=== PATIENT | female | born 1970 | race Caucasian/White ===

== ENCOUNTER 2023-03-17 08:22 | Outpatient (OUT) | payer OTHER, SELFPAY ==
[2023-03-17 09:20] LABS: Basophils Absolute Auto 0.1 10^3/uL (0.0-0.1); Eosinophils Absolute Auto 0.1 10^3/uL (0.0-0.7); Eosinophils Percent Auto 1.5 % (0.9-7.0); Hematocrit 39.1 % (36.0-48.0); Hemoglobin 12.1 g/dL (12.0-16.0); Immature Granulocytes Abs Auto 0.02 10^3/uL (0.00-0.03); Immature Granulocytes Pct Auto 0.3 % (0.0-0.5); Lymphocytes Absolute Auto 1.9 10^3/uL (1.2-3.8); Lymphocytes Percent Auto 26.4 % (20.5-60.0); Mean Corpuscular HGB Conc 30.9 g/dL (29.9-35.2); Mean Corpuscular Hemoglobin 28.8 pg (26.7-34.0); Mean Corpuscular Volume 93.1 fL (81.0-99.0); Mean Platelet Volume 9.3 fL (9.5-13.5); Monocytes Absolute Auto 0.6 10^3/uL (0.3-0.8); Monocytes Percent Auto 8.6 % (1.7-12.0); Neutrophils Absolute Auto 4.5 10^3/uL (1.4-6.5); Neutrophils Percent Auto 62.2 % (43.0-75.0); Platelet Count 233 10^3/uL (150-450); Red Cell Distribution Width 13.2 % (11.0-15.0); White Blood Count 7.2 10^3/uL (4.0-11.0)
== END 2023-03-17 08:23 | disposition home or self-care (01) ==
LOC: LAB 08:27
PROVIDERS: Visit Provider Family Medicine
DX: H02.839 Dermatochalasis of unspecified eye, unspecified eyelid (principal); H57.813 Brow ptosis, bilateral
CPT/HCPCS: 36415; 85025

== ENCOUNTER 2023-05-19 10:38 | Outpatient (OUT) | payer OTHER, SELFPAY ==
--- NOTE | 2023-05-19 10:41 | MM_ITS ---
Patient Name: SHAHBAZ ASHLEY MR#: [id number] : 1970 Exam Date: 05/19/2023 Ordering Doctor: DR YUNIOR MASTERSON . RADIOLOGY REPORT PROCEDURE: MM TOMOSYNTHESIS SCREENING BI COMPARISON: MG MAMM SCREEN SANG W CAD, 02/08/2020. INDICATIONS: screening Calculator Name NCI Breast Cancer Risk Assessment Tool 5 Year Breast Cancer Risk 1.00% Lifetime Breast Cancer Risk 7.50% Personal Breast Cancer No Personal Ovarian Cancer No Treatments None Family Cancers Grandmother-maternal with ovarian cancer at age ~55; Mother with uterus cancer at age 22; Nephew with brain cancer at age 19. LOCATION: [facility] BREAST COMPOSITION: Scattered areas fibroglandular density. FINDINGS: DIAGNOSTIC CATEGORY 2--BENIGN FINDING. NO CHANGE FROM COMPARISON. Scattered benign-appearing nodules are present. Scattered benign-appearing calcifications are present. Scattered benign-appearing lymph nodes are present. RIGHT BREAST: No significant suspicious finding. LEFT BREAST: No significant suspicious finding. RECOMMENDATIONS: ROUTINE MAMMOGRAM AND CLINICAL EVALUATION IN 12 MONTHS. PLEASE NOTE: A NORMAL MAMMOGRAM DOES NOT EXCLUDE THE POSSIBILITY OF BREAST CANCER. A CLINICALLY SUSPICIOUS PALPABLE LUMP SHOULD BE BIOPSIED. Dictated by: Luis Hall MD on 05/19/2023 at 12:03 Approved by: Luis Hall MD on 05/19/2023 at 12:04
--- NOTE | 2023-05-19 10:42 | XR_ITS ---
[address] [address] Patient Name: SHAHBAZ ASHLEY MRN: [id number] date: 1970 Sex: F Assigned Patient Location: [facility] Current Patient Location: [facility] Accession/Order Number: [id number] Exam Date: 05/19/2023 11:07 Report Date: 05/19/2023 11:38 At the request of: YUNIOR MASTERSON Procedure: XR DEXA axial skeleton EXAMINATION: XR DEXA axial skeleton, 05/19/2023 11:07 AM EST HISTORY: age related osteoporosis M81.0 COMPARISON: 2019. TECHNIQUE: Dual-energy X-ray absorptiometry (DEXA) bone density study performed for the axial skeleton. HISTORY: age related osteoporosis M81.0 FINDINGS: Bone mineral density left femoral trochanter measures 0.643 g/sq cm. T score -1.8. WHO classification: Osteoporosis Bone mineral density total femurs measures 0.86 g/sq cm. T score -1.0. WHO classification: Normal XR/XR DEXA axial skeleton IMPRESSION: Osteoporosis. High fracture risk Electronically authenticated by: JOVANA RECINOS Date: 05/19/2023 11:38
== END 2023-05-19 10:39 | disposition home or self-care (01) ==
LOC: MAMMO 10:38
PROVIDERS: PCP Family Medicine; Visit Provider Family Medicine
DX: M81.0 Age-related osteoporosis without current pathological fracture (principal); Z12.31 Encounter for screening mammogram for malignant neoplasm of breast; E78.00 Pure hypercholesterolemia, unspecified; R53.83 Other fatigue; E16.1 Other hypoglycemia; Z02.89 Encounter for other administrative examinations; E03.9 Hypothyroidism, unspecified; E55.9 Vitamin D deficiency, unspecified; Z80.41 Family history of malignant neoplasm of ovary; Z80.8 Family history of malignant neoplasm of other organs or systems
CPT/HCPCS: 77063; 77067; 77080

== ENCOUNTER 2023-06-11 09:07 | Outpatient (OUT) | payer OTHER, SELFPAY ==
[2023-06-11 10:11] LABS: Basophils Percent Auto 0.7 % (0.2-2.0); Eosinophils Absolute Auto 0.1 10^3/uL (0.0-0.7); Eosinophils Percent Auto 1.1 % (0.9-7.0); Hematocrit 41.7 % (36.0-48.0); Hemoglobin 12.9 g/dL (12.0-16.0); Immature Granulocytes Abs Auto 0.01 10^3/uL (0.00-0.03); Immature Granulocytes Pct Auto 0.2 % (0.0-0.5); Lymphocytes Absolute Auto 1.4 10^3/uL (1.2-3.8); Lymphocytes Percent Auto 22.5 % (20.5-60.0); Mean Corpuscular HGB Conc 30.9 g/dL (29.9-35.2); Mean Corpuscular Hemoglobin 27.9 pg (26.7-34.0); Mean Corpuscular Volume 90.3 fL (81.0-99.0); Mean Platelet Volume 9.3 fL (9.5-13.5); Monocytes Absolute Auto 0.5 10^3/uL (0.3-0.8); Monocytes Percent Auto 8.8 % (1.7-12.0); Neutrophils Absolute Auto 4.1 10^3/uL (1.4-6.5); Neutrophils Percent Auto 66.7 % (43.0-75.0); Platelet Count 204 10^3/uL (150-450); Red Blood Count 4.62 10^6/uL (4.20-5.40); Red Cell Distribution Width 13.8 % (11.0-15.0); White Blood Count 6.1 10^3/uL (4.0-11.0)
[2023-06-11 10:46] LABS: Alanine Aminotransferase 70 U/L (14-59); Albumin Globulin Ratio 0.9; Albumin Level 3.6 g/dL (3.4-5.0); Alkaline Phosphatase 130 U/L (46-116); Anion Gap 13.1; Aspartate Amino Transferase 100 U/L (15-37); BUN Creatinine Ratio 17.2; Bilirubin Total 0.5 mg/dL (0.2-1.0); Chloride 101 mmol/L (98-107); Chol HDL Ratio 2.1; Cholesterol 159 mg/dL (<=200); Estimated GFR (African America >60 (>=60); Estimated GFR (Non-African Ame >60 (>=60); Free T3 1.82 pg/mL (2.18-3.98); Globulin 4.2 g/dL; Glucose 80 mg/dL (74-106); HDL Cholesterol 74 mg/dL (40-60); Potassium 4.1 mmol/L (3.5-5.1); Sodium 141 mmol/L (136-145); Total Protein 7.8 g/dL (6.4-8.2); Triglycerides 41 mg/dL (<=150); VLDL CHOLESTEROL 8.2 mg/dL
[2023-06-11 11:35] LABS: Estimated Average Glucose 88 mg/dL; Glycohemoglobin A1C 4.7 % (4.5-6.2)
== END 2023-06-11 09:08 | disposition home or self-care (01) ==
LOC: LAB 09:08
PROVIDERS: PCP Family Medicine; Visit Provider Family Medicine
DX: Z00.00 Encounter for general adult medical examination without abnormal findings (principal); E78.5 Hyperlipidemia, unspecified; R73.09 Other abnormal glucose; I10 Essential (primary) hypertension; R53.83 Other fatigue
CPT/HCPCS: 36415; 80053; 80061; 82306; 83036; 84436; 84443; 84481; 85025

== ENCOUNTER 2024-01-13 09:19 | Outpatient (OUT) | payer OTHER, SELFPAY ==
--- OUTSIDE RECORDS SUMMARY | 2024-01-13 09:35 | XMS_ITS | CCD ---
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 2 views CLINICAL HISTORY: Follow-up left the tibial IM nailing. COMPARISON: Left tib-fib series 05/14/2022 FINDINGS: No evidence of hardware complication. No significant change in fracture alignment since the prior study. Tibial fracture is less conspicuous with callus formation suggestive of healing. Minimal healing response is seen involving the mid fibular fracture. Soft tissue swelling is noted. Visualized knee joint demonstrates degenerative change. Ankle mortise appears intact. XR/XR tibia fibula LT 2V* IMPRESSION: HEALING MID TIBIAL FRACTURE WITHOUT EVIDENCE OF HARDWARE COMPLICATION. MINIMAL HEALING RESPONSE SEEN INVOLVING THE FIBULAR FRACTURE. Impression dictated by: Cale Logan Jr., D.OJah06/25/2022 12:02 PM Dictation Location: [place] [address] Transcribed By: [facility] 06/25/22 1202 Dictated By: Cale Logan Jr DO 06/25/22 1201 Signed By: 06/25/22 1202 [facility] XR tibia fibula LT 2V* [facility] [employer] Other XR tibia fibula LT 2V* [facility] [employer] Other XR tibia fibula LT 2V* [address] [place] [address] [employer] Other XR tibia fibula LT 2V* [place] [address] [employer] Other XR tibia fibula LT 2V* XRay Report N [facility] [employer] Other XR tibia fibula LT 2V* Signed No rt [employer] Other XR tibia fibula LT 2V* Patient: Christiane Ashley MR#: [id number] [employer] Other XR tibia fibula LT 2V* 01 No rt [employer] Other XR tibia fibula LT 2V* : 1970 Acct:[id number] [employer] Other XR tibia fibula LT 2V* Age/Sex: 51 / F A DM Date: 06/25/22 [employer] Other XR tibia fibula LT 2V* [place] [facility] [place]: Type: [facility] [employer] Other XR tibia fibula LT 2V* Attending Dr: Nahid Vasquez II, MD [employer] Other XR tibia fibula LT 2V* Copies to: Aquiles Vasquez MD [employer] Other XR tibia fibula LT 2V* Ordering Provider : Aquiles Vasquez MD [employer] Other XR tibia fibula LT 2V* Date of Service: 06/25/22 [employer] Other XR tibia fibula LT 2V* XR/XR tibia fibula LT 2V*: Closed displaced comminuted fracture of shaft [employer] Other XR tibia fibula LT 2V* of left tibia, [employer] Other XR tibia fibula LT 2V* LEFT TIBIA AND FIBULA - - 2 views [employer] Other XR tibia fibula LT 2V* CLINICAL HISTORY: Follow-up left the tibial IM nailing. [employer] Other XR tibia fibula LT 2V* COMPARISON: Left tib-fib series 05/14/2022 [employer] Other XR tibia fibula LT 2V* FINDINGS: No rt [employer] Other XR tibia fibula LT 2V* No evidence of hardware complication. No significant change in fracture alignment since the prior [employer] Other XR tibia fibula LT 2V* study. Tibial fracture is less conspicuous with callus formation suggestive of healing. Minimal [employer] Other XR tibia fibula LT 2V* healing response is seen involving the mid fibular fracture. Soft tissue swelling is noted. [employer] Other XR tibia fibula LT 2V* Visualized knee joint demonstrates degenerative change. Ankle mortise appears intact. [employer] Other XR tibia fibula LT 2V* 5 XR/XR tibia fibula LT 2V* [employer] Other XR tibia fibula LT 2V* IMPRESSION: N [employer] Other XR tibia fibula LT 2V* HEALING MID TIBIA L FRACTURE WITHOUT EVIDENCE OF HARDWARE COMPLICATION. [employer] Other XR tibia fibula LT 2V* MINIMAL HEALING RESPONSE SEEN INVOLVING THE FIBULAR FRACTURE. [employer] Other XR tibia fibula LT 2V* Impression dictat ed by: Cale Logan Jr., D.O.06/25/2022 12:02 PM [employer] Other XR tibia fibula LT 2V* Dictation Locatio n: RADIO-PC-08 [employer] Other XR tibia fibula LT 2V* Transcribed By: Catrachita RAMIREZ 06/25/22 1202 [employer] Other XR tibia fibula LT 2V* Dictated By: Yared Logan Jr, DO 06/25/22 1201 [employer] Other XR tibia fibula LT 2V* Signed By: No rt [employer] Other XR tibia fibula LT 2V* 06/25/22 1202 [employer] Other XR tibia fibula LT 2V*on XR tibia fibula LT 2V* [facility] [place] [address] [place] [address] XRay Report Signed Patient: Christiane Ashley MR#: [id number] 01 : 1970 Acct:[id number] Age/Sex: 51 / F ADM Date: 05/14/22 Loc: [facility] [place]: Type: [facility] Attending Dr: Aquiles Vasquez II, MD Copies to: Aquiles Vasquez MD Ordering Provider: Aquiles Vasquez MD Date of Service: 05/14/22 XR/XR tibia fibula LT 2V*: Closed displaced comminuted fracture of shaft of left tibia, XR tibia fibula LT 2V* 05/14/2022 9:06 AM SIGNS AND SYMPTOMS: Status post left tibial nailing, increasing left lower leg pain PROTOCOL: Frontal and lateral radiograph of the left tibia and fibula COMPARISON: 04/16/2022 FINDINGS: Transverse aortic fractures are noted in the shaft of the tibia and fibula status post intramedullary bettye fixation of the tibia. There is increasing periosteal new bone formation suggesting a healing response. Healing remains incomplete. No change in alignment. XR/XR tibia fibula LT 2V* IMPRESSION: Healing fractures of the mid shaft of the tibia and fibula are noted without change in alignment or hardware complication. Impression dictated by: Kamron Brooks M.D.05/14/2022 12:12 PM Dictation Location: [facility] Transcribed By: [facility] 05/14/22 1212 Dictated By: Kamron Brooks II, MD 05/14/22 1211 Signed By: 05/14/22 1212 [facility] XR tibia fibula LT 2V* [facility] [employer] Other XR tibia fibula LT 2V* [facility] Main [facility] [employer] Other XR tibia fibula LT 2V* [address] [place] [address] [employer] Other XR tibia fibula LT 2V* [place] [address] [employer] Other XR tibia fibula LT 2V* XRay Report N [facility] [employer] Other XR tibia fibula LT 2V* Signed No rt [employer] Other XR tibia fibula LT 2V* Patient: Christiane Ashley MR#: [id number] [employer] Other XR tibia fibula LT 2V* 01 No rt [employer] Other XR tibia fibula LT 2V* : 1970 Acct:[id number] [employer] Other XR tibia fibula LT 2V* Age/Sex: 51 / F A DM Date: 05/14/22 [employer] Other XR tibia fibula LT 2V* Loc: [facility] [place]: Type: [facility] [employer] Other XR tibia fibula LT 2V* Attending Dr: Nahid Vasquez II, MD [employer] Other XR tibia fibula LT 2V* Copies to: Aquiles Vasquez MD [employer] Other XR tibia fibula LT 2V* Ordering Provider : Aquiles Vasquez MD [employer] Other XR tibia fibula LT 2V* Date of Service: 05/14/22 [employer] Other XR tibia fibula LT 2V* XR/XR tibia fibula LT 2V*: Closed displaced comminuted fracture of shaft [employer] Other XR tibia fibula LT 2V* of left tibia, [employer] Other XR tibia fibula LT 2V* XR tibia fibula L T 2V* 05/14/2022 9:06 AM [employer] Other XR tibia fibula LT 2V* SIGNS AND SYMPTOM S: Status post left tibial nailing, increasing left lower leg pain [employer] Other XR tibia fibula LT 2V* PROTOCOL: Frontal and lateral radiograph of the left tibia and fibula [employer] Other XR tibia fibula LT 2V* COMPARISON: 04/16/2022 [employer] Other XR tibia fibula LT 2V* FINDINGS: No rt [employer] Other XR tibia fibula LT 2V* Transverse aortic fractures are noted in the shaft of the tibia and fibula status post [employer] Other XR tibia fibula LT 2V* intramedullary ro d fixation of the tibia. There is increasing periosteal new bone formation [employer] Other XR tibia fibula LT 2V* suggesting a heal ing response. Healing remains incomplete. No change in alignment. [employer] Other XR tibia fibula LT 2V* 8 XR/XR tibia fibula LT 2V* [employer] Other XR tibia fibula LT 2V* IMPRESSION: N [employer] Other XR tibia fibula LT 2V* Healing fractures of the mid shaft of the tibia and fibula are noted without change in alignment or [employer] Other XR tibia fibula LT 2V* hardware complication. [employer] Other XR tibia fibula LT 2V* Impression dictat ed by: Kamron Brooks M.D.05/14/2022 12:12 PM [employer] Other XR tibia fibula LT 2V* Dictation Locatio n: RADIO-PC-12 [employer] Other XR tibia fibula LT 2V* Transcribed By: Catrachita RAMIREZ 05/14/22 [facility] [employer] Other XR tibia fibula LT 2V* Dictated By: Kamron Brooks II, MD 05/14/22 [facility] [employer] Other XR tibia fibula LT 2V* Signed By: No rt [employer] Other XR tibia fibula LT 2V* 05/14/22 [facility] [employer] Other XR tibia fibula LT 2V*on XR tibia fibula LT 2V* [facility] [place] [address] [place] [address] XRay Report Signed Patient: Christiane Ashley MR#: [id number] 01 : 1970 Acct:[id number] Age/Sex: 51 / F ADM Date: 04/16/22 Loc: [facility] [place]: [facility] Attending Dr: Aquiles Vasquez II, MD Copies to: Aquiles Vasquez MD Ordering Provider: Aquiles Vasquez MD Date of Service: 04/16/22 XR/XR tibia fibula LT 2V*: Closed displaced comminuted fracture of shaft of left tibia, LEFT TIBIA AND FIBULA - - 2 views CLINICAL HISTORY: Closed displaced comminuted fracture of left tibia, follow-up. COMPARISON: Left tib-fib series 03/01/2022 FINDINGS: Hardware fixation of a mid tibial fracture grossly unchanged in alignment and healing compared to the prior study. Additional mid fibular fracture is also unchanged in alignment and healing. Diffuse soft tissue swelling is noted. Degenerative changes are noted involving the visualized knee joint. Ankle mortise appears intact. XR/XR tibia fibula LT 2V* IMPRESSION: NO SIGNIFICANT CHANGE IN FRACTURE FINDINGS. Impression dictated by: Cale Logan Jr., D.O.04/16/2022 2:43 PM Dictation Location: [place] [address] Transcribed By: [facility] 04/16/22 1443 Dictated By: Cale Logan Jr, 04/16/22 1441 Signed By: 04/16/22 1443 [facility] XR tibia fibula LT 2V* [facility] [employer] Other XR tibia fibula LT 2V* [facility] Main [facility] [employer] Other XR tibia fibula LT 2V* [address] [place] [address] [employer] Other XR tibia fibula LT 2V* [place] [address] [facility] [employer] Other XR tibia fibula LT 2V* XRay Report N [facility] [employer] Other XR tibia fibula LT 2V* Signed No rt [employer] Other XR tibia fibula LT 2V* Patient: Christiane Ashley MR#: [id number] [employer] Other XR tibia fibula LT 2V* 01 No rt [employer] Other XR tibia fibula LT 2V* : 1970 Acct:[id number] [employer] Other XR tibia fibula LT 2V* Age/Sex: 51 / F A DM Date: 04/16/22 [employer] Other XR tibia fibula LT 2V* Loc: [facility] Room: Type: [facility] [employer] Other XR tibia fibula LT 2V* Attending Dr: Nahid Vasquez II, MD [employer] Other XR tibia fibula LT 2V* Copies to: Aquiles Vasquez MD [employer] Other XR tibia fibula LT 2V* Ordering Provider : Aquiles Vasquez MD [employer] Other XR tibia fibula LT 2V* Date of Service: 04/16/22 [employer] Other XR tibia fibula LT 2V* XR/XR tibia fibula LT 2V*: Closed displaced comminuted fracture of shaft [employer] Other XR tibia fibula LT 2V* of left tibia, [employer] Other XR tibia fibula LT 2V* LEFT TIBIA AND FIBULA - - 2 views [employer] Other XR tibia fibula LT 2V* CLINICAL HISTORY: Closed displaced comminuted fracture of left tibia, follow-up. [employer] Other XR tibia fibula LT 2V* COMPARISON: Left tib-fib series 03/01/2022 [employer] Other XR tibia fibula LT 2V* FINDINGS: No rt [employer] Other XR tibia fibula LT 2V* Hardware fixation of a mid tibial fracture grossly unchanged in alignment and healing compared to [employer] Other XR tibia fibula LT 2V* the prior study. Additional mid fibular fracture is also unchanged in alignment and healing. [employer] Other XR tibia fibula LT 2V* Diffuse soft tiss ue swelling is noted. Degenerative changes are noted involving the visualized knee [employer] Other XR tibia fibula LT 2V* joint. Ankle mort ise appears intact. [employer] Other XR tibia fibula LT 2V* 1 XR/XR tibia fibula LT 2V* [employer] Other XR tibia fibula LT 2V* IMPRESSION: N [employer] Other XR tibia fibula LT 2V* NO SIGNIFICANT CHANGE IN FRACTURE FINDINGS. [employer] Other XR tibia fibula LT 2V* Impression dictat ed by: Cale Logan Jr., D.OJah04/16/2022 2:43 PM [employer] Other XR tibia fibula LT 2V* Dictation Locatio n: RADIO-PC-09 [employer] Other XR tibia fibula LT 2V* Transcribed By: Catrachita WS 04/16/22 [facility] [employer] Other XR tibia fibula LT 2V* Dictated By: Yared Logan Jr, DO 04/16/22 [facility] [employer] Other XR tibia fibula LT 2V* Signed By: No rt [employer] Other XR tibia fibula LT 2V* 04/16/22 [facility] [employer] Other INSULINon 04-05-2022 Insulin 2.3 uIU/mL Critically low 2.6-24.9 [facility] Comment on above: Performed By: #### C MP, LIPID, TSH, T7 #### [facility] [address] [place] [address] Dr. Mehnaz Dubon CBC AUTO DIFFon 04-04-2022 BASO # 0.1 103/ul Normal 0.0-0.1 [facility] Comment on above: Performed By: #### C MP, LIPID, TSH, T7 #### [facility] [address] [place] [address] Dr. Mehnaz Dubon Basophils/100 WBC (Bld) 1.0 % Normal 0.2-2.0 [facility] Comment on above: Performed By: #### C MP, LIPID, TSH, T7 #### [facility] [address] [place] [address] Dr. Mehnaz Dubon EO # 0.3 103/ul Normal 0.0-0.7 [facility] Comment on above: Performed By: #### C MP, LIPID, TSH, T7 #### [facility] [address] [place] [address] Dr. Mehnaz Dubon Eosinophils/100 WBC (Bld) 4.8 % Normal 0.9-7.0 [facility] Comment on above: Performed By: #### C MP, LIPID, TSH, T7 #### [facility] [address] [place] [address] Dr. Mehnaz Dubon Erythrocyte distribution width (RBC) [Ratio] 13.9 % Normal 11.0-15.0 [facility] Comment on above: Performed By: #### C MP, LIPID, TSH, T7 #### [facility] [address] [place] [address] Dr. Mehnaz Dubon Hematocrit (Bld) [Volume fraction] 37.1 % Normal 36.0-48.0 [facility] Comment on above: Performed By: #### C MP, LIPID, TSH, T7 #### [facility] [address] [place] [address] Dr. Mehnaz Dubon Hemoglobin (Bld) [Mass/Vol] 11.8 g/dL Critically low 12.0-16.0 [facility] Comment on above: Performed By: #### C MP, LIPID, TSH, T7 #### [facility] [address] [place] [address] Dr. Mehnaz Dubon IG # 0.01 10e3/ul Normal 0.00-0.03 [facility] Comment on above: Performed By: #### C MP, LIPID, TSH, T7 #### [facility] [address] [place] [address] Dr. Mehnaz Dubon IG % 0.2 % Normal 0.0-0.5 [facility] Comment on above: Performed By: #### C MP, LIPID, TSH, T7 #### [facility] [address] [place] [address] Dr. Mehnaz Dubon LYMPH # 1.1 103/ul Critically low 1.2-3.8 [facility] Comment on above: Performed By: #### C MP, LIPID, TSH, T7 #### [facility] [address] [place] [address] Dr. Mehnaz Dubon Lymphocytes/100 WBC (Bld) 18.2 % Critically low 20.5-60.0 [facility] Comment on above: Performed By: #### C MP, LIPID, TSH, T7 #### [facility] [address] [place] [address] Dr. Mehnaz Dubon MANUAL DIFF REQ NO Normal [facility] Comment on above: Performed By: #### C MP, LIPID, TSH, T7 #### [facility] [address] [place] [address] Dr. Mehnaz Dubon MCH (RBC) [Entitic mass] 29.6 pg Normal 26.7-34.0 [facility] Comment on above: Performed By: #### C MP, LIPID, TSH, T7 #### [facility] [address] [place] [address] Dr. Mehnaz Dubon MCHC (RBC) [Mass/Vol] 31.8 g/dL Normal 29.9-35.2 [facility] Comment on above: Performed By: #### C MP, LIPID, TSH, T7 #### [facility] [address] [place] [address] Dr. Mehnaz Dubon MCV (RBC) [Entitic vol] 93.2 fL Normal 81.0-99.0 [facility] Comment on above: Performed By: #### C MP, LIPID, TSH, T7 #### [facility] [address] [place] [address] Dr. Mehnaz Dubon MONO # 0.6 103/ul Normal 0.3-0.8 [facility] Comment on above: Performed By: #### C MP, LIPID, TSH, T7 #### [facility] [address] [place] [address] Dr. Mehnaz Dubon Monocytes/100 WBC (Bld) 9.7 % Normal 1.7-12.0 [facility] Comment on above: Performed By: #### C MP, LIPID, TSH, T7 #### [facility] [address] [place] [address] [address] Mehnaz Dubon NEUT # 4.0 103/ul Normal 1.4-6.5 [facility] Comment on above: Performed By: #### C MP, LIPID, TSH, T7 #### [facility] [address] [place] [address] [address] Mehnaz Dubon Neutrophils/100 WBC (Bld) 66.1 % Normal 43.0-75.0 [facility] Comment on above: Performed By: #### C MP, LIPID, TSH, T7 #### [facility] [address] [place] [address] Dr. Mehnaz Dubon Platelet mean volume (Bld) [Entitic vol] 9.5 fL Normal 9.5-13.5 [facility] Comment on above: Performed By: #### C MP, LIPID, TSH, T7 #### [facility] [address] [place] [address] Dr. Mehnaz Dubon PLT 216 103/ul Normal 150-450 [facility] Comment on above: Performed By: #### C MP, LIPID, TSH, T7 #### [facility] [address] [place] [address] Dr. Mehnaz Dubon RBC 3.98 106/ul Critically low 4.20-5.40 [facility] Comment on above: Performed By: #### C MP, LIPID, TSH, T7 #### [facility] [address] [place] [address] Dr. Mehnaz Dubon WBC 6.0 103/ul Normal 4.0-11.0 [facility] Comment on above: Performed By: #### C MP, LIPID, TSH, T7 #### [facility] [address] [place] [address] Dr. Mehnaz Dubon FREE THYROXINE INDEX T7on FTI 1.52 Normal 1.30-4.50 [facility] Comment on above: Performed By: #### C MP, LIPID, TSH, T7 #### [facility] [address] [place] [address] [address] Mehnaz Dubon T3U 37.0 % Normal 30.0-39.0 [facility] Comment on above: Performed By: #### C MP, LIPID, TSH, T7 #### [facility] [address] [place] [address] [address] Mehnaz Dubon T4 [Mass/Vol] 4.10 ug/dL Critically low 4.80-13.90 [facility] Comment on above: Performed By: #### C MP, LIPID, TSH, T7 #### [facility] [address] [place] [address] [address] Mehnaz Dubon GLYCOHEMOGLOBIN A1Con 2021 ADA RECOMMENDATION SEE BELOW Normal [facility] Comment on above: Result Comment: ADA RECOMMENDED LIMIT 4.0 - 6.0 ADA THERAPEUTIC TARGET < 7.0 ACTION SUGGESTED > 7.0 Performed By: #### C MP, LIPID, TSH, T7 #### [facility] [address] [place] [address] [address] Mehnaz Dubon Glucose [Mass/Vol] 62 mg/dL Normal [facility] Comment on above: Performed By: #### C MP, LIPID, TSH, T7 #### [facility] [address] [place] [address] [address] Mehnaz Dubon HbA1c (Bld) [Mass fraction] 3.8 % Critically low 4.5-6.2 [facility] Comment on above: Performed By: #### C MP, LIPID, TSH, T7 #### [facility] [address] [place] [address] [address] Mehnaz Dubon IRONon 04-04-2022 Iron [Mass/Vol] 56.0 ug/dL Normal 50.0-170.0 [facility] Comment on above: Performed By: #### C MP, LIPID, TSH, T7 #### [facility] [address] [place] [address] [address] Mehnaz Dubon LIPID PROFILEon 04-04-2022 CHOL-HDL RATIO NORM SEE BELOW Normal [facility] Comment on above: Result Comment: 3.3 - 4.4 LOW RISK 4.4 - 7.1 AVERAGE RISK 7.1 - 11.0 MODERATE RISK >11.0 HIGH RISK Performed By: #### C MP, LIPID, TSH, T7 #### [facility] [address] [place] [address] [address] Mehnaz Dubon Cholesterol [Mass/Vol] 131 mg/dL Normal <=[address] [facility] Comment on above: Performed By: #### C MP, LIPID, TSH, T7 #### [facility] [address] [place] [address] [address] Mehnaz Dubon Cholesterol in HDL [Mass/Vol] 86 mg/dL Critically high 40-60 [facility] Comment on above: Performed By: #### C MP, LIPID, TSH, T7 #### [facility] [address] [place] [address] Dr. Mehnaz Dubon Cholesterol in LDL [Mass/Vol] 39.4 mg/dL Normal [facility] Comment on above: Performed By: #### C MP, LIPID, TSH, T7 #### [facility] [address] [place] [address] Dr. Mehnaz Dubon Cholesterol.total/Arcelia sterol in HDL [Mass ratio] 1.5 {ratio} Normal [facility] Comment on above: Performed By: #### C MP, LIPID, TSH, T7 #### [facility] [address] [place] [address] Dr. Mehnaz Dubon HDL NORMAL > or = 60 mg/dl - LOW CARDIOVASCULAR RISK <40 mg/dl - HIGH CARDIOVASCULAR RISK Normal [facility] Comment on above: Performed By: #### C MP, LIPID, TSH, T7 #### [facility] [address] [place] [address] Dr. Mehnaz Dubon LDL CALC NORMAL SEE BELOW Normal [facility] Comment on above: Result Comment: <100 mg/dl OPTIMAL 100 - 129 mg/dl NEAR OR ABOVE OPTIMAL 130 - 159 mg/dl BORDERLINE HIGH 160 - 189 mg/dl HIGH >190 mg/dl VERY HIGH Performed By: #### C MP, LIPID, TSH, T7 #### [facility] [address] [address] [address] Mehnaz Dubon Triglyceride [Mass/Vol] 28 mg/dL Normal <=150 T [facility] Comment on above: Performed By: #### C MP, LIPID, TSH, T7 #### [facility] [address] [address] [address] Mehnaz Dubon VLDL CALC 5.6 mg/dL Normal [facility] Comment on above: Performed By: #### C MP, LIPID, TSH, T7 #### [facility] [address] [place] [address] Dr. Mehnaz Dubon PROF 14(COMP METB)on 022 Albumin [Mass/Vol] 3.1 g/dL Critically low 3.4-5.0 [facility] Comment on above: Performed By: #### C MP, LIPID, TSH, T7 #### [facility] [address] [place] [address] Dr. Mehnaz Dubon Albumin/Globulin [Mass ratio] 1.0 {ratio} Normal [facility] Comment on above: Performed By: #### C MP, LIPID, TSH, T7 #### [facility] [address] [place] [address] Dr. Mehnaz Dubon ALP [Catalytic activity/Vol] 131 U/L Critically high 46-116 [facility] Comment on above: Performed By: #### C MP, LIPID, TSH, T7 #### [facility] [address] [place] [address] Dr. Mehnaz Dubon ALT [Catalytic activity/Vol] 21 U/L Normal 14-59 [facility] Comment on above: Performed By: #### C MP, LIPID, TSH, T7 #### [facility] [address] [place] [address] Dr. Mehnaz Dubon Anion gap [Moles/Vol] 11.2 mmol/L Normal [facility] Comment on above: Performed By: #### C MP, LIPID, TSH, T7 #### [facility] [address] [place] [address] Dr. Mehnaz Dubon AST [Catalytic activity/Vol] 26 U/L Normal 15-37 [facility] Comment on above: Performed By: #### C MP, LIPID, TSH, T7 #### [facility] [address] [place] [address] Dr. Mehnaz Dubon Bilirubin [Mass/Vol] 0.6 mg/dL Normal 0.2-1.0 [facility] Comment on above: Performed By: #### C MP, LIPID, TSH, T7 #### [facility] [address] [place] [address] Dr. Mehnaz Dubon Calcium [Mass/Vol] 8.8 mg/dL Normal 8.5-10.1 [facility] Comment on above: Performed By: #### C MP, LIPID, TSH, T7 #### [facility] Laboratory [address] [place] [address] Dr. Mehnaz Dubon Chloride [Moles/Vol] 104 mmol/L Normal 98-107 [facility] Comment on above: Performed By: #### C MP, LIPID, TSH, T7 #### [facility] [address] [place] [address] Dr. Mehnaz Dubon CO2 [Moles/Vol] 28.3 mmol/L Normal 21.0-32.0 [facility] Comment on above: Performed By: #### C MP, LIPID, TSH, T7 #### [facility] [address] [place] [address] Dr. Mehnaz Dubon Creatinine [Mass/Vol] 0.37 mg/dL Critically low 0.55-1.02 [facility] Comment on above: Performed By: #### C MP, LIPID, TSH, T7 #### [facility] [address] [place] [address] Dr. Mehnaz Dubon EGFR-AF EQUATORIAL GUINEAN >60 Normal >=60 [facility] Comment on above: Performed By: #### C MP, LIPID, TSH, T7 #### [facility] [address] [place] [address] Dr. Mehnaz Dubon EGFR-NON AF EQUATORIAL GUINEAN >60 Normal >=60 [facility] Comment on above: Performed By: #### C MP, LIPID, TSH, T7 #### [facility] [address] [place] [address] Dr. Mehnaz Dubon Globulin (S) [Mass/Vol] 3.0 g/dL Normal T he [facility] Comment on above: Performed By: #### C MP, LIPID, TSH, T7 #### [facility] [address] [address] [address] Mehnaz Dubon Glucose [Mass/Vol] 76 mg/dL Normal 74-106 [facility] Comment on above: Performed By: #### C MP, LIPID, TSH, T7 #### [facility] [address] [place] [address] Dr. Mehnaz Dubon Potassium [Moles/Vol] 3.5 mmol/L Normal 3.5-5.1 [facility] Comment on above: Performed By: #### C MP, LIPID, TSH, T7 #### [facility] [address] [place] [address] Dr. Mehnaz Dubon Protein [Mass/Vol] 6.1 g/dL Critically low 6.4-8.2 [facility] Comment on above: Performed By: #### C MP, LIPID, TSH, T7 #### [facility] [address] [place] [address] Dr. Mehnaz Dubon Sodium [Moles/Vol] 140 mmol/L Normal 136-145 [facility] Comment on above: Performed By: #### C MP, LIPID, TSH, T7 #### [facility] [address] [place] [address] Dr. Mehnaz Dubon Urea nitrogen [Mass/Vol] 8.0 mg/dL Normal 7.0-18.0 [facility] Comment on above: Performed By: #### C MP, LIPID, TSH, T7 #### [facility] [address] [place] [address] Dr. Mehnaz Dubon Urea nitrogen/Creatinine [Mass ratio] 21.6 mg/mg Normal [facility] Comment on above: Performed By: #### C MP, LIPID, TSH, T7 #### [facility] [address] [place] [address] Dr. Mehnaz Dubon TSHon 04-04-2022 TSH 4.446 uIU/mL Critically high 0.358-3.740 [facility] Comment on above: Performed By: #### C MP, LIPID, TSH, T7 #### [facility] [address] [place] [address] Dr. Mehnaz Dubon VITAMIN B12on 04-04-2022 Cobalamin (Vitamin B12) [Mass/Vol] 872.0 pg/mL Normal 193.0-986.0 [facility] Comment on above: Performed By: #### C MP, LIPID, TSH, T7 #### [facility] [address] [place] [address] Dr. Mehnaz Dubon VITAMIN D 25 OHon 04-04-2022 VIT D 25-OH 41.4 ng/mL Normal [facility] Comment on above: Performed By: #### C MP, LIPID, TSH, T7 #### [facility] [address] [place] [address] Dr. Mehnaz Dubon VIT D RANGES SEE BELOW Normal [facility] Comment on above: Result Comment: <20 ng/mL Vit D deficient 20 - <30 ng/mL Vit D insufficient 30 - 100 ng/mL Vit D sufficient >100 ng/mL Potential Toxicity Performed By: #### C MP, LIPID, TSH, T7 #### [facility] [address] [place] [address] Dr. Mehnaz Dubon CBC AUTO DIFFon 03-09-2022 BASO # 0.1 103/ul Normal 0.0-0.1 [facility] Comment on above: Performed By: #### C MP, LIPID, TSH, T7 #### [facility] [address] [place] [address] Dr. Mehnaz Dubon Basophils/100 WBC (Bld) 1.3 % Normal 0.2-2.0 [facility] Comment on above: Performed By: #### C MP, LIPID, TSH, T7 #### [facility] [address] [place] [address] Dr. Mehnaz Dubon EO # 0.2 103/ul Normal 0.0-0.7 [facility] Comment on above: Performed By: #### C MP, LIPID, TSH, T7 #### [facility] [address] [place] [address] Dr. Mehnaz Dubon Eosinophils/100 WBC (Bld) 3.0 % Normal 0.9-7.0 [facility] Comment on above: Performed By: #### C MP, LIPID, TSH, T7 #### [facility] [address] [address] [address] Mehnaz Dubon Erythrocyte distribution width (RBC) [Ratio] 13.9 % Normal 11.0-15.0 [facility] Comment on above: Performed By: #### C MP, LIPID, TSH, T7 #### [facility] [address] [place] [address] Dr. Mehnaz Dubon Hematocrit (Bld) [Volume fraction] 29.7 % Critically low 36.0-48.0 [facility] Comment on above: Performed By: #### C MP, LIPID, TSH, T7 #### [facility] [address] [place] [address] Dr. Mehnaz Dubon Hemoglobin (Bld) [Mass/Vol] 9.5 g/dL Critically low 12.0-16.0 [facility] Comment on above: Performed By: #### C MP, LIPID, TSH, T7 #### [facility] [address] [place] [address] Dr. Mehnaz Dubon IG # 0.03 10e3/ul Normal 0.00-0.03 [facility] Comment on above: Performed By: #### C MP, LIPID, TSH, T7 #### [facility] [address] [place] [address] Dr. Mehnaz Dubon IG % 0.5 % Normal 0.0-0.5 [facility] Comment on above: Performed By: #### C MP, LIPID, TSH, T7 #### [facility] [address] [place] [address] Dr. Mehnaz Dubon LYMPH # 1.7 103/ul Normal 1.2-3.8 [facility] Comment on above: Performed By: #### C MP, LIPID, TSH, T7 #### [facility] [address] [place] [address] Dr. Mehnaz Dubon Lymphocytes/100 WBC (Bld) 27.0 % Normal 20.5-60.0 [facility] Comment on above: Performed By: #### C MP, LIPID, TSH, T7 #### [facility] [address] [address] [address] Mehnaz Dubon MANUAL DIFF REQ NO Normal [facility] Comment on above: Performed By: #### C MP, LIPID, TSH, T7 #### [facility] [address] [place] [address] Dr. Mehnaz Dubon MCH (RBC) [Entitic mass] 31.0 pg Normal 26.7-34.0 [facility] Comment on above: Performed By: #### C MP, LIPID, TSH, T7 #### [facility] [address] [place] [address] Dr. Mehnaz Dubon MCHC (RBC) [Mass/Vol] 32.0 g/dL Normal 29.9-35.2 [facility] Comment on above: Performed By: #### C MP, LIPID, TSH, T7 #### [facility] [address] [place] [address] Dr. Mehnaz Dubon MCV (RBC) [Entitic vol] 97.1 fL Normal 81.0-99.0 [facility] Comment on above: Performed By: #### C MP, LIPID, TSH, T7 #### [facility] [address] [place] [address] Dr. Mehnaz Dubon MONO # 0.6 103/ul Normal 0.3-0.8 [facility] Comment on above: Performed By: #### C MP, LIPID, TSH, T7 #### [facility] [address] [place] [address] Dr. Mehnaz Dubon Monocytes/100 WBC (Bld) 9.0 % Normal 1.7-12.0 [facility] Comment on above: Performed By: #### C MP, LIPID, TSH, T7 #### [facility] [address] [place] [address] Dr. Mehnaz Dubon NEUT # 3.6 103/ul Normal 1.4-6.5 [facility] Comment on above: Performed By: #### C MP, LIPID, TSH, T7 #### [facility] [address] [address] [address] Mehnaz Dubon Neutrophils/100 WBC (Bld) 59.2 % Normal 43.0-75.0 [facility] Comment on above: Performed By: #### C MP, LIPID, TSH, T7 #### [facility] [address] [address] [address] Mehnaz Dubon Platelet mean volume (Bld) [Entitic vol] 9.4 fL Critically low 9.5-13.5 [facility] Comment on above: Performed By: #### C MP, LIPID, TSH, T7 #### [facility] [address] [address] [address] Mehnaz Dubon PLT 263 103/ul Normal 150-450 [facility] Comment on above: Performed By: #### C MP, LIPID, TSH, T7 #### [facility] [address] [place] [address] Dr. Mehnaz Dubon RBC 3.06 106/ul Critically low 4.20-5.40 [facility] Comment on above: Performed By: #### C MP, LIPID, TSH, T7 #### [facility] [address] [address] [address] Mehnaz Dubon WBC 6.1 103/ul Normal 4.0-11.0 [facility] Comment on above: Performed By: #### C MP, LIPID, TSH, T7 #### [facility] [address] [place] [address] Dr. Mehnaz Dubon CTA CHEST WO W CONon -30-2 022 CTA CHEST WO W CON EXAMINATION: CTA CHEST WO W CON HISTORY: CHEST PAIN, UNSPECIFIED COMPARISON: None. TECHNIQUE: CT angiography of the pulmonary arteries following the administration of intravenous contrast. Coronal and sagittal MIP (maximum intensity projection) images were performed. 3-D image processing also performed. Dose reduction techniques were achieved by using automated exposure control and/or adjustment of mA and/or kV according to patient size and/or use of iterative reconstruction technique. FINDINGS: The study is technically adequate for the diagnosis of pulmonary embolism, with good contrast bolus to the pulmonary arteries. TUBES AND IMPLANTS: Cervical spinal hardware is partially visualized. CHEST WALL AND LOWER NECK: Unremarkable. BONES: No suspicious lesions. Dextroconvex scoliosis. UPPER ABDOMEN: Prior gastric bypass surgery. Splenule. MEDIASTINUM AND NICOLLE: Unremarkable. AORTA: No dissection or aneurysm PULMONARY ARTERIES: No embolism HEART: Not enlarged CORONARY ARTERIES: No coronary artery calcifications. LUNG AND AIRWAYS: Unremarkable. PLEURA: Unremarkable. IMPRESSION: 1. No evidence for pulmonary embolism. 2. No aortic dissection. Electronically authenticated by: ELE HEARD Date: 2022-03-09 21:52 Normal [facility] D-DIMERon 03-09-2022 D-DIMER 1.98 mg/L FEU Critically high <=0.59 [facility] Comment on above: Performed By: #### C MP, LIPID, TSH, T7 #### [facility] [address] [address] [address] Mehnaz Dubon D-DIMER COMMENTS SEE BELOW Normal [facility] Comment on above: Result Comment: Incr eases in D-Dimer concentration observed with thromboembolic events can be variable due to localization, size, and age of the thrombus. Therefore, a thromboembolic event cannot be diagnosed with certainty on the basis of the reference range. D-Dimers may also be elevated for a variety of disorders including: advanced age, , coronary disease, cancer, liver disease, infection, inflammation, hematoma, DIC, trauma, post-surgery, diabetes, thrombolytic or anticoagulant therapy, stress, and generalized hospitalization. Performed By: #### C MP, LIPID, TSH, T7 #### [facility] [address] [place] [address] Dr. Mehnaz Dubon PROF 14(COMP METB)on 022 Albumin [Mass/Vol] 2.9 g/dL Critically low 3.4-5.[address] [facility] Comment on above: Performed By: #### C MP, LIPID, TSH, T7 #### [facility] [address] [address] [address] Mehnaz Dubon Albumin/Globulin [Mass ratio] 0.8 {ratio} Normal [facility] Comment on above: Performed By: #### C MP, LIPID, TSH, T7 #### [facility] [address] [address] [address] Mehnaz Dubon ALP [Catalytic activity/Vol] 128 U/L Critically high 46-116 [facility] Comment on above: Performed By: #### C MP, LIPID, TSH, T7 #### [facility] [address] [place] [address] Dr. Mehnaz Dubon ALT [Catalytic activity/Vol] 31 U/L Normal 14-59 [facility] Comment on above: Performed By: #### C MP, LIPID, TSH, T7 #### [facility] [address] [place] [address] Dr. Mehnaz Dubon Anion gap [Moles/Vol] 11.1 mmol/L Normal Th e [facility] Comment on above: Performed By: #### C MP, LIPID, TSH, T7 #### [facility] [address] [place] [address] Dr. Mehnaz Dubon AST [Catalytic activity/Vol] 29 U/L Normal 15-37 [facility] Comment on above: Performed By: #### C MP, LIPID, TSH, T7 #### [facility] [address] [place] [address] Dr. Mehnaz Dubon Bilirubin [Mass/Vol] 0.4 mg/dL Normal 0.2-1.0 [facility] Comment on above: Performed By: #### C MP, LIPID, TSH, T7 #### [facility] [address] [place] [address] Dr. Mehnaz Dubon Calcium [Mass/Vol] 8.8 mg/dL Normal 8.5-10.1 [facility] Comment on above: Performed By: #### C MP, LIPID, TSH, T7 #### [facility] [address] [place] [address] Dr. Mehnaz Dubon Chloride [Moles/Vol] 107 mmol/L Normal 98-107 [facility] Comment on above: Performed By: #### C MP, LIPID, TSH, T7 #### [facility] [address] [place] [address] Dr. Mehnaz Dubon CO2 [Moles/Vol] 26.3 mmol/L Normal 21.0-32.0 [facility] Comment on above: Performed By: #### C MP, LIPID, TSH, T7 #### [facility] [address] [address] [address] Mehnaz Dubon Creatinine [Mass/Vol] 0.47 mg/dL Critically low 0.55-1.02 [facility] Comment on above: Performed By: #### C MP, LIPID, TSH, T7 #### [facility] [address] [address] [address] Mehnaz Dubon EGFR-AF EQUATORIAL GUINEAN >60 Normal >=60 [facility] Comment on above: Performed By: #### C MP, LIPID, TSH, T7 #### [facility] [address] [address] [address] Mehnaz Dubon EGFR-NON AF EQUATORIAL GUINEAN >60 Normal >=60 [facility] Comment on above: Performed By: #### C MP, LIPID, TSH, T7 #### [facility] [address] [address] [address] Mehnaz Dubon Globulin (S) [Mass/Vol] 3.6 g/dL Normal T [facility] Comment on above: Performed By: #### C MP, LIPID, TSH, T7 #### [facility] [address] [address] [address] Mehnaz Dubon Glucose [Mass/Vol] 77 mg/dL Normal 74-106 [facility] Comment on above: Performed By: #### C MP, LIPID, TSH, T7 #### [facility] [address] [address] [address] Mehnaz Dubon Potassium [Moles/Vol] 3.4 mmol/L Critically low 3.5-5.1 [facility] Comment on above: Performed By: #### C MP, LIPID, TSH, T7 #### [facility] [address] [address] [address] Mehnaz Dubon Protein [Mass/Vol] 6.5 g/dL Normal 6.4-8.2 [facility] Comment on above: Performed By: #### C MP, LIPID, TSH, T7 #### [facility] [address] [address] [address] Mehnaz Dubon Sodium [Moles/Vol] 141 mmol/L Normal 136-145 [facility] Comment on above: Performed By: #### C MP, LIPID, TSH, T7 #### [facility] [address] [address] [address] Mehnaz Dubon Urea nitrogen [Mass/Vol] 4.0 mg/dL Critically low 7.0-18.0 [facility] Comment on above: Performed By: #### C MP, LIPID, TSH, T7 #### [facility] [id number] Mehnaz Dubon Urea nitrogen/Creatinine [Mass ratio] 8.5 mg/mg Normal [facility] Comment on above: Performed By: #### C MP, LIPID, TSH, T7 #### [facility] [address] [address] [address] Mehnaz Dubon TROPONIN, HIGH SENSITIVITYon 03-09-2022 HSTROP 5.5 pg/mL Normal 4.0-51.3 [facility] Comment on above: Result Comment: CUT- OFF POINTS HAVE BEEN ESTABLISHED BASED ON THE FOURTH UNIVERSAL DEFINITIONS OF MYOCARDIAL INFARCTION. THE UPPER REFERENCE LIMIT (URL) OF TROPONIN, DEFINED THE 99TH PERCENTILE OF cTnI DISTRIBUTION IN A REFERENCE POPULATION, HAS BEEN CONFIRMED THE DECISION THRESHOLD FOR UT DIAGNOSIS. Performed By: #### C MP, LIPID, TSH, T7 #### [facility] [address] [address] [address] Mehnaz Dubon XR CHEST 1 Von 03-09-2022 XR CHEST 1 V EXAM: XR CHEST 1 V INDICATION: CHEST PAIN, UNSPECIFIED. COMPARISON: Chest radiograph 03/01/2022 TECHNIQUE: Single frontal view of the chest FINDINGS: Normal cardiomediastinal contours. Clear lungs. No pleural effusion or pneumothorax. No acute osseous abnormality. IMPRESSION: No acute cardiopulmonary process. Electronically authenticated by: SEJAL VILLARREAL Date: 2022-03-09 20:49 Normal [facility] XR tibia fibula LT 2V*on XR tibia fibula LT 2V* [facility] [address] [id number] XRay Report Signed Patient: Christiane Ashley MR#: [id number] [birth year] : 1970 Acct:[id number] Age/Sex: 51 / F ADM Date: 03/01/22 Loc: 4N Room: [address] [place] [address] Type: DIS IN Attending Dr: Aquiles Vasquez II, MD Copies to: Aquiles Vasquez MD Ordering Provider: Aquiles Vasquez MD Date of Service: 03/01/22 XR/XR tibia fibula LT 2V*: . Intraoperative study. Reason for exam: Left tibia IM bettye. FINDINGS: 8 images were obtained intraoperatively. 2 minutes and 10 seconds of fluoroscopic time utilized. XR/XR tibia fibula LT 2V* Impression: Intraoperative study. Impression dictated by: Cale Logan Jr., D.O.03/04/2022 11:27 AM Dictation Location: [place] [address] Transcribed By: [facility] 03/04/221126 Dictated By: Cale Logan Jr, DO 03/04/221125 Signed By: 03/04/22 112 Normal [facility] Basic Metabolic Panelon 02-09 Anion gap [Moles/Vol] 12.6 mmol/L Normal 6.0-15.0 [facility] Comment on above: Performed By: #### B MP, CBC #### [facility] [address] [id number] [place] Calcium [Mass/Vol] 8.3 mg/dL Normal 8.2-10.2 [facility] Comment on above: Performed By: #### B MP, CBC #### [facility] [address] [place] [address] [place] Chloride [Moles/Vol] 107 mmol/L Normal 95-114 [facility] Comment on above: Performed By: #### B MP, CBC #### [facility] [address] [place] [address] [place] CO2 [Moles/Vol] 23.9 mmol/L Normal 22.0-30.0 [facility] Comment on above: Performed By: #### B MP, CBC #### [facility] [address] [place] [address] [place] Creatinine [Mass/Vol] 0.48 mg/dL Normal 0.44-1.03 [facility] Comment on above: Performed By: #### B MP, CBC #### [place] [address] [place] Creatinine Clr Calc Pharmacy 128.34 [facility] Comment on above: Result Comment: PERF ORMED BY: [place] [address] PATHOLOGIST [employer] ATTENDANT MELISSA FRIAS M.D. Performed By: #### B MP, CBC #### [address] Estimated GFR ( Suzette > 60 [facility] Comment on above: Result Comment: GFR estimated reference range: According to KDOQI guidelines, <60 ml/min/1.73m2 is sufficient to diagnose a patient with chronic kidney disease. Performed By: #### B MP, CBC #### [address] Estimated GFR (Non- Am > 60 [facility] Comment on above: Performed By: #### B MP, CBC #### [address] Glucose [Mass/Vol] 83 mg/dL Normal 70-100 [facility] Comment on above: Result Comment: [place] om Glucose Reference Range is dependent on time and content of last meal. Glucose of more than 200 mg/dL in a nonstressed, ambulatory subject supports the diagnosis of Diabetes Mellitus. ADA recommended reference range Performed By: #### B MP, CBC #### [place] [address] [place] Potassium [Moles/Vol] 3.5 mmol/L Normal 3.5-5.1 [facility] Comment on above: Performed By: #### B MP, CBC #### [place] [address] [place] Sodium [Moles/Vol] 140 mmol/L Normal 136-146 [facility] Comment on above: Performed By: #### B MP, CBC #### [place] [address] [place] Urea nitrogen [Mass/Vol] 8 mg/dL Low 01-31 [facility] Comment on above: Performed By: #### B MP, CBC #### [facility] [address] [place] [address] [place] Basophils Auto (Bld) [#/Vol] Ordered By: Aquiles Vasquez on 03-03-2022 Basophils (Bld) [#/Vol] 0.0 10*3/uL 0.0-0.2 [facility] Basophils/100 WBC Auto (Bld) Ordered By: Aquiles Vasquez on 03-03-2022 Basophils/100 WBC (Bld) 0.4 % . F [facility] Complete Blood Count Auto Di ffon 03-03-2022 Basophils (Bld) [#/Vol] 0.0 10*3/uL Normal 0.0-0.2 [facility] Comment on above: Result Comment: PERF ORMED BY: [place] [address] PATHOLOGIST FRYLINE ATTENDANT MELISSA FRIAS M.D. Performed By: #### B MP, CBC #### [address] Basophils/100 WBC (Bld) 0.4 % Normal . [facility] Comment on above: Performed By: #### B MP, CBC #### [address] Eosinophils (Bld) [#/Vol] 0.0 10*3/uL Normal 0.0-0.45 [facility] Comment on above: Performed By: #### B MP, CBC #### [place] [address] [place] Eosinophils/100 WBC (Bld) 0.5 % Normal . [facility] Comment on above: Performed By: #### B MP, CBC #### [address] Erythrocyte distribution width (RBC) [Ratio] 13.8 % Normal 11.9-15.3 [facility] Comment on above: Performed By: #### B MP, CBC #### [address] Hematocrit (Bld) [Volume fraction] 25.2 % Low 34.0-46.4 [facility] Comment on above: Performed By: #### B MP, CBC #### [address] Hemoglobin (Bld) [Mass/Vol] 8.4 g/dL Low 11.8-15.4 [facility] Comment on above: Performed By: #### B MP, CBC #### [address] Lymphocytes (Bld) [#/Vol] 1.5 10*3/uL Normal 1.00-4.8 [facility] Comment on above: Performed By: #### B MP, CBC #### [address] Lymphocytes/100 WBC (Bld) 25.7 % Normal . [facility] Comment on above: Performed By: #### B MP, CBC #### [address] MCH (RBC) [Entitic mass] 31.4 pg Normal 24.7-34.3 [facility] Comment on above: Performed By: #### B MP, CBC #### [address] MCV (RBC) [Entitic vol] 94.0 fL Normal 80-100 [facility] Comment on above: Performed By: #### B MP, CBC #### [address] Mean Corpuscular HGB Conc 33.4 g/dL Normal 32.0-35.0 [facility] Comment on above: Performed By: #### B MP, CBC #### [address] Monocytes (Bld) [#/Vol] 0.5 10*3/uL Normal 0.0-0.8 [facility] Comment on above: Performed By: #### B MP, CBC #### [address] [place] [address] [place] Monocytes/100 WBC (Bld) 9.2 % Normal . [facility] Comment on above: Performed By: #### B MP, CBC #### [facility] [address] Neutrophils (Bld) [#/Vol] 3.8 10*3/uL Normal 1.8-7.7 [facility] Comment on above: Performed By: #### B MP, CBC #### [facility] [address] Neutrophils/100 WBC (Bld) 64.2 % Normal . [facility] Comment on above: Performed By: #### B MP, CBC #### [facility] [address] Nucleated RBC/100 WBC (Bld) [Ratio] 0.0 % Normal 0-0.5 [facility] Comment on above: Performed By: #### B MP, CBC #### [facility] [address] Platelet mean volume (Bld) [Entitic vol] 9.0 fL Normal 6.3-10.7 [facility] Comment on above: Performed By: #### B MP, CBC #### [facility] [address] [place] [address] [place] Platelets (Bld) [#/Vol] 126 10*3/uL Signific ant change down 150-450 [facility] Comment on above: Performed By: #### B MP, CBC #### [facility] [address] [place] [address] [place] RBC (Bld) [#/Vol] 2.68 10*6/uL Low 3.60-5.00 [facility] Comment on above: Performed By: #### B MP, CBC #### [facility] [address] WBC (Bld) [#/Vol] 6.0 10*3/uL Normal 4.5-11.0 [facility] Comment on above: Performed By: #### B MP, CBC #### [facility] [address] Creatinine and Glomerular fi ltration rate.predicted panel (S/P/Bld)Ordered By: Aquiles Vasquez on 03-03-2022 Creatinine [Mass/Vol] 0.48 mg/dL 0.44-1.03 [facility] Eosinophils Auto (Bld) [#/Vo l]Ordered By: Aquiles Vasquez on 03-03-2022 Eosinophils (Bld) [#/Vol] 0.0 10*3/uL 0.0-0.45 [facility] Eosinophils/100 WBC Auto (Bl d)Ordered By: Aquiles Vasquez on 03-03-2022 Eosinophils/100 WBC (Bld) 0.5 % . [facility] Erythrocyte distribution wid th Auto (RBC) [Ratio]Ordered By: Aquiles Vasquez on 03-03-2022 Erythrocyte distribution width (RBC) [Ratio] 13.8 % 11.9-15.3 [facility] Estimated glomerular filtrat ion rate (GFR) non- AmericanOrdered By: Aquiles Vasquez on 03-03-2022 GFR/1.73 sq M.predicted among non-blacks MDRD (S/P/Bld) [Vol rate/Area] > 60 mL/Min [facility] Hematocrit Auto (Bld) [Volum e fraction]Ordered By: Aquiles Vasquez on 03-03-2022 Hematocrit (Bld) [Volume fraction] 25.2 % 34.0-46.4 [facility] Hemoglobin [Mass/volume] in BloodOrdered By: Aquiles Vasquez on 03-03-2022 Hemoglobin (Bld) [Mass/Vol] 8.4 g/dL 11.8-15.4 [facility] Laboratory - Hematology and Cell countsOrdered By: Aquiles Vasquez on 03-03-2022 Nucleated RBC/100 WBC (Bld) [Ratio] 0.0 % 0-0.5 [facility] Leukocytes [#/volume] in Blo od by Automated countOrdered By: Aquiles Vasquez on 03-03-2022 WBC (Bld) [#/Vol] 6.0 10*3/uL 4.5-11.0 [facility] Lymphocytes Auto (Bld) [#/Vo l]Ordered By: Aquiles Vasquez on 03-03-2022 Lymphocytes (Bld) [#/Vol] 1.5 10*3/uL 1.00-4.8 [facility] Lymphocytes/100 WBC Auto (Bl d)Ordered By: Aquiles Vasquez on 03-03-2022 Lymphocytes/100 WBC (Bld) 25.7 % . [facility] MCH Auto (RBC) [Entitic mass ]Ordered By: Aquiles Vasquez on 03-03-2022 MCH (RBC) [Entitic mass] 31.4 pg 24.7-34.3 [facility] MCHC Auto (RBC) [Mass/Vol]Or dered By: Aquiles Vasquez on 03-03-2022 MCHC (RBC) [Mass/Vol] 33.4 g/dL 32.0-35.0 [facility] MCV Auto (RBC) [Entitic vol] Ordered By: Aquiles Vasquez on 03-03-2022 MCV (RBC) [Entitic vol] 94.0 fL 80-100 [facility] Monocytes Auto (Bld) [#/Vol] Ordered By: Aquiles Vasquez on 03-03-2022 Monocytes (Bld) [#/Vol] 0.5 10*3/uL 0.0-0.8 [facility] Monocytes/100 WBC Auto (Bld) Ordered By: Aquiles Vasquez on 03-03-2022 Monocytes/100 WBC (Bld) 9.2 % . [facility] Neutrophils Auto (Bld) [#/Vo l]Ordered By: Aquiles Vasquez on 03-03-2022 Neutrophils (Bld) [#/Vol] 3.8 10*3/uL 1.8-7.7 [facility] Neutrophils/100 WBC Auto (Bl d)Ordered By: Aquiles Vasquez on 03-03-2022 Neutrophils/100 WBC (Bld) 64.2 % . [facility] No Panel InformationOrdered By: Aquiles Vasquez on 03-03-2022 Estimated GFR () > 60 mL/Min [facility] Comment on above: GFR estimated refere nce range: According to KDOQI guidelines, <60 ml/min/1.73m2 is sufficient to diagnose a patient with chronic kidney disease. Pharmacy Creatinine Clearance (Chem 128.34 [facility] Platelet mean volume Auto (B ld) [Entitic vol]Ordered By: Aquiles Vasquez on 03-03-2022 Platelet mean volume (Bld) [Entitic vol] 9.0 fL 6.3-10.7 [facility] Platelets Auto (Bld) [#/Vol] Ordered By: Aquiles Vasquez on 03-03-2022 Platelets (Bld) [#/Vol] 126 10*3/uL 150-450 [facility] Comment on above: Delta: 183 on -0459 RBC Auto (Bld) [#/Vol]Ordere d By: Aquiles Vasquez on 03-03-2022 RBC (Bld) [#/Vol] 2.68 10*6/uL 3.60-5.00 [facility] Serum or plasma anion gap de terminationOrdered By: Aquiles Vasquez on 03-03-2022 Anion gap [Moles/Vol] 12.6 mmol/L 6.0-15.0 [facility] Serum or plasma calcium mohinder urement (mass/volume)Ordered By: Aquiles Vasquez on 03-03-2022 Calcium [Mass/Vol] 8.3 mg/dL 8.2-10.2 [facility] Serum or plasma chloride ewa surement (moles/volume)Ordered By: Aquiles Vasquez on 03-03-2022 Chloride [Moles/Vol] 107 mmol/L 95-114 [facility] Serum or plasma glucose mohinder urement (mass/volume)Ordered By: Aquiles Vasquez on 03-03-2022 Glucose [Mass/Vol] 83 mg/dL 70-100 [facility] Comment on above: ADA recommended refe rence rangeRandom Glucose Reference Range is dependent on time and content of last meal. Glucose of more than 200 mg/dL in a nonstressed, ambulatory subject supports the diagnosis of Diabetes Mellitus. Serum or plasma potassium me asurement (moles/volume)Ordered By: Aquiles Vasquez on 03-03-2022 Potassium [Moles/Vol] 3.5 mmol/L 3.5-5.1 [facility] Serum or plasma sodium measu rement (moles/volume)Ordered By: Aquiles Vasquez on 03-03-2022 Sodium [Moles/Vol] 140 mmol/L 136-146 [facility] Serum or plasma total carbon dioxide measurement (moles/volume)Ordered By: Aquiles Vasquez on 03-03-2022 CO2 [Moles/Vol] 23.9 mmol/L 22.0-30.0 [facility] Serum or plasma urea nitroge n measurement (mass/volume)Ordered By: Aquiles Vasquez on 03-03-2022 Urea nitrogen [Mass/Vol] 8 mg/dL 01-31 [facility] Basic Metabolic Panelon 02-09 Anion gap [Moles/Vol] 7.2 mmol/L Normal 6.0-15.0 [facility] Comment on above: Performed By: #### B MP, CBC #### [facility] [address] [place] [address] [place] Calcium [Mass/Vol] 8.5 mg/dL Normal 8.2-10.2 [facility] Comment on above: Performed By: #### B MP, CBC #### [facility] [address] [place] [address] [place] Chloride [Moles/Vol] 107 mmol/L Normal 95-114 [facility] Comment on above: Performed By: #### B MP, CBC #### [facility] [address] [place] [id number] [place] CO2 [Moles/Vol] 26.4 mmol/L Normal 22.0-30.0 [facility] Comment on above: Performed By: #### B MP, CBC #### [facility] [address] [place] [address] [place] Creatinine [Mass/Vol] 0.57 mg/dL Normal 0.44-1.03 [facility] Comment on above: Performed By: #### B MP, CBC #### [facility] [address] [place] [id number] [place] Creatinine Clr Calc Pharmacy 108.08 Normal [facility] Comment on above: Result Comment: PERF ORMED BY: [place] [address] PATHOLOGIST FRYLINE ATTENDANT MELISSA FRIAS M.D. Performed By: #### B MP, CBC #### [address] Estimated GFR ( Suzette > 60 [facility] Comment on above: Result Comment: GFR estimated reference range: According to KDOQI guidelines, <60 ml/min/1.73m2 is sufficient to diagnose a patient with chronic kidney disease. Performed By: #### B MP, CBC #### [address] Estimated GFR (Non- Am > 60 [facility] Comment on above: Performed By: #### B MP, CBC #### [address] Glucose [Mass/Vol] 131 mg/dL High 70-100 [facility] Comment on above: Result Comment: [place] Glucose Reference Range is dependent on time and content of last meal. Glucose of more than 200 mg/dL in a nonstressed, ambulatory subject supports the diagnosis of Diabetes Mellitus. ADA recommended reference range Performed By: #### B MP, CBC #### [address] Potassium [Moles/Vol] 3.6 mmol/L Normal 3.5-5.1 [facility] Comment on above: Performed By: #### B MP, CBC #### [place] [address] [place] Sodium [Moles/Vol] 137 mmol/L Normal 136-146 [facility] Comment on above: Performed By: #### B MP, CBC #### [place] [address] [place] Urea nitrogen [Mass/Vol] 10 mg/dL Normal - [facility] Comment on above: Performed By: #### B MP, CBC #### [address] Complete Blood Count Auto Di ffon 03-02-2022 Basophils (Bld) [#/Vol] 0.0 10*3/uL Normal 0.0-0.2 [facility] Comment on above: Result Comment: PERF ORMED BY: [place] [address] PATHOLOGIST FRYLINE ATTENDANT MELISSA FRIAS M.D. Performed By: #### B MP, CBC #### [facility] [address] [place] [address] [place] Basophils/100 WBC (Bld) 0.1 % Normal . [facility] Comment on above: Performed By: #### B MP, CBC #### [facility] [address] [place] [address] [place] Eosinophils (Bld) [#/Vol] 0.0 10*3/uL Normal 0.0-0.45 [facility] Comment on above: Performed By: #### B MP, CBC #### [address] Eosinophils/100 WBC (Bld) 0.0 % Normal . [facility] Comment on above: Performed By: #### B MP, CBC #### [address] Erythrocyte distribution width (RBC) [Ratio] 13.3 % Normal 11.9-15.3 [facility] Comment on above: Performed By: #### B MP, CBC #### [facility] [address] [place] [address] Hematocrit (Bld) [Volume fraction] 28.9 % Low 34.0-46.4 [facility] Comment on above: Performed By: #### B MP, CBC #### [facility] [address] [place] [address] [place] Hemoglobin (Bld) [Mass/Vol] 9.5 g/dL Low 11.8-15.4 [facility] Comment on above: Performed By: #### B MP, CBC #### [facility] [address] [place] [address] [place] Lymphocytes (Bld) [#/Vol] 0.6 10*3/uL Low 1.00-4.8 [facility] Comment on above: Performed By: #### B MP, CBC #### [facility] [address] [place] [address] [place] Lymphocytes/100 WBC (Bld) 5.6 % Normal . [facility] Comment on above: Performed By: #### B MP, CBC #### [facility] [address] MCH (RBC) [Entitic mass] 30.7 pg Normal 24.7-34.3 [facility] Comment on above: Performed By: #### B MP, CBC #### [facility] [address] MCV (RBC) [Entitic vol] 93.8 fL Normal 80-100 [facility] Comment on above: Performed By: #### B MP, CBC #### [address] Mean Corpuscular HGB Conc 32.8 g/dL Normal 32.0-35.0 [facility] Comment on above: Performed By: #### B MP, CBC #### [facility] [address] [place] [address] [place] Monocytes (Bld) [#/Vol] 0.8 10*3/uL Normal 0.0-0.8 [facility] Comment on above: Performed By: #### B MP, CBC #### [facility] [address] [place] [address] [place] Monocytes/100 WBC (Bld) 7.6 % Normal . [facility] Comment on above: Performed By: #### B MP, CBC #### [facility] [address] [place] [address] [place] Neutrophils (Bld) [#/Vol] 9.1 10*3/uL High 1.8-7.7 [facility] Comment on above: Performed By: #### B MP, CBC #### [facility] [address] Neutrophils/100 WBC (Bld) 86.7 % Normal . [facility] Comment on above: Performed By: #### B MP, CBC #### [facility] [address] Nucleated RBC/100 WBC (Bld) [Ratio] 0.0 % Normal 0-0.5 [facility] Comment on above: Performed By: #### B MP, CBC #### [facility] [address] Platelet mean volume (Bld) [Entitic vol] 8.8 fL Normal 6.3-10.7 [facility] Comment on above: Performed By: #### B MP, CBC #### [facility] [address] Platelets (Bld) [#/Vol] 183 10*3/uL Normal 150-450 [facility] Comment on above: Performed By: #### B MP, CBC #### [address] RBC (Bld) [#/Vol] 3.08 10*6/uL Low 3.60-5.00 [facility] Comment on above: Performed By: #### B MP, CBC #### [address] WBC (Bld) [#/Vol] 10.5 10*3/uL Normal 4.5-11.0 [facility] Comment on above: Performed By: #### B MP, CBC #### [address] ECG 12 lead ECGon 03-02-2022 ECG 12 lead ECG [facility] [place] [address] Electrocardiograph Report Signed Patient: Christiane Ashley MR#: [id number] [birth year] : 1970 Acct:[id number] Age/Sex: 51 / F ADM Date: 03/01/22 Loc: 4N Room: 3M3305-7 Type: DIS IN Attending Dr: Aquiles Vasquez II, MD Ordering Provider: Eb Gale DO Date of Service: 03/02/22 ECG/ECG 12 lead ECG: abn Copies to: Test Reason : Blood Pressure : / mmHG Vent. Rate : 085 BPM Atrial Rate : 085 BPM P-R Int : 124 ms QRS Dur : 082 ms QT Int : 418 ms P-R-T Axes : 048 041 041 degrees QTc Int : 497 ms Sinus rhythm with premature supraventricular complexes and with occasional premature ventricular complexes Prolonged QT Abnormal ECG When compared with ECG of 01-MAR-2022 10:46, premature ventricular complexes are now present Confirmed by TED DUARTE MD ([id number]) on 03/02/2022 11:42:42 AM Referred By: Electronically Signed By:TED DUARTE MD Transcribed By: MUS Signed By Ted Duarte MD 1 1142 [facility] ECG 12 lead ECGon 03-01-2022 ECG 12 lead ECG [facility] [place] [address] Electrocardiograph Report Signed Patient: Christiane Ashley MR#: [id number] 01 : 1970 Acct:[id number] Age/Sex: 51 / F ADM Date: 03/01/22 Loc: Room: [address] [place] [address] Type: DIS IN Attending Dr: Aquiles Vasquez II, MD Ordering Provider: Warren Lal MD Date of Service: 03/01/22 ECG/ECG 12 lead ECG: Plan for OR later today Copies to: Test Reason : Blood Pressure : / mmHG Vent. Rate : 097 BPM Atrial Rate : 097 BPM P-R Int : 106 ms QRS Dur : 084 ms QT Int : 408 ms P-R-T Axes : 067 067 040 degrees QTc Int : 518 ms Sinus rhythm with short HI Nonspecific ST and T wave abnormality Prolonged QT Abnormal ECG No previous ECGs available Confirmed by TED DUARTE MD ([id number]) on 03/01/2022 1:01:19 PM Referred By: Electronically Signed By:TED DUARTE MD Transcribed By: MUS Signed By Ted Duarte MD 1 [address] [facility] Glucose Glucometer (BldC) [M ass/Vol]Ordered By: Aquiles Vasquez on 03-01-2022 Glucose [Mass/Vol] 101 mg/dL [facility] Comment on above: Random Glucose Refer ence Range is dependent on time and content of last meal. Glucose of more than 200 mg/dL in a nonstressed, ambulatory subject supports the diagnosis of Diabetes Mellitus. Glucose Poct Glucometerson 1 Commemt1 Glu2: Cleaned Meter Normal [facility] Comment on above: Result Comment: PERF ORMED BY: [facility] [address] [place] [address] PATHOLOGIST FRYLINE ATTENDANT MELISSA FRIAS M.D. Performed By: #### G LULS #### Point of Care testing , Glucose [Mass/Vol] 101 mg/dL Normal [facility] Comment on above: Result Comment: [place] [facility] Glucose Reference Range is dependent on time and content of last meal. Glucose of more than 200 mg/dL in a nonstressed, ambulatory subject supports the diagnosis of Diabetes Mellitus. Performed By: #### G LULS #### Point of Care testing , No Panel InformationOrdered By: Aquiles Vasquez on 03-01-2022 Bedside Glucose Comment Glu2: cleaned meter [facility] XR CHEST 1 Von 03-01-2022 XR CHEST 1 V EXAM: XR CHEST 1 V HISTORY: Pain COMPARISON: 03/22/2020 TECHNIQUE: Chest single view. FINDINGS: Lines/tubes/devices: EKG leads overlie the chest. No indwelling lines are seen. Cardiomediastinum: Cardiac silhouette appears normal in size. Unremarkable mediastinal silhouette. Vasculature: No increased pulmonary vasculature. Lungs/pleura: No consolidation, sizeable effusion, or visible pneumothorax. Hazy opacity over the lung bases likely from overlying soft tissue attenuation. Bones/soft tissues: Bony thorax appears grossly intact as seen. Mild apex right curvature of the lower thoracic spine. Partially seen postoperative changes in the cervical spine. Surgical clips in the upper abdomen. IMPRESSION: No acute cardiopulmonary findings. Electronically authenticated by: NAMITA DELUCA Date: 2022-03-01 03:53 Normal [facility] XR PELVIS 1_2 VIEWSon 2021 XR PELVIS 1_2 VIEWS EXAM: XR PELVIS 1_2 VIEWS HISTORY: Pain COMPARISON: None. TECHNIQUE: Single frontal view pelvis x-ray FINDINGS: No acute fracture line, dislocation, or focal osseous erosion. Bilateral adnexal region clips. Vascular stent of the left iliac region. IMPRESSION: No radiographic evidence for acute pelvic osseous injury. Electronically authenticated by: AQUILES LACY Date: 2022-03-01 04:39 Normal [facility] XR tibia fibula LT 2V*on XR tibia fibula LT 2V* [facility] Main [place] [address] [place] [address] XRay Report Signed Patient: Christiane Ashley MR#: [id number] 01 : 1970 Acct:[id number] Age/Sex: 51 / F ADM Date: 03/01/22 Loc: 4N Room: [address] [place] [address] Type: ADM IN Attending Dr: Aquiles Vasquez II, MD Copies to: Aquiles Vasquez MD Ordering Provider: Aquiles Vasquez MD Date of Service: 03/01/22 XR/XR tibia fibula LT 2V*: postop LEFT TIBIA AND FIBULA - - 2 views CLINICAL HISTORY: Postop IM bettye. COMPARISON: Left tib-fib 02/28/2022 FINDINGS: Soft tissues demonstrate postoperative change. Bettye fixation is seen involving the patient's tibial fracture without radiographic complication. Fibular fracture appears in more anatomic alignment. XR/XR tibia fibula LT 2V* IMPRESSION: NO EVIDENCE OF HARDWARE COMPLICATION. Impression dictated by: Cale Logan Jr., D.OJah03/01/2022 3:10 PM Dictation Location: [place] [address] Transcribed By: [facility] 03/01/22 1510 Dictated By: Cale Logan Jr, DO 03/01/22 1509 Signed By: 03/01/22 1510 Normal [facility] CARDIAC KAMRON ADMITon 022 CK [Catalytic activity/Vol] 331 U/L Critically high 26-192 [facility] Comment on above: Performed By: #### C MP, LIPID, TSH, T7 #### [facility] [address] [place] [address] [address] Mehnaz Dubon CK.MB [Mass/Vol] 6.75 ng/mL Critically high <=3.60 [facility] Comment on above: Performed By: #### C MP, LIPID, TSH, T7 #### [facility] [address] [place] [address] Dr. Mehnaz Dubon HSTROP 9.1 pg/mL Normal 4.0-51.3 [facility] Comment on above: Result Comment: CUT- OFF POINTS HAVE BEEN ESTABLISHED BASED ON THE FOURTH UNIVERSAL DEFINITIONS OF MYOCARDIAL INFARCTION. THE UPPER REFERENCE LIMIT (URL) OF TROPONIN, DEFINED THE 99TH PERCENTILE OF cTnI DISTRIBUTION IN A REFERENCE POPULATION, HAS BEEN CONFIRMED THE DECISION THRESHOLD FOR UT DIAGNOSIS. Performed By: #### C MP, LIPID, TSH, T7 #### [facility] [address] [place] [address] Dr. Mehnaz Dubon ALISSA 919 ng/mL Critically high 9-82 [facility] Comment on above: Performed By: #### C MP, LIPID, TSH, T7 #### [facility] [address] [place] [address] Dr. Mehnaz Dubon CBC AUTO DIFFon 02-28-2022 BASO # 0.1 103/ul Normal 0.0-0.1 [facility] Comment on above: Performed By: #### C BC #### [facility] [address] [place] [address] Dr. Mehnaz Dubon Basophils/100 WBC (Bld) 1.2 % Normal 0.2-2.0 [facility] Comment on above: Performed By: #### C BC #### [facility] [address] [place] [address] Dr. Mehnaz Dubon EO # 0.1 103/ul Normal 0.0-0.7 [facility] Comment on above: Performed By: #### C BC #### [facility] [address] [place] [address] Dr. Mehnaz Dubon Eosinophils/100 WBC (Bld) 1.0 % Normal 0.9-7.0 [facility] Comment on above: Performed By: #### C BC #### [facility] [address] [place] [address] Dr. Mehnaz Dubon Erythrocyte distribution width (RBC) [Ratio] 13.0 % Normal 11.0-15.0 [facility] Comment on above: Performed By: #### C BC #### [facility] [address] [place] [address] Dr. Mehnaz Dubon Hematocrit (Bld) [Volume fraction] 39.0 % Normal 36.0-48.0 [facility] Comment on above: Performed By: #### C BC #### [facility] [address] [place] [address] Dr. Mehnaz Dubon Hemoglobin (Bld) [Mass/Vol] 12.8 g/dL Normal 12.0-16.0 [facility] Comment on above: Performed By: #### C BC #### [facility] [address] [place] [address] Dr. Mehnaz Dubon IG # 0.04 10e3/ul Critically high 0.00-0.03 [facility] Comment on above: Performed By: #### C BC #### [facility] [address] [place] [address] Dr. Mehnaz Dubon IG % 0.5 % Normal 0.0-0.5 [facility] Comment on above: Performed By: #### C BC #### [facility] [address] [place] [address] Dr. Mehnaz Dubon LYMPH # 1.2 103/ul Normal 1.2-3.8 [facility] Comment on above: Performed By: #### C BC #### [facility] [address] [place] [address] Dr. Mehnaz Dubon Lymphocytes/100 WBC (Bld) 15.7 % Critically low 20.5-60.0 [facility] Comment on above: Performed By: #### C BC #### [facility] [address] [place] [address] Dr. Mehnaz Dubon MANUAL DIFF REQ NO Normal [facility] Comment on above: Performed By: #### C BC #### [facility] [address] [place] [address] Dr. Mehnaz Dubon MCH (RBC) [Entitic mass] 30.8 pg Normal 26.7-34.0 [facility] Comment on above: Performed By: #### C BC #### [facility] [address] [place] [address] Dr. Mehnaz Dubon MCHC (RBC) [Mass/Vol] 32.8 g/dL Normal 29.9-35.2 [facility] Comment on above: Performed By: #### C BC #### [facility] [address] [place] [address] Dr. Mehnaz Dubon MCV (RBC) [Entitic vol] 94.0 fL Normal 81.0-99.0 [facility] Comment on above: Performed By: #### C BC #### [facility] [address] [place] [address] Dr. Mehnaz Dubon MONO # 0.6 103/ul Normal 0.3-0.8 [facility] Comment on above: Performed By: #### C BC #### [facility] [address] [place] [address] Dr. Mehnaz Dubon Monocytes/100 WBC (Bld) 7.8 % Normal 1.7-12.0 [facility] Comment on above: Performed By: #### C BC #### [facility] [address] [place] [address] Dr. Mehnaz Dubon NEUT # 5.7 103/ul Normal 1.4-6.5 [facility] Comment on above: Performed By: #### C BC #### [facility] [address] [place] [address] Dr. Mehnaz Dubon Neutrophils/100 WBC (Bld) 73.8 % Normal 43.0-75.0 [facility] Comment on above: Performed By: #### C BC #### [facility] [address] [place] [address] Dr. Mehnaz Dubon Platelet mean volume (Bld) [Entitic vol] 9.7 fL Normal 9.5-13.5 [facility] Comment on above: Performed By: #### C BC #### [facility] [address] [place] [address] Dr. Mehnaz Dubon PLT 159 103/ul Normal 150-450 [facility] Comment on above: Performed By: #### C BC #### [facility] [address] [place] [address] [address] Mehnaz Dubon RBC 4.15 106/ul Critically low 4.20-5.40 [facility] Comment on above: Performed By: #### C BC #### [facility] [id number] Mehnaz Dubon WBC 7.8 103/ul Normal 4.0-11.0 [facility] Comment on above: Performed By: #### C BC #### [facility] [address] [address] CSPINE WO CONon CT CSPINE WO CON EXAMINATION: CT CSPINE WO CON HISTORY: Pain ; golf cart rollover; right periorbital swelling COMPARISON: No relevant comparison available. TECHNIQUE: Axial, Coronal, and Sagittal images were created without IV contrast. Dose reduction techniques were achieved by using automated exposure control and/or adjustment of mA and/or kV according to patient size and/or use of iterative reconstruction technique. FINDINGS: VERTEBRAL BODIES: No fracture or spondylolisthesis. FACET JOINTS: Multilevel mild degenerative facet arthropathy. No facet joint disruption or fracture. CERVICAL DISCS: C5-C6 intervertebral disc spacer. C6-C7 moderate narrowing. CENTRAL CANAL: Mild narrowing C5-C6, C6-C7. Marked left foramen narrowing C5-C6, C6-C7. PARASPINAL AREA: No visible mass. IMPRESSION: 1. No appreciable acute abnormality. 2. Multilevel degenerative changes. Electronically authenticated by: MARU ANGEL Date: 2022-02-28 21:46 Normal [facility] CT FACIAL BONES WO CONon CT FACIAL BONES WO CON EXAMINATION: CT H EAD WO CON, CT FACIAL BONES WO CON HISTORY: Pain ; leg fracture, golf cart rollover, swelling above right eye COMPARISON: No relevant comparison available. TECHNIQUE: Axial CT images were obtained without IV contrast. Dose reduction techniques were achieved by using automated exposure control and/or adjustment of mA and/or kV according to patient size and/or use of iterative reconstruction technique. FINDINGS: BRAIN: No edema, hemorrhage, mass, acute infarction, or inappropriate atrophy. CSF SPACES: No hydrocephalus, subarachnoid hemorrhage, or mass. Appropriate for age. SKULL: No fracture, mass, or other significant visible lesion. FACIAL BONES: No bony lesion or fracture. SINUSES: Mucosal thickening greatest within the left maxillary sinus, but seen throughout all of the paranasal sinuses. Bilateral maxillary antrectomies. ORBITS: No visible mass, hematoma, edema or fracture. OTHER: Mild subcutaneous bruising/edema lateral to the right orbit. Mild subcutaneous bruising/edema overlying the right parietal bone near the vertex. IMPRESSION: 1. No intercranial hemorrhage or acute abnormality brain. 2. Mild subcutaneous bruising/edema lateral to right orbit and overlying right parietal bone. No radiopaque foreign body. 3. No fracture. 4. Chronic sinusitis. Electronically authenticated by: MARU ANGEL Date: 2022-02-28 21:39 Normal [facility] PROF CHEM 8 (BAS METB)on Anion gap [Moles/Vol] 13.2 mmol/L Normal [facility] Comment on above: Performed By: #### C MP, LIPID, TSH, T7 #### [facility] [address] [address] [address] Mehnaz Dubon Calcium [Mass/Vol] 8.6 mg/dL Normal 8.5-10.1 [facility] Comment on above: Performed By: #### C MP, LIPID, TSH, T7 #### [facility] [address] [address] [address] Mehnaz Dubon Chloride [Moles/Vol] 104 mmol/L Normal 98-107 [facility] Comment on above: Performed By: #### C MP, LIPID, TSH, T7 #### [facility] [address] [address] [address] eMhnaz Dubon CO2 [Moles/Vol] 24.3 mmol/L Normal 21.0-32.0 [facility] Comment on above: Performed By: #### C MP, LIPID, TSH, T7 #### [facility] [address] [address] [address] Mehnaz Dubon Creatinine [Mass/Vol] 0.45 mg/dL Critically low 0.55-1.02 [facility] Comment on above: Performed By: #### C MP, LIPID, TSH, T7 #### [facility] [address] [address] [address] Mehnaz Dubon EGFR-AF EQUATORIAL GUINEAN >60 Normal >=60 [facility] Comment on above: Performed By: #### C MP, LIPID, TSH, T7 #### [facility] [address] [address] [address] Mehnaz Dubon EGFR-NON AF EQUATORIAL GUINEAN >60 Normal >=60 [facility] Comment on above: Performed By: #### C MP, LIPID, TSH, T7 #### [facility] [address] [address] [address] Mehnaz Dubon Glucose [Mass/Vol] 76 mg/dL Normal 74-106 [facility] Comment on above: Performed By: #### C MP, LIPID, TSH, T7 #### [facility] [address] [place] [address] Dr. Mehnaz Dubon Potassium [Moles/Vol] 2.5 mmol/L Critically low 3.5-5.1 [facility] Comment on above: Performed By: #### C MP, LIPID, TSH, T7 #### [facility] [address] [address] [address] Mehnaz Dubon Sodium [Moles/Vol] 140 mmol/L Normal 136-145 [facility] Comment on above: Performed By: #### C MP, LIPID, TSH, T7 #### [facility] [address] [address] [address] Mehnaz Dubon Urea nitrogen [Mass/Vol] 10.0 mg/dL Normal 7.0-18.0 [facility] Comment on above: Performed By: #### C MP, LIPID, TSH, T7 #### [facility] [address] [place] [address] Dr. Mehnaz Dubon Urea nitrogen/Creatinine [Mass ratio] 22.2 mg/mg Normal [facility] Comment on above: Performed By: #### C MP, LIPID, TSH, T7 #### [facility] [address] [place] [address] Dr. Mehnaz Dubon VITAMIN B1 (THIAMINE)on Vit. B1, Whole Blood 223.5 nmol/L Critically high 66.5-200 .0 [facility] Comment on above: Performed By: #### C MP, LIPID, TSH, T7 #### [facility] [address] [place] [address] Dr. Mehnaz Dubon CBC AUTO DIFFon 02-03-2022 BASO # 0.1 103/ul Normal 0.0-0.1 [facility] Comment on above: Performed By: #### C BC #### [facility] [address] [place] [address] Dr. Mehnaz Dubon Basophils/100 WBC (Bld) 1.1 % Normal 0.2-2.0 [facility] Comment on above: Performed By: #### C BC #### [facility] [address] [place] [address] Dr. Mehnaz Dubon EO # 0.2 103/ul Normal 0.0-0.7 [facility] Comment on above: Performed By: #### C BC #### [facility] [address] [place] [address] Dr. Mehnaz Dubon Eosinophils/100 WBC (Bld) 2.5 % Normal 0.9-7.0 [facility] Comment on above: Performed By: #### C BC #### [facility] [address] [place] [address] Dr. Mehnaz Dubon Erythrocyte distribution width (RBC) [Ratio] 12.9 % Normal 11.0-15.0 [facility] Comment on above: Performed By: #### C BC #### [facility] [address] [place] [address] Dr. Mehnaz Dubon Hematocrit (Bld) [Volume fraction] 40.6 % Normal 36.0-48.0 [facility] Comment on above: Performed By: #### C BC #### [facility] [address] [place] [address] Dr. Mehnaz Dubon Hemoglobin (Bld) [Mass/Vol] 13.0 g/dL Normal 12.0-16.0 [facility] Comment on above: Performed By: #### C BC #### [facility] [address] [place] [address] Dr. Mehnaz Dubon IG # 0.01 10e3/ul Normal 0.00-0.03 [facility] Comment on above: Performed By: #### C BC #### [facility] [address] [place] [address] Dr. Mehnaz Dubon IG % 0.2 % Normal 0.0-0.5 [facility] Comment on above: Performed By: #### C BC #### [facility] [address] [place] [address] Dr. Mehnaz Dubon LYMPH # 1.1 103/ul Critically low 1.2-3.8 [facility] Comment on above: Performed By: #### C BC #### [facility] [address] [place] [address] Dr. Mehnaz Dubon Lymphocytes/100 WBC (Bld) 17.5 % Critically low 20.5-60.0 [facility] Comment on above: Performed By: #### C BC #### [facility] [address] [place] [address] Dr. Mehnaz Dubon MANUAL DIFF REQ NO Normal [facility] Comment on above: Performed By: #### C BC #### [facility] [address] [place] [address] Dr. Mehnaz Dubon MCH (RBC) [Entitic mass] 30.2 pg Normal 26.7-34.0 [facility] Comment on above: Performed By: #### C BC #### [facility] [address] [place] [address] Dr. Mehnaz Dubon MCHC (RBC) [Mass/Vol] 32.0 g/dL Normal 29.9-35.2 [facility] Comment on above: Performed By: #### C BC #### [facility] [address] [place] [address] Dr. Mehnaz Dubon MCV (RBC) [Entitic vol] 94.4 fL Normal 81.0-99.0 [facility] Comment on above: Performed By: #### C BC #### [facility] [address] [place] [address] Dr. Mehnaz Dubon MONO # 0.5 103/ul Normal 0.3-0.8 [facility] Comment on above: Performed By: #### C BC #### [facility] [address] [place] [address] Dr. Mehnaz Dubon Monocytes/100 WBC (Bld) 8.2 % Normal 1.7-12.0 [facility] Comment on above: Performed By: #### C BC #### [facility] [address] [place] [address] Dr. Mehnaz Dubon NEUT # 4.5 103/ul Normal 1.4-6.5 [facility] Comment on above: Performed By: #### C BC #### [facility] [address] [place] [address] Dr. Mehnaz Dubon Neutrophils/100 WBC (Bld) 70.5 % Normal 43.0-75.0 [facility] Comment on above: Performed By: #### C BC #### [facility] [address] [place] [address] Dr. Mehnaz Dubon Platelet mean volume (Bld) [Entitic vol] 10.4 fL Normal 9.5-13.5 [facility] Comment on above: Performed By: #### C BC #### [facility] [address] [place] [address] Dr. Mehnaz Dubon PLT 181 103/ul Normal 150-450 [facility] Comment on above: Performed By: #### C BC #### [facility] [address] [place] [address] Dr. Mehnaz Dubon RBC 4.30 106/ul Normal 4.20-5.40 [facility] Comment on above: Performed By: #### C BC #### [facility] [address] [place] [address] Dr. Mehnaz Dubon WBC 6.4 103/ul Normal 4.0-11.0 [facility] Comment on above: Performed By: #### C BC #### [facility] [address] [place] [address] Dr. Mehnaz Dubon FERRITINon 02-03-2022 Ferritin [Mass/Vol] 122.0 ng/mL Normal 8.0-252.0 [facility] Comment on above: Performed By: #### F ERR, VITAD, FETIBC, B12FOL #### [facility] [address] [place] [address] Dr. Mehnaz Dubon IRON AND TIBCon 02-03-2022 % SATURATION 43.6 % Normal [facility] Comment on above: Performed By: #### F ERR, VITAD, FETIBC, B12FOL #### [facility] [address] [place] [address] Dr. Mehnaz Dubon Iron [Mass/Vol] 95.0 ug/dL Normal 50.0-170.0 [facility] Comment on above: Performed By: #### F ERR, VITAD, FETIBC, B12FOL #### [facility] [address] [place] [address] Dr. Mehnaz Dubon TIBC DIRECT 218.0 ug/dL Critically low 250.0-450.0 [facility] Comment on above: Performed By: #### F ERR, VITAD, FETIBC, B12FOL #### [facility] [address] [place] [address] Dr. Mehnaz Dubon MAGNESIUMon 02-03-2022 Magnesium [Mass/Vol] 1.7 mg/dL Critically low 1.8-2.4 [facility] Comment on above: Performed By: #### C MP, LIPID, TSH, T7 #### [facility] [address] [place] [address] Dr. Mehnaz Dubon PHOSPHORUSon 02-03-2022 Phosphate [Mass/Vol] 3.6 mg/dL Normal 2.6-4.7 [facility] Comment on above: Performed By: #### C MP, LIPID, TSH, T7 #### [facility] [address] [place] [address] Dr. Mehnaz Dubon PROF 14(COMP METB)on 022 Albumin [Mass/Vol] 3.3 g/dL Critically low 3.4-5.0 [facility] Comment on above: Performed By: #### C MP, LIPID, TSH, T7 #### [facility] [address] [address] [address] Mehnaz Dubon Albumin/Globulin [Mass ratio] 1.1 {ratio} Normal [facility] Comment on above: Performed By: #### C MP, LIPID, TSH, T7 #### [facility] [address] [place] [address] Dr. Mehnaz Dubon ALP [Catalytic activity/Vol] 108 U/L Normal 46-116 [facility] Comment on above: Performed By: #### C MP, LIPID, TSH, T7 #### [facility] [address] [place] [address] Dr. Mehnaz Dubon ALT [Catalytic activity/Vol] 37 U/L Normal 14-59 [facility] Comment on above: Performed By: #### C MP, LIPID, TSH, T7 #### [facility] [address] [place] [address] Dr. Mehnaz Dubon Anion gap [Moles/Vol] 10.1 mmol/L Normal [facility] Comment on above: Performed By: #### C MP, LIPID, TSH, T7 #### [facility] [address] [place] [address] Dr. Mehnaz Dubon AST [Catalytic activity/Vol] 48 U/L Critically high 15-37 [facility] Comment on above: Performed By: #### C MP, LIPID, TSH, T7 #### [facility] [address] [place] [address] Dr. Mehnaz Dubon Bilirubin [Mass/Vol] 0.5 mg/dL Normal 0.2-1.0 [facility] Comment on above: Performed By: #### C MP, LIPID, TSH, T7 #### [facility] [address] [place] [address] Dr. Mehnaz Dubon Calcium [Mass/Vol] 8.7 mg/dL Normal 8.5-10.1 [facility] Comment on above: Performed By: #### C MP, LIPID, TSH, T7 #### [facility] [address] [place] [address] Dr. Mehnaz Dubon Chloride [Moles/Vol] 105 mmol/L Normal 98-107 [facility] Comment on above: Performed By: #### C MP, LIPID, TSH, T7 #### [facility] [address] [address] [address] Mehnaz Dubon CO2 [Moles/Vol] 29.0 mmol/L Normal 21.0-32.0 [facility] Comment on above: Performed By: #### C MP, LIPID, TSH, T7 #### [facility] [address] [place] [address] Dr. Mehnaz Dubon Creatinine [Mass/Vol] 0.60 mg/dL Normal 0.55-1.02 [facility] Comment on above: Performed By: #### C MP, LIPID, TSH, T7 #### [facility] [address] [place] [address] Dr. Mehnaz Dubon EGFR-AF EQUATORIAL GUINEAN >60 Normal >=60 [facility] Comment on above: Performed By: #### C MP, LIPID, TSH, T7 #### [facility] [address] [place] [address] Dr. Mehnaz Dubon EGFR-NON AF EQUATORIAL GUINEAN >60 Normal >=60 [facility] Comment on above: Performed By: #### C MP, LIPID, TSH, T7 #### [facility] [address] [place] [address] Dr. Mehnaz Dubon Globulin (S) [Mass/Vol] 2.9 g/dL Normal [facility] Comment on above: Performed By: #### C MP, LIPID, TSH, T7 #### [facility] [address] [place] [address] Dr. Mehnaz Dubon Glucose [Mass/Vol] 77 mg/dL Normal 74-106 [facility] Comment on above: Performed By: #### C MP, LIPID, TSH, T7 #### [facility] [address] [place] [address] Dr. Mehnaz Dubon Potassium [Moles/Vol] 4.1 mmol/L Normal 3.5-5.1 [facility] Comment on above: Performed By: #### C MP, LIPID, TSH, T7 #### [facility] [address] [place] [address] Dr. Mehnaz Dubon Protein [Mass/Vol] 6.2 g/dL Critically low 6.4-8.2 [facility] Comment on above: Performed By: #### C MP, LIPID, TSH, T7 #### [facility] [address] [place] [address] Dr. Mehnaz Dubon Sodium [Moles/Vol] 140 mmol/L Normal 136-145 [facility] Comment on above: Performed By: #### C MP, LIPID, TSH, T7 #### [facility] [address] [place] [address] Dr. Mehnaz Dubon Urea nitrogen [Mass/Vol] 9.0 mg/dL Normal 7.0-18.0 [facility] Comment on above: Performed By: #### C MP, LIPID, TSH, T7 #### [facility] [address] [place] [address] Dr. Mehnaz Dubon Urea nitrogen/Creatinine [Mass ratio] 15.0 mg/mg Normal [facility] Comment on above: Performed By: #### C MP, LIPID, TSH, T7 #### [facility] [address] [place] [address] Dr. Mehnaz Dubon VIT B12 AND FOLATEon 2021 Cobalamin (Vitamin B12) [Mass/Vol] 904.0 pg/mL Normal 193.0-986.0 [facility] Comment on above: Performed By: #### F ERR, VITAD, FETIBC, B12FOL #### [facility] [address] [place] [address] Dr. Mehnaz Dubon FOLATE 9.70 ng/mL Normal 8.60-58.90 [facility] Comment on above: Performed By: #### F ERR, VITAD, FETIBC, B12FOL #### [facility] [address] [place] [address] Dr. Mehnaz Dubon VITAMIN D 25 OHon 02-03-2022 VIT D 25-OH 44.8 ng/mL Normal [facility] Comment on above: Performed By: #### F ERR, VITAD, FETIBC, B12FOL #### [facility] [address] [address] [address] Mehnaz Dubon VIT D RANGES SEE BELOW Normal [facility] Comment on above: Result Comment: <20 ng/mL Vit D deficient 20 - <30 ng/mL Vit D insufficient 30 - 100 ng/mL Vit D sufficient >100 ng/mL Potential Toxicity Performed By: #### F ERR, VITAD, FETIBC, B12FOL #### [facility] [address] [address] [address] Mehnaz Dubon ALP ALT Norma 12-30-2021 ALP [Catalytic activity/Vol] 139 U/L High 32-126 [facility] Comment on above: Performed By: #### C OMP, ENZ3, CRP, BCR #### [facility] (DEFAULT) [address] [place] [address] [id number] ALT [Catalytic activity/Vol] 35 U/L Normal 9-48 [facility] Comment on above: Performed By: #### C OMP, ENZ3, CRP, BCR #### [facility] (DEFAULT) [address] [place] [address] 87382 AST [Catalytic activity/Vol] 51 U/L High 10-39 [facility] Comment on above: Performed By: #### C OMP, ENZ3, CRP, BCR #### [facility] (DEFAULT) [address] [place] [address] 64362 BUN CREAon 12-30-2021 Creatinine [Mass/Vol] 0.53 mg/dL Normal 0.50-1.20 [facility] Comment on above: Performed By: #### C OMP, ENZ3, CRP, BCR #### [facility] (DEFAULT) [address] [place] [address] 89031 eGFR, CKD-EPI, Female >90 Normal >=60 [facility] Comment on above: Result Comment: Repo rted eGFR is based on the CKD-EPI 2020 equation using creatinine, age, and sex. Performed By: #### C OMP, ENZ3, CRP, BCR #### [facility] [address] [place] [address] 97692 Urea nitrogen [Mass/Vol] 7 mg/dL Normal 7-25 [facility] Comment on above: Performed By: #### C OMP, ENZ3, CRP, BCR #### [facility] (DEFAULT) [address] [place] [address] 75520 Urea nitrogen/Creatinine [Mass ratio] 13 mg/mg Normal [facility] Comment on above: Performed By: #### C OMP, ENZ3, CRP, BCR #### [facility] (DEFAULT) [address] [place] [address] 26649 C REACTIVE PROTEINon 022 CRP [Mass/Vol] 4.61 mg/L Normal <10.00 [facility] Comment on above: Performed By: #### C OMP, ENZ3, CRP, BCR #### [facility] (DEFAULT) [address] [place] [address] 38687 C3,C4on 12-30-2021 C3 129 mg/dL Normal 87-200 [facility] Comment on above: Performed By: #### C OMP, ENZ3, CRP, BCR #### [facility] (DEFAULT) [address] [place] [address] 59146 C4 25 mg/dL Normal 18-52 [facility] Comment on above: Performed By: #### C OMP, ENZ3, CRP, BCR #### [facility] (DEFAULT) [address] [place] [address] 78565 CBC AND ELECTRONIC DIFFon Basophils (Bld) [#/Vol] 0.07 10*3/uL Normal 0.00-0.15 [facility] Comment on above: Performed By: #### L AB980 #### [facility] (DEFAULT) [address] [place] [address] 53918 Basophils/100 WBC (Bld) 1.2 % Normal [facility] Comment on above: Performed By: #### L AB980 #### [facility] (DEFAULT) [address] [place] [address] 86830 DIFF STATUS Electronic Differential Normal [facility] Comment on above: Performed By: #### L AB980 #### [facility] (DEFAULT) [address] [place] [address] 24501 Eosinophils (Bld) [#/Vol] 0.18 10*3/uL Normal 0.00-0.42 [facility] Comment on above: Performed By: #### L AB980 #### [facility] (DEFAULT) [address] [place] [address] 00885 Eosinophils/100 WBC (Bld) 3.1 % Normal [facility] Comment on above: Performed By: #### L AB980 #### [facility] (DEFAULT) [address] [place] [address] 82301 Hematocrit (Bld) [Volume fraction] 43.9 % Normal 34.9-44.3 [facility] Comment on above: Performed By: #### L AB980 #### [facility] (DEFAULT) [address] [place] [address] 58577 Hemoglobin (Bld) [Mass/Vol] 14.2 g/dL Normal 11.4-15.2 [facility] Comment on above: Performed By: #### L AB980 #### [facility] (DEFAULT) [address] [address] Immature Grans % 0.3 % Normal [facility] Comment on above: Performed By: #### L AB980 #### [facility] (DEFAULT) [address] [place] [address] 15790 Immature Grans Absolute <0.04 Normal <=0.08 [facility] Comment on above: Performed By: #### L AB980 #### [facility] (DEFAULT) [address] [place] [address] 11602 Lymphocytes (Bld) [#/Vol] 1.05 10*3/uL Low 1.16-3.51 [facility] Comment on above: Performed By: #### L AB980 #### [facility] (DEFAULT) [address] [place] [address] 03380 Lymphocytes/100 WBC (Bld) 17.9 % Normal [facility] Comment on above: Performed By: #### L AB980 #### [facility] (DEFAULT) [address] [place] [address] 59664 MCV (RBC) [Entitic vol] 93.6 fL Normal 79.6-97.7 [facility] Comment on above: Performed By: #### L AB980 #### [facility] (DEFAULT) [address] [place] [address] 28018 Mean Cell Hgb 30.3 pg Normal 25.9-33.9 [facility] Comment on above: Performed By: #### L AB980 #### [facility] (DEFAULT) [address] [place] [address] 04349 Mean Cell Hgb Conc 32.3 g/dL Normal 31.4-35.9 [facility] Comment on above: Performed By: #### L AB980 #### [facility] (DEFAULT) [address] [place] [address] 94405 Monocytes (Bld) [#/Vol] 0.50 10*3/uL Normal 0.22-0.87 [facility] Comment on above: Performed By: #### L AB980 #### [facility] (DEFAULT) [address] [place] [address] 51569 Monocytes/100 WBC (Bld) 8.5 % Normal O [facility] Comment on above: Performed By: #### L AB980 #### [facility] (DEFAULT) [address] [address] Nucleated RBC 0.0 /100 WBC Normal <=0.2 [facility] Comment on above: Performed By: #### L AB980 #### [facility] (DEFAULT) [address] [place] [address] 75148 Platelet mean volume (Bld) [Entitic vol] 11.4 fL Normal 8.5-12.2 [facility] Comment on above: Performed By: #### L AB980 #### [facility] (DEFAULT) [address] [place] [address] 31612 Platelets (Bld) [#/Vol] 167 10*3/uL Normal 150-393 [facility] Comment on above: Performed By: #### L AB980 #### [facility] (DEFAULT) [address] [place] [address] 50890 RBC (Bld) [#/Vol] 4.69 10*6/uL Normal 3.91-5.04 [facility] Comment on above: Performed By: #### L AB980 #### [facility] (DEFAULT) [address] [place] [address] 95580 RBC Distribution 13.0 % Normal 10.8-14.9 [facility] Comment on above: Performed By: #### L AB980 #### [facility] (DEFAULT) [address] [place] [address] 17762 Segs + Bands Auto 69.0 % Normal [facility] Comment on above: Performed By: #### L [id number] #### [facility] (DEFAULT) [address] [place] [address] 65648 Segs + Bands,Absolute Auto 4.05 K/uL Normal 1.64-7.28 [facility] Comment on above: Performed By: #### L [id number] #### [facility] (DEFAULT) [address] [place] [address] 91182 WBC (Bld) [#/Vol] 5.87 10*3/uL Normal 3.99-11.19 [facility] Comment on above: Performed By: #### L [id number] #### [facility] (DEFAULT) [address] [place] [address] 52729 DSDNA ANTIBODYon 12-30-2021 dsDNA Antibody Negative Normal Negative [facility] Comment on above: Performed By: #### D SDNAB #### [facility] (DEFAULT) [address] [place] [address] 63369 SEDIMENTATION RATE, AUTOMATE Don 12-30-2021 ESR Westergren 12 mm/hr Normal <30 [facility] Comment on above: Performed By: #### E SR #### [facility] (DEFAULT) [address] [place] [address] [id number] URINALYSISon 12-30-2021 Amorphous >51% = Heavy Abnormal (none) [facility] Comment on above: Performed By: #### U RIN #### [facility] (DEFAULT) [address] [place] [address] 27162 Appearance (U) Turbid Abnormal Clear [facility] Comment on above: Performed By: #### U RIN #### [facility] (DEFAULT) [address] [place] [address] 27609 Bacteria ABSENT Normal ABSENT [facility] Comment on above: Performed By: #### U RIN #### U [facility] (DEFAULT) [address] [place] [address] 70817 Blood Urine Negative Normal Negative [facility] Comment on above: Performed By: #### U RIN #### [facility] (DEFAULT) [address] [place] [address] 20227 Calcium Oxalate Crystals PRESENT Normal [facility] Comment on above: Performed By: #### U RIN #### U [facility] (DEFAULT) [address] [place] [address] 53827 Color (U) Yellow Normal Yellow [facility] Comment on above: Performed By: #### U RIN #### U [facility] (DEFAULT) [address] [place] [address] 47362 Glucose Ql (U) Negative Normal Negative [facility] Comment on above: Performed By: #### U RIN #### U [facility] (DEFAULT) [address] [place] [address] 07749 Ketones Ql (U) 15 mg/dL = Small Abnormal Negative [facility] Comment on above: Performed By: #### U RIN #### U [facility] (DEFAULT) [address] [place] [address] 50362 Leukocyte esterase Test strip Ql (U) Negative Normal Negative [facility] Comment on above: Performed By: #### U RIN #### U [facility] (DEFAULT) [address] [place] [address] 61119 Nitrites Urine Negative Normal Negative [facility] Comment on above: Performed By: #### U RIN #### U [facility] (DEFAULT) [address] [place] [address] 86647 pH (U) 6.0 [pH] Normal 5.0-7.0 [facility] Comment on above: Performed By: #### U RIN #### [facility] (DEFAULT) [address] [place] [address] 59427 Protein Urine 30 mg/dL Abnormal Negative [facility] Comment on above: Performed By: #### U RIN #### U [facility] (DEFAULT) [address] [place] [address] 74853 RBC Urine 0-2 Normal 0-2 [facility] Comment on above: Performed By: #### U RIN #### [facility] (DEFAULT) [address] [place] [address] 67018 Specific [place] Urine >=1.030 Normal 1.001-1.035 O [facility] Comment on above: Performed By: #### U RIN #### U [facility] (DEFAULT) [address] [place] [address] 42662 Squamous/Epithelial Cells 1/hpf = 1+ Normal 1/hpf = 1+, 2-5/hpf = 2+, 0/hpf = 0+, ABSENT [facility] Comment on above: Performed By: #### U RIN #### U [facility] (DEFAULT) [address] [place] [address] 65922 Urobilinogen Urine 0.2 E.U./dL Normal 0.2 E.U/d L, 1.0 E.U/dL [facility] Comment on above: Performed By: #### U RIN #### [facility] (DEFAULT) [address] [place] [address] 30614 WBC Urine 0-5 Normal 0-5 [facility] Comment on above: Performed By: #### U RIN #### [facility] (DEFAULT) [address] [place] [address] 00565 Vital Signs Date Time Vital Sign Value Performing Clinician Edvin landers 05-28-2022 09:01-0500 Body height 165.1 cm MD Yunior Masterson Work Phone: [facility] 05-28-2022 09:01-0500 Body mass index (BMI) [Ratio] 23.9 kg/m2 MD Yunior Masterson Work Phone: [facility] 05-28-2022 09:01-0500 Body weight 65.31 kg MD Yunior Masterson Work Phone: [facility] 05-28-2022 08:50-0500 Body temperature 97.5 [degF] MD Yunior Masterson Work Phone: [facility] 05-28-2022 08:50-0500 Diastolic blood pressure 87 mm[Hg] MD Yunior Masterson Work Phone: [facility] 05-28-2022 08:50-0500 Heart rate 85 /min MD Yunior Masterson Work Phone: [facility] 05-28-2022 08:50-0500 Respiratory rate 20 /min MD Yunior Masterson Work Phone: [facility] 05-28-2022 08:50-0500 Systolic blood pressure 133 mm[Hg] MD Yunior Masterson Work Phone: [facility] 05-14-2022 13:39-0500 Body height 165.1 cm MD Yunior Masterson Work Phone: [facility] 05-14-2022 13:39-0500 Body mass index (BMI) [Ratio] 23.9 kg/m2 MD Yunior Masterson Work Phone: [facility] 05-14-2022 13:39-0500 Body weight 65.31 kg MD Yunior Masterson Work Phone: [facility] 05-14-2022 13:31-0500 Body temperature 97.2 [degF] MD Yunior Masterson Work Phone: [facility] 05-14-2022 13:31-0500 Diastolic blood pressure 85 mm[Hg] MD Yunior Masterson Work Phone: [facility] 05-14-2022 13:31-0500 Heart rate 109 /min MD Yunior Masterson Work Phone: [facility] 05-14-2022 13:31-0500 Respiratory rate 18 /min MD Yunior Masterson Work Phone: [facility] 05-14-2022 13:31-0500 Systolic blood pressure 128 mm[Hg] MD Yunior Masterson Work Phone: [facility] 04-15-2022 11:26-0500 Body height 165.1 cm MD Yunior Masterson Work Phone: [facility] 04-15-2022 11:26-0500 Body mass index (BMI) [Ratio] 23.9 kg/m2 MD Yunior Masterson Work Phone: [facility] 04-15-2022 11:26-0500 Body weight 65.31 kg MD Yunior Masterson Work Phone: [facility] 04-15-2022 11:10-0500 Body temperature 97.2 [degF] MD Yunior Masterson Work Phone: [facility] 04-15-2022 11:10-0500 Diastolic blood pressure 70 mm[Hg] MD Yunior Masterson Work Phone: [facility] 04-15-2022 11:10-0500 Heart rate 76 /min MD Yunior Masterson Work Phone: [facility] 04-15-2022 11:10-0500 Respiratory rate 18 /min MD Yunior Masterson Work Phone: [facility] 04-15-2022 11:10-0500 Systolic blood pressure 138 mm[Hg] MD Yunior Masterson Work Phone: [facility] 03-03-2022 08:00-0400 Body temperature 98.3 [degF] MD Yunior Masterson Work Phone: [facility] 03-03-2022 08:00-0400 Diastolic blood pressure 56 mm[Hg] MD Yunoir Masterson Work Phone: [facility] 03-03-2022 08:00-0400 Heart rate 97 /min MD Yunior Masterson Work Phone: [facility] 03-03-2022 08:00-0400 Respiratory rate 16 /min MD Yunior Masterson Work Phone: [facility] 03-03-2022 08:00-0400 SaO2% (BldA) [Mass fraction] 98 % MD Yunior Masterson Work Phone: [facility] 03-03-2022 08:00-0400 Systolic blood pressure 99 mm[Hg] MD Yunior Masterson Work Phone: [facility] 03-01-2022 15:05-0400 Body height 162.56 cm MD Yunior Masterson Work Phone: [facility] 03-01-2022 15:05-0400 Body mass index (BMI) [Ratio] 25.7 kg/m2 MD Yunior Masterson Work Phone: [facility] 03-01-2022 15:05-0400 Body weight 67.9 kg MD Yunior Masterson Work Phone: [facility] 03-01-2022 14:50-0400 Inhaled oxygen flow rate 2 L/min MD Yunior Masterson Work Phone: [facility] 12-30-2021 10:17-0400 Body height 165.1 cm Cezar Valentin DO Work Phone: [facility] 12-30-2021 10:17-0400 Body mass index (BMI) [Ratio] 24.66 kg/m2 Cezar Reisner DO Work Phone: [facility] 12-30-2021 10:17-0400 Body weight 67.22 kg Cezar Reisner DO Work Phone: [facility] 12-30-2021 10:17-0400 Diastolic blood pressure 68 mm[Hg] Cezar Reisner DO Work Phone: [facility] 12-30-2021 10:17-0400 Heart rate 85 /min Cezar Reisner DO Work Phone: [facility] 12-30-2021 10:17-0400 Respiratory rate 16 /min Cezar Reisner DO Work Phone: [facility] 12-30-2021 10:17-0400 SaO2% (BldA) [Mass fraction] 94 % Cezar Reisner DO Work Phone: [facility] 12-30-2021 10:17-0400 Systolic blood pressure 116 mm[Hg] Cezar Reisner DO Work Phone: [facility] Encounters Encounter Date Encounter Type Care Provider Facility Start: 10-30-2022 End: 10-30-2022 ambulatory Roberth Kowalski Other [facility] Other Start: 10-30-2022 Telephone encounter Roberth Kowalski [facility] Start: 10-27-2022 End: 10-27-2022 ambulatory Roberth Kowalski Other [facility] Other Start: 10-27-2022 Office outpatient ne w 45 minutes Roberth Kowaslki [facility] Start: 10-23-2022 End: 10-23-2022 ambulatory Aquiles Pedro II Other [facility] [employer] Other Start: 10-23-2022 Office outpatient vi sit 25 minutes Aquiles [place] II [facility] Start: 09-24-2022 End: 09-24-2022 ambulatory Aquiles M Pedro II Facility:[facility] Start: 09-24-2022 End: 09-24-2022 ambulatory MD Yunior Masterson Work Phone: [facility] Work Phone: Start: 09-24-2022 End: 09-24-2022 Patient encounter procedure MD Yunior Masterson Work Phone: [facility] Start: 06-25-2022 Office outpatient vi sit 25 minutes Aquiles [place] II [facility] Start: 06-25-2022 End: 06-25-2022 ambulatory Aquiles Huang [place] II Facility:[facility] Start: 06-25-2022 End: 06-25-2022 ambulatory MD Yunior Masterson Work Phone: [facility] Work Phone: Start: 06-25-2022 End: 06-25-2022 Patient encounter procedure MD Yunior Masterson Work Phone: [facility] Start: 05-28-2022 End: 05-28-2022 ambulatory Beverly Torres Facility:[facility] Start: 05-28-2022 End: 05-28-2022 Discharged Recurring MD Yunior Masterson Work Phone: [facility] Work Phone: Start: 05-15-[address] YUNIOR MASTERSON . Facili ty:[facility] Start: 05-14-2022 Office outpatient vi sit 25 minutes Aquiles [place] II [facility] Start: 05-14-2022 Registered Recurring MD Lan Masterson Work Phone: [facility] Work Phone: Start: 05-14-2022 End: 05-14-2022 ambulatory Aquiles M Pedro II Facility:[facility] Start: 05-14-2022 End: 05-14-2022 ambulatory MD Yunior Masterson Work Phone: [facility] Work Phone: Start: 05-14-2022 End: 05-14-2022 Patient encounter procedure MD Yuniro Masterson Work Phone: [facility] Start: 05-11-2022 End: 05-30-2022 ambulatory AQUILES PEDRO Facility:[facility] Start: 04-16-2022 End: 05-10-2022 ambulatory AQUILES PEDRO Facility:[facility] Start: 04-16-2022 Office outpatient vi sit 25 minutes Aquiles Pedro II [facility] Start: 04-16-2022 End: 04-16-2022 ambulatory Aquiles M [place] II Facility:[facility] Start: 04-16-2022 End: 04-16-2022 ambulatory MD Yunior Masterson Work Phone: [facility] Work Phone: Start: 04-16-2022 End: 04-16-2022 Patient encounter procedure MD Yunior Masterson Work Phone: [facility] Start: 04-15-2022 Registered Recurring MD Lan Masterson Work Phone: [facility] [place] Start: 04-09-2022 Encounter for genera l adult medical examination without abnormal findings DR YUNIOR MASTERSON . [facility] Start: 04-04-2022 End: 04-05-[address] YUNIOR MASTERSON . Facility:[facility] Start: 04-04-2022 End: 04-05-2022 Encounter for general adult medical examination without abnormal findings DR YUNIOR MASTERSON . Facility:[facility] Start: 03-19-2022 End: 03-19-2022 ambulatory Aquiles [place] II Other [facility] Other Start: 03-19-2022 Office outpatient vi sit 15 minutes Aquiles Pedro TREVIZO [facility] Start: 03-13-2022 End: 03-13-2022 ambulatory Aquiles Vasquez II Other [facility] Other Start: 03-13-2022 Telephone encounter Aquiles Vasquez II [facility] Start: 03-09-2022 End: 03-10-[address] YUNIOR MASTERSON . Facility:[facility] Start: 03-03-2022 End: 03-03-2022 ambulatory Aquiles Vasquez II Other [facility] Other Start: 03-03-2022 Telephone encounter Aquiles Pedro TREVIZO [facility] Start: 03-01-2022 End: 03-03-2022 Evaluation and management of inpatient Louann Camara Facility:[facility] Start: 03-01-2022 End: 03-03-2022 Evaluation and management of inpatient MD Yunior Masterson Work Phone: [facility] Start: 02-28-2022 End: 03-01-[address] YUNIOR MASTERSON . Facility:[facility] Start: 02-03-2022 End: 02-04-[address] DOCTOR MOSS Facility:[facility] Start: 12-30-2021 ambulatory YUNIOR MASTERSON Facility: [facility] Start: 12-30-2021 ambulatory YUNIOR MASTERSON Facility: [facility] Start: 12-30-2021 End: 12-30-2021 Office outpatient visit 25 minutes Cezar Valentin DO Work Phone: [facility] [place] Comment on above: Rheumatoid arthritis involving both hands with positive rheumatoid factor (Primary Dx); Diarrhea, unspecified type Start: 11-04-2021 ambulatory YUNIOR MASTERSON Facility: [facility] Start: 06-24-2021 ambulatory YUNIOR MASTERSON Facility: [facility] Start: 03-11-2021 ambulatory YUNIOR MASTERSON Facility: [facility] Procedures Date Procedure Procedure Detail Performing Clinician Start: 09-24-2022 Plain X-ray of left tibia and left fibula MD Yunior Masterson Work Phone: Start: 06-25-2022 Plain X-ray of left tibia and left fibula MD Yunior Masterson Work Phone: Start: 05-14-2022 Plain X-ray of left tibia and left fibula MD Yunior Masterson Work Phone: Start: 04-16-2022 Plain X-ray of left tibia and left fibula MD Yunior Masterson Work Phone: Start: 03-01-2022 Plain X-ray of left tibia and left fibula MD Yunior Masterson Work Phone: Start: 03-01-2022 Open reduction of fracture of tibia with internal fixation MD Yunior Masterson Work Phone: Start: 03-01-2022 Plain X-ray of left tibia and left fibula MD Yunior Masterson Work Phone: Start: 06-12-2012 Lipid 1996 panel - S bill or Plasma Cezar Valentin DO Work Phone: Plan of Treatment Date Care Activity Detail Author Start: 04-14-2022 End: 04-14-2022 Patient encounter procedure 04/14/2022 Office Visit Rheumatology Cezar Valentin DO [address] [place] [address] [facility] Start: 03-02-2022 [facility] Start: 03-01-2022 Hospital admission [facility] Start: 03-01-2022 Insertion of Intramedullary Internal Fixation Device into Left Tibia, Percutaneous Approach Insertion of Intramedullary Internal Fixation Device into Left Tibia, Percutaneous Approach [facility] Start: 03-01-2022 Referral to clinical clinical trial assistant [facility] Start: 03-01-2022 Plain X-ray of left tibia and left fibula XR tibia fibula LT 2V* [facility] Start: 03-01-2022 XR Tibia and Fibula - left 2 Views [facility] Start: 01-09-2022 Influenza vaccination INFLUENZA VACC INE (#1) [facility] Start: 12-30-2021 End: 12-30-2022 Bone density scan BONE DENSITY AXIAL (HIP, PELVIS, SPINE) Imaging Routine Rheumatoid arthritis involving both hands with positive rheumatoid factor Expected: 12/30/2021, Expires: 12/30/2022 [facility] Comment on above: Expected: 12/30/2021 , Expires: 12/30/2022 Start: 12-30-2021 End: 12-30-2022 Urinalysis URINALYSIS Fluids Routine Rheumatoid arthritis involving both hands with positive rheumatoid factor Expected: 12/30/2021, Expires: 12/30/2022 [facility] Comment on above: Expected: 12/30/2021 , Expires: 12/30/2022 Start: 07-11-2021 COVID-19 VACCINE (4 - Booster for Pfizer series) COVID-19 VACCINE (4 - Booster for Pfizer series) [facility] Start: 07-05-2020 Thyroid stimulating hormone measurement TSH [facility] Start: 2018 Zoster vaccine hzv l anny for subcutaneous use ZOSTER (SHINGLES) VACCINE (1 of 2) [facility] Start: 06-12-2017 Fasting lipid profile LIPID SCREENIN G [facility] Start: 2013 Colonoscopy COLORECTAL CAN CER SCREENING DISCUSSION [facility] Start: 2008 Screening mammography MAMMOGRA M SCREENING DISCUSSION [facility] Start: 1989 Screening for malign ant neoplasm of cervix CERVICAL CANCER SCREENING DISCUSSION [facility] Start: 09-12-1987 Third diphtheria, tetanus and acellular pertussis (DTaP) vaccination TDAP (ADULT) [facility] Start: 1986 Tetanus vaccination TETANUS [facility] Start: 09-12-1983 HIV screening HIV SCREENING DISCUSSION [facility] End: 12-30-2022 BUN CREA BUN CREA Lab Routine Rheumatoid arthritis involving both hands with positive rheumatoid factor every 90 days for 8 Occurrences starting 12/30/2021 until 12/30/2022 [facility] Work Phone: Comment on above: every 90 days for 8 Occurrences starting 12/30/2021 until 12/30/2022 End: 12-30-2022 Complete blood count with white cell differential, automated CBC, EDIF, PLATELET Lab Routine Rheumatoid arthritis involving both hands with positive rheumatoid factor 90 days for 8 Occurrences starting 12/30/2021 until 12/30/2022 [facility] Comment on above: 90 days for 8 Occurr ences starting 12/30/2021 until 12/30/2022 Patient referral [facility] Work Phone: Immunizations Immunization Date Immunization Notes Care Provider Fa [facility] 03-07-2020 influenza virus vaccine, unspecified formulation Cezar Valentin DO Work Phone: [facility] 12-28-2015 hepatitis B vaccine, adult dosage Cezar Valentin DO Work Phone: [facility] Payers Date Payer Category Payer Medicare 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 Chief Complaint Patient presents with Rheumatoid Arthritis Lot of back pain, left knee pain and right hip pain History of Present Illness: Ms. Ashley returns for an office visit regarding her inflammatory arthritis (RA / SLE). Overall, she appears to be doing well. She reports 1 hour of morning stiffness in her hands. She has chronic low back pain, history of degenerative disc disease, follows with spine clinic. She is having diarrhea about 6 bowel movements per day. She has a history of gastric bypass and has lost about 100 pounds. She denies chest pain, shortness of breath, rash, mouth ulcers. She does have hair loss. DISEASE ACTIVITY SUMMARY Rheumatology 12/30/2021 11/04/2021 06/24/2021 03/11/2021 12/03/2020 08/28/2020 06/05/2020 Morning Stiffness (Minutes) 1hr-2hr 30min-1hr 30min-1hr - 30min-1hr - - Patient Function Score 2.0 2.0 1.7 - 2.3 - - Patient Pain Score 7.0 6.0 8.0 - 7.0 - - Patient Disease Activity 7.0 4.0 5.5 - 7.0 - - Physician Global Score - 0 0 0 0 0 2 Tender Joint Count - - - - - - - Swollen Joint Count - - - - - - - Rapid Three Autocalculation: 16 12 15.2 - 16.3 - - History of Rheumatoid Nodules: No History of Erosions of X-ray or MRI: No Medications: She has a current medication list which includes the following prescription(s): ARMOURTHYROID PO, baclofen 10 MG tablet, biotin 1000 MCG tablet, Calcium Citrate 333 MG tablet, Cholecalciferol (VITAMIN D) 1000 UNITS PO TABS, duloxetine [address] Particles, hydroCODone-acetaminophen 5-325 MG tablet, hydroxychloroquine 200 MG tablet, leflunomide 20 MG tablet, metoprolol 25 MG tab regular release, pantoprazole [address] tablet DR, and simvastatin 10 MG Tab tablet. Past Medical History: She has a past medical history of Arthritis, Asthma, and Hypothyroidism. She has no past medical history of Anemia, Arrhythmia, Bleeding disorder, CAD (coronary artery disease), Cardiac angina, Congestive heart failure, COPD (chronic obstructive pulmonary disease), Depression, Diabetes mellitus, Difficult intubation, Essential hypertension, benign, GERD (gastroesophageal reflux disease), Glaucoma, Hepatitis, HIV (human immunodeficiency virus infection), Hyperlipidemia, Hyperthyroidism, Liver disease, UT (myocardial infarction), Migraine, IFRAH (obstructive sleep apnea), Pacemaker, Renal disease, Seizure, Sickle cell anemia, Stroke, TIA (transient ischemic attack), or Vascular disease. Review of Systems: As stated in HPI other gaona negative Social History: No Change except as noted Physical Examination: Blood pressure 116/68, pulse 85, resp. rate 16, height 1.651 m (5' 5 ), weight 67.2 kg (148 lb 3.2 oz), SpO2 94 %. GENERAL: She is in no apparent distress. obese. Skin (Limited): No evidence of any rashes on her exam today. HEENT: no eye redness Lungs: unlabored breathing Musculoskeletal: There is no evidence of synovitis based on video evaluation. Diagnostic Data: Results for CHRISTIANE ASHLEY ( ) as of 11/15/2012 14:36 Ref. Range 06/13/2012 08:25 RHEUMATOID FACTOR, MANUAL ENTER Latest Range: 0-20 IU/mL 105 (H) CHAGO, QUANTITATIVE No range found 1:640 CHAGO PATTERN No range found SPECKLED MAHARAJ ANTIBODY Latest Range: NEGATIVE NEGATIVE WORKSITE WELLNESS PRACTITIONER ANTIBODY Latest Range: NEGATIVE NEGATIVE SS-A ANTIBODY Latest Range: NEGATIVE POSITIVE (A) SS-B ANTIBODY Latest Range: NEGATIVE NEGATIVE CYCLIC CITRULLINATE PEPTIDE AB Latest Range: <5.0 U/mL 1.7 DS DNA Antibody No range found NEGATIVE DS DNA Ab, Quant No range found Not applicable CHAGO, IFA Latest Range: NEGATIVE POSITIVE (A) HEPATITIS A IGM AB Latest Range: NEGATIVE NEGATIVE HEPATITIS B SURFACE ANTIBODY Latest Range: NEGATIVE NEGATIVE HEPATITIS B SURFACE AG, MANUAL ENTER Latest Range: NEGATIVE NEGATIVE HEPATITIS C ANTIBODY Latest Range: NEGATIVE NEGATIVE No visits with results within 1 Day(s) from this visit. Latest known visit with results is: Infusion Visit on 06/06/2020 Component Date Value Ref Range Status M. Tuberculosis by Quantiferon in * 06/06/2020 Negative Negative Final M. TB TB1-Nil 06/06/2020 0.01 IU/mL Final M. TB TB2-Nil 06/06/2020 0.01 IU/mL Final M. TB Mitogen-Nil 06/06/2020 9.96 IU/mL Final M. TB Nil 06/06/2020 0.04 IU/mL Final Hepatitis B Surface Ag 06/06/2020 Negative Negative Final Hep B Core Ab,Total (IgG+IgM) 06/06/2020 Negative Negative Final Hep B Core IgM Ab 06/06/2020 Negative Negative Final Hepatitis A IgM Ab 06/06/2020 Negative Negative Final Hepatitis C Antibody 06/06/2020 Negative Negative Final ESR Westergren 06/06/2020 22 <30 mm/hr Final dsDNA Antibody 06/06/2020 Negative Negative Final C3 06/06/2020 159 87 - 200 mg/dL Final C4 06/06/2020 26 18 - 52 mg/dL Final C Reactive Protein 06/06/2020 4.76 <10.00 mg/L Final BUN 06/06/2020 11 7 - 22 mg/dL Final Creatinine 06/06/2020 0.54 0.50 - 1.20 mg/dL Final Bun/Crea Ratio 06/06/2020 20 Final EST GFR,Non 06/06/2020 >=60 >=60 mL/min/1.73sqM Final EST GFR, 06/06/2020 >=60 >=60 mL/min/1.73sqM Final ALP 06/06/2020 88 32 - 126 U/L Final ALT 06/06/2020 43 9 - 48 U/L Final AST 06/06/2020 34 14 - 40 U/L Final WBC Count 06/06/2020 5.85 3.99 - 11.19 K/uL Final RBC Count 06/06/2020 4.59 3.91 - 5.04 M/uL Final Hemoglobin 06/06/2020 12.9 11.4 - 15.2 g/dL Final Hematocrit 06/06/2020 40.2 34.9 - 44.3 % Final Mean Cell Volume 06/06/2020 87.6 79.6 - 97.7 fL Final Mean Cell Hgb 06/06/2020 28.1 25.9 - 33.9 pg Final Mean Cell Hgb Conc 06/06/2020 32.1 31.4 - 35.9 g/dL Final RBC Distribution 06/06/2020 13.8 10.8 - 14.9 % Final Platelet Count 06/06/2020 221 150 - 393 K/uL Final Mean Platelet Volume 06/06/2020 11.6 8.5 - 12.2 fL Final DIFF STATUS 06/06/2020 Electronic Differential Final Segs + Bands Auto 06/06/2020 63.6 % Final Immature Grans % 06/06/2020 0.2 % Final Lymphocyte % Auto 06/06/2020 20.9 % Final Monocyte % Auto 06/06/2020 10.9 % Final Eosinophil % Auto 06/06/2020 2.9 % Final Basophil % Auto 06/06/2020 1.5 % Final Nucleated RBC 06/06/2020 0.0 <=0.2 /100 WBC Final Segs + Bands,Absolute Auto 06/06/2020 3.72 1.64 - 7.28 K/uL Final Immature Grans Absolute 06/06/2020 <0.04 <=0.09 K/uL Final Abs Lymph Auto 06/06/2020 1.22 1.16 - 3.51 K/uL Final Abs [place] Auto 06/06/2020 0.64 0.22 - 0.87 K/uL Final Abs Eos Auto 06/06/2020 0.17 0.00 - 0.42 K/uL Final Abs Baso Auto 06/06/2020 0.09 0.00 - 0.15 K/uL Final Outside blood work from 11/14/2014: Normal LFT's and CBC. sed rate and CRP normal. Urinalysis normal.ASO titer normal. T4 and T3 of normal. TSH normal. Echocardiogram 11/14/2014: Conclusion: 1. Normal LV size and function, estimated EF 60% 2. Normal RV size and function 3. No pericardial effusion Mild MR No change in heart function from prior echo 05/2012 Bilateral hip x-ray 08/21/2014: IMPRESSION: Mild arthritic changes of the hips bilaterally with pincer morphology which may predispose to femoral acetabular impingement symptoms. No radiographic evidence of avascular necrosis of the femoral heads. Assessment and Plan: History of seropositive RA (positive RF and negative CCP). In the past she has been treated with methotrexate, TNF inhibitors, and even rituximab. She has been in remission for many years now, but inlate 2011 she developed worsening joint pain and swelling and developed a pericardial effusion. At this time, I think it difficult to classify her underlying connective tissue disease. She does have a history of rheumatoid arthritis in the past and her RF is positive (negative CCP) but she does have a positive high titer CHAGO, arthritis (that appears to be non-erosive), pericarditis, and lymphopenia - which does satisfy the diagnosis of SLE. Her inflammatory arthritis flared up in December 2017 and leflunomide dose was increased to 20 mg daily which provided her with relief but recently her joint pain has recurred especially when dropping down her prednisone dose. she had not had her rituximab infusion since October 2014 but restarted it again in May 2018. 1. Inflammatory arthritis (rheumatoid vs lupus vs undifferentiated connective tissue disease vs overlap syndrome) Today, she says that she's doing well. No flare ups or any active disease. Last rituximab dose was Jun 2020 and since doing well, we agreed to hold off redosing for now. For now, I recommend the following: - decrease leflunomide from 20mg to 10mg daily in the setting of diarrhea - continue plaquenil 400 mg daily. Along with eye doctor follow up - no longer on mobic/nsaids due to gastric bypass surgery but without any issues - rituximab infusions on hold given her RA has been stable since her last dose (last infusion Jun 2020) - labs to be done at her convenience - quantiferon 05/2020 negative 2. Pericardial effusion - resolved. Secondary to SLE. No longer on colchicine and seems to be doing well. -last echo in 2012 with normal EF, no mention of pericarditis or pericardial effusion - will hold off on repeat echo for now 3. Proteinuria Will continue to monitor. Nothing in previous set of labs. 4. Bilateral hip pain / paulino trochanteric bursitis Her R trochanter was injected in the past without much improvement in her pain unfortunately. Recommend continuing stretching exercises. 5. Bone health/ chronic use of steroids Daily calcium and vit D. Bone density in May 2019 was normal. 6. Left knee pain (s/p injury)/knee OA meniscal damage/tear. Continue follow up with orthopedics no plan for surgery. Injected in Jun 2020 with benefit. 7. Neck and lumbar DJD S/p ACDF but recently complaining of worsening tingling. Continue follow up with spine surgery. Recent MRI found ruptured discs. Her lumbar and SIJ pain are very limiting - cauterization was denied by insurance. She follows withspine/pain specialist and doing epidural injections. 8. S/p bariatric surgery Doing well and loosing weight. GENERAL LUPUS RECOMMENDATIONS TO PRIMARY CARE PROVIDER: 1. Sunlight exposure increases risk of lupus flare. Recommend use of SPF 45 or greater sunscreen every day throughout the year. 2 Lupus increases the risk of atherosclerosis which can occur in young adults with lupus. For prevention recommend focus on heart healthy diet, attention to blood pressure and age appropriate cholesterol screening. We encourage regular physical activity. 3. People with lupus are at risk for bone loss. Recommend assuring adequate calcium and vitamin D intake, regular weight bearing exercise. 4. Recommend annual inactivated influenza vaccine. 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 Patient was seen and discussed with attending vending mechanic, Dr. Null. Cezar Valentin DO Rheumatology fellow [facility] Inst[facility]* Patient Instructions* Cezar Valentin DO - 12/30/2021 10:40 AM EDT We will decrease the leflunomide to 10mg daily. Get labs today. Please follow up in 3 months. I will order a DEXA scan to check for osteoporosis which should be done every 2 years. [facility] Diagnosis Rheumatoid arthritis involving both hands with positive rheumatoid factor- Primary Diarrhea, unspecified type [facility] Diagnosis Onset Date Resolution Status Acute blood loss anemia acut e Closed fracture of left tibia and fibula acute Hypothyroid acute Long QT interval acute Lupus acute Rheumatoid arthritis acute Tibia/fibula fracture, shaft acute [facility] Work Phone: Evaluation noteNo [employer] Other Evaluation note* Diagnosis Onset Date Resolution Status Acute blood loss anemia acut e Closed fracture of left tibia and fibula acute Long QT interval acute Hypothyroid chronic Lupus chronic Rheumatoid arthritis chronic Tibia/fibula fracture, shaft chronic 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 leg 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 blister 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 Hypothyroid chronic Lupus chronic Rheumatoid arthritis chronic Tibia/fibula fracture, shaft chronic Wound pain chronic [facility] Work Phone: Evaluation note* Diagnosis Onset Date Resolution Status Acute blood loss anemia acut e Closed fracture of left tibia and fibula acute Long QT interval acute Hypothyroid chronic Lupus chronic Rheumatoid arthritis chronic Tibia/fibula fracture, shaft chronic 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 leg 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 blister chronic Hypothyroid chronic Lupus chronic Rheumatoid arthritis chronic Tibia/fibula fracture, shaft chronic Wound pain resolved [facility] Work Phone: Evaluation note* Diagnosis Onset Date Resolution Status 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 leg 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 Hypothyroid chronic Lupus chronic Rheumatoid arthritis chronic Tibia/fibula fracture, shaft chronic Fracture blister resolved Wound pain resolved [facility] Work Phone: Evaluation noteNo assessment information available [facility] Work Phone: Hospital Discharge instructions Additional Instructions Keep dressing dry and intact till see in office Non-weight bearing for 2 weeks till seen in office September shower, no tub bathsSum[facility] Work Phone: Reason for Referral Specialty Diagnoses / Procedures Referred By Lovely lewis Referred To Contact Diagnoses Rheumatoid arthritis involving both hands with positive rheumatoid factor Procedures BONE DENSITY AXIAL (HIP, PELVIS, SPINE) Annabel Null, DO [address] [place] [address] Referral ID Status Reason Start Date Expiration Date V isits Requested Visits Authorized [id number] New Request 12/30/2021 01/24/2023 1 1 Reason Please refer to woun d care for left calf fracture blister Diagnosis 1 Closed displaced com minuted fracture of shaft of left tibia, initial encounter (S82.252A) Referral Organization [facility] Referring Provider First Name Aquiles Referring Provider Last Name Pedro TREVIZO Referring Provider Specialty Orthopedic Surgery Referred Organization [facility] Referred Provider Beverly Torres Referred Address [address] [place], [place],[address] Referred Provider Specialty Nurse Rick fontanez Referral Priority Routine Referral Appointment Date 2022-03-20 General Notes Teresa Donnelly 02:13:28 PM >patient appointment was already set up with wound care by the office. Patient scheduled tomorrow 03/20/22 at 3:30pm. Referral faxed Advance Directives Latest Code Status on File Code Status Date Activated Date Inactivated Comments Full Code-Unverified 06/11/2012 6:00 PM 06/15/2012 7:53 PM Advance Directive Response Recorded Date/ Time Advance Directives No March 01, 2022 6:17am Advance Directive Response Recorded Date/ Time Advance Directives No March 01, 2022 5:17am Summary Purpose Family History Relationship Condition Age at Onset Recorded Date/T amy Not Specified Diabetes mellitus Unknown Heart disease Unknown Malignant neoplasm Unknown Cerebrovascular accident (CVA) Unknown Chief Complaint and Reason for Visit Chief Complaint Left Tibia Fracture. Reason for Visit Acute blood loss ane fransisco Closed fracture of left tibia and fibula Hypothyroid Long QT interval Lupus Rheumatoid arthritis Tibia/fibula fracture, shaft Chief Complaint Left Tibia Fracture. Open Wound Reason for Visit Acute blood loss ane fransisco Closed fracture of left tibia and fibula Long QT interval Hypothyroid Lupus Rheumatoid arthritis Tibia/fibula fracture, shaft 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 leg Fracture blister Hypothyroid Lupus Rheumatoid arthritis Tibia/fibula fracture, shaft Wound pain Chief Complaint Left Tibia Fracture. S82.252A S82.252A Open Wound Reason for Visit Acute blood loss ane fransisco Closed fracture of left tibia and fibula Long QT interval Hypothyroid Lupus Rheumatoid arthritis Tibia/fibula fracture, shaft 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 leg Fracture blister Hypothyroid Lupus Rheumatoid arthritis Tibia/fibula fracture, shaft Wound pain Chief Complaint S82.252A S82.252A Open Wound Reason for Visit 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 leg Hypothyroid Lupus Rheumatoid arthritis Tibia/fibula fracture, shaft Fracture blister Wound pain Additional Source Comments Reason for Visit (unrecogniz ed section and content) 4 week recheck Reason Comments Rheumatoid Arthritis Lot of back pain, l eft knee pain and right hip pain Care Teams (unrecognized sec tion and content) Tool Die Maker Relationship Specialty Start Date End Date Yunior Masterson MD [address] [id number] PCP - General Family Medicine 06/11/12 Team Status: Inactive Member Role Status Dates Yunior Masterson MD Primary Care Provider Active Aquiles Vasquez II, MD Admit Provider, Attending Pro vider Active Louann Camara RN Other Provider Active Rosanna Church RN Other Provider Active Anjana Soares RN Other Provider Active Smitha Reyonso RN Other Provider Active Rylie Patel RN Other Provider Active Dahiana Britton RN Other Provider Active Mitzi Goodwin MD Other Provider Active Toby Montero MD Other Provider Active Haley Kemp , BUSINESS PLANNING ANALYST Other Provider Active Lenora Hill , DO Other Provider Active Sony Boone MD Other Provider Active Anand Black , DO Other Provider Active Bang Cervantes MD Other Provider Active Vesta Glass MD Other Provider Active Shasta Fritz , ANP-BC Other Provider Active Paige Mendenhall MD Other Provider Active Gary Cruz MD Other Provider Active Lisa Vasquez MD Other Provider Active Mikayla Schwartz MD Other Provider Active Namita Christianson , DO Other Provider Active Roberth Mckeon MD Other Provider Active Skinny Vidales MD Other Provider Active Barry Cho MD Other Provider Active Cherelle Goyal , PHLEBOTOMIST-C Other Provider Active Otoniel Rhodes MD Other Provider Active Justin Francisco MD Other Provider Active Alana Amos MD Other Provider Active Galen Jerez MD Other Provider Active Ksenia Ray , DO Other Provider Active Natalya Chilel MD Other Provider Active Shant Sinha , DO Other Provider Active Rd Lowe , DO Other Provider Active Dayanna Bobo BUSINESS PLANNING ANALYST Other Provider Active Eb Gale , DO Other Provider Active Celina Mueller MD Other Provider Active Britt Clark RN Other Provider Active Team Status: Active Member Role Status Donato Masterson MD Primary Care Provider Active Team Status: Inactive Member Role Status Donato Masterson MD Primary Care Provider Active Aquiles Vasquez II, MD Attending Provider Active Team Status: Active Member Role Status Donato Masterson MD Primary Care Provider Active Beverly Torres APRN Attending Provider Active Team Status: Inactive Member Role Status Donato Masterson MD Primary Care Provider Active Beverly Torres APRN Attending Provider Active INFORMATION SOURCE (unrecogn ized section and content) DATE CREATED AUTHOR 01/03/2022 [facility] DATE CREATED AUTHOR AUTHOR'S ORGANIZ ATION 09/13/2022 [facility] DATE CREATED AUTHOR AUTHOR'S ORGANIZ ATION 10/17/2022 [facility] Goals (unrecognized section and content) Goals may be documented in a n alternate section FOR RECORDS PERTAINING TO PATIENTS WHO ARE OR HAVE BEEN ENROLLED IN A CHEMICAL DEPENDENCY/SUBSTANCEABUSE PROGRAM, SOME INFORMATION MAY BE OMITTED. This clinical summary was aggregated from multiple sources. Caution should be exercised in using it in the provision of clinical care. This summary normalizes information from multiple sources, and as a consequence, information in this document may materially change the coding, format and clinical context of patient data. In addition, data may be omitted in some cases. CLINICAL DECISIONS SHOULD BE BASED ON THE PRIMARY CLINICAL RECORDS. [facility] [employer] [facility]. provides no warranty or guarantee of the accuracy or completeness of information in this document.
--- NOTE | 2024-01-13 09:42 | MR_ITS ---
[address] [address] Patient Name: SHAHBAZ ASHLEY MRN: [facility]:[id number] date: 1970 Sex: F Assigned Patient Location: MRI Current Patient Location: MRI Accession/Order Number: [id number] Exam Date: 01/13/2024 09:55 Report Date: 01/13/2024 15:29 At the request of: YUNIOR MASTERSON Procedure: MR lumbar spine wo con EXAM: MR lumbar spine wo con HISTORY: other osteoarthritis of lumbar spine M47.896 COMPARISON: None. TECHNIQUE: MRI images obtained with multiple sequences. MRI of the lumbar spine without contrast. Sequences obtained by standard department protocol. FINDINGS: The conus ends at L1. No abnormal signal of the terminal spinal cord. Mild levoscoliotic curvature of the lumbar spine centered at L3. T11-T12 and T12-L1: No spinal canal stenosis or neural foraminal stenosis. L1-L2: Mild disc degeneration. Mild broad-based posterior disc bulge. No spinal canal stenosis. No neural foraminal stenosis. Facet joints are normal. L2-L3: Mild disc degeneration. Broad-based posterior disc bulge. Right lateral recess narrowing in position to irritate the traversing right L3 nerve root. Facet joints are normal. Mild degenerative endplate edema. Moderate right neural foraminal narrowing. Left neural foramen is open. L3-L4: Mild disc degeneration. Broad-based posterior disc bulge. Lateral recess narrowing may irritate the traversing bilateral L4 nerve roots. Mild facet joint arthropathy. Mild spinal canal narrowing. Moderate right neural foraminal narrowing. Left neural foramen is open. L4-L5: Moderate disc degeneration. Anterolisthesis of L4 on L5 measuring 0.5 cm. Severe spinal canal stenosis. Moderate facet joint arthropathy. Moderate to severe left neural foraminal narrowing. Right neural foramen is open. Mild degenerative endplate edema. L5-S1: Mild disc degeneration. Broad-based posterior disc bulge. No spinal canal stenosis. Moderate to severe left neural foraminal narrowing. Mild facet joint arthropathy. MR/MR lumbar spine wo con IMPRESSION: 1. Severe spinal canal stenosis at L4-L5. 2. Moderate to severe neural foraminal narrowing at left L4-L5 and left L5-S1. 3. Moderate neural foraminal narrowing at right L2-L3 and right L3-L4 4. Other findings as described. Electronically authenticated by: TOREY TRIPLETT Date: 01/13/2024 15:29
[2024-01-13 11:15] LABS: Free T4 0.72 ng/dL (0.76-1.46)
[2024-01-13 11:20] LABS: Thyroid Stimulating Hormone 10.443 uIU/mL (0.358-3.740)
== END 2024-01-13 09:20 | disposition home or self-care (01) ==
LOC: MRI 09:21
PROVIDERS: PCP Family Medicine; Visit Provider Family Medicine
DX: M47.896 Other spondylosis, lumbar region (principal); K11.5 Sialolithiasis; E03.9 Hypothyroidism, unspecified; M48.062 Spinal stenosis, lumbar region with neurogenic claudication
CPT/HCPCS: 36415; 72148; 84439; 84443

== ENCOUNTER 2024-01-25 11:13 | Outpatient (OUT) | payer OTHER, SELFPAY ==
--- OUTSIDE RECORDS SUMMARY | 2024-01-25 11:32 | XMS_ITS | CCD ---
Author Organization [facility] Care Team Providers Care Tallier Name Role Phone Yunior Masterson MD Primary Care Provider [phone] YUNIOR MASTERSON Primary Care Unavailable CEZAR VALENTIN [...] Unavailable MD Yunior Masterson Primary Care Provider [phone] MD Aquiles Vasquez II Admit Provider MD Aquiles Vasquez II Attending Provider MARTHA Camara Other Provider Unavailable MARTHA Church Other Provider Unavailable MARTHA Soares Other Provider Unavailable MARTHA Reynoso Other Provider Unavailable MARTHA Patel Other Provider Unavailable MARTHA Britton Other Provider Unavailable MD Mitzi Goodwin Other Provider MD Toby Montero Other Provider CRISTY Kemp Other Provider [phone] DO Lenora Hill Other Provider MD Sony Boone Other Provider [phone] DO Anand Black Other Provider MD Bang Cervantes Other Provider [phone] MD Vesta Glass Other Provider Lam, ANP-BC Shasta Other Provider MD Paige Mendenhall Other Provider MD Gary Cruz Other Provider MD Lisa Vasquez Other Provider MD Mikayla Schwartz Other Provider DO Namita Christianson Other Provider MD Roberth Mckeon Other Provider MD Skinny Vidales Other Provider MD Barry Cho Other Provider Jay Jay, MOLDER HELPER-C Cherelle Bloom Other Provider MD Otoniel Rhodes Other Provider MD Justin Francisco Other Provider MD Alana Amos Other Provider MD Galen Jerez Other Provider DO Ksenia Ray Other Provider Al MD Natalya Osman Other Provider DO Shant Sinha Other Provider DO Rd Lowe Other Provider [phone] CRISTY Bobo Other Provider DO Eb Gale [...] Provider MD Toby Montero Other Provider Viridiana, BENCH ASSEMBLER OPERATOR Haley Huang Other Provider DO Lenora Hill [...] Other Provider DO Ksenia Ray Other Provider MD Natalya Altamirano Other Provider DO Shant Sinha R Other Provider DO Rd Lowe Other Provider CRISTY Bobo Other Provider DO Eb Gale Other Provider MD Celina Mueller Other Provider MARTHA Clark Other Provider Unavailable CRISTY Torres Attending Provider CRISTY Torres Attending Provider MD Yunior Masterson Primary Care Provider [phone] MD Aquiles Vasquez II Attending Provider [phone] CRISTY Torres Attending Provider AQUILES VASQUEZ Admitting [...] Unavailable MD Yunior Masterson Primary Care Provider MD Aquiles Vasquez II Attending Provider [phone] Moultrie II, Aquiles M Attending Unavailabl e Yunior Masterson Primary Care Unavailable Moultrie II, Aquiles M Admitting Unavailabl e Moultrie II, Aquiles M Attending Unavailabl e Zelalem, Yunior M Primary Care Unavailable Moultrie II, Aquiles M Admitting Unavailabl e Moultrie II, Aquiles M Attending Unavailabl e Zelalem, Yunior M Primary Care Unavailable Pedro II, Aquiles M Admitting Unavailabl e Moultrie II, Aquiles M Attending Unavailabl e Zelalem, Yunior M Primary Care Unavailable Moultrie II, Aquiles M Admitting Unavailabl e Louann Camara Consulting Unavailable BrienYunior pastrana Primary Care Unavailable Pedro II, Aquiles M Attending Unavailabl e Pedro II, Aquiles M Admitting Unavailabl e Rosanna [...] Unavailable Yunior Masterson Primary Care Unavailable Roberth Kowalski Unavailable Allergies Allergy Classification Reported Allergen(s) Allergy Type Date of Onset Reaction(s) Facility (1 source) guaiFENesin / Theophylline Drug Allergy 3 [facility] Work Phone: (16 sources) riTUXimab; Translations: [rituximab] Drug Allergy 3 [facility] Work Phone: (6 sources) guaiFENesin; Translations: [guaifenesin] Drug Allergy 2 [facility] (6 sources) Theophylline; Translations: [theophylline] Drug Allergy 2 [facility] (9 sources) Quibron-300 Drug allergy [facility] [employer] Other (2 sources) guaiFENesin / Theophylline Drug Allergy 4 [facility] (2 sources) riTUXimab Drug Allergy 4 [facility] Medications Current Medications Medication Drug Class(es) [...] Active docusate sodium 50 mg / sennosides, penitentiary 8.6 mg oral tablet (5 sources) Start: [...] 12:00am Start: 11-04-2021 take 2 tablets by [facility] once daily hydroxychloroquine 200 MG tablet Indications: [...] 12:00am Start: 10-19-2018 take 1 tablet by [facility] twice daily metoprolol 25 MG tab regular [...] hours March 02, 2022 polyethylene glycol 3350 26052 mg powder for oral solution (5 sources) [...] evening at 6 PM. 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] Onset: 3 01-26-2018 Episodic Other aftercare (1 source) Patient encounter status; Translations: [Other nursing home (current) drug therapy] Onset: 3 09-22-2012 Episodic Other aftercare (1 source) Other terminal worker (current) drug therapy; Translations: [OTH JAIL CURRENT DRUG THERAPY] Onset: 2 Episodic Other [...] LT 2V*on XR tibia fibula LT 2V* [facility] [place] [address] XRay Report Signed Patient: Christiane Ashley MR#: [id number] 01 : 1970 Acct:[id number] Age/Sex: 52 / F ADM Date: 09/24/22 Loc: [facility] Room: Type: [facility] Attending Dr: Aquiles Vasquez II, MD Copies [...] Evangelist Ochoa M.D.09/24/2022 1:14 PM Dictation Location: [place] [address] Transcribed By: [facility] 09/24/22 1314 Dictated By: Evangelist Ochoa DO 09/24/22 1311 Signed By: 09/24/22 1314 [facility] XR tibia fibula LT 2V*on XR tibia fibula LT 2V* [facility] [place] [address] [place] [address] XRay Report Signed Patient: Christiane Ashley MR#: [id number] 01 : 1970 Acct:[id number] Age/Sex: 51 / F ADM Date: 06/25/22 Loc: [facility] Room: Type: [facility] Attending Dr: Aquiles Vasquez II, MD Copies [...] Logan Jr., D.OJah06/25/2022 12:02 PM Dictation Location: [place] [address] Transcribed By: [facility] 06/25/22 1202 Dictated By: Cale Logan Jr DO 06/25/22 1201 Signed By: 06/25/22 1202 [facility] XR tibia fibula LT 2V* [facility] [employer] Other XR tibia fibula LT 2V* [facility] [employer] Other XR tibia fibula LT 2V* [address] [place] [address] [employer] Other XR tibia fibula LT 2V* [place] [address] [employer] Other XR tibia fibula LT 2V* XRay Report N [facility] [employer] Other XR tibia fibula LT 2V* Signed No rt [employer] Other XR tibia fibula LT 2V* Patient: Christiane Ashley MR#: [id number] [place] [employer] Other XR tibia fibula LT 2V* 01 No rt [employer] Other XR tibia fibula LT 2V* : 1970 Acct:[id number] [employer] Other XR tibia fibula LT 2V* Age/Sex: 51 / F A DM Date: 06/25/22 [employer] Other XR tibia fibula LT 2V* Loc: [facility] Room: Type: [facility] [employer] Other XR tibia fibula LT 2V* Attending Dr: Nahid Vasquez II, MD [employer] Other XR tibia fibula LT 2V* Copies to: Aquiles Vasquez MD [employer] Other XR tibia fibula LT 2V* Ordering Provider : Aquiles Vasquez MD [employer] Other XR tibia fibula LT 2V* Date of Service: 06/25/22 [employer] Other XR tibia fibula LT 2V* XR/XR tibia fibula LT 2V*: Closed displaced comminuted fracture of shaft [employer] Other XR tibia fibula LT 2V* of left tibia, [employer] Other XR tibia fibula LT 2V* LEFT TIBIA AND FIBULA - - 2 views [employer] Other XR tibia fibula LT 2V* CLINICAL HISTORY: Follow-up left the tibial IM nailing. [employer] Other XR tibia fibula LT 2V* COMPARISON: Left tib-fib series 05/14/2022 [employer] Other XR tibia fibula LT 2V* FINDINGS: No rt [employer] Other XR tibia fibula LT 2V* No evidence of hardware complication. No significant change in fracture alignment since the prior [employer] Other XR tibia fibula LT 2V* study. Tibial fracture is less conspicuous with callus formation suggestive of healing. Minimal [employer] Other XR tibia fibula LT 2V* healing response is seen involving the mid fibular fracture. Soft tissue swelling is noted. [employer] Other XR tibia fibula LT 2V* Visualized knee joint demonstrates degenerative change. Ankle mortise appears intact. [employer] Other XR tibia fibula LT 2V* 5 XR/XR tibia fibula LT 2V* [employer] Other XR tibia fibula LT 2V* IMPRESSION: N [employer] Other XR tibia fibula LT 2V* HEALING MID TIBIA L FRACTURE WITHOUT EVIDENCE OF HARDWARE COMPLICATION. [employer] Other XR tibia fibula LT 2V* MINIMAL HEALING RESPONSE SEEN INVOLVING THE FIBULAR FRACTURE. [employer] Other XR tibia fibula LT 2V* Impression dictat ed by: Cale Logan Jr., D.O.06/25/2022 12:02 PM [employer] Other XR tibia fibula LT 2V* Dictation Locatio n: [facility]-08 [employer] Other XR tibia fibula LT 2V* Transcribed By: Catrachita RAMIREZ 06/25/22 1202 [employer] Other XR tibia fibula LT 2V* Dictated By: Yared Logan Jr, DO 06/25/22 1201 [employer] Other XR tibia fibula LT 2V* Signed By: No rt [employer] Other XR tibia fibula LT 2V* 06/25/22 1202 [employer] Other XR tibia fibula LT 2V*on XR tibia fibula LT 2V* [facility] [place] [address] [place] [address] XRay Report Signed Patient: Christiane Ashley MR#: [id number] 01 : 1970 Acct:[id number] Age/Sex: 51 / F ADM Date: 05/14/22 Loc: [facility] Room: Type: [facility] Attending Dr: Aquiles Vasquez II, MD Copies [...] Kamron Brooks M.D.05/14/2022 12:12 PM Dictation Location: [facility] Transcribed By: [facility] 05/14/22 1212 Dictated By: Kamron Brooks II, MD 05/14/22 1211 Signed By: 05/14/22 1212 [facility] XR tibia fibula LT 2V* [facility] [employer] Other XR tibia fibula LT 2V* [facility] [employer] Other XR tibia fibula LT 2V* [address] [place] [address] [employer] Other XR tibia fibula LT 2V* [place] [address] [employer] Other XR tibia fibula LT 2V* XRay Report N [facility] [employer] Other XR tibia fibula LT 2V* Signed No rt [employer] Other XR tibia fibula LT 2V* Patient: Christiane Ashley MR#: [id number] [place] [employer] Other XR tibia fibula LT 2V* 01 No rt [employer] Other XR tibia fibula LT 2V* : 1970 Acct:[id number] [employer] Other XR tibia fibula LT 2V* Age/Sex: 51 / F A DM Date: 05/14/22 [employer] Other XR tibia fibula LT 2V* Loc: [facility] Room: Type: [facility] [employer] Other XR tibia fibula LT 2V* Attending Dr: Nahid Vasquez II, MD [employer] Other XR tibia fibula LT 2V* Copies to: Aquiles Vasquez MD [employer] Other XR tibia fibula LT 2V* Ordering Provider : Aquiles Vasquez MD [employer] Other XR tibia fibula LT 2V* Date of Service: 05/14/22 [employer] Other XR tibia fibula LT 2V* XR/XR tibia fibula LT 2V*: Closed displaced comminuted fracture of shaft [employer] Other XR tibia fibula LT 2V* of left tibia, [employer] Other XR tibia fibula LT 2V* XR tibia fibula L T 2V* 05/14/2022 9:06 AM [employer] Other XR tibia fibula LT 2V* SIGNS AND SYMPTOM S: Status post left tibial nailing, increasing left lower leg pain [employer] Other XR tibia fibula LT 2V* PROTOCOL: Frontal and lateral radiograph of the left tibia and fibula [employer] Other XR tibia fibula LT 2V* COMPARISON: 04/16/2022 [employer] Other XR tibia fibula LT 2V* FINDINGS: No rt [employer] Other XR tibia fibula LT 2V* Transverse aortic fractures are noted in the shaft of the tibia and fibula status post [employer] Other XR tibia fibula LT 2V* intramedullary ro d fixation of the tibia. There is increasing periosteal new bone formation [employer] Other XR tibia fibula LT 2V* suggesting a heal ing response. Healing remains incomplete. No change in alignment. [employer] Other XR tibia fibula LT 2V* 8 XR/XR tibia fibula LT 2V* [employer] Other XR tibia fibula LT 2V* IMPRESSION: N [employer] Other XR tibia fibula LT 2V* Healing fractures of the mid shaft of the tibia and fibula are noted without change in alignment or [employer] Other XR tibia fibula LT 2V* hardware complication. [employer] Other XR tibia fibula LT 2V* Impression dictat ed by: Kamron Brooks M.D.05/14/2022 12:12 PM [employer] Other XR tibia fibula LT 2V* Dictation Locatio n: [facility]-PC-12 [employer] Other XR tibia fibula LT 2V* Transcribed By: Catrachita RAMIREZ 05/14/22 [facility] [employer] Other XR tibia fibula LT 2V* Dictated By: Kamron Brooks II, MD 05/14/22 [facility] [employer] Other XR tibia fibula LT 2V* Signed By: No rt [employer] Other XR tibia fibula LT 2V* 05/14/22 [facility] [employer] Other XR tibia fibula LT 2V*on XR tibia fibula LT 2V* [facility] [place] [address] [place] [address] XRay Report Signed Patient: Christiane Ashley MR#: [id number] 01 : 1970 Acct:[id number] Age/Sex: 51 / F ADM Date: 04/16/22 Loc: [facility] Attending Dr: Aquiles Vasquez II, MD Copies [...] Logan Jr., D.O.04/16/2022 2:43 PM Dictation Location: [place] [address] Transcribed By: [facility] 04/16/22 1443 Dictated By: Cale Logan Jr, 04/16/22 1441 Signed By: 04/16/22 1443 [facility] XR tibia fibula LT 2V* [facility] [employer] Other XR tibia fibula LT 2V* [facility] Main [facility] [employer] Other XR tibia fibula LT 2V* [address] [place] [address] [employer] Other XR tibia fibula LT 2V* [place] [address] [employer] [facility] [employer] Other XR tibia fibula LT 2V* XRay Report N [facility] [employer] Other XR tibia fibula LT 2V* Signed No rt [employer] Other XR tibia fibula LT 2V* Patient: Christiane Ashley MR#: [id number] [place] [employer] Other XR tibia fibula LT 2V* 01 No rt [employer] Other XR tibia fibula LT 2V* : 1970 Acct:[id number] [employer] Other XR tibia fibula LT 2V* Age/Sex: 51 / F A DM Date: 04/16/22 [employer] Other XR tibia fibula LT 2V* Loc: [facility] Room: Type: [facility] [employer] Other XR tibia fibula LT 2V* Attending Dr: Nahid Vasquez II, MD [employer] Other XR tibia fibula LT 2V* Copies to: Aquiles Vasquez MD [employer] Other XR tibia fibula LT 2V* Ordering Provider : Aquiles Vasquez MD [employer] Other XR tibia fibula LT 2V* Date of Service: 04/16/22 [employer] Other XR tibia fibula LT 2V* XR/XR tibia fibula LT 2V*: Closed displaced comminuted fracture of shaft [employer] Other XR tibia fibula LT 2V* of left tibia, [employer] Other XR tibia fibula LT 2V* LEFT TIBIA AND FIBULA - - 2 views [employer] Other XR tibia fibula LT 2V* CLINICAL HISTORY: Closed displaced comminuted fracture of left tibia, follow-up. [employer] Other XR tibia fibula LT 2V* COMPARISON: Left tib-fib series 03/01/2022 [employer] Other XR tibia fibula LT 2V* FINDINGS: No rt [employer] Other XR tibia fibula LT 2V* Hardware fixation of a mid tibial fracture grossly unchanged in alignment and healing compared to [employer] Other XR tibia fibula LT 2V* the prior study. Additional mid fibular fracture is also unchanged in alignment and healing. [employer] Other XR tibia fibula LT 2V* Diffuse soft tiss ue swelling is noted. Degenerative changes are noted involving the visualized knee [employer] Other XR tibia fibula LT 2V* joint. Ankle mort ise appears intact. [employer] Other XR tibia fibula LT 2V* 1 XR/XR tibia fibula LT 2V* [employer] Other XR tibia fibula LT 2V* IMPRESSION: N [employer] Other XR tibia fibula LT 2V* NO SIGNIFICANT CHANGE IN FRACTURE FINDINGS. [employer] Other XR tibia fibula LT 2V* Impression dictat ed by: Cale Logan Jr., D.OJah04/16/2022 2:43 PM [employer] Other XR tibia fibula LT 2V* Dictation Locatio n: [facility]-PC-09 [employer] Other XR tibia fibula LT 2V* Transcribed By: Catrachita WS 04/16/22 [facility] [employer] Other XR tibia fibula LT 2V* Dictated By: Yared Logan Jr, DO 04/16/22 [facility] [employer] Other XR tibia fibula LT 2V* Signed By: No rt [employer] Other XR tibia fibula LT 2V* 04/16/22 [facility] [employer] Other INSULINon 04-05-2022 Insulin 2.3 uIU/mL Critically low 2.6-24.9 [facility] Comment on above: Performed By: #### C MP, LIPID, TSH, T7 #### [facility] [address] [place] [address] Dr. Mehnaz Dubon CBC AUTO DIFFon 04-04-2022 BASO # 0.1 103/ul Normal 0.0-0.1 [facility] Comment on above: Performed By: #### C MP, LIPID, TSH, T7 #### [facility] [address] [place] [address] Dr. Mehnaz Dubon Basophils/100 WBC (Bld) 1.0 % Normal 0.2-2.0 [facility] Comment on above: Performed By: #### C MP, LIPID, TSH, T7 #### [facility] [address] [place] [address] Dr. Mehnaz Dubon EO # 0.3 103/ul Normal 0.0-0.7 [facility] Comment on above: Performed By: #### C MP, LIPID, TSH, T7 #### [facility] [address] [place] [address] Dr. Mehnaz Dubon Eosinophils/100 WBC (Bld) 4.8 % Normal 0.9-7.0 [facility] Comment on above: Performed By: #### C MP, LIPID, TSH, T7 #### [facility] [address] [place] [address] Dr. Mehnaz Dubon Erythrocyte distribution width (RBC) [Ratio] 13.9 % Normal 11.0-15.0 [facility] Comment on above: Performed By: #### C MP, LIPID, TSH, T7 #### [facility] [address] [place] [address] Dr. Mehnaz Dubon Hematocrit (Bld) [Volume fraction] 37.1 % Normal 36.0-48.0 [facility] Comment on above: Performed By: #### C MP, LIPID, TSH, T7 #### [facility] [address] [place] [address] Dr. Mehnaz Dubon Hemoglobin (Bld) [Mass/Vol] 11.8 g/dL Critically low 12.0-16.0 [facility] Comment on above: Performed By: #### C MP, LIPID, TSH, T7 #### [facility] [address] [place] [address] Dr. Mehnaz Dubon IG # 0.01 10e3/ul Normal 0.00-0.03 [facility] Comment on above: Performed By: #### C MP, LIPID, TSH, T7 #### [facility] [address] [place] [address] Dr. Mehnaz Dubon IG % 0.2 % Normal 0.0-0.5 [facility] Comment on above: Performed By: #### C MP, LIPID, TSH, T7 #### [facility] [address] [place] [address] Dr. Mehnaz Dubon LYMPH # 1.1 103/ul Critically low 1.2-3.8 [facility] Comment on above: Performed By: #### C MP, LIPID, TSH, T7 #### [facility] [address] [place] [address] Dr. Mehnaz Dubon Lymphocytes/100 WBC (Bld) 18.2 % Critically low 20.5-60.0 [facility] Comment on above: Performed By: #### C MP, LIPID, TSH, T7 #### [facility] [address] [place] [address] Dr. Mehnaz Dubon MANUAL DIFF REQ NO Normal [facility] Comment on above: Performed By: #### C MP, LIPID, TSH, T7 #### [facility] [address] [place] [address] Dr. Mehnaz Dubon MCH (RBC) [Entitic mass] 29.6 pg Normal 26.7-34.0 [facility] Comment on above: Performed By: #### C MP, LIPID, TSH, T7 #### [facility] [address] [place] [address] Dr. Mehnaz Dubon MCHC (RBC) [Mass/Vol] 31.8 g/dL Normal 29.9-35.2 [facility] Comment on above: Performed By: #### C MP, LIPID, TSH, T7 #### [facility] [address] [place] [address] Dr. Mehnaz Dubon MCV (RBC) [Entitic vol] 93.2 fL Normal 81.0-99.0 [facility] Comment on above: Performed By: #### C MP, LIPID, TSH, T7 #### [facility] [address] [place] [address] Dr. Mehnaz Dubon MONO # 0.6 103/ul Normal 0.3-0.8 [facility] Comment on above: Performed By: #### C MP, LIPID, TSH, T7 #### [facility] [address] [place] [address] Dr. Mehnaz Dubon Monocytes/100 WBC (Bld) 9.7 % Normal 1.7-12.0 [facility] Comment on above: Performed By: #### C MP, LIPID, TSH, T7 #### [facility] [address] [place] [address] [address] Mehnaz Dubon NEUT # 4.0 103/ul Normal 1.4-6.5 [facility] Comment on above: Performed By: #### C MP, LIPID, TSH, T7 #### [facility] [address] [place] [address] [address] Mehnaz Dubon Neutrophils/100 WBC (Bld) 66.1 % Normal 43.0-75.0 [facility] Comment on above: Performed By: #### C MP, LIPID, TSH, T7 #### [facility] [address] [place] [address] Dr. Mehnaz Dubon Platelet mean volume (Bld) [Entitic vol] 9.5 fL Normal 9.5-13.5 [facility] Comment on above: Performed By: #### C MP, LIPID, TSH, T7 #### [facility] [address] [place] [address] Dr. Mehnaz Dubon PLT 216 103/ul Normal 150-450 [facility] Comment on above: Performed By: #### C MP, LIPID, TSH, T7 #### [facility] [address] [place] [address] Dr. Mehnaz Dubon RBC 3.98 106/ul Critically low 4.20-5.40 [facility] Comment on above: Performed By: #### C MP, LIPID, TSH, T7 #### [facility] [address] [place] [address] Dr. Mehnaz Dubon WBC 6.0 103/ul Normal 4.0-11.0 [facility] Comment on above: Performed By: #### C MP, LIPID, TSH, T7 #### [facility] [address] [place] [address] Dr. Mehnaz Dubon FREE THYROXINE INDEX T7on FTI 1.52 Normal 1.30-4.50 [facility] Comment on above: Performed By: #### C MP, LIPID, TSH, T7 #### [facility] [address] [place] [address] [address] Mehnaz Dubon T3U 37.0 % Normal 30.0-39.0 [facility] Comment on above: Performed By: #### C MP, LIPID, TSH, T7 #### [facility] [address] [place] [address] [address] Mehnaz Dubon T4 [Mass/Vol] 4.10 ug/dL Critically low 4.80-13.90 [facility] Comment on above: Performed By: #### C MP, LIPID, TSH, T7 #### [facility] [address] [place] [address] [address] Mehnaz Dubon GLYCOHEMOGLOBIN A1Con 2021 ADA RECOMMENDATION SEE BELOW Normal [facility] Comment on above: Result Comment: ADA RECOMMENDED LIMIT 4.0 - 6.0 ADA THERAPEUTIC TARGET < 7.0 ACTION SUGGESTED > 7.0 Performed By: #### C MP, LIPID, TSH, T7 #### [facility] [address] [place] [address] [address] Mehnaz Dubon Glucose [Mass/Vol] 62 mg/dL Normal [facility] Comment on above: Performed By: #### C MP, LIPID, TSH, T7 #### [facility] [address] [place] [address] [address] Mehnaz Dubon HbA1c (Bld) [Mass fraction] 3.8 % Critically low 4.5-6.2 [facility] Comment on above: Performed By: #### C MP, LIPID, TSH, T7 #### [facility] [address] [address] [address] Mehnaz Dubon IRONon 04-04-2022 Iron [Mass/Vol] 56.0 ug/dL Normal 50.0-170.0 [facility] Comment on above: Performed By: #### C MP, LIPID, TSH, T7 #### [facility] [address] [address] [address] Mehnaz Dbuon LIPID PROFILEon 04-04-2022 CHOL-HDL RATIO NORM SEE BELOW Normal [facility] Comment on above: Result Comment: 3.3 - 4.4 LOW RISK 4.4 - 7.1 AVERAGE RISK 7.1 - 11.0 MODERATE RISK >11.0 HIGH RISK Performed By: #### C MP, LIPID, TSH, T7 #### [facility] [address] [address] [address] Mehnaz Dubon Cholesterol [Mass/Vol] 131 mg/dL Normal <=200 [facility] Comment on above: Performed By: #### C MP, LIPID, TSH, T7 #### [facility] [address] [address] [address] Mehnaz Dubon Cholesterol in HDL [Mass/Vol] 86 mg/dL Critically high 40-60 [facility] Comment on above: Performed By: #### C MP, LIPID, TSH, T7 #### [facility] [address] [place] [address] Dr. Mehnaz Dubon Cholesterol in LDL [Mass/Vol] 39.4 mg/dL Normal [facility] Comment on above: Performed By: #### C MP, LIPID, TSH, T7 #### [facility] [address] [place] [address] Dr. Mehnaz Dubon Cholesterol.total/Arcelia sterol in HDL [Mass ratio] 1.5 {ratio} Normal [facility] Comment on above: Performed By: #### C MP, LIPID, TSH, T7 #### [facility] [address] [place] [address] Dr. Mehnaz Dubon HDL NORMAL > or = 60 mg/dl - LOW CARDIOVASCULAR RISK <40 mg/dl - HIGH CARDIOVASCULAR RISK Normal [facility] Comment on above: Performed By: #### C MP, LIPID, TSH, T7 #### [facility] [address] [place] [address] Dr. Mehnaz Dubon LDL CALC NORMAL SEE BELOW Normal [facility] Comment on above: Result Comment: <100 mg/dl OPTIMAL 100 - 129 mg/dl NEAR OR ABOVE OPTIMAL 130 - 159 mg/dl BORDERLINE HIGH 160 - 189 mg/dl HIGH >190 mg/dl VERY HIGH Performed By: #### C MP, LIPID, TSH, T7 #### [facility] [address] [address] [address] Mehnaz Dubon Triglyceride [Mass/Vol] 28 mg/dL Normal <=150 T [facility] Comment on above: Performed By: #### C MP, LIPID, TSH, T7 #### [facility] [address] [address] [address] Mehnaz Dubon VLDL CALC 5.6 mg/dL Normal [facility] Comment on above: Performed By: #### C MP, LIPID, TSH, T7 #### [facility] [address] [place] [address] Dr. Mehnaz Dubon PROF 14(COMP METB)on 022 Albumin [Mass/Vol] 3.1 g/dL Critically low 3.4-5.[address] [facility] Comment on above: Performed By: #### C MP, LIPID, TSH, T7 #### [facility] [address] [place] [address] Dr. Mehnaz Dubon Albumin/Globulin [Mass ratio] 1.0 {ratio} Normal [facility] Comment on above: Performed By: #### C MP, LIPID, TSH, T7 #### [facility] [address] [place] [address] Dr. Mehnaz Dubon ALP [Catalytic activity/Vol] 131 U/L Critically high 46-116 [facility] Comment on above: Performed By: #### C MP, LIPID, TSH, T7 #### [facility] [address] [place] [address] Dr. Mehnaz Dubon ALT [Catalytic activity/Vol] 21 U/L Normal 14-59 [facility] Comment on above: Performed By: #### C MP, LIPID, TSH, T7 #### [facility] [address] [place] [address] Dr. Mehnaz Dubon Anion gap [Moles/Vol] 11.2 mmol/L Normal [facility] Comment on above: Performed By: #### C MP, LIPID, TSH, T7 #### [facility] [address] [place] [address] Dr. Mehnaz Dubon AST [Catalytic activity/Vol] 26 U/L Normal 15-37 [facility] Comment on above: Performed By: #### C MP, LIPID, TSH, T7 #### [facility] [address] [place] [address] Dr. Mehnaz Dubon Bilirubin [Mass/Vol] 0.6 mg/dL Normal 0.2-1.0 [facility] Comment on above: Performed By: #### C MP, LIPID, TSH, T7 #### [facility] [address] [place] [address] Dr. Mehnaz Dubon Calcium [Mass/Vol] 8.8 mg/dL Normal 8.5-10.1 [facility] Comment on above: Performed By: #### C MP, LIPID, TSH, T7 #### [facility] [address] [place] [address] Dr. Mehnaz Dubon Chloride [Moles/Vol] 104 mmol/L Normal 98-107 [facility] Comment on above: Performed By: #### C MP, LIPID, TSH, T7 #### [facility] [address] [place] [address] Dr. Mehnaz Dubon CO2 [Moles/Vol] 28.3 mmol/L Normal 21.0-32.0 [facility] Comment on above: Performed By: #### C MP, LIPID, TSH, T7 #### [facility] [address] [place] [address] Dr. Mehnaz Dubon Creatinine [Mass/Vol] 0.37 mg/dL Critically low 0.55-1.02 [facility] Comment on above: Performed By: #### C MP, LIPID, TSH, T7 #### [facility] [address] [place] [address] Dr. Mehnaz Dubon EGFR-AF [place] ISLANDER >60 Normal >=60 [facility] Comment on above: Performed By: #### C MP, LIPID, TSH, T7 #### [facility] [address] [place] [address] Dr. Mehnaz Dubon EGFR-NON AF [place] ISLANDER >60 Normal >=60 [facility] Comment on above: Performed By: #### C MP, LIPID, TSH, T7 #### [facility] [address] [place] [address] Dr. Mehnaz Dubon Globulin (S) [Mass/Vol] 3.0 g/dL Normal T he [facility] Comment on above: Performed By: #### C MP, LIPID, TSH, T7 #### [facility] [address] [address] [address] Mehnaz Dubon Glucose [Mass/Vol] 76 mg/dL Normal 74-106 [facility] Comment on above: Performed By: #### C MP, LIPID, TSH, T7 #### [facility] [address] [place] [address] Dr. Mehnaz Dubon Potassium [Moles/Vol] 3.5 mmol/L Normal 3.5-5.1 [facility] Comment on above: Performed By: #### C MP, LIPID, TSH, T7 #### [facility] [address] [place] [address] Dr. Mehnaz Dubon Protein [Mass/Vol] 6.1 g/dL Critically low 6.4-8.[address] [facility] Comment on above: Performed By: #### C MP, LIPID, TSH, T7 #### [facility] [address] [place] [address] Dr. Mehnaz Dubon Sodium [Moles/Vol] 140 mmol/L Normal 136-145 [facility] Comment on above: Performed By: #### C MP, LIPID, TSH, T7 #### [facility] [address] [place] [address] Dr. Mehnaz Dubon Urea nitrogen [Mass/Vol] 8.0 mg/dL Normal 7.0-18.0 [facility] Comment on above: Performed By: #### C MP, LIPID, TSH, T7 #### [facility] [address] [place] [address] Dr. Mehnaz Dubon Urea nitrogen/Creatinine [Mass ratio] 21.6 mg/mg Normal [facility] Comment on above: Performed By: #### C MP, LIPID, TSH, T7 #### [facility] [address] [place] [address] Dr. Mehnaz Dubon TSHon 04-04-2022 TSH 4.446 uIU/mL Critically high 0.358-3.740 [facility] Comment on above: Performed By: #### C MP, LIPID, TSH, T7 #### [facility] [address] [place] [address] Dr. Mehnaz Dubon VITAMIN B12on 04-04-2022 Cobalamin (Vitamin B12) [Mass/Vol] 872.0 pg/mL Normal 193.0-986.0 [facility] Comment on above: Performed By: #### C MP, LIPID, TSH, T7 #### [facility] [address] [place] [address] Dr. Mehnaz Dubon VITAMIN D 25 OHon 04-04-2022 VIT D 25-OH 41.4 ng/mL Normal [facility] Comment on above: Performed By: #### C MP, LIPID, TSH, T7 #### [facility] [address] [place] [address] Dr. Mehnaz Dubon VIT D RANGES SEE BELOW Normal [facility] Comment on above: Result Comment: <20 ng/mL Vit D deficient 20 - <30 ng/mL Vit D insufficient 30 - 100 ng/mL Vit D sufficient >100 ng/mL Potential Toxicity Performed By: #### C MP, LIPID, TSH, T7 #### [facility] [address] [place] [address] Dr. Mehnza Dubon CBC AUTO DIFFon 03-09-2022 BASO # 0.1 103/ul Normal 0.0-0.1 [facility] Comment on above: Performed By: #### C MP, LIPID, TSH, T7 #### [facility] [address] [place] [address] Dr. Mehnaz Dubon Basophils/100 WBC (Bld) 1.3 % Normal 0.2-2.0 [facility] Comment on above: Performed By: #### C MP, LIPID, TSH, T7 #### [facility] [address] [place] [address] Dr. Mehnaz Dubon EO # 0.2 103/ul Normal 0.0-0.7 [facility] Comment on above: Performed By: #### C MP, LIPID, TSH, T7 #### [facility] [address] [place] [address] Dr. Mehnaz Dubon Eosinophils/100 WBC (Bld) 3.0 % Normal 0.9-7.0 [facility] Comment on above: Performed By: #### C MP, LIPID, TSH, T7 #### [facility] [address] [address] [address] Mehnaz Dubon Erythrocyte distribution width (RBC) [Ratio] 13.9 % Normal 11.0-15.0 [facility] Comment on above: Performed By: #### C MP, LIPID, TSH, T7 #### [facility] [address] [place] [address] Dr. Mehnaz Dubon Hematocrit (Bld) [Volume fraction] 29.7 % Critically low 36.0-48.0 [facility] Comment on above: Performed By: #### C MP, LIPID, TSH, T7 #### [facility] [address] [place] [address] Dr. Mehnaz Dubon Hemoglobin (Bld) [Mass/Vol] 9.5 g/dL Critically low 12.0-16.0 [facility] Comment on above: Performed By: #### C MP, LIPID, TSH, T7 #### [facility] [address] [place] [address] Dr. Mehnaz Dubon IG # 0.03 10e3/ul Normal 0.00-0.03 [facility] Comment on above: Performed By: #### C MP, LIPID, TSH, T7 #### [facility] [address] [place] [address] Dr. Mehnaz Dubon IG % 0.5 % Normal 0.0-0.5 [facility] Comment on above: Performed By: #### C MP, LIPID, TSH, T7 #### [facility] [address] [place] [address] Dr. Mehnaz Dubon LYMPH # 1.7 103/ul Normal 1.2-3.8 [facility] Comment on above: Performed By: #### C MP, LIPID, TSH, T7 #### [facility] [address] [place] [address] Dr. Mehnaz Dubon Lymphocytes/100 WBC (Bld) 27.0 % Normal 20.5-60.0 [facility] Comment on above: Performed By: #### C MP, LIPID, TSH, T7 #### [facility] [address] [address] [address] Mehnaz Dubon MANUAL DIFF REQ NO Normal [facility] Comment on above: Performed By: #### C MP, LIPID, TSH, T7 #### [facility] [address] [place] [address] Dr. Mehnaz Dubon MCH (RBC) [Entitic mass] 31.0 pg Normal 26.7-34.0 [facility] Comment on above: Performed By: #### C MP, LIPID, TSH, T7 #### [facility] [address] [place] [address] Dr. Mehnaz Dubon MCHC (RBC) [Mass/Vol] 32.0 g/dL Normal 29.9-35.2 [facility] Comment on above: Performed By: #### C MP, LIPID, TSH, T7 #### [facility] [address] [place] [address] Dr. Mehnaz Dubon MCV (RBC) [Entitic vol] 97.1 fL Normal 81.0-99.0 [facility] Comment on above: Performed By: #### C MP, LIPID, TSH, T7 #### [facility] [address] [place] [address] Dr. Mehnaz Dubon MONO # 0.6 103/ul Normal 0.3-0.8 [facility] Comment on above: Performed By: #### C MP, LIPID, TSH, T7 #### [facility] [address] [place] [address] Dr. Mehnaz Dubon Monocytes/100 WBC (Bld) 9.0 % Normal 1.7-12.0 [facility] Comment on above: Performed By: #### C MP, LIPID, TSH, T7 #### [facility] [address] [place] [address] Dr. Mehnaz Dubon NEUT # 3.6 103/ul Normal 1.4-6.5 [facility] Comment on above: Performed By: #### C MP, LIPID, TSH, T7 #### [facility] [address] [address] [address] Mehnaz Dubon Neutrophils/100 WBC (Bld) 59.2 % Normal 43.0-75.0 [facility] Comment on above: Performed By: #### C MP, LIPID, TSH, T7 #### [facility] [address] [address] [address] Mehnaz Dubon Platelet mean volume (Bld) [Entitic vol] 9.4 fL Critically low 9.5-13.5 [facility] Comment on above: Performed By: #### C MP, LIPID, TSH, T7 #### [facility] [address] [address] [address] Mehnaz Dubon PLT 263 103/ul Normal 150-450 [facility] Comment on above: Performed By: #### C MP, LIPID, TSH, T7 #### [facility] [address] [place] [address] Dr. Mehnaz Dubon RBC 3.06 106/ul Critically low 4.20-5.40 [facility] Comment on above: Performed By: #### C MP, LIPID, TSH, T7 #### [facility] [address] [address] [address] Mehnaz Dubon WBC 6.1 103/ul Normal 4.0-11.0 [facility] Comment on above: Performed By: #### C MP, LIPID, TSH, T7 #### [facility] [address] [place] [address] Dr. Mehnaz Dubon CTA CHEST WO W [...] by: ELE HEARD Date: 2022-03-09 21:[address] [facility] D-DIMERon 03-09-2022 D-DIMER 1.98 mg/L FEU Critically high <=0.59 [facility] Comment on above: Performed By: #### C MP, LIPID, TSH, T7 #### [facility] [address] [address] [address] Mehnaz Dubon D-DIMER COMMENTS SEE BELOW Normal [facility] Comment on above: Result Comment: Incr [...] #### C MP, LIPID, TSH, T7 #### [facility] [address] [place] [address] Dr. Mehnaz Dubon PROF 14(COMP METB)on 022 Albumin [Mass/Vol] 2.9 g/dL Critically low 3.4-5.0 [facility] Comment on above: Performed By: #### C MP, LIPID, TSH, T7 #### [facility] [address] [address] [address] Mehnaz Dubon Albumin/Globulin [Mass ratio] 0.8 {ratio} Normal [facility] Comment on above: Performed By: #### C MP, LIPID, TSH, T7 #### [facility] [address] [address] [address] Mehnaz Dubon ALP [Catalytic activity/Vol] 128 U/L Critically high 46-116 [facility] Comment on above: Performed By: #### C MP, LIPID, TSH, T7 #### [facility] [address] [place] [address] Dr. Mehnaz Dubon ALT [Catalytic activity/Vol] 31 U/L Normal 14-59 [facility] Comment on above: Performed By: #### C MP, LIPID, TSH, T7 #### [facility] [address] [place] [address] Dr. Mehnaz Dubon Anion gap [Moles/Vol] 11.1 mmol/L Normal Th e [facility] Comment on above: Performed By: #### C MP, LIPID, TSH, T7 #### [facility] [address] [place] [address] Dr. Mehnaz Dubon AST [Catalytic activity/Vol] 29 U/L Normal 15-37 [facility] Comment on above: Performed By: #### C MP, LIPID, TSH, T7 #### [facility] [address] [place] [address] Dr. Mehnaz Dubon Bilirubin [Mass/Vol] 0.4 mg/dL Normal 0.2-1.0 [facility] Comment on above: Performed By: #### C MP, LIPID, TSH, T7 #### [facility] [address] [place] [address] Dr. Mehnaz Dubon Calcium [Mass/Vol] 8.8 mg/dL Normal 8.5-10.1 [facility] Comment on above: Performed By: #### C MP, LIPID, TSH, T7 #### [facility] [address] [place] [address] Dr. Mehnaz Dubon Chloride [Moles/Vol] 107 mmol/L Normal 98-107 [facility] Comment on above: Performed By: #### C MP, LIPID, TSH, T7 #### [facility] [address] [place] [address] Dr. Mehnaz Dubon CO2 [Moles/Vol] 26.3 mmol/L Normal 21.0-32.0 [facility] Comment on above: Performed By: #### C MP, LIPID, TSH, T7 #### [facility] [address] [address] [address] Mehnaz Dubon Creatinine [Mass/Vol] 0.47 mg/dL Critically low 0.55-1.02 [facility] Comment on above: Performed By: #### C MP, LIPID, TSH, T7 #### [facility] [address] [address] [address] Mehnaz Dubon EGFR-AF [place]LANDER >60 Normal >=60 [facility] Comment on above: Performed By: #### C MP, LIPID, TSH, T7 #### [facility] [address] [address] [address] Mehnaz Dubon EGFR-NON AF [place]ER >60 Normal >=60 [facility] Comment on above: Performed By: #### C MP, LIPID, TSH, T7 #### [facility] [address] [address] [address] Mehnaz Dubon Globulin (S) [Mass/Vol] 3.6 g/dL Normal T [facility] Comment on above: Performed By: #### C MP, LIPID, TSH, T7 #### [facility] [address] [address] [address] Mehnaz Dubon Glucose [Mass/Vol] 77 mg/dL Normal 74-106 [facility] Comment on above: Performed By: #### C MP, LIPID, TSH, T7 #### [facility] [address] [address] [address] Mehnaz Dubon Potassium [Moles/Vol] 3.4 mmol/L Critically low 3.5-5.1 [facility] Comment on above: Performed By: #### C MP, LIPID, TSH, T7 #### [facility] [address] [address] [address] Mehnaz Dubon Protein [Mass/Vol] 6.5 g/dL Normal 6.4-8.2 [facility] Comment on above: Performed By: #### C MP, LIPID, TSH, T7 #### [facility] [address] [address] [address] Mehnaz Dubon Sodium [Moles/Vol] 141 mmol/L Normal 136-145 [facility] Comment on above: Performed By: #### C MP, LIPID, TSH, T7 #### [facility] [address] [address] [address] Mehnaz Dubon Urea nitrogen [Mass/Vol] 4.0 mg/dL Critically low 7.0-18.0 [facility] Comment on above: Performed By: #### C MP, LIPID, TSH, T7 #### [facility] [id number] Mehnaz Dubon Urea nitrogen/Creatinine [Mass ratio] 8.5 mg/mg Normal [facility] Comment on above: Performed By: #### C MP, LIPID, TSH, T7 #### [facility] [address] [address] [address] Mehnaz Dubon TROPONIN, HIGH SENSITIVITYon 03-09-2022 HSTROP 5.5 pg/mL Normal 4.0-51.3 [facility] Comment on above: Result Comment: CUT- OFF POINTS HAVE BEEN ESTABLISHED BASED ON THE FOURTH UNIVERSAL DEFINITIONS OF MYOCARDIAL INFARCTION. THE UPPER REFERENCE LIMIT (URL) OF TROPONIN, DEFINED THE 99TH PERCENTILE OF cTnI DISTRIBUTION IN A REFERENCE POPULATION, HAS BEEN CONFIRMED THE DECISION THRESHOLD FOR IA DIAGNOSIS. Performed By: #### C MP, LIPID, TSH, T7 #### [facility] [address] [address] [address] Mehnaz Dubon XR CHEST 1 Von 03-09-2022 XR CHEST 1 V EXAM: XR CHEST 1 V INDICATION: CHEST PAIN, UNSPECIFIED. COMPARISON: Chest radiograph 03/01/2022 TECHNIQUE: Single frontal view of the chest FINDINGS: Normal cardiomediastinal contours. Clear lungs. No pleural effusion or pneumothorax. No acute osseous abnormality. IMPRESSION: No acute cardiopulmonary process. Electronically authenticated by: SEJAL VILLARREAL Date: 2022-03-09 20:49 Normal [facility] XR tibia fibula LT 2V*on XR tibia fibula LT 2V* [facility] [address] [place] [id number] XRay Report Signed Patient: Christiane Ashley MR#: [id number] [birth year] : 1970 Acct:[id number] Age/Sex: 51 / F ADM Date: 03/01/22 Loc: 4N Room: [address] [place] [address] Type: DIS IN Attending Dr: Aquiles Vasquez [...] Logan Jr., D.O.03/04/2022 11:27 AM Dictation Location: [place] [address] Transcribed By: [facility] 03/04/221126 Dictated By: Cale Logan Jr, DO 03/04/221125 Signed By: 03/04/22 112 Normal [facility] Metabolic Panelon 02-09 Anion gap [Moles/Vol] 12.6 mmol/L Normal 6.0-15.0 [facility] Comment on above: Performed By: #### B MP, CBC #### [facility] [address] [id number] [place] Calcium [Mass/Vol] 8.3 mg/dL Normal 8.2-10.2 [facility] Comment on above: Performed By: #### B MP, CBC #### [facility] [address] [place] [address] [place] Chloride [Moles/Vol] 107 mmol/L Normal 95-114 [facility] Comment on above: Performed By: #### B MP, CBC #### [facility] [address] [place] [address] [place] CO2 [Moles/Vol] 23.9 mmol/L Normal 22.0-30.0 [facility] Comment on above: Performed By: #### B MP, CBC #### [facility] [address] [place] [address] [place] Creatinine [Mass/Vol] 0.48 mg/dL Normal 0.44-1.03 [facility] Comment on above: Performed By: #### B MP, CBC #### [place] [address] [place] Creatinine Clr Calc Pharmacy 128.34 [facility] Comment on above: Result Comment: PERF ORMED BY: [place] [address] PATHOLOGIST HEAVY FORGING MACHINE OPERATOR MELISSA FRIAS M.D. Performed By: #### B MP, CBC #### [address] Estimated GFR ( Suzette > 60 [facility] Comment on above: Result Comment: GFR estimated reference range: According to KDOQI guidelines, <60 ml/min/1.73m2 is sufficient to diagnose a patient with chronic kidney disease. Performed By: #### B MP, CBC #### [address] Estimated GFR (Non- Am > 60 [facility] Comment on above: Performed By: #### B MP, CBC #### [address] Glucose [Mass/Vol] 83 mg/dL Normal 70-100 [facility] Comment on above: Result Comment: [place] om Glucose Reference Range is dependent on time and content of last meal. Glucose of more than 200 mg/dL in a nonstressed, ambulatory subject supports the diagnosis of Diabetes Mellitus. ADA recommended reference range Performed By: #### B MP, CBC #### [place] [address] [place] Potassium [Moles/Vol] 3.5 mmol/L Normal 3.5-5.1 [facility] Comment on above: Performed By: #### B MP, CBC #### [place] [address] [place] Sodium [Moles/Vol] 140 mmol/L Normal 136-146 [facility] Comment on above: Performed By: #### B MP, CBC #### [place] [address] [place] Urea nitrogen [Mass/Vol] 8 mg/dL Low 01-31 [facility] Comment on above: Performed By: #### B MP, CBC #### [facility] [address] [place] [address] [place] Basophils Auto (Bld) [#/Vol] Ordered By: Aquiles Vasquez on 03-03-2022 Basophils (Bld) [#/Vol] 0.0 10*3/uL 0.0-0.2 [facility] Basophils/100 WBC Auto (Bld) Ordered By: Aquiles Vasquez on 03-03-2022 Basophils/100 WBC (Bld) 0.4 % . [facility] Complete Blood Count Auto Di ffon 03-03-2022 Basophils (Bld) [#/Vol] 0.0 10*3/uL Normal 0.0-0.2 [facility] Comment on above: Result Comment: PERF ORMED BY: [place] [address] PATHOLOGIST HEAVY FORGING MACHINE OPERATOR MELISSA FRIAS M.D. Performed By: #### B MP, CBC #### [address] Basophils/100 WBC (Bld) 0.4 % Normal . [facility] Comment on above: Performed By: #### B MP, CBC #### [address] Eosinophils (Bld) [#/Vol] 0.0 10*3/uL Normal 0.0-0.45 [facility] Comment on above: Performed By: #### B MP, CBC #### [place] [address] [place] Eosinophils/100 WBC (Bld) 0.5 % Normal . [facility] Comment on above: Performed By: #### B MP, CBC #### [address] Erythrocyte distribution width (RBC) [Ratio] 13.8 % Normal 11.9-15.3 [facility] Comment on above: Performed By: #### B MP, CBC #### [address] Hematocrit (Bld) [Volume fraction] 25.2 % Low 34.0-46.4 [facility] Comment on above: Performed By: #### B MP, CBC #### [address] Hemoglobin (Bld) [Mass/Vol] 8.4 g/dL Low 11.8-15.4 [facility] Comment on above: Performed By: #### B MP, CBC #### [address] Lymphocytes (Bld) [#/Vol] 1.5 10*3/uL Normal 1.00-4.8 [facility] Comment on above: Performed By: #### B MP, CBC #### [address] Lymphocytes/100 WBC (Bld) 25.7 % Normal . [facility] Comment on above: Performed By: #### B MP, CBC #### [address] MCH (RBC) [Entitic mass] 31.4 pg Normal 24.7-34.3 [facility] Comment on above: Performed By: #### B MP, CBC #### [address] MCV (RBC) [Entitic vol] 94.0 fL Normal 80-100 [facility] Comment on above: Performed By: #### B MP, CBC #### [address] Mean Corpuscular HGB Conc 33.4 g/dL Normal 32.0-35.0 [facility] Comment on above: Performed By: #### B MP, CBC #### [address] Monocytes (Bld) [#/Vol] 0.5 10*3/uL Normal 0.0-0.8 [facility] Comment on above: Performed By: #### B MP, CBC #### [address] [place] [address] [place] Monocytes/100 WBC (Bld) 9.2 % Normal . [facility] Comment on above: Performed By: #### B MP, CBC #### [facility] [address] Neutrophils (Bld) [#/Vol] 3.8 10*3/uL Normal 1.8-7.7 [facility] Comment on above: Performed By: #### B MP, CBC #### [facility] [address] Neutrophils/100 WBC (Bld) 64.2 % Normal . [facility] Comment on above: Performed By: #### B MP, CBC #### [facility] [address] Nucleated RBC/100 WBC (Bld) [Ratio] 0.0 % Normal 0-0.5 [facility] Comment on above: Performed By: #### B MP, CBC #### [facility] [address] Platelet mean volume (Bld) [Entitic vol] 9.0 fL Normal 6.3-10.7 [facility] Comment on above: Performed By: #### B MP, CBC #### [facility] [address] [place] [address] [place] Platelets (Bld) [#/Vol] 126 10*3/uL Signific ant change down 150-450 [facility] Comment on above: Performed By: #### B MP, CBC #### [facility] [address] [place] [address] [place] RBC (Bld) [#/Vol] 2.68 10*6/uL Low 3.60-5.00 [facility] Comment on above: Performed By: #### B MP, CBC #### [facility] [address] WBC (Bld) [#/Vol] 6.0 10*3/uL Normal 4.5-11.0 [facility] Comment on above: Performed By: #### B MP, CBC #### [facility] [address] Creatinine and Glomerular fi ltration rate.predicted panel (S/P/Bld)Ordered By: Aquiles Vasquez on 03-03-2022 Creatinine [Mass/Vol] 0.48 mg/dL 0.44-1.03 [facility] Eosinophils Auto (Bld) [#/Vo l]Ordered By: Aquiles Vasquez on 03-03-2022 Eosinophils (Bld) [#/Vol] 0.0 10*3/uL 0.0-0.45 [facility] Eosinophils/100 WBC Auto (Bl d)Ordered By: Aquiles Vasquez on 03-03-2022 Eosinophils/100 WBC (Bld) 0.5 % . [facility] Erythrocyte distribution wid th Auto (RBC) [Ratio]Ordered By: Aquiles Vasquez on 03-03-2022 Erythrocyte distribution width (RBC) [Ratio] 13.8 % 11.9-15.3 [facility] Estimated glomerular filtrat ion rate (GFR) non- AmericanOrdered By: Aquiles Vasquez on 03-03-2022 GFR/1.73 sq M.predicted among non-blacks MDRD (S/P/Bld) [Vol rate/Area] > 60 mL/Min [facility] Hematocrit Auto (Bld) [Volum e fraction]Ordered By: Aquiles Vasquez on 03-03-2022 Hematocrit (Bld) [Volume fraction] 25.2 % 34.0-46.4 [facility] Hemoglobin [Mass/volume] in BloodOrdered By: Aquiles Vasquez on 03-03-2022 Hemoglobin (Bld) [Mass/Vol] 8.4 g/dL 11.8-15.4 [facility] Laboratory - Hematology and Cell countsOrdered By: Aquiles Vasquez on 03-03-2022 Nucleated RBC/100 WBC (Bld) [Ratio] 0.0 % 0-0.5 [facility] Leukocytes [#/volume] in Blo od by Automated countOrdered By: Aquiles Vasquez on 03-03-2022 WBC (Bld) [#/Vol] 6.0 10*3/uL 4.5-11.0 [facility] Lymphocytes Auto (Bld) [#/Vo l]Ordered By: Aquiles Vasquez on 03-03-2022 Lymphocytes (Bld) [#/Vol] 1.5 10*3/uL 1.00-4.8 [facility] Lymphocytes/100 WBC Auto (Bl d)Ordered By: Aquiles Vasquez on 03-03-2022 Lymphocytes/100 WBC (Bld) 25.7 % . [facility] MCH Auto (RBC) [Entitic mass ]Ordered By: Aquiles Vasquez on 03-03-2022 MCH (RBC) [Entitic mass] 31.4 pg 24.7-34.3 [facility] MCHC Auto (RBC) [Mass/Vol]Or dered By: Aquiles Vasquez on 03-03-2022 MCHC (RBC) [Mass/Vol] 33.4 g/dL 32.0-35.0 [facility] MCV Auto (RBC) [Entitic vol] Ordered By: Aquiles Vasquez on 03-03-2022 MCV (RBC) [Entitic vol] 94.0 fL 80-100 [facility] Monocytes Auto (Bld) [#/Vol] Ordered By: Aquiles Vasquez on 03-03-2022 Monocytes (Bld) [#/Vol] 0.5 10*3/uL 0.0-0.8 [facility] Monocytes/100 WBC Auto (Bld) Ordered By: Aquiles Vasquez on 03-03-2022 Monocytes/100 WBC (Bld) 9.2 % . [facility] Neutrophils Auto (Bld) [#/Vo l]Ordered By: Aquiles Vasquez on 03-03-2022 Neutrophils (Bld) [#/Vol] 3.8 10*3/uL 1.8-7.7 [facility] Neutrophils/100 WBC Auto (Bl d)Ordered By: Aquiles Vasquez on 03-03-2022 Neutrophils/100 WBC (Bld) 64.2 % . [facility] No Panel InformationOrdered By: Aquiles Vasquez on 03-03-2022 Estimated GFR () > 60 mL/Min [facility] Comment on above: GFR estimated refere nce range: According to KDOQI guidelines, <60 ml/min/1.73m2 is sufficient to diagnose a patient with chronic kidney disease. Pharmacy Creatinine Clearance (Chem 128.34 [facility] Platelet mean volume Auto (B ld) [Entitic vol]Ordered By: Aquiles Vasquez on 03-03-2022 Platelet mean volume (Bld) [Entitic vol] 9.0 fL 6.3-10.7 [facility] Platelets Auto (Bld) [#/Vol] Ordered By: Aquiles Vasquez on 03-03-2022 Platelets (Bld) [#/Vol] 126 10*3/uL 150-450 [facility] Comment on above: Delta: 183 on -0459 RBC Auto (Bld) [#/Vol]Ordere d By: Aquiles Vasquez on 03-03-2022 RBC (Bld) [#/Vol] 2.68 10*6/uL 3.60-5.00 [facility] Serum or plasma anion gap de terminationOrdered By: Aquiles Vasquez on 03-03-2022 Anion gap [Moles/Vol] 12.6 mmol/L 6.0-15.0 [facility] Serum or plasma calcium mohinder urement (mass/volume)Ordered By: Aquiles Vasquez on 03-03-2022 Calcium [Mass/Vol] 8.3 mg/dL 8.2-10.2 [facility] Serum or plasma chloride ewa surement (moles/volume)Ordered By: Aquiles Vasquez on 03-03-2022 Chloride [Moles/Vol] 107 mmol/L 95-114 [facility] Serum or plasma glucose mohinder urement (mass/volume)Ordered By: Aquiles Vasquez on 03-03-2022 Glucose [Mass/Vol] 83 mg/dL 70-100 [facility] Comment on above: ADA recommended refe rence rangeRandom Glucose Reference Range is dependent on time and content of last meal. Glucose of more than 200 mg/dL in a nonstressed, ambulatory subject supports the diagnosis of Diabetes Mellitus. Serum or plasma potassium me asurement (moles/volume)Ordered By: Aquiles Vasquez on 03-03-2022 Potassium [Moles/Vol] 3.5 mmol/L 3.5-5.1 [facility] Serum or plasma sodium measu rement (moles/volume)Ordered By: Aquiles Vasquez on 03-03-2022 Sodium [Moles/Vol] 140 mmol/L 136-146 [facility] Serum or plasma total carbon dioxide measurement (moles/volume)Ordered By: Aquiles Vasquez on 03-03-2022 CO2 [Moles/Vol] 23.9 mmol/L 22.0-30.0 [facility] Serum or plasma urea nitroge n measurement (mass/volume)Ordered By: Aquiles Vasquez on 03-03-2022 Urea nitrogen [Mass/Vol] 8 mg/dL 01-31 [facility] Basic Metabolic Panelon 02-09 Anion gap [Moles/Vol] 7.2 mmol/L Normal 6.0-15.0 [facility] Comment on above: Performed By: #### B MP, CBC #### [facility] [address] [place] [address] [place] Calcium [Mass/Vol] 8.5 mg/dL Normal 8.2-10.2 [facility] Comment on above: Performed By: #### B MP, CBC #### [facility] [address] [place] [address] [place] Chloride [Moles/Vol] 107 mmol/L Normal 95-114 [facility] Comment on above: Performed By: #### B MP, CBC #### [facility] [address] [place] [id number] [place] CO2 [Moles/Vol] 26.4 mmol/L Normal 22.0-30.0 [facility] Comment on above: Performed By: #### B MP, CBC #### [facility] [address] [place] [address] [place] Creatinine [Mass/Vol] 0.57 mg/dL Normal 0.44-1.03 [facility] Comment on above: Performed By: #### B MP, CBC #### [facility] [address] [place] [id number] [place] Creatinine Clr Calc Pharmacy 108.08 Normal [facility] Comment on above: Result Comment: PERF ORMED BY: [place] [address] PATHOLOGIST HEAVY FORGING MACHINE OPERATOR MELISSA FRIAS M.D. Performed By: #### B MP, CBC #### [address] Estimated GFR ( Suzette > 60 [facility] Comment on above: Result Comment: GFR estimated reference range: According to KDOQI guidelines, <60 ml/min/1.73m2 is sufficient to diagnose a patient with chronic kidney disease. Performed By: #### B MP, CBC #### [address] Estimated GFR (Non- Am > 60 [facility] Comment on above: Performed By: #### B MP, CBC #### [address] Glucose [Mass/Vol] 131 mg/dL High 70-100 [facility] Comment on above: Result Comment: [place] om Glucose Reference Range is dependent on time and content of last meal. Glucose of more than 200 mg/dL in a nonstressed, ambulatory subject supports the diagnosis of Diabetes Mellitus. ADA recommended reference range Performed By: #### B MP, CBC #### [address] Potassium [Moles/Vol] 3.6 mmol/L Normal 3.5-5.1 [facility] Comment on above: Performed By: #### B MP, CBC #### [place] [address] [place] Sodium [Moles/Vol] 137 mmol/L Normal 136-146 [facility] Comment on above: Performed By: #### B MP, CBC #### [place] [address] [place] Urea nitrogen [Mass/Vol] 10 mg/dL Normal - [facility] Comment on above: Performed By: #### B MP, CBC #### [address] Complete Blood Count Auto Di ffon 03-02-2022 Basophils (Bld) [#/Vol] 0.0 10*3/uL Normal 0.0-0.2 [facility] Comment on above: Result Comment: PERF ORMED BY: [place] [address] PATHOLOGIST HEAVY FORGING MACHINE OPERATOR MELISSA FRAIS M.D. Performed By: #### B MP, CBC #### [facility] [address] [place] [address] [place] Basophils/100 WBC (Bld) 0.1 % Normal . [facility] Comment on above: Performed By: #### B MP, CBC #### [facility] [address] [place] [address] [place] Eosinophils (Bld) [#/Vol] 0.0 10*3/uL Normal 0.0-0.45 [facility] Comment on above: Performed By: #### B MP, CBC #### [address] Eosinophils/100 WBC (Bld) 0.0 % Normal . [facility] Comment on above: Performed By: #### B MP, CBC #### [address] Erythrocyte distribution width (RBC) [Ratio] 13.3 % Normal 11.9-15.3 [facility] Comment on above: Performed By: #### B MP, CBC #### [facility] [address] [place] [address] Hematocrit (Bld) [Volume fraction] 28.9 % Low 34.0-46.4 [facility] Comment on above: Performed By: #### B MP, CBC #### [facility] [address] [place] [address] [place] Hemoglobin (Bld) [Mass/Vol] 9.5 g/dL Low 11.8-15.4 [facility] Comment on above: Performed By: #### B MP, CBC #### [facility] [address] [place] [address] [place] Lymphocytes (Bld) [#/Vol] 0.6 10*3/uL Low 1.00-4.8 [facility] Comment on above: Performed By: #### B MP, CBC #### [facility] [address] [place] [address] [place] Lymphocytes/100 WBC (Bld) 5.6 % Normal . [facility] Comment on above: Performed By: #### B MP, CBC #### [facility] [address] MCH (RBC) [Entitic mass] 30.7 pg Normal 24.7-34.3 [facility] Comment on above: Performed By: #### B MP, CBC #### [facility] [address] MCV (RBC) [Entitic vol] 93.8 fL Normal 80-100 [facility] Comment on above: Performed By: #### B MP, CBC #### [address] Mean Corpuscular HGB Conc 32.8 g/dL Normal 32.0-35.0 [facility] Comment on above: Performed By: #### B MP, CBC #### [facility] [address] [place] [address] [place] Monocytes (Bld) [#/Vol] 0.8 10*3/uL Normal 0.0-0.8 [facility] Comment on above: Performed By: #### B MP, CBC #### [facility] [address] [place] [address] [place] Monocytes/100 WBC (Bld) 7.6 % Normal . [facility] Comment on above: Performed By: #### B MP, CBC #### [facility] [address] [place] [address] [place] Neutrophils (Bld) [#/Vol] 9.1 10*3/uL High 1.8-7.7 [facility] Comment on above: Performed By: #### B MP, CBC #### [facility] [address] Neutrophils/100 WBC (Bld) 86.7 % Normal . [facility] Comment on above: Performed By: #### B MP, CBC #### [facility] [address] Nucleated RBC/100 WBC (Bld) [Ratio] 0.0 % Normal 0-0.5 [facility] Comment on above: Performed By: #### B MP, CBC #### [facility] [address] Platelet mean volume (Bld) [Entitic vol] 8.8 fL Normal 6.3-10.7 [facility] Comment on above: Performed By: #### B MP, CBC #### [facility] [address] Platelets (Bld) [#/Vol] 183 10*3/uL Normal 150-450 [facility] Comment on above: Performed By: #### B MP, CBC #### [address] RBC (Bld) [#/Vol] 3.08 10*6/uL Low 3.60-5.00 [facility] Comment on above: Performed By: #### B MP, CBC #### [address] WBC (Bld) [#/Vol] 10.5 10*3/uL Normal 4.5-11.0 [facility] Comment on above: Performed By: #### B MP, CBC #### [address] ECG 12 lead ECGon 03-02-2022 ECG 12 lead ECG [facility] [place] [address] Electrocardiograph Report Signed Patient: Christiane Ashley MR#: [id number] [birth year] : 1970 Acct:[id number] Age/Sex: 51 / F ADM Date: 03/01/22 Loc: 4N Room: 6O7309-3 Type: DIS IN Attending Dr: Aquiles Vasquez [...] Signed By Ted Duarte MD 1 1142 [facility] ECG 12 lead ECGon 03-01-2022 ECG 12 lead ECG [facility] [place] [address] Electrocardiograph Report Signed Patient: Christiane Ashley MR#: [id number] [birth year] : 1970 Acct:[id number] Age/Sex: 51 / F ADM Date: 03/01/22 Loc: Room: [address] [place] [address] Type: DIS IN Attending Dr: Aquiles Vasquez [...] : 518 ms Sinus rhythm with short OR Nonspecific ST and T wave abnormality Prolonged QT Abnormal ECG No previous ECGs available Confirmed by TED DUARTE MD ([id number]) on 03/01/2022 1:01:19 PM Referred By: Electronically Signed By:TED DUARTE MD Transcribed By: MUS Signed By Ted Duarte MD 1 1301 [facility] Glucose Glucometer (BldC) [M ass/Vol]Ordered By: Aquiles Vasquez on 03-01-2022 Glucose [Mass/Vol] 101 mg/dL [facility] Comment on above: Random Glucose Refer ence Range is dependent on time and content of last meal. Glucose of more than 200 mg/dL in a nonstressed, ambulatory subject supports the diagnosis of Diabetes Mellitus. Glucose Poct Glucometerson 1 Commemt1 Glu2: Cleaned Meter Normal [facility] Comment on above: Result Comment: PERF ORMED BY: [facility] [address] [place] [address] PATHOLOGIST HEAVY FORGING MACHINE OPERATOR MELISSA FRIAS M.D. Performed By: #### G LULS #### Point of Care testing , Glucose [Mass/Vol] 101 mg/dL Normal [facility] Comment on above: Result Comment: [place] om Glucose Reference Range is dependent on time and content of last meal. Glucose of more than 200 mg/dL in a nonstressed, ambulatory subject supports the diagnosis of Diabetes Mellitus. Performed By: #### G LULS #### Point of Care testing , No Panel InformationOrdered By: Aquiles Vasquez on 03-01-2022 Bedside Glucose Comment Glu2: cleaned meter [facility] XR CHEST 1 Von 03-01-2022 XR CHEST [...] by: NAMITA DELUCA Date: 2022-03-01 03:[address] [facility] XR PELVIS 1_2 VIEWSon 2021 XR [...] AQUILES LACY Date: 2022-03-01 04:39 Normal [facility] XR tibia fibula LT 2V*on XR tibia fibula LT 2V* [facility] [place] [address] [place] [address] XRay Report Signed Patient: Christiane Ashley MR#: [id number] 01 : 1970 Acct:[id number] Age/Sex: 51 / F ADM Date: 03/01/22 Loc: 4N Room: [address] [place] [address] Type: ADM IN Attending Dr: Aquiles Vasquez [...] Logan Jr., D.OJah03/01/2022 3:10 PM Dictation Location: [place] [address] Transcribed By: [facility] 03/01/22 1510 Dictated By: Cale Logan Jr, DO 03/01/22 1509 Signed By: 03/01/22 1510 Normal [facility] CARDIAC KAMRON ADMITon 022 CK [Catalytic activity/Vol] 331 U/L Critically high 26-192 [facility] Comment on above: Performed By: #### C MP, LIPID, TSH, T7 #### [facility] [address] [place] [address] [address] Mehnaz Dubon CK.MB [Mass/Vol] 6.75 ng/mL Critically high <=3.60 [facility] Comment on above: Performed By: #### C MP, LIPID, TSH, T7 #### [facility] [address] [place] [address] Dr. Mehnaz Dubon HSTROP 9.1 pg/mL Normal 4.0-51.3 [facility] Comment on above: Result Comment: CUT- OFF POINTS HAVE BEEN ESTABLISHED BASED ON THE FOURTH UNIVERSAL DEFINITIONS OF MYOCARDIAL INFARCTION. THE UPPER REFERENCE LIMIT (URL) OF TROPONIN, DEFINED THE 99TH PERCENTILE OF cTnI DISTRIBUTION IN A REFERENCE POPULATION, HAS BEEN CONFIRMED THE DECISION THRESHOLD FOR IA DIAGNOSIS. Performed By: #### C MP, LIPID, TSH, T7 #### [facility] [address] [place] [address] Dr. Mehnaz Dubon ALISSA 919 ng/mL Critically high 9-82 [facility] Comment on above: Performed By: #### C MP, LIPID, TSH, T7 #### [facility] [address] [place] [address] Dr. Mehnaz Dubon CBC AUTO DIFFon 02-28-2022 BASO # 0.1 103/ul Normal 0.0-0.1 [facility] Comment on above: Performed By: #### C BC #### [facility] [address] [place] [address] Dr. Mehnaz Dubon Basophils/100 WBC (Bld) 1.2 % Normal 0.2-2.0 [facility] Comment on above: Performed By: #### C BC #### [facility] [address] [place] [address] Dr. Mehnaz Dubon EO # 0.1 103/ul Normal 0.0-0.7 [facility] Comment on above: Performed By: #### C BC #### [facility] [address] [place] [address] Dr. Mehnaz Dubon Eosinophils/100 WBC (Bld) 1.0 % Normal 0.9-7.0 [facility] Comment on above: Performed By: #### C BC #### [facility] [address] [place] [address] Dr. Mehnaz Dubon Erythrocyte distribution width (RBC) [Ratio] 13.0 % Normal 11.0-15.0 [facility] Comment on above: Performed By: #### C BC #### [facility] [address] [place] [address] Dr. Mehnaz Dubon Hematocrit (Bld) [Volume fraction] 39.0 % Normal 36.0-48.0 [facility] Comment on above: Performed By: #### C BC #### [facility] [address] [place] [address] Dr. Mehnaz Dubon Hemoglobin (Bld) [Mass/Vol] 12.8 g/dL Normal 12.0-16.0 [facility] Comment on above: Performed By: #### C BC #### [facility] [address] [place] [address] Dr. Mehnaz Dubon IG # 0.04 10e3/ul Critically high 0.00-0.03 [facility] Comment on above: Performed By: #### C BC #### [facility] [address] [place] [address] Dr. Mehnaz Dubon IG % 0.5 % Normal 0.0-0.5 [facility] Comment on above: Performed By: #### C BC #### [facility] [address] [place] [address] Dr. Mehnaz Dubon LYMPH # 1.2 103/ul Normal 1.2-3.8 [facility] Comment on above: Performed By: #### C BC #### [facility] [address] [place] [address] Dr. Mehnaz Dubon Lymphocytes/100 WBC (Bld) 15.7 % Critically low 20.5-60.0 [facility] Comment on above: Performed By: #### C BC #### [facility] [address] [place] [address] Dr. Mehnaz Dubon MANUAL DIFF REQ NO Normal [facility] Comment on above: Performed By: #### C BC #### [facility] [address] [place] [address] Dr. Mehnaz Dubon MCH (RBC) [Entitic mass] 30.8 pg Normal 26.7-34.0 [facility] Comment on above: Performed By: #### C BC #### [facility] [address] [place] [address] Dr. Mehnaz Dubon MCHC (RBC) [Mass/Vol] 32.8 g/dL Normal 29.9-35.2 [facility] Comment on above: Performed By: #### C BC #### [facility] [address] [place] [address] Dr. Mehnaz Dubon MCV (RBC) [Entitic vol] 94.0 fL Normal 81.0-99.0 [facility] Comment on above: Performed By: #### C BC #### [facility] [address] [place] [address] Dr. Mehnaz Dubon MONO # 0.6 103/ul Normal 0.3-0.8 [facility] Comment on above: Performed By: #### C BC #### [facility] [address] [place] [address] Dr. Mehnaz Dubon Monocytes/100 WBC (Bld) 7.8 % Normal 1.7-12.0 [facility] Comment on above: Performed By: #### C BC #### [facility] [address] [place] [address] Dr. Mehnaz Dubon NEUT # 5.7 103/ul Normal 1.4-6.5 [facility] Comment on above: Performed By: #### C BC #### [facility] [address] [place] [address] Dr. Mehnaz Dubon Neutrophils/100 WBC (Bld) 73.8 % Normal 43.0-75.0 [facility] Comment on above: Performed By: #### C BC #### [facility] [address] [place] [address] Dr. Mehnaz Dubon Platelet mean volume (Bld) [Entitic vol] 9.7 fL Normal 9.5-13.5 [facility] Comment on above: Performed By: #### C BC #### [facility] [address] [place] [address] Dr. Mehnaz Dubon PLT 159 103/ul Normal 150-450 [facility] Comment on above: Performed By: #### C BC #### [facility] [address] [address] [address] Mehnaz Dubon RBC 4.15 106/ul Critically low 4.20-5.40 [facility] Comment on above: Performed By: #### C BC #### [facility] [id number] Mehnaz Dubon WBC 7.8 103/ul Normal 4.0-11.0 [facility] Comment on above: Performed By: #### C BC #### [facility] [address] [address] CSPINE WO CONon [...] MARU ANGEL Date: 2022-02-28 21:46 Normal [facility] CT FACIAL BONES WO CONon CT FACIAL [...] by: MARU ANGEL Date: 2022-02-28 21:[address] [facility] PROF CHEM 8 (BAS METB)on Anion gap [Moles/Vol] 13.2 mmol/L Normal [facility] Comment on above: Performed By: #### C MP, LIPID, TSH, T7 #### [facility] [address] [address] [address] Mehnaz Dubon Calcium [Mass/Vol] 8.6 mg/dL Normal 8.5-10.1 [facility] Comment on above: Performed By: #### C MP, LIPID, TSH, T7 #### [facility] [address] [address] [address] Mehnaz Dubon Chloride [Moles/Vol] 104 mmol/L Normal 98-107 [facility] Comment on above: Performed By: #### C MP, LIPID, TSH, T7 #### [facility] [address] [address] [address] Mehnaz Dubon CO2 [Moles/Vol] 24.3 mmol/L Normal 21.0-32.0 [facility] Comment on above: Performed By: #### C MP, LIPID, TSH, T7 #### [facility] [address] [address] [address] Mehnaz Dubon Creatinine [Mass/Vol] 0.45 mg/dL Critically low 0.55-1.02 [facility] Comment on above: Performed By: #### C MP, LIPID, TSH, T7 #### [facility] [address] [address] [address] Mehnaz Dubon EGFR-AF [place] >60 Normal >=60 [facility] Comment on above: Performed By: #### C MP, LIPID, TSH, T7 #### [facility] [address] [address] [address] Mehnaz Dubon EGFR-NON AF [place] >60 Normal >=60 [facility] Comment on above: Performed By: #### C MP, LIPID, TSH, T7 #### [facility] [address] [address] [address] Mehnaz Dubon Glucose [Mass/Vol] 76 mg/dL Normal 74-106 [facility] Comment on above: Performed By: #### C MP, LIPID, TSH, T7 #### [facility] [address] [place] [address] Dr. Mehnaz Dubon Potassium [Moles/Vol] 2.5 mmol/L Critically low 3.5-5.1 [facility] Comment on above: Performed By: #### C MP, LIPID, TSH, T7 #### [facility] [address] [address] [address] Mehnaz Dubon Sodium [Moles/Vol] 140 mmol/L Normal 136-145 [facility] Comment on above: Performed By: #### C MP, LIPID, TSH, T7 #### [facility] [address] [address] [address] Mehnaz Dubon Urea nitrogen [Mass/Vol] 10.0 mg/dL Normal 7.0-18.0 [facility] Comment on above: Performed By: #### C MP, LIPID, TSH, T7 #### [facility] [address] [place] [address] Dr. Mehnaz Dubon Urea nitrogen/Creatinine [Mass ratio] 22.2 mg/mg Normal [facility] Comment on above: Performed By: #### C MP, LIPID, TSH, T7 #### [facility] [address] [place] [address] Dr. Mehnaz Dubon VITAMIN B1 (THIAMINE)on Vit. B1, Whole Blood 223.5 nmol/L Critically high 66.5-[address] [facility] Comment on above: Performed By: #### C MP, LIPID, TSH, T7 #### [facility] [address] [place] [address] Dr. Mehnaz Dubon CBC AUTO DIFFon 02-03-2022 BASO # 0.1 103/ul Normal 0.0-0.1 [facility] Comment on above: Performed By: #### C BC #### [facility] [address] [place] [address] Dr. Mehnaz Dubon Basophils/100 WBC (Bld) 1.1 % Normal 0.2-2.0 [facility] Comment on above: Performed By: #### C BC #### [facility] [address] [place] [address] Dr. Mehnaz Dubon EO # 0.2 103/ul Normal 0.0-0.7 [facility] Comment on above: Performed By: #### C BC #### [facility] [address] [place] [address] Dr. Mehnaz Dubon Eosinophils/100 WBC (Bld) 2.5 % Normal 0.9-7.0 [facility] Comment on above: Performed By: #### C BC #### [facility] [address] [place] [address] Dr. Mehnaz Dubon Erythrocyte distribution width (RBC) [Ratio] 12.9 % Normal 11.0-15.0 [facility] Comment on above: Performed By: #### C BC #### [facility] [address] [place] [address] Dr. Mehnaz Dubon Hematocrit (Bld) [Volume fraction] 40.6 % Normal 36.0-48.0 [facility] Comment on above: Performed By: #### C BC #### [facility] [address] [place] [address] Dr. Mehnaz Dubon Hemoglobin (Bld) [Mass/Vol] 13.0 g/dL Normal 12.0-16.0 [facility] Comment on above: Performed By: #### C BC #### [facility] [address] [place] [address] Dr. Mehnaz Dubon IG # 0.01 10e3/ul Normal 0.00-0.03 [facility] Comment on above: Performed By: #### C BC #### [facility] [address] [place] [address] Dr. Mehnaz Dubon IG % 0.2 % Normal 0.0-0.5 [facility] Comment on above: Performed By: #### C BC #### [facility] [address] [place] [address] Dr. Mehnaz Dubon LYMPH # 1.1 103/ul Critically low 1.2-3.8 [facility] Comment on above: Performed By: #### C BC #### [facility] [address] [place] [address] Dr. Mehnaz Dubon Lymphocytes/100 WBC (Bld) 17.5 % Critically low 20.5-60.0 [facility] Comment on above: Performed By: #### C BC #### [facility] [address] [place] [address] Dr. Mehnaz Dubon MANUAL DIFF REQ NO Normal [facility] Comment on above: Performed By: #### C BC #### [facility] [address] [place] [address] Dr. Mehnaz Dubon MCH (RBC) [Entitic mass] 30.2 pg Normal 26.7-34.0 [facility] Comment on above: Performed By: #### C BC #### [facility] [address] [place] [address] Dr. Mehnaz Dubon MCHC (RBC) [Mass/Vol] 32.0 g/dL Normal 29.9-35.2 [facility] Comment on above: Performed By: #### C BC #### [facility] [address] [place] [address] Dr. Mehnaz Dubon MCV (RBC) [Entitic vol] 94.4 fL Normal 81.0-99.0 [facility] Comment on above: Performed By: #### C BC #### [facility] [address] [place] [address] Dr. Mehnaz Dubon MONO # 0.5 103/ul Normal 0.3-0.8 [facility] Comment on above: Performed By: #### C BC #### [facility] [address] [place] [address] Dr. Mehnaz Dubon Monocytes/100 WBC (Bld) 8.2 % Normal 1.7-12.0 [facility] Comment on above: Performed By: #### C BC #### [facility] [address] [place] [address] Dr. Mehnaz Dubon NEUT # 4.5 103/ul Normal 1.4-6.5 [facility] Comment on above: Performed By: #### C BC #### [facility] [address] [place] [address] Dr. Mehnaz Dubon Neutrophils/100 WBC (Bld) 70.5 % Normal 43.0-75.0 [facility] Comment on above: Performed By: #### C BC #### [facility] [address] [place] [address] Dr. Mehnaz Dubon Platelet mean volume (Bld) [Entitic vol] 10.4 fL Normal 9.5-13.5 [facility] Comment on above: Performed By: #### C BC #### [facility] [address] [place] [address] Dr. Mehnaz Dubon PLT 181 103/ul Normal 150-450 [facility] Comment on above: Performed By: #### C BC #### [facility] [address] [place] [address] Dr. Mehnaz Dubon RBC 4.30 106/ul Normal 4.20-5.40 [facility] Comment on above: Performed By: #### C BC #### [facility] [address] [place] [address] Dr. Mehnaz Dubon WBC 6.4 103/ul Normal 4.0-11.0 [facility] Comment on above: Performed By: #### C BC #### [facility] [address] [place] [address] Dr. Mehnaz Dubon FERRITINon 02-03-2022 Ferritin [Mass/Vol] 122.0 ng/mL Normal 8.0-252.0 [facility] Comment on above: Performed By: #### F ERR, VITAD, FETIBC, B12FOL #### [facility] [address] [place] [address] Dr. Mehnaz Dubon IRON AND TIBCon 02-03-2022 % SATURATION 43.6 % Normal [facility] Comment on above: Performed By: #### F ERR, VITAD, FETIBC, B12FOL #### [facility] [address] [place] [address] Dr. Mehnaz Dubon Iron [Mass/Vol] 95.0 ug/dL Normal 50.0-170.0 [facility] Comment on above: Performed By: #### F ERR, VITAD, FETIBC, B12FOL #### [facility] [address] [place] [address] Dr. Mehnaz Dubon TIBC DIRECT 218.0 ug/dL Critically low 250.0-450.0 [facility] Comment on above: Performed By: #### F ERR, VITAD, FETIBC, B12FOL #### [facility] [address] [place] [address] Dr. Mehnaz Dubon MAGNESIUMon 02-03-2022 Magnesium [Mass/Vol] 1.7 mg/dL Critically low 1.8-2.4 [facility] Comment on above: Performed By: #### C MP, LIPID, TSH, T7 #### [facility] [address] [place] [address] Dr. Mehnaz Dubon PHOSPHORUSon 02-03-2022 Phosphate [Mass/Vol] 3.6 mg/dL Normal 2.6-4.7 [facility] Comment on above: Performed By: #### C MP, LIPID, TSH, T7 #### [facility] [address] [place] [address] Dr. Mehnaz Dubon PROF 14(COMP METB)on 022 Albumin [Mass/Vol] 3.3 g/dL Critically low 3.4-5.[address] [facility] Comment on above: Performed By: #### C MP, LIPID, TSH, T7 #### [facility] [address] [address] [address] Mehnaz Dubon Albumin/Globulin [Mass ratio] 1.1 {ratio} Normal [facility] Comment on above: Performed By: #### C MP, LIPID, TSH, T7 #### [facility] [address] [place] [address] Dr. Mehnaz Dubon ALP [Catalytic activity/Vol] 108 U/L Normal 46-116 [facility] Comment on above: Performed By: #### C MP, LIPID, TSH, T7 #### [facility] [address] [place] [address] Dr. Mehnaz Dubon ALT [Catalytic activity/Vol] 37 U/L Normal 14-59 [facility] Comment on above: Performed By: #### C MP, LIPID, TSH, T7 #### [facility] [address] [place] [address] Dr. Mehnaz Dubon Anion gap [Moles/Vol] 10.1 mmol/L Normal [facility] Comment on above: Performed By: #### C MP, LIPID, TSH, T7 #### [facility] [address] [place] [address] Dr. Mehnaz Dubon AST [Catalytic activity/Vol] 48 U/L Critically high 15-37 [facility] Comment on above: Performed By: #### C MP, LIPID, TSH, T7 #### [facility] [address] [place] [address] Dr. Mehnaz Dubon Bilirubin [Mass/Vol] 0.5 mg/dL Normal 0.2-1.0 [facility] Comment on above: Performed By: #### C MP, LIPID, TSH, T7 #### [facility] [address] [place] [address] Dr. Mehnaz Dubon Calcium [Mass/Vol] 8.7 mg/dL Normal 8.5-10.1 [facility] Comment on above: Performed By: #### C MP, LIPID, TSH, T7 #### [facility] [address] [place] [address] Dr. Mehnaz Dubon Chloride [Moles/Vol] 105 mmol/L Normal 98-107 [facility] Comment on above: Performed By: #### C MP, LIPID, TSH, T7 #### [facility] [address] [address] [address] Mehnaz Dubon CO2 [Moles/Vol] 29.0 mmol/L Normal 21.0-32.0 [facility] Comment on above: Performed By: #### C MP, LIPID, TSH, T7 #### [facility] [address] [place] [address] Dr. Mehnaz Dubon Creatinine [Mass/Vol] 0.60 mg/dL Normal 0.55-1.02 [facility] Comment on above: Performed By: #### C MP, LIPID, TSH, T7 #### [facility] [address] [place] [address] Dr. Mehnaz Dubon EGFR-AF [place] >60 Normal >=60 [facility] Comment on above: Performed By: #### C MP, LIPID, TSH, T7 #### [facility] [address] [place] [address] Dr. Mehnaz Dubon EGFR-NON AF [place] >60 Normal >=60 [facility] Comment on above: Performed By: #### C MP, LIPID, TSH, T7 #### [facility] [address] [place] [address] Dr. Mehnaz Dubon Globulin (S) [Mass/Vol] 2.9 g/dL Normal [facility] Comment on above: Performed By: #### C MP, LIPID, TSH, T7 #### [facility] [address] [place] [address] Dr. Mehnaz Dubon Glucose [Mass/Vol] 77 mg/dL Normal 74-106 [facility] Comment on above: Performed By: #### C MP, LIPID, TSH, T7 #### [facility] [address] [place] [address] Dr. Mehnaz Dubon Potassium [Moles/Vol] 4.1 mmol/L Normal 3.5-5.1 [facility] Comment on above: Performed By: #### C MP, LIPID, TSH, T7 #### [facility] [address] [place] [address] Dr. Mehnaz Dubon Protein [Mass/Vol] 6.2 g/dL Critically low 6.4-8.2 [facility] e [facility] Comment on above: Performed By: #### C MP, LIPID, TSH, T7 #### [facility] [address] [place] [address] Dr. Mehnaz Dubon Sodium [Moles/Vol] 140 mmol/L Normal 136-145 [facility] Comment on above: Performed By: #### C MP, LIPID, TSH, T7 #### [facility] [address] [place] [address] Dr. Mehnaz Dubon Urea nitrogen [Mass/Vol] 9.0 mg/dL Normal 7.0-18.0 [facility] Comment on above: Performed By: #### C MP, LIPID, TSH, T7 #### [facility] [address] [place] [address] Dr. Mehnaz Dubon Urea nitrogen/Creatinine [Mass ratio] 15.0 mg/mg Normal [facility] Comment on above: Performed By: #### C MP, LIPID, TSH, T7 #### [facility] [address] [place] [address] Dr. Mehnaz Dubon VIT B12 AND FOLATEon 2021 Cobalamin (Vitamin B12) [Mass/Vol] 904.0 pg/mL Normal 193.0-986.0 [facility] Comment on above: Performed By: #### F ERR, VITAD, FETIBC, B12FOL #### [facility] [address] [place] [address] Dr. Mehnaz Dubon FOLATE 9.70 ng/mL Normal 8.60-58.90 [facility] Comment on above: Performed By: #### F ERR, VITAD, FETIBC, B12FOL #### [facility] [address] [place] [address] Dr. Mehnaz Dubon VITAMIN D 25 OHon 02-03-2022 VIT D 25-OH 44.8 ng/mL Normal [facility] Comment on above: Performed By: #### F ERR, VITAD, FETIBC, B12FOL #### [facility] [address] [address] [address] Mehnaz Dubon VIT D RANGES SEE BELOW Normal [facility] Comment on above: Result Comment: <20 ng/mL Vit D deficient 20 - <30 ng/mL Vit D insufficient 30 - 100 ng/mL Vit D sufficient >100 ng/mL Potential Toxicity Performed By: #### F ERR, VITAD, FETIBC, B12FOL #### [facility] [address] [address] [address] Mehnaz Dubon ALP ALT Norma 12-30-2021 ALP [Catalytic activity/Vol] 139 U/L High 32-126 [facility] Comment on above: Performed By: #### C OMP, ENZ3, CRP, BCR #### [facility] (DEFAULT) [address] [place] [address] ALT [Catalytic activity/Vol] 35 U/L Normal 9-48 [facility] Comment on above: Performed By: #### C OMP, ENZ3, CRP, BCR #### [facility] (DEFAULT) [address] [place] [address]37 AST [Catalytic activity/Vol] 51 U/L High 10-39 [facility] Comment on above: Performed By: #### C OMP, ENZ3, CRP, BCR #### [facility] (DEFAULT) [address] [place] [address] 81099 BUN CREAon 12-30-2021 Creatinine [Mass/Vol] 0.53 mg/dL Normal 0.50-1.20 [facility] Comment on above: Performed By: #### C OMP, ENZ3, CRP, BCR #### [facility] (DEFAULT) [address] [place] [address] 22343 eGFR, CKD-EPI, Female >90 Normal >=60 [facility] Comment on above: Result Comment: Repo rted eGFR is based on the CKD-EPI 2020 equation using creatinine, age, and sex. Performed By: #### C OMP, ENZ3, CRP, BCR #### [facility] [address] [place] [address]08 Urea nitrogen [Mass/Vol] 7 mg/dL Normal 7-25 [facility] Comment on above: Performed By: #### C OMP, ENZ3, CRP, BCR #### [facility] (DEFAULT) [address] [place] [address] 43538 Urea nitrogen/Creatinine [Mass ratio] 13 mg/mg Normal [facility] Comment on above: Performed By: #### C OMP, ENZ3, CRP, BCR #### [facility] (DEFAULT) [address] [place] [address]453 C REACTIVE PROTEINon 022 CRP [Mass/Vol] 4.61 mg/L Normal <10.00 [facility] Comment on above: Performed By: #### C OMP, ENZ3, CRP, BCR #### [facility] (DEFAULT) [address] [place] [address] 28664 C3,C4on 12-30-2021 C3 129 mg/dL Normal 87-200 [facility] Comment on above: Performed By: #### C OMP, ENZ3, CRP, BCR #### [facility] (DEFAULT) [address] [place] [address] 89253 C4 25 mg/dL Normal 18-52 [facility] Comment on above: Performed By: #### C OMP, ENZ3, CRP, BCR #### [facility] (DEFAULT) [address] [place] [address]803 CBC AND ELECTRONIC DIFFon Basophils (Bld) [#/Vol] 0.07 10*3/uL Normal 0.00-0.15 [facility] Comment on above: Performed By: #### L AB980 #### [facility] (DEFAULT) [address] [place] [address] 97745 Basophils/100 WBC (Bld) 1.2 % Normal [facility] Comment on above: Performed By: #### L AB980 #### [facility] (DEFAULT) [address] [place] [address] 89153 DIFF STATUS Electronic Differential Normal [facility] Comment on above: Performed By: #### L AB980 #### [facility] (DEFAULT) [address] [place] [address] 50944 Eosinophils (Bld) [#/Vol] 0.18 10*3/uL Normal 0.00-0.42 [facility] Comment on above: Performed By: #### L AB980 #### [facility] (DEFAULT) [address] [place] [address] 50086 Eosinophils/100 WBC (Bld) 3.1 % Normal [facility] Comment on above: Performed By: #### L AB980 #### [facility] (DEFAULT) [address] [place] [address] 73780 Hematocrit (Bld) [Volume fraction] 43.9 % Normal 34.9-44.3 [facility] Comment on above: Performed By: #### L AB980 #### [facility] (DEFAULT) [address] [place] [address] 85331 Hemoglobin (Bld) [Mass/Vol] 14.2 g/dL Normal 11.4-15.2 [facility] Comment on above: Performed By: #### L AB980 #### [facility] (DEFAULT) [address] [address] Immature Grans % 0.3 % Normal [facility] Comment on above: Performed By: #### L AB980 #### [facility] (DEFAULT) [address] [place] [address] 72455 Immature Grans Absolute <0.04 Normal <=0.08 [facility] Comment on above: Performed By: #### L AB980 #### [facility] (DEFAULT) [address] [place] [address] 83929 Lymphocytes (Bld) [#/Vol] 1.05 10*3/uL Low 1.16-3.51 [facility] Comment on above: Performed By: #### L AB980 #### [facility] (DEFAULT) [address] [place] [address] 27999 Lymphocytes/100 WBC (Bld) 17.9 % Normal [facility] Comment on above: Performed By: #### L AB980 #### [facility] (DEFAULT) [address] [place] [address] 14794 MCV (RBC) [Entitic vol] 93.6 fL Normal 79.6-97.7 [facility] Comment on above: Performed By: #### L AB980 #### [facility] (DEFAULT) [address] [place] [address] 55198 Mean Cell Hgb 30.3 pg Normal 25.9-33.9 [facility] Comment on above: Performed By: #### L AB980 #### [facility] (DEFAULT) [address] [place] [address] 23909 Mean Cell Hgb Conc 32.3 g/dL Normal 31.4-35.9 [place] Comment on above: Performed By: #### L AB980 #### [facility] (DEFAULT) [address] [place] [address] 64821 Monocytes (Bld) [#/Vol] 0.50 10*3/uL Normal 0.22-0.87 [facility] Comment on above: Performed By: #### L AB980 #### [facility] (DEFAULT) [address] [place] [address] 03305 Monocytes/100 WBC (Bld) 8.5 % Normal [facility] Comment on above: Performed By: #### L AB980 #### [facility] (DEFAULT) [address] [address] Nucleated RBC 0.0 /100 WBC Normal <=0.2 [facility] Comment on above: Performed By: #### L AB980 #### [facility] (DEFAULT) [address] [place] [address] 66024 Platelet mean volume (Bld) [Entitic vol] 11.4 fL Normal 8.5-12.2 [facility] Comment on above: Performed By: #### L AB980 #### [facility] (DEFAULT) [address] [place] [address] 91713 Platelets (Bld) [#/Vol] 167 10*3/uL Normal 150-393 [facility] Comment on above: Performed By: #### L AB980 #### [facility] (DEFAULT) [address] [place] [address] 48232 RBC (Bld) [#/Vol] 4.69 10*6/uL Normal 3.91-5.04 [facility] Comment on above: Performed By: #### L AB980 #### [facility] (DEFAULT) [address] [place] [address] 25600 RBC Distribution 13.0 % Normal 10.8-14.9 [facility] Comment on above: Performed By: #### L AB980 #### [facility] (DEFAULT) [address] [place] [address] 04857 Segs + Bands Auto 69.0 % Normal [facility] Comment on above: Performed By: #### L AB980 #### [facility] (DEFAULT) [address] [place] [address] 78697 Segs + Bands,Absolute Auto 4.05 K/uL Normal 1.64-7.28 [facility] Comment on above: Performed By: #### L AB980 #### [facility] (DEFAULT) [address] [place] [address] 15310 WBC (Bld) [#/Vol] 5.87 10*3/uL Normal 3.99-11.19 [facility] Comment on above: Performed By: #### L [id number] #### [facility] (DEFAULT) [address] [place] [address] 92982 DSDNA ANTIBODYon 12-30-2021 dsDNA Antibody Negative Normal Negative [facility] Comment on above: Performed By: #### D SDNAB #### [facility] (DEFAULT) [address] [place] [address] 73908 SEDIMENTATION RATE, AUTOMATE Don 12-30-2021 ESR Westergren 12 mm/hr Normal <30 [facility] Comment on above: Performed By: #### E SR #### [facility] (DEFAULT) [address] [place] [address] 79050 URINALYSISon 12-30-2021 Amorphous >51% = Heavy Abnormal (none) [facility] Comment on above: Performed By: #### U RIN #### [facility] (DEFAULT) [address] [place] [address] 13617 Appearance (U) Turbid Abnormal Clear [facility] Comment on above: Performed By: #### U RIN #### [facility] (DEFAULT) [address] [place] [address] 56450 Bacteria ABSENT Normal ABSENT [facility] Comment on above: Performed By: #### U RIN #### [facility] (DEFAULT) [address] [place] [address] 52198 Blood Urine Negative Normal Negative [facility] Comment on above: Performed By: #### U RIN #### [facility] (DEFAULT) [address] [place] [address] 14305 Calcium Oxalate Crystals PRESENT Normal [facility] Comment on above: Performed By: #### U RIN #### [facility] (DEFAULT) [address] [place] [address] 62675 Color (U) Yellow Normal Yellow [facility] Comment on above: Performed By: #### U RIN #### [facility] (DEFAULT) [address] [place] [address] 89352 Glucose Ql (U) Negative Normal Negative [facility] Comment on above: Performed By: #### U RIN #### [facility] (DEFAULT) [address] [place] [address] 21359 Ketones Ql (U) 15 mg/dL = Small Abnormal Negative [facility] Comment on above: Performed By: #### U RIN #### [facility] (DEFAULT) [address] [place] [address] 75496 Leukocyte esterase Test strip Ql (U) Negative Normal Negative [facility] Comment on above: Performed By: #### U RIN #### [facility] (DEFAULT) [address] [place] [address] 84262 Nitrites Urine Negative Normal Negative [facility] Comment on above: Performed By: #### U RIN #### [facility] (DEFAULT) [address] [place] [address] 66292 pH (U) 6.0 [pH] Normal 5.0-7.0 [facility] Comment on above: Performed By: #### U RIN #### [facility] (DEFAULT) [address] [place] [address] 05364 Protein Urine 30 mg/dL Abnormal Negative [facility] Comment on above: Performed By: #### U RIN #### [facility] (DEFAULT) [address] [place] [address] 06257 RBC Urine 0-2 Normal 0-2 [facility] Comment on above: Performed By: #### U RIN #### [facility] (DEFAULT) [address] [place] [address] 30976 Specific [place] Urine >=1.030 Normal 1.001-1.035 [facility] Comment on above: Performed By: #### U RIN #### [facility] (DEFAULT) [address] [place] [address] 51893 Squamous/Epithelial Cells 1/hpf = 1+ Normal 1/hpf = 1+, 2-5/hpf = 2+, 0/hpf = 0+, ABSENT [facility] Comment on above: Performed By: #### U RIN #### [facility] (DEFAULT) [address] [place] [address] 66771 Urobilinogen Urine 0.2 E.U./dL Normal 0.2 E.U/d L, 1.0 E.U/dL [facility] Comment on above: Performed By: #### U RIN #### [facility] (DEFAULT) [address] [place] [address] 02558 WBC Urine 0-5 Normal 0-5 [facility] Comment on above: Performed By: #### U RIN #### [facility] (DEFAULT) [address] [place] [address] 33651 Vital Signs Date Time Vital Sign Value Performing Clinician Edvin landers 05-28-2022 09:01-0500 Body height 165.1 cm MD Yunior Masterson Work Phone: [facility] 05-28-2022 09:01-0500 Body mass index (BMI) [Ratio] 23.9 kg/m2 MD Yunior Masterson Work Phone: [facility] 05-28-2022 09:01-0500 Body weight 65.31 kg MD Yunior Masterson Work Phone: [facility] 05-28-2022 08:50-0500 Body temperature 97.5 [degF] MD Yunior Masterson Work Phone: [facility] 05-28-2022 08:50-0500 Diastolic blood pressure 87 mm[Hg] MD Yunior Masterson Work Phone: [facility] 05-28-2022 08:50-0500 Heart rate 85 /min MD Yunior Masterson Work Phone: [facility] 05-28-2022 08:50-0500 Respiratory rate 20 /min MD Yunior Masterson Work Phone: [facility] 05-28-2022 08:50-0500 Systolic blood pressure 133 mm[Hg] MD Yunior Masterson Work Phone: [facility] 05-14-2022 13:39-0500 Body height 165.1 cm MD Yunior Masterson Work Phone: [facility] 05-14-2022 13:39-0500 Body mass index (BMI) [Ratio] 23.9 kg/m2 MD Yunior Masterson Work Phone: [facility] 05-14-2022 13:39-0500 Body weight 65.31 kg MD Yunior Masterson Work Phone: [facility] 05-14-2022 13:31-0500 Body temperature 97.2 [degF] MD Yunior Masterson Work Phone: [facility] 05-14-2022 13:31-0500 Diastolic blood pressure 85 mm[Hg] MD Yunior Masterson Work Phone: [facility] 05-14-2022 13:31-0500 Heart rate 109 /min MD Yunior Masterson Work Phone: [facility] 05-14-2022 13:31-0500 Respiratory rate 18 /min MD Yunior Masterson Work Phone: [facility] 05-14-2022 13:31-0500 Systolic blood pressure 128 mm[Hg] MD Yunior Masterson Work Phone: [facility] 04-15-2022 11:26-0500 Body height 165.1 cm MD Yunior Masterson Work Phone: [facility] 04-15-2022 11:26-0500 Body mass index (BMI) [Ratio] 23.9 kg/m2 MD Yunior Masterson Work Phone: [facility] 04-15-2022 11:26-0500 Body weight 65.31 kg MD Yunior Masterson Work Phone: [facility] 04-15-2022 11:10-0500 Body temperature 97.2 [degF] MD Yunior Masterson Work Phone: [facility] 04-15-2022 11:10-0500 Diastolic blood pressure 70 mm[Hg] MD Yunior Masterson Work Phone: [facility] 04-15-2022 11:10-0500 Heart rate 76 /min MD Yunior Masterson Work Phone: [facility] 04-15-2022 11:10-0500 Respiratory rate 18 /min MD Yunior Masterson Work Phone: [facility] 04-15-2022 11:10-0500 Systolic blood pressure 138 mm[Hg] MD Yunior Masterson Work Phone: [facility] 03-03-2022 08:00-0400 Body temperature 98.3 [degF] MD Yunior Masterson Work Phone: [facility] 03-03-2022 08:00-0400 Diastolic blood pressure 56 mm[Hg] MD Yunior Masterson Work Phone: [facility] 03-03-2022 08:00-0400 Heart rate 97 /min MD Yunior Masterson Work Phone: [facility] 03-03-2022 08:00-0400 Respiratory rate 16 /min MD Yunior Masterson Work Phone: [facility] 03-03-2022 08:00-0400 SaO2% (BldA) [Mass fraction] 98 % MD Yunior Masterson Work Phone: [facility] 03-03-2022 08:00-0400 Systolic blood pressure 99 mm[Hg] MD Yunior Masterson Work Phone: [facility] 03-01-2022 15:05-0400 Body height 162.56 cm MD Yunior Masterson Work Phone: [facility] 03-01-2022 15:05-0400 Body mass index (BMI) [Ratio] 25.7 kg/m2 MD Yunior Masterson Work Phone: [facility] 03-01-2022 15:05-0400 Body weight 67.9 kg MD Yunior Masterson Work Phone: [facility] 03-01-2022 14:50-0400 Inhaled oxygen flow rate 2 L/min MD Yunior Masterson Work Phone: [facility] 12-30-2021 10:17-0400 Body height 165.1 cm Ceazr Valentin DO Work Phone: [facility] 12-30-2021 10:17-0400 Body mass index (BMI) [Ratio] 24.66 kg/m2 Cezar Reisner DO Work Phone: [facility] 12-30-2021 10:17-0400 Body weight 67.22 kg Cezar Reisner DO Work Phone: [facility] 12-30-2021 10:17-0400 Diastolic blood pressure 68 mm[Hg] Cezar Reisner DO Work Phone: [facility] 12-30-2021 10:17-0400 Heart rate 85 /min Cezar Reisner DO Work Phone: [facility] 12-30-2021 10:17-0400 Respiratory rate 16 /min Cezar Reisner DO Work Phone: [facility] 12-30-2021 10:17-0400 SaO2% (BldA) [Mass fraction] 94 % Cezar Reisner DO Work Phone: [facility] 12-30-2021 10:17-0400 Systolic blood pressure 116 mm[Hg] Cezar Reisner DO Work Phone: [facility] Encounters Encounter Date Encounter Type Care Provider Facility Start: 10-30-2022 End: 10-30-2022 ambulatory Robetrh Kowalski Other [facility] Other Start: 10-30-2022 Telephone encounter Roberth Kowalski [facility] [place] Start: 10-27-2022 End: 10-27-2022 ambulatory Roberth Kowalski Other [facility] Other Start: 10-27-2022 Office outpatient ne w 45 minutes Roberth Kowalski [facility] [place] Start: 10-23-2022 End: 10-23-2022 ambulatory Aquiles Moultrie II Other [facility] [employer] Other Start: 10-23-2022 Office outpatient vi sit 25 minutes Aquiles Moultrie II [facility] Start: 09-24-2022 End: 09-24-2022 ambulatory Aquiles M Pedro II Facility:[facility] Start: 09-24-2022 End: 09-24-2022 ambulatory MD Yunior Masterson Work Phone: [facility] Work Phone: Start: 09-24-2022 End: 09-24-2022 Patient encounter procedure MD Yunior Masterson Work Phone: [facility] Start: 06-25-2022 Office outpatient vi sit 25 minutes Aquiles Pedro II [facility] Start: 06-25-2022 End: 06-25-2022 ambulatory Aquiles Huang Pedro II Facility:[facility] Start: 06-25-2022 End: 06-25-2022 ambulatory MD Yunior Masterson Work Phone: [facility] Work Phone: Start: 06-25-2022 End: 06-25-2022 Patient encounter procedure MD Yunior Masterson Work Phone: [facility] Start: 05-28-2022 End: 05-28-2022 ambulatory Beverly Torres Facility:[facility] Start: 05-28-2022 End: 05-28-2022 Discharged Recurring MD Yunior Masterson Work Phone: [facility] [place] Work Phone: Start: 05-15-[address] YUNIOR MASTERSON . Facili ty:[facility] Start: 05-14-2022 Office outpatient vi sit 25 minutes Aquiles Pedro II [facility] Start: 05-14-2022 Registered Recurring MD Lan Masterson Work Phone: [facility] Work Phone: Start: 05-14-2022 End: 05-14-2022 ambulatory Aquiles M Moultrie II Facility:[facility] Start: 05-14-2022 End: 05-14-2022 ambulatory MD Yunior Masterson Work Phone: [facility] Work Phone: Start: 05-14-2022 End: 05-14-2022 Patient encounter procedure MD Yunior Masterson Work Phone: [facility] Start: 05-11-2022 End: 05-30-2022 ambulatory AQUILES PEDRO Facility:[facility] Start: 04-16-2022 End: 05-10-2022 ambulatory AQUILES PEDRO Facility:[facility] Start: 04-16-2022 Office outpatient vi sit 25 minutes Aquiles Pedro II [facility] Start: 04-16-2022 End: 04-16-2022 ambulatory Aquiles M Moultrie II Facility:[facility] Start: 04-16-2022 End: 04-16-2022 ambulatory MD Yunior Masterson Work Phone: [facility] Work Phone: Start: 04-16-2022 End: 04-16-2022 Patient encounter procedure MD Yunior Masterson Work Phone: [facility] Start: 04-15-2022 Registered Recurring MD Lan Masterson Work Phone: [facility] [place] Start: 04-09-2022 Encounter for genera l adult medical examination without abnormal findings DR YUNIOR MASTERSON . [facility] Start: 04-04-2022 End: 04-05-[address] YUNIOR MASTERSON . Facility:[facility] Start: 04-04-2022 End: 04-05-2022 Encounter for general adult medical examination without abnormal findings DR YUNIOR MASTERSON . Facility:[facility] Start: 03-19-2022 End: 03-19-2022 ambulatory Aquiles Moultrie II Other [facility] Other Start: 03-19-2022 Office outpatient vi sit 15 minutes Aquiles Pedro TREVIZO [facility] Start: 03-13-2022 End: 03-13-2022 ambulatory Aquiles Vasquez II Other [facility] Other Start: 03-13-2022 Telephone encounter Aquiles Vasquez II [facility] Start: 03-09-2022 End: 03-10-[address] YUNIOR MASTERSON . Facility:[facility] Start: 03-03-2022 End: 03-03-2022 ambulatory Aquiles Vasquez II Other [facility] Other Start: 03-03-2022 Telephone encounter Aquiles Pedro TREVIZO [facility] Start: 03-01-2022 End: 03-03-2022 Evaluation and management of inpatient Louann Camara Facility:[facility] Start: 03-01-2022 End: 03-03-2022 Evaluation and management of inpatient MD Yunior Masterson Work Phone: [facility] Start: 02-28-2022 End: 03-01-[address] YUNIOR MASTERSON . Facility:[facility] Start: 02-03-2022 End: 02-04-[address] DOCTOR MOSS Facility:[facility] Start: 12-30-2021 ambulatory YUNIOR MASTERSON Facility: [facility] Start: 12-30-2021 ambulatory YUNIOR MASTERSON Facility: [facility] Start: 12-30-2021 End: 12-30-2021 Office outpatient visit 25 minutes Cezar Valentin DO Work Phone: [facility] [place] Comment on above: Rheumatoid arthritis involving both hands with positive rheumatoid factor (Primary Dx); Diarrhea, unspecified type Start: 11-04-2021 ambulatory YUNIOR MASTERSON Facility: [facility] Start: 06-24-2021 ambulatory YUNIOR MASTERSON Facility: [facility] Start: 03-11-2021 ambulatory YUNIOR MASTERSON Facility: [facility] Procedures Date Procedure Procedure Detail Performing Clinician [...] 04/14/2022 Office Visit Rheumatology Cezar Valentin DO [address] [place] [address] [facility] Start: 03-02-2022 [facility] Start: 03-01-2022 Hospital admission [facility] Start: 03-01-2022 Insertion of Intramedullary Internal Fixation Device into Left Tibia, Percutaneous Approach Insertion of Intramedullary Internal Fixation Device into Left Tibia, Percutaneous Approach [facility] Start: 03-01-2022 Referral to clinical livestock brands inspector [facility] Start: 03-01-2022 Plain X-ray of left tibia and left fibula XR tibia fibula LT 2V* [facility] Start: 03-01-2022 XR Tibia and Fibula - left 2 Views [facility] Start: 01-09-2022 Influenza vaccination INFLUENZA VACC INE (#1) [facility] Start: 12-30-2021 End: 12-30-2022 Bone density scan BONE DENSITY AXIAL (HIP, PELVIS, SPINE) Imaging Routine Rheumatoid arthritis involving both hands with positive rheumatoid factor Expected: 12/30/2021, Expires: 12/30/2022 [facility] Comment on above: Expected: 12/30/2021 , Expires: 12/30/2022 Start: 12-30-2021 End: 12-30-2022 Urinalysis URINALYSIS Fluids Routine Rheumatoid arthritis involving both hands with positive rheumatoid factor Expected: 12/30/2021, Expires: 12/30/2022 [facility] Comment on above: Expected: 12/30/2021 , Expires: 12/30/2022 Start: 07-11-2021 COVID-19 VACCINE (4 - Booster for Pfizer series) COVID-19 VACCINE (4 - Booster for Pfizer series) [facility] Start: 07-05-2020 Thyroid stimulating hormone measurement TSH [facility] Start: 2018 Zoster vaccine hzv l anny for subcutaneous use ZOSTER (SHINGLES) VACCINE (1 of 2) [facility] Start: 06-12-2017 Fasting lipid profile LIPID SCREENIN G [facility] Start: 2013 Colonoscopy COLORECTAL CAN CER SCREENING DISCUSSION [facility] Start: 2008 Screening mammography MAMMOGRA M SCREENING DISCUSSION [facility] Start: 1989 Screening for malign ant neoplasm of cervix CERVICAL CANCER SCREENING DISCUSSION [facility] Start: 09-12-1987 Third diphtheria, tetanus and acellular pertussis (DTaP) vaccination TDAP (ADULT) [facility] Start: 1986 Tetanus vaccination TETANUS [facility] Start: 09-12-1983 HIV screening HIV SCREENING DISCUSSION [facility] End: 12-30-2022 BUN CREA BUN CREA Lab Routine Rheumatoid arthritis involving both hands with positive rheumatoid factor every 90 days for 8 Occurrences starting 12/30/2021 until 12/30/2022 [facility] Work Phone: Comment on above: every 90 days for 8 Occurrences starting 12/30/2021 until 12/30/2022 End: 12-30-2022 Complete blood count with white cell differential, automated CBC, EDIF, PLATELET Lab Routine Rheumatoid arthritis involving both hands with positive rheumatoid factor 90 days for 8 Occurrences starting 12/30/2021 until 12/30/2022 [facility] Comment on above: 90 days for 8 Occurr ences starting 12/30/2021 until 12/30/2022 Patient referral [facility] Work Phone: Immunizations Immunization Date Immunization Notes Care Provider Fa [facility] 03-07-2020 influenza virus vaccine, unspecified formulation Cezar Valentin DO Work Phone: [facility] 12-28-2015 hepatitis B vaccine, adult dosage Cezar Valentin DO Work Phone: [facility] Payers Date Payer Category Payer Medicare [id number] 2022 Self-pay 2022 Unknown [id number] [address] [facility] [id number] 2019-Present [phone] [address] [address] [place] [address] [id number] 1968 Unknown [id number] 2.840.1.718524.3.579.2.5 94 1968 Unknown [id number] 2.0.1.370169.3.579.2.5 94 1968 Unknown [id number] 2.840.1.563840.3.579.2.5 94 1968 Unknown [id number] 2.16840.1.633036.3.579.2.5 94 1968 Unknown [id number] 2.840.1.942201.3.579.2.5 94 1968 Unknown [id number] 2.16.840.1.419032.3.579.2.5 93 1968 Unknown [id number] 2.16.840.1.927107.3.579.2.5 93 1968 Unknown [id number] 2.16.840.1.323605.3.579.2.5 93 1968 Unknown [id number] 2.16.840.1.815195.3.579.2.5 93 1968 Unknown [id number] 2.16.840.1.862342.3.579.2.5 1968 Unknown [id number] 2.16.840.1.880869.3.579.2.5 1968 Unknown [id number] 2.16.840.1.185301.3.579.2.5 1959 Self-pay [id number] 1959 Unknown [id number] Unknown [facility] [id number] Unknown [id number] Unknown [id number] 2.16.840.1.828128.19 Unknown [id number] 2.16.840.1.358356.3.579.2.5 31 Unknown [id number] 2.16.840.1.377386.3.579.2.5 31 Unknown [id number] 2.16.840.1.265840.3.579.2.5 31 Unknown [id number] 2.16.840.1.874158.3.579.2.5 31 Unknown [id number] 2.16.840.1.031494.3.579.2.5 31 Unknown [id number] 2.16.840.1.956110.3.579.2.5 31 Social History Date Type Detail Facility Start: 07-05-2019 End: 05-28-2022 Tobacco smoking status SCIS Never smoked tobacco [facility] Start: 07-05-2019 Tobacco use and exposure Smokeless tobacco non-user [facility] Start: 12-30-2021 Alcohol intake Current drinke r of alcohol (finding) [facility] Start: 12-30-2021 Alcohol intake [facility] Start: 12-15-2017 History SDOH Alcohol Comment weekly [facility] Start: 1970 Sex Assigned At Not on file O [facility] Start: 03-01-2022 Tobacco smoking status SCIS Ex-smoker (finding) [facility] Start: 1970 Sex Assigned At Female F [facility] Sex Assigned At Sex Assigned At Bir [facility] [employer] Other Medical Equipment Procedure Code Equipment Code Equipment Origin al Text Equipment Identifier Dates Open reduction and internal fixation (ORIF) of fracture of tibia and fibula using int Orthopaedic bone screw, non-bioabsorbable, non-sterile ()[id number] FDA Start: 03-01-2022 Open reduction and internal fixation (ORIF) of fracture of tibia and fibula using int Orthopaedic bone screw, non-bioabsorbable, non-sterile ()[id number] FDA Start: 03-01-2022 Open reduction and internal fixation (ORIF) of fracture of tibia and fibula using int Orthopaedic bone screw, non-bioabsorbable, non-sterile ()[id number] FDA Start: 03-01-2022 Open reduction and internal fixation (ORIF) of fracture of tibia and fibula using int Tibia nail, sterile ()[id number] FDA Start: 03-01-2022 Goals Date Patient Goal Desired Activity /State Functional Status Date Assessment Result Facility 03-03-2022 Functional status 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 Edited and approved by Dr. Roberth Kowalski MD. [employer] Other 06-19-2023 Evaluation note* Encounter Date Diagnosis [...] Above note written by Gerard Rodriguez LPN, Tomato Pulper Operator. Edited and approved by Dr. Roberth Kowalski [...] negative findings were considered in medical decision-making. [facility] Other 06-15-2023 Evaluation note* Encounter Date Diagnosis Assessment Notes Treatment Notes Treatment Clinical Notes Oct, Closed displaced comminuted fracture of shaft of left tibia, initial encounter (ICD-10 - S82.252A) Oct, Strain of left calf muscle (ICD-10 - S86.812A) Oct, Closed fracture of shaft of left fibula, unspecified fracture morphology, initial encounter (ICD-10 - S82.402A) Oct, Other [facility] L suprapate llar [...] after that block to discuss its results. [facility] Other 02-15-2023 Evaluation note* Encounter Date Diagnosis Assessment Notes Treatment Notes Treatment Clinical Notes Jun, Closed displaced comminuted fracture of shaft of left tibia, initial encounter (ICD-10 - S82.252A) Jun, Strain of left calf muscle (ICD-10 - S86.812A) Jun, Closed fracture of shaft of left fibula, unspecified fracture morphology, initial encounter (ICD-10 - S82.402A) Jun, Other [facility] L suprapate llar [...] set of x-rays to assess for healing. [facility] Other 01-04-2023 Evaluation note* Encounter Date Diagnosis [...] 4 to 6 weeks with repeat x-rays. [facility] Other 12-07-2022 Evaluation note* Encounter Date Diagnosis Assessment Notes Treatment Notes Treatment Clinical Notes Apr, Closed displaced comminuted fracture of shaft of left tibia, initial encounter (ICD-10 - S82.252A) Apr, Closed fracture of shaft of left fibula, unspecified fracture morphology, initial encounter (ICD-10 - S82.402A) Apr, Other [facility] R tibial intramedullary [...] off longer. She is working with her [facility] digital computer systems analyst on when she can start those medications again. I will plan to see her back in 6 weeks with repeat tibial x-rays. [facility] Other 11-09-2022 Evaluation note* Encounter Date Diagnosis Assessment Notes Treatment Notes Treatment Clinical Notes Mar, Closed displaced comminuted fracture of shaft of left tibia, initial encounter (ICD-10 - S82.252A) Mar, Closed fracture of shaft of left fibula, unspecified fracture morphology, initial encounter (ICD-10 - S82.402A) Mar, Other [facility] R tibial IM [...] she will give us a call sooner. [facility] Other 10-24-2022 Evaluation note* Encounter Date Diagnosis Assessment Notes Treatment Notes Treatment Clinical Notes Feb, Other specified postprocedural states (ICD-10 - Z98.890) [facility] Other 10-24-2022 Discharge summary Author Aquiles Vasquez [facility] March 03, 2022 7:18am Note Date/Time March 03, 2022 7 :18am [facility] [address] [place] [address] Discharge Summary Signed Patient: Christiane Ashley MR#: [id number] : 1970 Acct:[id number] Age/Sex: 51 / F Adm Date: 2 Loc: Room: [address] [place] [address]: Aquiles Vasquez II, MD Copies [...] above injury. She was initially evaluated at [place] emergency department. After complete trauma work-up and found to be an isolated injury to her left lower extremity, she was transferred to [facility] and accepted under orthopedic surgery. That same [...] Creatinine Clear 128.34, Sodium 140, Potassium 3.5, [id number], Carbon Dioxide 23.9, Anion Gap 12.6, BUN [...] % (Auto) 64.2, Lymph % (Auto) 25.7, [place] % (Auto) 9.2, Eos % (Auto) 0.5, Baso % (Auto) 0.4, Neut # (Auto) 3.8, Lymph # (Auto) 1.5, [place] # (Auto) 0.5, Eos # (Auto) 0.0, [...] release(DR/EC) 30 mg PO DAILY thyroid (pork) [[place] Thyroid] 90 mg tablet 90 mg PO DAILY.629 Label Comments: TAKE 1 TABLET BY MOUTH EVERY DAY WITH 120MG TABLET thyroid (pork) [[place] Thyroid] 120 mg tablet 120 mg PO [...] <Electronically signed by Aquiles Vasquez MD> 03/03/22717 [facility] Work Phone: 1(205) 225-916210-23-2022 Progress note Author Eb Gale [facility] March 02, 2022 9:23am Note Date/Time March 02, 2022 9 :23am [facility] [address] [place] [address] Hospitalist Progress Note Signed Patient: Christiane Ashley MR#: [id number] : 1970 Acct:[id number] Age/Sex: 51 / F Adm Date: 2 Loc: 4N Room: [address] [place] [address] Type: ADM IN Attending Dr: Aquiles Vasquez [...] 30 Mg Capsule. PO 03/02/23 08:59 DAILY [facility] Enoxaparin Sodium 40 mg 03/02/22 10:00 Enoxaparin 40 Mg/0.4 Ml Syringe SUBCUT 03/02/23 09:59 DAILY@1000 [facility] Ferrous Sulfate 324 mg 03/01/22 17:00 03/01/22 [...] Lactated Ringers IV 03/01/23 14:59 Not Given .[id number] [facility] Leflunomide 20 mg 03/02/22 09:00 Leflunomide 20 Mg Tablet PO 03/02/23 08:59 DAILY [facility] Metoprolol Tartrate 25 mg 03/01/22 21:00 03/01/22 21:35 Metoprolol Tartrate 25 Mg Tablet PO 03/01/23 20:59 25 mg BID [facility] Administration Mineral Oil 1 each 03/04/22 14:50 Mineral Oil ([place]) 1 Each Enema OR ONCE PRN Constipation Multivitamins 1 tab 03/02/22 [...] (5) Hypothyroid: Plan: ? Continue home medications [place] Thyroid (6) Acute blood loss anemia: Plan: ? Her hemoglobin today was 9.5, on reports from [facility] where she was transferred that it was [...] <Electronically signed by Eb Gale DO> 03/02/22922 [facility] Work Phone: 1(805) 191-197610-23-2022 Progress note Author Aquiles Vasquez [facility] March 02, 2022 6:34am Note Date/Time March 02, 2022 6 :34am [facility] [address] [place] [address] Orthopedic Progress Note Signed Patient: Christiane Ashley MR#: [id number] : 1970 Acct:[id number] Age/Sex: 51 / F Adm Date: 2 Loc: 4N Room: [address] [place] [address] Type: ADM IN Attending Dr: Aquiles Vasquez [...] % (Auto) 86.7 Lymph % (Auto) 5.6 [place] % (Auto) 7.6 Eos % (Auto) 0.0 Baso % (Auto) 0.1 Neut # (Auto) 9.1 H Lymph # (Auto) 0.6 L [place] # (Auto) 0.8 Eos # (Auto) 0.0 [...] signed by Aquiles Vasquez MD> 03/02/22 0634 [facility] Work Phone: 1(413) 152-369110-22-2022 History and physical note Author Aquiles Vasuqez [facility] March 01, 2022 12:26pm Note Date/Time March 01, 2022 1 1:48am [facility] [address] [place] [address] Orthopedic Surgery H&P Signed Patient: Christiane Ashley MR#: [id number] : 1970 Acct:[id number] Age/Sex: 51 / F Adm Date: 2 Loc: Room: [address] [place] [address] Type: ADM IN Attending Dr: Aquiles Vasquez [...] in the deformity. She was seen at [place] emergency department and found to have a closed left tibia/fibula fracture. Per the emergency room physician and my conversation, her CT head, face, C-spine were all negative and this was an isolated injury. I was told that she had hypertension, rheumatoid arthritis, and lupus that were all well controlled. As a result, I recommended admit to [facility] hospitalist service and we would consult for [...] last time was about a year ago. [facility] Social History Smoking Status: Former smoker Substance [...] Confirmed 03/01/22] thyroid (pork) 120 mg tablet ([place] Thyroid) 120 mg PO DAILY.62903/01/22 [History Confirmed 03/01/22] thyroid (pork) 90 mg tablet ([place] Thyroid) 90 mg PO DAILY.62903/01/22 [History Confirmed [...] head, face, and C-spine were obtained at [place]. I have not seen the physical reports. [...] signed by Aquiles Vasquez MD> 03/01/22 1226 [facility] Work Phone: 1(818) 273-619710-22-2022 Consult note Author Eb Gale [facility] March 01, 2022 11:50am Note Date/Time March 01, 2022 1 1:38am [facility] [address] [place] [address] Hospitalist Consult Note Signed Patient: Christiane Ashley MR#: [id number] : 1970 Acct:[id number] Age/Sex: 51 / F Adm Date: 2 Loc: Room: [address] [place] [address] Type: ADM IN Attending Dr: Aquiles Vasquez [...] tibia fracture from it. She went to [facility] and was subsequently transferred here accepted by orthopedic surgery for planned surgical intervention today. She does have history notable for rheumatoid arthritis and lupus, she has been on hydroxychloroquine, leflunomide, and duloxetine for years , on routine EKG her QT was noted to be 517, she recently saw her doctors in [place] roughly 2 months ago and had an [...] Confirmed 03/01/22] thyroid (pork) 120 mg tablet ([place] Thyroid) 120 mg PO DAILY.62903/01/22 [History Confirmed 03/01/22] thyroid (pork) 90 mg tablet ([place] Thyroid) 90 mg PO DAILY.62903/01/22 [History Confirmed [...] 25 Mg Tablet PO 03/01/23 20:59 BID [facility] Non-Formulary Medication 90 mg 03/02/22 06:30 Thyroid (Pork) [[place] Thyroid] PO 03/02/23 06:29 DAILY.0630 [facility] Non-Formulary Medication 120 mg 03/02/22 06:30 Thyroid (Pork) [[place] Thyroid] PO 03/02/23 06:29 DAILY.0630 [facility] Non-Formulary [...] (5) Hypothyroid: Plan: ? Continue home medications [place] Thy[facility] Documented By: Eb Gale DO 03/01/22 1136 Signed By: <Electronically signed by Eb Gale DO> 03/01/22 1152 [facility] Work Phone: 1(335) 330-894610-21-2022 NotePROCEDURE: XR TIB_FIB LT 2V HISTORY: Pain [...] Electronically authenticated by: MARU ANGEL Date: 2022-02-28 21:26[facility]08-22-2022 History of Present illness Narrative* Cezar Valentin DO - 12/30/2021 10:40 AM EDT I saw with Christiane Ashley Dr. Valentin. I performed my own history and exam. We developed the plan together. I agree with the note documented by Dr. Valentin. She complained of chronic lower back pain and symptoms did not improve with weight loss surgery. She was following up with digital campaign specialist. Reported symptoms of chronic diarrhea up [...] were ordered on 12/30/2021 Annabel Null DO Internet Marketing Specialistaccredited legal secretary Division of Immunology/Rheumatology Department of Internal Medicine [address] [address] I have had the pleasure of seeing . 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 Patient was seen and discussed with attending digital computer systems analyst, Dr. Null. Cezar Valentin DO Rheumatology fellow [facility] Inst[facility]* Patient Instructions* Cezar Valentin DO - 12/30/2021 10:40 AM EDT We will decrease the leflunomide to 10mg daily. Get labs today. Please follow up in 3 months. I will order a DEXA scan to check for osteoporosis which should be done every 2 years. [facility] Diagnosis Rheumatoid arthritis involving both hands with positive rheumatoid factor- Primary Diarrhea, unspecified type [facility] Diagnosis Onset Date Resolution Status Acute blood loss anemia acut e Closed fracture of left tibia and fibula acute Hypothyroid acute Long QT interval acute Lupus acute Rheumatoid arthritis acute Tibia/fibula fracture, shaft acute [facility] Work Phone: Evaluation noteNo [employer] Other Evaluation note* Diagnosis Onset Date Resolution Status Acute blood loss anemia acut e Closed fracture of left tibia and fibula acute Long QT interval acute Hypothyroid chronic Lupus chronic Rheumatoid arthritis chronic Tibia/fibula fracture, shaft chronic 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 leg editor sound vale Fracture blister chronic Hypothyroid chronic Lupus chronic Rheumatoid arthritis chronic Tibia/fibula fracture, shaft chronic Wound pain chronic [facility] Work Phone: Evaluation note* Diagnosis Onset Date Resolution Status Acute blood loss anemia acut e Closed fracture of left tibia and fibula acute Long QT interval acute Hypothyroid chronic Lupus chronic Rheumatoid arthritis chronic Tibia/fibula fracture, shaft chronic 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 leg editor sound vale Fracture blister chronic Hypothyroid chronic Lupus chronic Rheumatoid arthritis chronic Tibia/fibula fracture, shaft chronic Wound pain resolved [facility] Work Phone: Evaluation note* Diagnosis Onset Date Resolution Status 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 leg editor sound vale Hypothyroid chronic Lupus chronic Rheumatoid arthritis chronic Tibia/fibula fracture, shaft chronic Fracture blister resolved Wound pain resolved [facility] Work Phone: Evaluation noteNo assessment information available [facility] Work Phone: Hospital Discharge instructions Additional Instructions Keep dressing dry and intact till see in office Non-weight bearing for 2 weeks till seen in office September shower, no tub bathsL[facility] Work Phone: Reason for Referral Specialty Diagnoses / Procedures Referred By Lovely lewis Referred To Contact Diagnoses Rheumatoid arthritis involving both hands with positive rheumatoid factor Procedures BONE DENSITY AXIAL (HIP, PELVIS, SPINE) Annabel Null, DO [address] [place] [address] Referral ID Status Reason Start Date Expiration Date V isits Requested Visits Authorized [id number] New Request 12/30/2021 01/24/2023 1 1 Reason Please refer to woun d care for left calf fracture blister Diagnosis 1 Closed displaced com minuted fracture of shaft of left tibia, initial encounter (S82.252A) Referral Organization [facility] Referring Provider First Name Aquiles Referring Provider Last Name Pedro TREVIZO Referring Provider Specialty Orthopedic Surgery Referred Organization [facility] Wound Ca re Hyperbaric Referred Provider Beverly Torres Referred Address [address] [place], [place],[address] Referred Provider Specialty Nurse Rick fontanez Referral [...] Care Teams (unrecognized sec tion and content) Tallier Relationship Specialty Start Date End Date Yunior Masterson MD [address] [id number] PCP - General Family Medicine 06/11/12 Team Status: Inactive Member Role Status Dates Yunior Masterson MD Primary Care Provider Active Aquiles Vasquez II, MD Admit Provider, Attending Pro vider Active Louann Camara RN Other Provider Active Rosanna Church RN Other Provider Active Anjana Soares RN Other Provider Active Smitha Reynoso RN Other Provider Active Rylie Patel RN Other Provider Active Dahiana Britton RN Other Provider Active Mitzi Goodwin MD Other Provider Active Toby Montero MD Other Provider Active Haley Kemp , BENCH ASSEMBLER OPERATOR Other Provider Active Lenora Hill , DO [...] MD Other Provider Active Cherelle Goyal , MOLDER HELPER-C Other Provider Active Otoniel Rhodes MD Other Provider Active Justin Francisco MD Other Provider Active Alana Amos MD Other Provider Active Galen Jerez MD Other Provider Active Ksenia Ray , DO Other Provider Active Natalya Chilel MD Other Provider Active Shant Sinha , DO Other Provider Active Rd Lowe , DO Other Provider Active Dayanna Bobo BENCH ASSEMBLER OPERATOR Other Provider Active Eb Gale , DO [...] section and content) DATE CREATED AUTHOR 01/03/2022 [facility] DATE CREATED AUTHOR AUTHOR'S ORGANIZ ATION 09/13/2022 [facility] DATE CREATED AUTHOR AUTHOR'S ORGANIZ ATION 10/17/2022 [facility] Goals (unrecognized section and content) Goals [...] BE BASED ON THE PRIMARY CLINICAL RECORDS. [facility] [employer] [facility]. provides no warranty or guarantee of the accuracy or completeness of information in this document.
[2024-01-25 11:48] LABS: Basophils Absolute Auto 0.1 10^3/uL (0.0-0.1); Basophils Percent Auto 0.9 % (0.2-2.0); Eosinophils Absolute Auto 0.1 10^3/uL (0.0-0.7); Eosinophils Percent Auto 1.5 % (0.9-7.0); Hematocrit 37.7 % (36.0-48.0); Hemoglobin 11.7 g/dL (12.0-16.0); Immature Granulocytes Abs Auto 0.02 10^3/uL (0.00-0.03); Immature Granulocytes Pct Auto 0.3 % (0.0-0.5); Lymphocytes Absolute Auto 1.7 10^3/uL (1.2-3.8); Lymphocytes Percent Auto 25.6 % (20.5-60.0); Mean Corpuscular Hemoglobin 27.5 pg (26.7-34.0); Mean Corpuscular Volume 88.5 fL (81.0-99.0); Monocytes Absolute Auto 0.5 10^3/uL (0.3-0.8); Monocytes Percent Auto 7.7 % (1.7-12.0); Neutrophils Absolute Auto 4.3 10^3/uL (1.4-6.5); Platelet Count 237 10^3/uL (150-450); Red Blood Count 4.26 10^6/uL (4.20-5.40); Red Cell Distribution Width 15.4 % (11.0-15.0); White Blood Count 6.8 10^3/uL (4.0-11.0)
[2024-01-25 12:37] LABS: Alanine Aminotransferase 36 U/L (14-59); Albumin Globulin Ratio 0.9; Albumin Level 3.4 g/dL (3.4-5.0); Alkaline Phosphatase 119 U/L (46-116); Anion Gap 8.6; Aspartate Amino Transferase 37 U/L (15-37); BUN Creatinine Ratio 16.7; Bilirubin Total 0.4 mg/dL (0.2-1.0); Calcium 8.8 mg/dL (8.5-10.1); Carbon Dioxide 29.8 mmol/L (21.0-32.0); Chloride 102 mmol/L (98-107); Estimated GFR (African America >60 (>=60); Estimated GFR (Non-African Ame >60 (>=60); Free T3 2.22 pg/mL (2.18-3.98); Globulin 3.8 g/dL; Glucose 96 mg/dL (74-106); Potassium 4.4 mmol/L (3.5-5.1); Sodium 136 mmol/L (136-145); Thyroid Stimulating Hormone 13.155 uIU/mL (0.358-3.740); Total Protein 7.2 g/dL (6.4-8.2)
== END 2024-01-25 11:14 | disposition home or self-care (01) ==
LOC: LAB 11:15
PROVIDERS: PCP Family Medicine; Visit Provider Family Medicine
DX: E03.9 Hypothyroidism, unspecified (principal); I10 Essential (primary) hypertension; I50.30 Unspecified diastolic (congestive) heart failure; R53.83 Other fatigue
CPT/HCPCS: 36415; 80053; 83880; 84436; 84443; 84481; 85025

== ENCOUNTER 2024-02-01 08:12 | Outpatient (OUT) | payer OTHER, SELFPAY ==
--- NOTE | 2024-02-01 | XR_ITS ---
The [address] [address] Patient Name: SHAHBAZ ASHLYE MRN: [id number] date: 1970 Sex: F Assigned Patient Location: Current Patient Location: Accession/Order Number: [id number] Exam Date: 02/01/2024 08:12 Report Date: 02/03/2024 06:32 At the request of: MARU BRINK Procedure: XR hand RT min 3V PROCEDURE: XR hand RT min 3V HISTORY: RIGHT HAND PAIN ; tender lump on palm of hand for 6 months COMPARISON: None. FINDINGS: BONES:No fracture, acute abnormality, or significant arthropathy. SOFT TISSUES:Skin surface defect along dorsal medial margin of the distal fourth digit. No radiopaque foreign body. EFFUSION:None visible. OTHER: Negative. XR/XR hand RT min 3V IMPRESSION: 1. Soft tissue injury/laceration involving distal fourth digit. No underlying bone involvement. 2. No bone abnormality or appreciable soft tissue abnormality to account for described lump on palm of hand. Electronically authenticated by: MARU ANGEL Date: 02/03/2024 06:32
== END 2024-02-01 08:13 | disposition home or self-care (01) ==
LOC: EC 08:12
PROVIDERS: PCP Family Medicine; Visit Provider Orthopaedic Surgery
DX: M79.641 Pain in right hand (principal)
CPT/HCPCS: 73130

== ENCOUNTER 2024-04-09 21:38 | Emergency (ER) | payer OTHER, SELFPAY ==
[2024-04-09] VITALS (12 sets, daily range): BP systolic 134–157; BP diastolic 81–100; PULSE 78–90; O2SAT 95–99; BMI 30.2
--- OUTSIDE RECORDS SUMMARY | 2024-04-09 21:43 | XMS_ITS | CCD ---
Author Organization [facility] Care Team Providers Care Television Service Engineer Name Role Phone Yunior Masterson MD Primary Care Provider [phone] YUNIOR MASTERSON Primary Care Unavailable CEZAR VALNETIN Attending Unavailable YUNIOR MASTERSON Referring Unavailable ZELALEM, YUNIOR M Primary Care Unavailable CEZAR VALENTIN Attending Unavailable YUNIOR MASTERSON Referring Unavailable YUNIOR MASTERSON M Primary Care Unavailable GUALBERTON, ROSANNAETH M Attending Unavailable YUNIOR MASTERSON M Referring Unavailable YUNIOR MASTERSON M Referring Unavailable GUALBERTON, DARREN M Attending Unavailable BRIENY, YUNIOR M Primary Care Unavailable HOY, YUNIOR M Referring Unavailable MADALCONN, HARETH M Attending Unavailable ZELALEM, YUNIOR M Primary Care Unavailable MD Yunior Masterson Primary Care Provider [phone] MD Aquiles Vasquez II Admit Provider [phone] MD Aquiles Vasquez II Attending Provider MARTHA Camara Other Provider Unavailable MARTHA Church Other Provider Unavailable MARTHA Soares Other Provider Unavailable MARTHA Reynoso Other Provider Unavailable MARTHA Patel Other Provider Unavailable MARTHA Britton Other Provider Unavailable MD Mitzi Goodwin Other Provider MD Toby Montero Other Provider CRISTY Kemp Other Provider [phone] DO Lenora Hill Other Provider [phone] MD Sony Boone Other Provider DO Anand Black Other Provider [phone] MD Bang Cervantes Other Provider MD Vesta Glass Other Provider Lam, ANP-BC Shasta Other Provider MD Paige Mendenhall Other Provider MD Gary Cruz Other Provider MD Lisa Vasquez Other Provider MD Mikayla Scwhartz Other Provider DO Namita Christianson Other Provider MD Roberth Mckeon Other Provider MD Skinny Vidales Other Provider MD Barry Cho Other Provider Jay Jay, TRANSITION RN-C Cherelel Bloom Other Provider MD Otoniel Rhodes Other Provider MD Justin Francisco Other Provider MD Alana Amos Other Provider MD Galen Jerez Other Provider DO Ksenia Ray Other Provider Al MD Natalya Osman Other Provider DO Shant Sinha Other Provider DO Rd Lowe Other Provider [phone] CRISTY Bobo Other Provider DO Eb Gale Other Provider MD Celina Mueller Other Provider Amber, MARTHA De La Torre Other Provider Unavailable Aquiles Vasquez II MD Yunior Masterson Primary Care Provider MD Aquiles Vasquez II Admit Provider MD Aquiles Vasquez II Attending Provider [phone] MARTHA Camara Other Provider Unavailable MARTHA Church Other Provider Unavailable Rodger RN Anjana Other Provider Unavailable Angeles RN Smitha Other Provider Unavailable MARTHA Patel Other Provider Unavailable MARTHA Britton Other Provider Unavailable MD Mitzi Goodwin Other Provider MD Toby Montero Other Provider Viridiana, TECHNOLOGY OFFICER Haley Huang Other Provider DO Lenora Hill [...] Provider DO Shant Sinha R Other Provider [phone] Other Provider CRISTY Bobo Other Provider DO Eb Gale Other Provider MD Celina Mueller Other Provider MARTHA Clark Other Provider Unavailable CRISTY Torres Attending Provider CRISTY Torres Attending Provider MD Yunior Masterson Primary Care Provider [phone] MD Aquiles Vasquez II Attending Provider [...] Provider MD Aquiles Vasquez II Attending Provider [phone] [place] II, Aquiles M Attending Unavailabl e Yunior Masterson Primary Care Unavailable [place] II, Aquiles M Admitting Unavailabl e [place] II, Aquiles M Attending Unavailabl e Zelalem, Yunior M Primary Care Unavailable [place] II, Aquiles M Admitting Unavailabl e [place] II, Aquiles M Attending Unavailabl e Zelalem, Yunior M Primary Care Unavailable Pedro II, Aquiles M Admitting Unavailabl e [place] II, Aquiles M Attending Unavailabl e Zelalem, Yunior M Primary Care Unavailable Pedro II, Aquiles M Admitting Unavailabl e Louann Camara Consulting Unavailable BrienYunior pastrana Primary Care Unavailable [place] II, Aquiles M Attending Unavailabl e [place] II, Aquiles M Admitting Unavailabl e Rosanna [...] source) guaiFENesin / Theophylline Drug Allergy 3 [facility] Work Phone: (16 sources) riTUXimab; Translations: [rituximab] Drug Allergy 3 [facility] Work Phone: (6 sources) guaiFENesin; Translations: [guaifenesin] Drug Allergy 2 [facility] (6 sources) Theophylline; Translations: [theophylline] Drug Allergy 2 [facility] (9 sources) Quibron-[address] [facility] [employer] Other (2 sources) guaiFENesin / Theophylline Drug Allergy 4 [facility] (2 sources) riTUXimab Drug Allergy 4 [facility] Medications Current Medications Medication Drug [...] Active docusate sodium 50 mg / sennosides, care home 8.6 mg oral tablet (5 sources) Start: [...] 12:00am Start: 11-04-2021 take 2 tablets by [facility] once daily hydroxychloroquine 200 MG tablet [...] 12:00am Start: 10-19-2018 take 1 tablet by [facility] twice daily metoprolol 25 MG tab [...] hours March 02, 2022 polyethylene glycol 3350 93753 mg powder for oral solution (5 sources) [...] evening at 6 PM. 0 Active thyroid (care home) 90 mg oral tablet (20 sources) Start: 03-01-2022 take 1 tablet by mouth once daily Thyroid (Pork) (Mckenna Thyroid) 120 mg tablet Active 120 MG PO Daily at 629March 01, 2022 12:00am Start: 03-01-2022 take 1 tablet by mouth once da mj Thyroid (Pork) (Mckenna Thyroid) 90 mg tablet Active 90 MG [...] Long-term current use of systemic steroid; Translations: [jail (current) use of systemic steroids] Onset: 3 01-26-2018 Episodic Other aftercare (1 source) Patient encounter status; Translations: [Other senior living (current) drug therapy] Onset: 3 09-22-2012 Episodic Other aftercare (1 source) 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; 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] Onset: 2 Episodic Other [...] LT 2V*on XR tibia fibula LT 2V* [facility] [place] [address] XRay Report Signed Patient: Christiane Ashley MR#: [id number] 01 : 1970 Acct:[id number] Age/Sex: 52 / F ADM Date: 09/24/22 Loc: [facility] Room: [facility] Attending Dr: Aquiles Vasquez II, MD Copies [...] Evangelist Ochoa M.D.09/24/2022 1:14 PM Dictation Location: [place] [address] Transcribed By: [facility] 09/24/22 1314 Dictated By: Evangelist Ochoa DO 09/24/22 1311 Signed By: 09/24/22 1314 [facility] XR tibia fibula LT 2V*on XR tibia fibula LT 2V* [facility] Main [place] [address] [place] [address] XRay Report Signed Patient: Christiane Ashley MR#: [id number] 01 : 1970 Acct:[id number] Age/Sex: 51 / F ADM Date: 06/25/22 Loc: [facility] Room: Type: [facility] Attending Dr: Aquiles Vasquez II, MD Copies [...] Logan Jr., D.OJah06/25/2022 12:02 PM Dictation Location: [place] [address] Transcribed By: [facility] 06/25/22 1202 Dictated By: Cale Logan Jr DO 06/25/22 1201 Signed By: 06/25/22 1202 [facility] XR tibia fibula LT 2V* [facility] urturn Other XR tibia fibula LT 2V* [facility] urturn Other XR tibia fibula LT 2V* [address] [place] [address] urturn Other XR tibia fibula LT 2V* [place] [address] [employer] Other XR tibia fibula LT 2V* XRay Report N [facility] urturn Other XR tibia fibula LT 2V* Signed No rt [employer] Other XR tibia fibula LT 2V* Patient: Christiane Ashley MR#: [id number] [place] [employer] Other XR tibia fibula LT 2V* 01 No rt [employer] Other XR tibia fibula LT 2V* : 1970 Acct:[id number] [employer] Other XR tibia fibula LT 2V* Age/Sex: 51 / F A DM Date: 06/25/22 [employer] Other XR tibia fibula LT 2V* Loc: [facility] Room: [facility] [employer] Other XR tibia fibula LT 2V* Attending Dr: Nahid Vasquez II, MD [employer] Other XR tibia fibula LT 2V* Copies to: Aquiles Vasquez MD [employer] Other XR tibia fibula LT 2V* Ordering Provider : Aquiles Vasquez MD [employer] Other XR tibia fibula LT 2V* Date of Service: 06/25/22 [employer] Other XR tibia fibula LT 2V* XR/XR tibia fibula LT 2V*: Closed displaced comminuted fracture of shaft [employer] Other XR tibia fibula LT 2V* of left tibia, [employer] Other XR tibia fibula LT 2V* LEFT TIBIA AND FIBULA - - 2 views [employer] Other XR tibia fibula LT 2V* CLINICAL HISTORY: Follow-up left the tibial IM nailing. [employer] Other XR tibia fibula LT 2V* COMPARISON: Left tib-fib series 05/14/2022 [employer] Other XR tibia fibula LT 2V* FINDINGS: No rt [employer] Other XR tibia fibula LT 2V* No evidence of hardware complication. No significant change in fracture alignment since the prior [employer] Other XR tibia fibula LT 2V* study. Tibial fracture is less conspicuous with callus formation suggestive of healing. Minimal [employer] Other XR tibia fibula LT 2V* healing response is seen involving the mid fibular fracture. Soft tissue swelling is noted. [employer] Other XR tibia fibula LT 2V* Visualized knee joint demonstrates degenerative change. Ankle mortise appears intact. [employer] Other XR tibia fibula LT 2V* 5 XR/XR tibia fibula LT 2V* [employer] Other XR tibia fibula LT 2V* IMPRESSION: N [employer] Other XR tibia fibula LT 2V* HEALING MID TIBIA L FRACTURE WITHOUT EVIDENCE OF HARDWARE COMPLICATION. [employer] Other XR tibia fibula LT 2V* MINIMAL HEALING RESPONSE SEEN INVOLVING THE FIBULAR FRACTURE. [employer] Other XR tibia fibula LT 2V* Impression dictat ed by: Cale Logan Jr., D.O.06/25/2022 12:02 PM [employer] Other XR tibia fibula LT 2V* Dictation Locatio n: [facility]IO-PC-08 [employer] Other XR tibia fibula LT 2V* Transcribed By: Catrachita RAMIREZ 06/25/22 1202 [employer] Other XR tibia fibula LT 2V* Dictated By: Yared Logan Jr, DO 06/25/22 1201 [employer] Other XR tibia fibula LT 2V* Signed By: No rt [employer] Other XR tibia fibula LT 2V* 06/25/22 1202 [employer] Other XR tibia fibula LT 2V*on XR tibia fibula LT 2V* [facility] Main [place] [address] [place] [address] XRay Report Signed Patient: Christiane Ashley MR#: [id number] 01 : 1970 Acct:[id number] Age/Sex: 51 / F ADM Date: 05/14/22 Loc: [facility] Room: Type: [facility] Attending Dr: Aquiles Vasquez II, MD Copies [...] Kamron Brooks M.D.05/14/2022 12:12 PM Dictation Location: [facility] Transcribed By: [facility] 05/14/22 1212 Dictated By: Kamron Brooks II, MD 05/14/22 1211 Signed By: 05/14/22 1212 [facility] XR tibia fibula LT 2V* [facility] urturn Other XR tibia fibula LT 2V* [facility] Main [facility] urturn Other XR tibia fibula LT 2V* [address] [place] [address] urturn Other XR tibia fibula LT 2V* [place] [address] [employer] Other XR tibia fibula LT 2V* XRay Report N [facility] [employer] Other XR tibia fibula LT 2V* Signed No rt [employer] Other XR tibia fibula LT 2V* Patient: Christiane Ashley MR#: [id number] [place] [employer] Other XR tibia fibula LT 2V* 01 No rt [employer] Other XR tibia fibula LT 2V* : 1970 Acct:[id number] [employer] Other XR tibia fibula LT 2V* Age/Sex: 51 / F A DM Date: 05/14/22 [employer] Other XR tibia fibula LT 2V* Loc: [facility] Room: [facility] [employer] Other XR tibia fibula LT 2V* Attending Dr: Nhaid Vasquez II, MD [employer] Other XR tibia fibula LT 2V* Copies to: Aquiles Vasquez MD [employer] Other XR tibia fibula LT 2V* Ordering Provider : Aquiles Vasquez MD [employer] Other XR tibia fibula LT 2V* Date of Service: 05/14/22 [employer] Other XR tibia fibula LT 2V* XR/XR tibia fibula LT 2V*: Closed displaced comminuted fracture of shaft [employer] Other XR tibia fibula LT 2V* of left tibia, [employer] Other XR tibia fibula LT 2V* XR tibia fibula L T 2V* 05/14/2022 9:06 AM [employer] Other XR tibia fibula LT 2V* SIGNS AND SYMPTOM S: Status post left tibial nailing, increasing left lower leg pain [employer] Other XR tibia fibula LT 2V* PROTOCOL: Frontal and lateral radiograph of the left tibia and fibula [employer] Other XR tibia fibula LT 2V* COMPARISON: 04/16/2022 [employer] Other XR tibia fibula LT 2V* FINDINGS: No rt [employer] Other XR tibia fibula LT 2V* Transverse aortic fractures are noted in the shaft of the tibia and fibula status post [employer] Other XR tibia fibula LT 2V* intramedullary ro d fixation of the tibia. There is increasing periosteal new bone formation [employer] Other XR tibia fibula LT 2V* suggesting a heal ing response. Healing remains incomplete. No change in alignment. [employer] Other XR tibia fibula LT 2V* 8 XR/XR tibia fibula LT 2V* [employer] Other XR tibia fibula LT 2V* IMPRESSION: N [employer] Other XR tibia fibula LT 2V* Healing fractures of the mid shaft of the tibia and fibula are noted without change in alignment or [employer] Other XR tibia fibula LT 2V* hardware complication. [employer] Other XR tibia fibula LT 2V* Impression dictat ed by: Kamron Brooks M.D.05/14/2022 12:12 PM [employer] Other XR tibia fibula LT 2V* Dictation Locatio n: RADIO-PC-12 [employer] Other XR tibia fibula LT 2V* Transcribed By: Catrachita RAMIREZ 05/14/22 [facility] [employer] Other XR tibia fibula LT 2V* Dictated By: Kamron Brooks II, MD 05/14/22 [facility] [employer] Other XR tibia fibula LT 2V* Signed By: No rt [employer] Other XR tibia fibula LT 2V* 05/14/22 [facility] [employer] Other XR tibia fibula LT 2V*on XR tibia fibula LT 2V* [facility] [place] [address] [place] [address] XRay Report Signed Patient: Christiane Ashley MR#: [id number] 01 : 1970 Acct:[id number] Age/Sex: 51 / F ADM Date: 04/16/22 Loc: [facility] Attending Dr: Aquiles Vasquez II, MD Copies [...] Logan Jr., D.O.04/16/2022 2:43 PM Dictation Location: [place] [address] Transcribed By: [facility] 04/16/22 1443 Dictated By: Cale Logan Jr, 04/16/22 1441 Signed By: 04/16/22 1443 [facility] XR tibia fibula LT 2V* [facility] urturn Other XR tibia fibula LT 2V* [facility] Main [facility] urturn Other XR tibia fibula LT 2V* [address] [place] [address] urturn Other XR tibia fibula LT 2V* [place] [address] [employer] [facility] urturn Other XR tibia fibula LT 2V* XRay Report N [facility] [employer] Other XR tibia fibula LT 2V* Signed No rt [employer] Other XR tibia fibula LT 2V* Patient: Christiane Ashley MR#: [id number] [place] [employer] Other XR tibia fibula LT 2V* 01 No rt [employer] Other XR tibia fibula LT 2V* : 1970 Acct:[id number] [employer] Other XR tibia fibula LT 2V* Age/Sex: 51 / F A DM Date: 04/16/22 [employer] Other XR tibia fibula LT 2V* Loc: [facility] Room: [facility] [employer] Other XR tibia fibula LT 2V* Attending Dr: Nahid Vasquez II, MD [employer] Other XR tibia fibula LT 2V* Copies to: Aquiles Vasquez MD [employer] Other XR tibia fibula LT 2V* Ordering Provider : Aquiles Vasquez MD [employer] Other XR tibia fibula LT 2V* Date of Service: 04/16/22 [employer] Other XR tibia fibula LT 2V* XR/XR tibia fibula LT 2V*: Closed displaced comminuted fracture of shaft [employer] Other XR tibia fibula LT 2V* of left tibia, [employer] Other XR tibia fibula LT 2V* LEFT TIBIA AND FIBULA - - 2 views [employer] Other XR tibia fibula LT 2V* CLINICAL HISTORY: Closed displaced comminuted fracture of left tibia, follow-up. [employer] Other XR tibia fibula LT 2V* COMPARISON: Left tib-fib series 03/01/2022 [employer] Other XR tibia fibula LT 2V* FINDINGS: No rt [employer] Other XR tibia fibula LT 2V* Hardware fixation of a mid tibial fracture grossly unchanged in alignment and healing compared to [employer] Other XR tibia fibula LT 2V* the prior study. Additional mid fibular fracture is also unchanged in alignment and healing. [employer] Other XR tibia fibula LT 2V* Diffuse soft tiss ue swelling is noted. Degenerative changes are noted involving the visualized knee [employer] Other XR tibia fibula LT 2V* joint. Ankle mort ise appears intact. [employer] Other XR tibia fibula LT 2V* 1 XR/XR tibia fibula LT 2V* [employer] Other XR tibia fibula LT 2V* IMPRESSION: N [employer] Other XR tibia fibula LT 2V* NO SIGNIFICANT CHANGE IN FRACTURE FINDINGS. [employer] Other XR tibia fibula LT 2V* Impression dictat ed by: Cale Logan Jr., D.OJah04/16/2022 2:43 PM [employer] Other XR tibia fibula LT 2V* Dictation Locatio n: RADIO-PC-09 [employer] Other XR tibia fibula LT 2V* Transcribed By: Catrachita WS 04/16/22 [facility] [employer] Other XR tibia fibula LT 2V* Dictated By: Yared Logan Jr, DO 04/16/22 [facility] [employer] Other XR tibia fibula LT 2V* Signed By: No rt [employer] Other XR tibia fibula LT 2V* 04/16/22 [facility] [employer] Other INSULINon 04-05-2022 Insulin 2.3 uIU/mL Critically low 2.6-24.9 [facility] Comment on above: Performed By: #### C MP, LIPID, TSH, T7 #### [facility] [address] [place] [address] Dr. Mehnaz Dubon CBC AUTO DIFFon 04-04-2022 BASO # 0.1 103/ul Normal 0.0-0.1 [facility] Comment on above: Performed By: #### C MP, LIPID, TSH, T7 #### [facility] [address] [place] [address] Dr. Mehnaz Dubon Basophils/100 WBC (Bld) 1.0 % Normal 0.2-2.0 [facility] Comment on above: Performed By: #### C MP, LIPID, TSH, T7 #### [facility] [address] [place] [address] Dr. Mehnaz Dubon EO # 0.3 103/ul Normal 0.0-0.7 [facility] Comment on above: Performed By: #### C MP, LIPID, TSH, T7 #### [facility] [address] [place] [address] Dr. Mehnaz Dubon Eosinophils/100 WBC (Bld) 4.8 % Normal 0.9-7.0 [facility] Comment on above: Performed By: #### C MP, LIPID, TSH, T7 #### [facility] [address] [place] [address] Dr. Mehnaz Dubon Erythrocyte distribution width (RBC) [Ratio] 13.9 % Normal 11.0-15.0 [facility] Comment on above: Performed By: #### C MP, LIPID, TSH, T7 #### [facility] [address] [place] [address] Dr. Mehnaz Dubon Hematocrit (Bld) [Volume fraction] 37.1 % Normal 36.0-48.0 [facility] Comment on above: Performed By: #### C MP, LIPID, TSH, T7 #### [facility] [address] [place] [address] Dr. Mehnaz Dubon Hemoglobin (Bld) [Mass/Vol] 11.8 g/dL Critically low 12.0-16.0 [facility] Comment on above: Performed By: #### C MP, LIPID, TSH, T7 #### [facility] [address] [place] [address] Dr. Mehnaz Dubon IG # 0.01 10e3/ul Normal 0.00-0.03 [facility] Comment on above: Performed By: #### C MP, LIPID, TSH, T7 #### [facility] [address] [place] [address] Dr. Mehnaz Dubon IG % 0.2 % Normal 0.0-0.5 [facility] Comment on above: Performed By: #### C MP, LIPID, TSH, T7 #### [facility] [address] [place] [address] Dr. Mehnaz Dubon LYMPH # 1.1 103/ul Critically low 1.2-3.8 [facility] Comment on above: Performed By: #### C MP, LIPID, TSH, T7 #### [facility] [address] [place] [address] Dr. Mehnaz Dubon Lymphocytes/100 WBC (Bld) 18.2 % Critically low 20.5-60.0 [facility] Comment on above: Performed By: #### C MP, LIPID, TSH, T7 #### [facility] [address] [place] [address] Dr. Mehnaz Dubon MANUAL DIFF REQ NO Normal [facility] Comment on above: Performed By: #### C MP, LIPID, TSH, T7 #### [facility] [address] [place] [address] Dr. Mehnaz Dubon MCH (RBC) [Entitic mass] 29.6 pg Normal 26.7-34.0 [facility] Comment on above: Performed By: #### C MP, LIPID, TSH, T7 #### [facility] [address] [place] [address] Dr. Mehnaz Dubon MCHC (RBC) [Mass/Vol] 31.8 g/dL Normal 29.9-35.2 [facility] Comment on above: Performed By: #### C MP, LIPID, TSH, T7 #### [facility] [address] [place] [address] Dr. Mehnaz Dubon MCV (RBC) [Entitic vol] 93.2 fL Normal 81.0-99.0 [facility] Comment on above: Performed By: #### C MP, LIPID, TSH, T7 #### [facility] [address] [place] [address] Dr. Mehnaz Dubon MONO # 0.6 103/ul Normal 0.3-0.8 [facility] Comment on above: Performed By: #### C MP, LIPID, TSH, T7 #### [facility] [address] [place] [address] Dr. Mehnaz Dubon Monocytes/100 WBC (Bld) 9.7 % Normal 1.7-12.0 [facility] Comment on above: Performed By: #### C MP, LIPID, TSH, T7 #### [facility] [address] [place] [address] [address] Mehnaz Dubon NEUT # 4.0 103/ul Normal 1.4-6.5 [facility] Comment on above: Performed By: #### C MP, LIPID, TSH, T7 #### [facility] [address] [place] [address] [address] Mehnaz Dubon Neutrophils/100 WBC (Bld) 66.1 % Normal 43.0-75.0 [facility] Comment on above: Performed By: #### C MP, LIPID, TSH, T7 #### [facility] [address] [place] [address] Dr. Mehnaz Dubon Platelet mean volume (Bld) [Entitic vol] 9.5 fL Normal 9.5-13.5 [facility] Comment on above: Performed By: #### C MP, LIPID, TSH, T7 #### [facility] [address] [place] [address] Dr. Mehnaz Dubon PLT 216 103/ul Normal 150-450 [facility] Comment on above: Performed By: #### C MP, LIPID, TSH, T7 #### [facility] [address] [place] [address] Dr. Mehnaz Dubon RBC 3.98 106/ul Critically low 4.20-5.40 [facility] Comment on above: Performed By: #### C MP, LIPID, TSH, T7 #### [facility] [address] [place] [address] Dr. Mehnaz Dubon WBC 6.0 103/ul Normal 4.0-11.0 [facility] Comment on above: Performed By: #### C MP, LIPID, TSH, T7 #### [facility] [address] [place] [address] Dr. Mehnaz Dubon FREE THYROXINE INDEX T7on FTI 1.52 Normal 1.30-4.50 [facility] Comment on above: Performed By: #### C MP, LIPID, TSH, T7 #### [facility] [address] [place] [address] [address] Mehnaz Dubon T3U 37.0 % Normal 30.0-39.0 [facility] Comment on above: Performed By: #### C MP, LIPID, TSH, T7 #### [facility] [address] [place] [address] [address] Mehnaz Dubon T4 [Mass/Vol] 4.10 ug/dL Critically low 4.80-13.90 [facility] Comment on above: Performed By: #### C MP, LIPID, TSH, T7 #### [facility] [address] [place] [address] [address] Mehnaz Dubon GLYCOHEMOGLOBIN A1Con 2021 ADA RECOMMENDATION SEE BELOW Normal [facility] Comment on above: Result Comment: ADA RECOMMENDED LIMIT 4.0 - 6.0 ADA THERAPEUTIC TARGET < 7.0 ACTION SUGGESTED > 7.0 Performed By: #### C MP, LIPID, TSH, T7 #### [facility] [address] [place] [address] [address] Mhenaz Dubon Glucose [Mass/Vol] 62 mg/dL Normal [facility] Comment on above: Performed By: #### C MP, LIPID, TSH, T7 #### [facility] [address] [place] [address] [address] Mehnaz Dubon HbA1c (Bld) [Mass fraction] 3.8 % Critically low 4.5-6.2 [facility] Comment on above: Performed By: #### C MP, LIPID, TSH, T7 #### [facility] [address] [place] [address] [address] Mehnaz Dubon IRONon 04-04-2022 Iron [Mass/Vol] 56.0 ug/dL Normal 50.0-170.0 [facility] Comment on above: Performed By: #### C MP, LIPID, TSH, T7 #### [facility] [address] [place] [address] [address] Mehnaz Dubon LIPID PROFILEon 04-04-2022 CHOL-HDL RATIO NORM SEE BELOW Normal [facility] Comment on above: Result Comment: 3.3 - 4.4 LOW RISK 4.4 - 7.1 AVERAGE RISK 7.1 - 11.0 MODERATE RISK >11.0 HIGH RISK Performed By: #### C MP, LIPID, TSH, T7 #### [facility] [address] [address] [address] Mehnaz Dubon Cholesterol [Mass/Vol] 131 mg/dL Normal <=200 [facility] Comment on above: Performed By: #### C MP, LIPID, TSH, T7 #### [facility] [address] [address] [address] Mehnaz Dubon Cholesterol in HDL [Mass/Vol] 86 mg/dL Critically high 40-60 [facility] Comment on above: Performed By: #### C MP, LIPID, TSH, T7 #### [facility] [address] [place] [address] Dr. Mehnaz Dubon Cholesterol in LDL [Mass/Vol] 39.4 mg/dL Normal [facility] Comment on above: Performed By: #### C MP, LIPID, TSH, T7 #### [facility] [address] [place] [address] Dr. Mehnaz Dubon Cholesterol.total/Arcelia sterol in HDL [Mass ratio] 1.5 {ratio} Normal [facility] Comment on above: Performed By: #### C MP, LIPID, TSH, T7 #### [facility] [address] [place] [address] Dr. Mehnaz Dubon HDL NORMAL > or = 60 mg/dl - LOW CARDIOVASCULAR RISK <40 mg/dl - HIGH CARDIOVASCULAR RISK Normal [facility] Comment on above: Performed By: #### C MP, LIPID, TSH, T7 #### [facility] [address] [place] [address] Dr. Mehnaz Dubon LDL CALC NORMAL SEE BELOW Normal [facility] Comment on above: Result Comment: <100 mg/dl OPTIMAL 100 - 129 mg/dl NEAR OR ABOVE OPTIMAL 130 - 159 mg/dl BORDERLINE HIGH 160 - 189 mg/dl HIGH >190 mg/dl VERY HIGH Performed By: #### C MP, LIPID, TSH, T7 #### [facility] [address] [address] [address] Mehnaz Dubon Triglyceride [Mass/Vol] 28 mg/dL Normal <=150 [facility] Comment on above: Performed By: #### C MP, LIPID, TSH, T7 #### [facility] [address] [address] [address] Mehnaz Dubon VLDL CALC 5.6 mg/dL Normal [facility] Comment on above: Performed By: #### C MP, LIPID, TSH, T7 #### [facility] [address] [place] [address] Dr. Mehnaz Dubon PROF 14(COMP METB)on 022 Albumin [Mass/Vol] 3.1 g/dL Critically low 3.4-5.0 [facility] Comment on above: Performed By: #### C MP, LIPID, TSH, T7 #### [facility] [address] [place] [address] Dr. Mehnaz Dubon Albumin/Globulin [Mass ratio] 1.0 {ratio} Normal [facility] Comment on above: Performed By: #### C MP, LIPID, TSH, T7 #### [facility] [address] [place] [address] Dr. Mehnaz Dubon ALP [Catalytic activity/Vol] 131 U/L Critically high 46-116 [facility] Comment on above: Performed By: #### C MP, LIPID, TSH, T7 #### [facility] [address] [place] [address] Dr. Mehnaz Dubon ALT [Catalytic activity/Vol] 21 U/L Normal 14-59 [facility] Comment on above: Performed By: #### C MP, LIPID, TSH, T7 #### [facility] [address] [place] [address] Dr. Mehnaz Dubon Anion gap [Moles/Vol] 11.2 mmol/L Normal [facility] Comment on above: Performed By: #### C MP, LIPID, TSH, T7 #### [facility] [address] [place] [address] Dr. Mehnaz Dubon AST [Catalytic activity/Vol] 26 U/L Normal 15-37 [facility] Comment on above: Performed By: #### C MP, LIPID, TSH, T7 #### [facility] [address] [place] [address] Dr. Mehnaz Dubon Bilirubin [Mass/Vol] 0.6 mg/dL Normal 0.2-1.0 [facility] Comment on above: Performed By: #### C MP, LIPID, TSH, T7 #### [facility] [address] [place] [address] Dr. Mehnaz Dubon Calcium [Mass/Vol] 8.8 mg/dL Normal 8.5-10.1 [facility] Comment on above: Performed By: #### C MP, LIPID, TSH, T7 #### [facility] [address] [place] [address] Dr. Mehnaz Dubon Chloride [Moles/Vol] 104 mmol/L Normal 98-107 [facility] Comment on above: Performed By: #### C MP, LIPID, TSH, T7 #### [facility] [address] [place] [address] Dr. Mehnaz Dubon CO2 [Moles/Vol] 28.3 mmol/L Normal 21.0-32.0 [facility] Comment on above: Performed By: #### C MP, LIPID, TSH, T7 #### [facility] [address] [place] [address] Dr. Mehnaz Dubon Creatinine [Mass/Vol] 0.37 mg/dL Critically low 0.55-1.02 [facility] Comment on above: Performed By: #### C MP, LIPID, TSH, T7 #### [facility] [address] [place] [address] Dr. Mehnaz Dubon EGFR-AF NIGERIEN >60 Normal >=60 [facility] Comment on above: Performed By: #### C MP, LIPID, TSH, T7 #### [facility] [address] [place] [address] Dr. Mehnaz Dubon EGFR-NON AF NIGERIEN >60 Normal >=60 [facility] Comment on above: Performed By: #### C MP, LIPID, TSH, T7 #### [facility] [address] [place] [address] Dr. Mehnaz Dubon Globulin (S) [Mass/Vol] 3.0 g/dL Normal [facility] Comment on above: Performed By: #### C MP, LIPID, TSH, T7 #### [facility] [address] [address] [address] Mehnaz Dubon Glucose [Mass/Vol] 76 mg/dL Normal 74-106 [facility] Comment on above: Performed By: #### C MP, LIPID, TSH, T7 #### [facility] [address] [place] [address] Dr. Mehnaz Dubon Potassium [Moles/Vol] 3.5 mmol/L Normal 3.5-5.1 [facility] Comment on above: Performed By: #### C MP, LIPID, TSH, T7 #### [facility] [address] [place] [address] Dr. Mehnaz Dubon Protein [Mass/Vol] 6.1 g/dL Critically low 6.4-8.2 [facility] Comment on above: Performed By: #### C MP, LIPID, TSH, T7 #### [facility] [address] [place] [address] Dr. Mehnaz Dubon Sodium [Moles/Vol] 140 mmol/L Normal 136-145 [facility] Comment on above: Performed By: #### C MP, LIPID, TSH, T7 #### [facility] [address] [place] [address] Dr. Mehnaz Dubon Urea nitrogen [Mass/Vol] 8.0 mg/dL Normal 7.0-18.0 [facility] Comment on above: Performed By: #### C MP, LIPID, TSH, T7 #### [facility] [address] [place] [address] Dr. Mehnaz Dubon Urea nitrogen/Creatinine [Mass ratio] 21.6 mg/mg Normal [facility] Comment on above: Performed By: #### C MP, LIPID, TSH, T7 #### [facility] [address] [place] [address] Dr. Mehnaz Dubon TSHon 04-04-2022 TSH 4.446 uIU/mL Critically high 0.358-3.740 [facility] Comment on above: Performed By: #### C MP, LIPID, TSH, T7 #### [facility] [address] [place] [address] Dr. Mehnaz Dubon VITAMIN B12on 04-04-2022 Cobalamin (Vitamin B12) [Mass/Vol] 872.0 pg/mL Normal 193.0-986.0 [facility] Comment on above: Performed By: #### C MP, LIPID, TSH, T7 #### [facility] [address] [place] [address] Dr. Mehnaz Dubon VITAMIN D 25 OHon 04-04-2022 VIT D 25-OH 41.4 ng/mL Normal [facility] Comment on above: Performed By: #### C MP, LIPID, TSH, T7 #### [facility] [address] [place] [address] Dr. Mehnaz Dubon VIT D RANGES SEE BELOW Normal [facility] Comment on above: Result Comment: <20 ng/mL Vit D deficient 20 - <30 ng/mL Vit D insufficient 30 - 100 ng/mL Vit D sufficient >100 ng/mL Potential Toxicity Performed By: #### C MP, LIPID, TSH, T7 #### [facility] [address] [place] [address] Dr. Mehnaz Dubon CBC AUTO DIFFon 03-09-2022 BASO # 0.1 103/ul Normal 0.0-0.1 [facility] Comment on above: Performed By: #### C MP, LIPID, TSH, T7 #### [facility] [address] [place] [address] Dr. Mehnaz Dubon Basophils/100 WBC (Bld) 1.3 % Normal 0.2-2.0 [facility] Comment on above: Performed By: #### C MP, LIPID, TSH, T7 #### [facility] [address] [place] [address] Dr. Mehnaz Dubon EO # 0.2 103/ul Normal 0.0-0.7 [facility] Comment on above: Performed By: #### C MP, LIPID, TSH, T7 #### [facility] [address] [place] [address] Dr. Mehnaz Dubon Eosinophils/100 WBC (Bld) 3.0 % Normal 0.9-7.0 [facility] Comment on above: Performed By: #### C MP, LIPID, TSH, T7 #### [facility] [address] [address] [address] Mehnaz Dubon Erythrocyte distribution width (RBC) [Ratio] 13.9 % Normal 11.0-15.0 [facility] Comment on above: Performed By: #### C MP, LIPID, TSH, T7 #### [facility] [address] [place] [address] Dr. Mehnaz Dubon Hematocrit (Bld) [Volume fraction] 29.7 % Critically low 36.0-48.0 [facility] Comment on above: Performed By: #### C MP, LIPID, TSH, T7 #### [facility] [address] [place] [address] Dr. Mehnaz Dubon Hemoglobin (Bld) [Mass/Vol] 9.5 g/dL Critically low 12.0-16.0 [facility] Comment on above: Performed By: #### C MP, LIPID, TSH, T7 #### [facility] [address] [place] [address] Dr. Mehnaz Dubon IG # 0.03 10e3/ul Normal 0.00-0.03 [facility] Comment on above: Performed By: #### C MP, LIPID, TSH, T7 #### [facility] [address] [place] [address] Dr. Mehnaz Dubon IG % 0.5 % Normal 0.0-0.5 [facility] Comment on above: Performed By: #### C MP, LIPID, TSH, T7 #### [facility] [address] [place] [address] Dr. Mehnaz Dubon LYMPH # 1.7 103/ul Normal 1.2-3.8 [facility] Comment on above: Performed By: #### C MP, LIPID, TSH, T7 #### [facility] [address] [place] [address] Dr. Mehnaz Dubon Lymphocytes/100 WBC (Bld) 27.0 % Normal 20.5-60.0 [facility] Comment on above: Performed By: #### C MP, LIPID, TSH, T7 #### [facility] [address] [address] [address] Mehnaz Dubon MANUAL DIFF REQ NO Normal [facility] Comment on above: Performed By: #### C MP, LIPID, TSH, T7 #### [facility] [address] [place] [address] Dr. Mehnaz Dubon MCH (RBC) [Entitic mass] 31.0 pg Normal 26.7-34.0 [facility] Comment on above: Performed By: #### C MP, LIPID, TSH, T7 #### [facility] [address] [place] [address] Dr. Mehnaz Dubon MCHC (RBC) [Mass/Vol] 32.0 g/dL Normal 29.9-35.2 [facility] Comment on above: Performed By: #### C MP, LIPID, TSH, T7 #### [facility] [address] [place] [address] Dr. Mehnaz Dubon MCV (RBC) [Entitic vol] 97.1 fL Normal 81.0-99.0 [facility] Comment on above: Performed By: #### C MP, LIPID, TSH, T7 #### [facility] [address] [place] [address] Dr. Mehnaz Dubon MONO # 0.6 103/ul Normal 0.3-0.8 [facility] Comment on above: Performed By: #### C MP, LIPID, TSH, T7 #### [facility] [address] [place] [address] Dr. Mehnaz Dubon Monocytes/100 WBC (Bld) 9.0 % Normal 1.7-12.0 [facility] Comment on above: Performed By: #### C MP, LIPID, TSH, T7 #### [facility] [address] [place] [address] Dr. Mehnaz Dubon NEUT # 3.6 103/ul Normal 1.4-6.5 [facility] Comment on above: Performed By: #### C MP, LIPID, TSH, T7 #### [facility] [address] [address] [address] Mehnaz Dubon Neutrophils/100 WBC (Bld) 59.2 % Normal 43.0-75.0 [facility] Comment on above: Performed By: #### C MP, LIPID, TSH, T7 #### [facility] [address] [address] [address] Mehnaz Dubon Platelet mean volume (Bld) [Entitic vol] 9.4 fL Critically low 9.5-13.5 [facility] Comment on above: Performed By: #### C MP, LIPID, TSH, T7 #### [facility] [address] [address] [address] Mehnaz Dubon PLT 263 103/ul Normal 150-450 [facility] Comment on above: Performed By: #### C MP, LIPID, TSH, T7 #### [facility] [address] [place] [address] Dr. Mehnaz Dubon RBC 3.06 106/ul Critically low 4.20-5.40 [facility] Comment on above: Performed By: #### C MP, LIPID, TSH, T7 #### [facility] [address] [address] [address] Mehnaz Dubon WBC 6.1 103/ul Normal 4.0-11.0 [facility] Comment on above: Performed By: #### C MP, LIPID, TSH, T7 #### [facility] [address] [place] [address] Dr. Mehnaz Dubon CTA CHEST WO W [...] by: ELE HEARD Date: 2022-03-09 21:52 Normal [facility] D-DIMERon 03-09-2022 D-DIMER 1.98 mg/L FEU Critically high <=0.59 [facility] Comment on above: Performed By: #### C MP, LIPID, TSH, T7 #### [facility] [address] [address] [address] Mehnaz Dubon D-DIMER COMMENTS SEE BELOW Normal [facility] Comment on above: Result Comment: Incr eases [...] #### C MP, LIPID, TSH, T7 #### [facility] [address] [place] [address] Dr. Mehnaz Dubon PROF 14(COMP METB)on 022 Albumin [Mass/Vol] 2.9 g/dL Critically low 3.4-5.0 [facility] Comment on above: Performed By: #### C MP, LIPID, TSH, T7 #### [facility] [address] [address] [address] Mehnaz Dubon Albumin/Globulin [Mass ratio] 0.8 {ratio} Normal [facility] Comment on above: Performed By: #### C MP, LIPID, TSH, T7 #### [facility] [address] [address] [address] Mehnaz Dubon ALP [Catalytic activity/Vol] 128 U/L Critically high 46-116 [facility] Comment on above: Performed By: #### C MP, LIPID, TSH, T7 #### [facility] [address] [place] [address] Dr. Mehnaz Dubon ALT [Catalytic activity/Vol] 31 U/L Normal 14-59 [facility] Comment on above: Performed By: #### C MP, LIPID, TSH, T7 #### [facility] [address] [place] [address] Dr. Mehnaz Dubon Anion gap [Moles/Vol] 11.1 mmol/L Normal [facility] Comment on above: Performed By: #### C MP, LIPID, TSH, T7 #### [facility] [address] [place] [address] Dr. Mehnaz Dubon AST [Catalytic activity/Vol] 29 U/L Normal 15-37 [facility] Comment on above: Performed By: #### C MP, LIPID, TSH, T7 #### [facility] [address] [place] [address] Dr. Mehnaz Dubon Bilirubin [Mass/Vol] 0.4 mg/dL Normal 0.2-1.0 [facility] Comment on above: Performed By: #### C MP, LIPID, TSH, T7 #### [facility] [address] [place] [address] Dr. Mehnaz Dubon Calcium [Mass/Vol] 8.8 mg/dL Normal 8.5-10.1 [facility] Comment on above: Performed By: #### C MP, LIPID, TSH, T7 #### [facility] [address] [place] [address] Dr. Mehnaz Dubon Chloride [Moles/Vol] 107 mmol/L Normal 98-107 [facility] Comment on above: Performed By: #### C MP, LIPID, TSH, T7 #### [facility] [address] [place] [address] Dr. Mehnaz Dubon CO2 [Moles/Vol] 26.3 mmol/L Normal 21.0-32.0 [facility] Comment on above: Performed By: #### C MP, LIPID, TSH, T7 #### [facility] [address] [address] [address] Mehnaz Dubon Creatinine [Mass/Vol] 0.47 mg/dL Critically low 0.55-1.02 [facility] Comment on above: Performed By: #### C MP, LIPID, TSH, T7 #### [facility] [address] [address] [address] Mehnaz Dubon EGFR-AF NIGERIEN >60 Normal >=60 [facility] Comment on above: Performed By: #### C MP, LIPID, TSH, T7 #### [facility] [address] [address] [address] Mehnaz Dubon EGFR-NON AF NIGERIEN >60 Normal >=60 [facility] Comment on above: Performed By: #### C MP, LIPID, TSH, T7 #### [facility] [address] [address] [address] Mehnaz Dubon Globulin (S) [Mass/Vol] 3.6 g/dL Normal [facility] Comment on above: Performed By: #### C MP, LIPID, TSH, T7 #### [facility] [address] [address] [address] Mehnaz Dubon Glucose [Mass/Vol] 77 mg/dL Normal 74-106 [facility] Comment on above: Performed By: #### C MP, LIPID, TSH, T7 #### [facility] [address] [address] [address] Mehnaz Dubon Potassium [Moles/Vol] 3.4 mmol/L Critically low 3.5-5.1 [facility] Comment on above: Performed By: #### C MP, LIPID, TSH, T7 #### [facility] [address] [address] [address] Mehnaz Dubon Protein [Mass/Vol] 6.5 g/dL Normal 6.4-8.2 [facility] Comment on above: Performed By: #### C MP, LIPID, TSH, T7 #### [facility] [address] [address] [address] Mehnaz Dubon Sodium [Moles/Vol] 141 mmol/L Normal 136-145 [facility] Comment on above: Performed By: #### C MP, LIPID, TSH, T7 #### [facility] [address] [address] [address] Mehnaz Dubon Urea nitrogen [Mass/Vol] 4.0 mg/dL Critically low 7.0-18.0 [facility] Comment on above: Performed By: #### C MP, LIPID, TSH, T7 #### [facility] [id number] Mehnaz Dubon Urea nitrogen/Creatinine [Mass ratio] 8.5 mg/mg Normal [facility] Comment on above: Performed By: #### C MP, LIPID, TSH, T7 #### [facility] [address] [address] [address] Mehnaz Dubon TROPONIN, HIGH SENSITIVITYon 03-09-2022 HSTROP 5.5 pg/mL Normal 4.0-51.3 [facility] Comment on above: Result Comment: CUT- OFF POINTS HAVE BEEN ESTABLISHED BASED ON THE FOURTH UNIVERSAL DEFINITIONS OF MYOCARDIAL INFARCTION. THE UPPER REFERENCE LIMIT (URL) OF TROPONIN, DEFINED THE 99TH PERCENTILE OF cTnI DISTRIBUTION IN A REFERENCE POPULATION, HAS BEEN CONFIRMED THE DECISION THRESHOLD FOR IN DIAGNOSIS. Performed By: #### C MP, LIPID, TSH, T7 #### [facility] [address] [address] [address] Mehnaz Dubon XR CHEST 1 Von 03-09-2022 XR CHEST 1 V EXAM: XR CHEST 1 V INDICATION: CHEST PAIN, UNSPECIFIED. COMPARISON: Chest radiograph 03/01/2022 TECHNIQUE: Single frontal view of the chest FINDINGS: Normal cardiomediastinal contours. Clear lungs. No pleural effusion or pneumothorax. No acute osseous abnormality. IMPRESSION: No acute cardiopulmonary process. Electronically authenticated by: SEJAL VILLARREAL Date: 2022-03-09 20:49 Normal [facility] XR tibia fibula LT 2V*on XR tibia fibula LT 2V* [facility] [address] [id number] XRay Report Signed Patient: Christiane Ashley MR#: [id number] [birth year] : 1970 Acct:[id number] Age/Sex: 51 / F ADM Date: 03/01/22 Loc: 4N Room: [address] [place] [address] Type: DIS IN Attending Dr: Aquiles Vasquez [...] Logan Jr., D.O.03/04/2022 11:27 AM Dictation Location: [place] [address] Transcribed By: [facility] 03/04/221126 Dictated By: Cale Logan Jr, DO 03/04/221125 Signed By: 03/04/22 112 Normal [facility] Basic Metabolic Panelon 02-09 Anion gap [Moles/Vol] 12.6 mmol/L Normal 6.0-15.0 [facility] Comment on above: Performed By: #### B MP, CBC #### [facility] [address] [id number] [place] Calcium [Mass/Vol] 8.3 mg/dL Normal 8.2-10.2 [facility] Comment on above: Performed By: #### B MP, CBC #### [facility] [address] [place] [address] [place] Chloride [Moles/Vol] 107 mmol/L Normal 95-114 [facility] Comment on above: Performed By: #### B MP, CBC #### [facility] [address] [place] [address] [place] CO2 [Moles/Vol] 23.9 mmol/L Normal 22.0-30.0 [facility] Comment on above: Performed By: #### B MP, CBC #### [facility] [address] [place] [address] [place] Creatinine [Mass/Vol] 0.48 mg/dL Normal 0.44-1.03 [facility] Comment on above: Performed By: #### B MP, CBC #### [place] [address] [place] Creatinine Clr Calc Pharmacy 128.34 [facility] Comment on above: Result Comment: PERF ORMED BY: [place] [address] PATHOLOGIST [employer] MELISSA FRIAS M.D. Performed By: #### B MP, CBC #### [address] Estimated GFR ( Suzette > 60 [facility] Comment on above: Result Comment: GFR estimated reference range: According to KDOQI guidelines, <60 ml/min/1.73m2 is sufficient to diagnose a patient with chronic kidney disease. Performed By: #### B MP, CBC #### [address] Estimated GFR (Non- Am > 60 [facility] Comment on above: Performed By: #### B MP, CBC #### [address] Glucose [Mass/Vol] 83 mg/dL Normal 70-100 [facility] Comment on above: Result Comment: [place] om Glucose Reference Range is dependent on time and content of last meal. Glucose of more than 200 mg/dL in a nonstressed, ambulatory subject supports the diagnosis of Diabetes Mellitus. ADA recommended reference range Performed By: #### B MP, CBC #### [place] [address] [place] Potassium [Moles/Vol] 3.5 mmol/L Normal 3.5-5.1 [facility] Comment on above: Performed By: #### B MP, CBC #### [place] [address] [place] Sodium [Moles/Vol] 140 mmol/L Normal 136-146 [facility] Comment on above: Performed By: #### B MP, CBC #### [place] [address] [place] Urea nitrogen [Mass/Vol] 8 mg/dL Low 01-31 [facility] Comment on above: Performed By: #### B MP, CBC #### [facility] [address] [place] [address] [place] Basophils Auto (Bld) [#/Vol] Ordered By: Aquiles Vasquez on 03-03-2022 Basophils (Bld) [#/Vol] 0.0 10*3/uL 0.0-0.2 [facility] Basophils/100 WBC Auto (Bld) Ordered By: Aquiles Vasquez on 03-03-2022 Basophils/100 WBC (Bld) 0.4 % . F [facility] Complete Blood Count Auto Di ffon 03-03-2022 Basophils (Bld) [#/Vol] 0.0 10*3/uL Normal 0.0-0.2 [facility] Comment on above: Result Comment: PERF ORMED BY: [place] [address] PATHOLOGIST [employer] MELISSA FRIAS M.D. Performed By: #### B MP, CBC #### [address] Basophils/100 WBC (Bld) 0.4 % Normal . [facility] Comment on above: Performed By: #### B MP, CBC #### [address] Eosinophils (Bld) [#/Vol] 0.0 10*3/uL Normal 0.0-0.45 [facility] Comment on above: Performed By: #### B MP, CBC #### [place] [address] [place] Eosinophils/100 WBC (Bld) 0.5 % Normal . [facility] Comment on above: Performed By: #### B MP, CBC #### [address] Erythrocyte distribution width (RBC) [Ratio] 13.8 % Normal 11.9-15.3 [facility] Comment on above: Performed By: #### B MP, CBC #### [address] Hematocrit (Bld) [Volume fraction] 25.2 % Low 34.0-46.4 [facility] Comment on above: Performed By: #### B MP, CBC #### [address] Hemoglobin (Bld) [Mass/Vol] 8.4 g/dL Low 11.8-15.4 [facility] Comment on above: Performed By: #### B MP, CBC #### [address] Lymphocytes (Bld) [#/Vol] 1.5 10*3/uL Normal 1.00-4.8 [facility] Comment on above: Performed By: #### B MP, CBC #### [address] Lymphocytes/100 WBC (Bld) 25.7 % Normal . [facility] Comment on above: Performed By: #### B MP, CBC #### [address] MCH (RBC) [Entitic mass] 31.4 pg Normal 24.7-34.3 [facility] Comment on above: Performed By: #### B MP, CBC #### [address] MCV (RBC) [Entitic vol] 94.0 fL Normal 80-100 [facility] Comment on above: Performed By: #### B MP, CBC #### [address] Mean Corpuscular HGB Conc 33.4 g/dL Normal 32.0-35.0 [facility] Comment on above: Performed By: #### B MP, CBC #### [address] Monocytes (Bld) [#/Vol] 0.5 10*3/uL Normal 0.0-0.8 [facility] Comment on above: Performed By: #### B MP, CBC #### [address] [place] [address] [place] Monocytes/100 WBC (Bld) 9.2 % Normal . [facility] Comment on above: Performed By: #### B MP, CBC #### [facility] [address] Neutrophils (Bld) [#/Vol] 3.8 10*3/uL Normal 1.8-7.7 [facility] Comment on above: Performed By: #### B MP, CBC #### [facility] [address] Neutrophils/100 WBC (Bld) 64.2 % Normal . [facility] Comment on above: Performed By: #### B MP, CBC #### [facility] [address] Nucleated RBC/100 WBC (Bld) [Ratio] 0.0 % Normal 0-0.5 [facility] Comment on above: Performed By: #### B MP, CBC #### [facility] [address] Platelet mean volume (Bld) [Entitic vol] 9.0 fL Normal 6.3-10.7 [facility] Comment on above: Performed By: #### B MP, CBC #### [facility] [address] [place] [address] [place] Platelets (Bld) [#/Vol] 126 10*3/uL Signific ant change down 150-450 [facility] Comment on above: Performed By: #### B MP, CBC #### [facility] [address] [place] [address] [place] RBC (Bld) [#/Vol] 2.68 10*6/uL Low 3.60-5.00 [facility] Comment on above: Performed By: #### B MP, CBC #### [facility] [address] WBC (Bld) [#/Vol] 6.0 10*3/uL Normal 4.5-11.0 [facility] Comment on above: Performed By: #### B MP, CBC #### [facility] [address] Creatinine and Glomerular fi ltration rate.predicted panel (S/P/Bld)Ordered By: Aquiles Vasquez on 03-03-2022 Creatinine [Mass/Vol] 0.48 mg/dL 0.44-1.03 [facility] Eosinophils Auto (Bld) [#/Vo l]Ordered By: Aquiles Vasquez on 03-03-2022 Eosinophils (Bld) [#/Vol] 0.0 10*3/uL 0.0-0.45 [facility] Eosinophils/100 WBC Auto (Bl d)Ordered By: Aquiles Vasquez on 03-03-2022 Eosinophils/100 WBC (Bld) 0.5 % . [facility] Erythrocyte distribution wid th Auto (RBC) [Ratio]Ordered By: Aquiles Vasquez on 03-03-2022 Erythrocyte distribution width (RBC) [Ratio] 13.8 % 11.9-15.3 [facility] Estimated glomerular filtrat ion rate (GFR) non- AmericanOrdered By: Aquiles Vasquez on 03-03-2022 GFR/1.73 sq M.predicted among non-blacks MDRD (S/P/Bld) [Vol rate/Area] > 60 mL/Min [facility] Hematocrit Auto (Bld) [Volum e fraction]Ordered By: Aquiles Vasquez on 03-03-2022 Hematocrit (Bld) [Volume fraction] 25.2 % 34.0-46.4 [facility] Hemoglobin [Mass/volume] in BloodOrdered By: Aquiles Vasquez on 03-03-2022 Hemoglobin (Bld) [Mass/Vol] 8.4 g/dL 11.8-15.4 [facility] Laboratory - Hematology and Cell countsOrdered By: Aquiles Vasquez on 03-03-2022 Nucleated RBC/100 WBC (Bld) [Ratio] 0.0 % 0-0.5 [facility] Leukocytes [#/volume] in Blo od by Automated countOrdered By: Aquiles Vasquez on 03-03-2022 WBC (Bld) [#/Vol] 6.0 10*3/uL 4.5-11.0 [facility] Lymphocytes Auto (Bld) [#/Vo l]Ordered By: Aquiles Vasquez on 03-03-2022 Lymphocytes (Bld) [#/Vol] 1.5 10*3/uL 1.00-4.8 [facility] Lymphocytes/100 WBC Auto (Bl d)Ordered By: Aquiles Vasquez on 03-03-2022 Lymphocytes/100 WBC (Bld) 25.7 % . [facility] MCH Auto (RBC) [Entitic mass ]Ordered By: Aquiles Vasquez on 03-03-2022 MCH (RBC) [Entitic mass] 31.4 pg 24.7-34.3 [facility] MCHC Auto (RBC) [Mass/Vol]Or dered By: Aquiles Vasquez on 03-03-2022 MCHC (RBC) [Mass/Vol] 33.4 g/dL 32.0-35.0 [facility] MCV Auto (RBC) [Entitic vol] Ordered By: Aquiles Vasquez on 03-03-2022 MCV (RBC) [Entitic vol] 94.0 fL 80-100 [facility] Monocytes Auto (Bld) [#/Vol] Ordered By: Aquiles Vasquez on 03-03-2022 Monocytes (Bld) [#/Vol] 0.5 10*3/uL 0.0-0.8 [facility] Monocytes/100 WBC Auto (Bld) Ordered By: Aquiles Vasquez on 03-03-2022 Monocytes/100 WBC (Bld) 9.2 % . [facility] Neutrophils Auto (Bld) [#/Vo l]Ordered By: Aquiles Vasquez on 03-03-2022 Neutrophils (Bld) [#/Vol] 3.8 10*3/uL 1.8-7.7 [facility] Neutrophils/100 WBC Auto (Bl d)Ordered By: Aquiles Vasquez on 03-03-2022 Neutrophils/100 WBC (Bld) 64.2 % . [facility] No Panel InformationOrdered By: Aquiles Vasquez on 03-03-2022 Estimated GFR () > 60 mL/Min [facility] Comment on above: GFR estimated refere nce range: According to KDOQI guidelines, <60 ml/min/1.73m2 is sufficient to diagnose a patient with chronic kidney disease. Pharmacy Creatinine Clearance (Chem 128.34 [facility] Platelet mean volume Auto (B ld) [Entitic vol]Ordered By: Aquiles Vasquez on 03-03-2022 Platelet mean volume (Bld) [Entitic vol] 9.0 fL 6.3-10.7 [facility] Platelets Auto (Bld) [#/Vol] Ordered By: Aquiles Vasquez on 03-03-2022 Platelets (Bld) [#/Vol] 126 10*3/uL 150-450 [facility] Comment on above: Delta: 183 on -0459 RBC Auto (Bld) [#/Vol]Ordere d By: Aquiles Vasquez on 03-03-2022 RBC (Bld) [#/Vol] 2.68 10*6/uL 3.60-5.00 [facility] Serum or plasma anion gap de terminationOrdered By: Aquiles Vasquez on 03-03-2022 Anion gap [Moles/Vol] 12.6 mmol/L 6.0-15.0 [facility] Serum or plasma calcium mohinder urement (mass/volume)Ordered By: Aquiles Vasquez on 03-03-2022 Calcium [Mass/Vol] 8.3 mg/dL 8.2-10.2 [facility] Serum or plasma chloride ewa surement (moles/volume)Ordered By: Aquiles Vasquez on 03-03-2022 Chloride [Moles/Vol] 107 mmol/L 95-114 [facility] Serum or plasma glucose mohinder urement (mass/volume)Ordered By: Aquiles Vasquez on 03-03-2022 Glucose [Mass/Vol] 83 mg/dL 70-100 [facility] Comment on above: ADA recommended refe rence rangeRandom Glucose Reference Range is dependent on time and content of last meal. Glucose of more than 200 mg/dL in a nonstressed, ambulatory subject supports the diagnosis of Diabetes Mellitus. Serum or plasma potassium me asurement (moles/volume)Ordered By: Aquiles Vasquez on 03-03-2022 Potassium [Moles/Vol] 3.5 mmol/L 3.5-5.1 [facility] Serum or plasma sodium measu rement (moles/volume)Ordered By: Aquiles Vasquez on 03-03-2022 Sodium [Moles/Vol] 140 mmol/L 136-146 [facility] Serum or plasma total carbon dioxide measurement (moles/volume)Ordered By: Aquiles Vasquez on 03-03-2022 CO2 [Moles/Vol] 23.9 mmol/L 22.0-30.0 [facility] Serum or plasma urea nitroge n measurement (mass/volume)Ordered By: Aquiles Vasquez on 03-03-2022 Urea nitrogen [Mass/Vol] 8 mg/dL 01-31 [facility] Basic Metabolic Panelon 02-09 Anion gap [Moles/Vol] 7.2 mmol/L Normal 6.0-15.0 [facility] Comment on above: Performed By: #### B MP, CBC #### [facility] [address] [place] [address] [place] Calcium [Mass/Vol] 8.5 mg/dL Normal 8.2-10.2 [facility] Comment on above: Performed By: #### B MP, CBC #### [facility] [address] [place] [address] [place] Chloride [Moles/Vol] 107 mmol/L Normal 95-114 [facility] Comment on above: Performed By: #### B MP, CBC #### [facility] [address] [place] [id number] [place] CO2 [Moles/Vol] 26.4 mmol/L Normal 22.0-30.0 [facility] Comment on above: Performed By: #### B MP, CBC #### [facility] [address] [place] [address] [place] Creatinine [Mass/Vol] 0.57 mg/dL Normal 0.44-1.03 [facility] Comment on above: Performed By: #### B MP, CBC #### [facility] [address] [place] [id number] [place] Creatinine Clr Calc Pharmacy 108.08 Normal [facility] Comment on above: Result Comment: PERF ORMED BY: [place] [address] PATHOLOGIST [employer] MELISSA FRIAS M.D. Performed By: #### B MP, CBC #### [address] Estimated GFR ( Suzette > 60 [facility] Comment on above: Result Comment: GFR estimated reference range: According to KDOQI guidelines, <60 ml/min/1.73m2 is sufficient to diagnose a patient with chronic kidney disease. Performed By: #### B MP, CBC #### [address] Estimated GFR (Non- Am > 60 [facility] Comment on above: Performed By: #### B MP, CBC #### [address] Glucose [Mass/Vol] 131 mg/dL High 70-100 [facility] Comment on above: Result Comment: [place] om Glucose Reference Range is dependent on time and content of last meal. Glucose of more than 200 mg/dL in a nonstressed, ambulatory subject supports the diagnosis of Diabetes Mellitus. ADA recommended reference range Performed By: #### B MP, CBC #### [address] Potassium [Moles/Vol] 3.6 mmol/L Normal 3.5-5.1 [facility] Comment on above: Performed By: #### B MP, CBC #### [place] [address] [place] Sodium [Moles/Vol] 137 mmol/L Normal 136-146 [facility] Comment on above: Performed By: #### B MP, CBC #### [place] [address] [place] Urea nitrogen [Mass/Vol] 10 mg/dL Normal - [facility] Comment on above: Performed By: #### B MP, CBC #### [address] Complete Blood Count Auto Di ffon 03-02-2022 Basophils (Bld) [#/Vol] 0.0 10*3/uL Normal 0.0-0.2 [facility] Comment on above: Result Comment: PERF ORMED BY: [place] [address] PATHOLOGIST [employer] MELISSA FRIAS M.D. Performed By: #### B MP, CBC #### [facility] [address] [place] [address] [place] Basophils/100 WBC (Bld) 0.1 % Normal . [facility] Comment on above: Performed By: #### B MP, CBC #### [facility] [address] [place] [address] [place] Eosinophils (Bld) [#/Vol] 0.0 10*3/uL Normal 0.0-0.45 [facility] Comment on above: Performed By: #### B MP, CBC #### [address] Eosinophils/100 WBC (Bld) 0.0 % Normal . [facility] Comment on above: Performed By: #### B MP, CBC #### [address] Erythrocyte distribution width (RBC) [Ratio] 13.3 % Normal 11.9-15.3 [facility] Comment on above: Performed By: #### B MP, CBC #### [facility] [address] [place] [address] Hematocrit (Bld) [Volume fraction] 28.9 % Low 34.0-46.4 [facility] Comment on above: Performed By: #### B MP, CBC #### [facility] [address] [place] [address] [place] Hemoglobin (Bld) [Mass/Vol] 9.5 g/dL Low 11.8-15.4 [facility] Comment on above: Performed By: #### B MP, CBC #### [facility] [address] [place] [address] [place] Lymphocytes (Bld) [#/Vol] 0.6 10*3/uL Low 1.00-4.8 [facility] Comment on above: Performed By: #### B MP, CBC #### [facility] [address] [place] [address] [place] Lymphocytes/100 WBC (Bld) 5.6 % Normal . [facility] Comment on above: Performed By: #### B MP, CBC #### [facility] [address] MCH (RBC) [Entitic mass] 30.7 pg Normal 24.7-34.3 [facility] Comment on above: Performed By: #### B MP, CBC #### [facility] [address] MCV (RBC) [Entitic vol] 93.8 fL Normal 80-100 [facility] Comment on above: Performed By: #### B MP, CBC #### [address] Mean Corpuscular HGB Conc 32.8 g/dL Normal 32.0-35.0 [facility] Comment on above: Performed By: #### B MP, CBC #### [facility] [address] [place] [address] [place] Monocytes (Bld) [#/Vol] 0.8 10*3/uL Normal 0.0-0.8 [facility] Comment on above: Performed By: #### B MP, CBC #### [facility] [address] [place] [address] [place] Monocytes/100 WBC (Bld) 7.6 % Normal . [facility] Comment on above: Performed By: #### B MP, CBC #### [facility] [address] [place] [address] [place] Neutrophils (Bld) [#/Vol] 9.1 10*3/uL High 1.8-7.7 [facility] Comment on above: Performed By: #### B MP, CBC #### [facility] [address] Neutrophils/100 WBC (Bld) 86.7 % Normal . [facility] Comment on above: Performed By: #### B MP, CBC #### [facility] [address] Nucleated RBC/100 WBC (Bld) [Ratio] 0.0 % Normal 0-0.5 [facility] Comment on above: Performed By: #### B MP, CBC #### [facility] [address] Platelet mean volume (Bld) [Entitic vol] 8.8 fL Normal 6.3-10.7 [facility] Comment on above: Performed By: #### B MP, CBC #### [facility] [address] Platelets (Bld) [#/Vol] 183 10*3/uL Normal 150-450 [facility] Comment on above: Performed By: #### B MP, CBC #### [address] RBC (Bld) [#/Vol] 3.08 10*6/uL Low 3.60-5.00 [facility] Comment on above: Performed By: #### B MP, CBC #### [address] WBC (Bld) [#/Vol] 10.5 10*3/uL Normal 4.5-11.0 [facility] Comment on above: Performed By: #### B MP, CBC #### [address] ECG 12 lead ECGon 03-02-2022 ECG 12 lead ECG [facility] [place] [address] Electrocardiograph Report Signed Patient: Christiane Ashley MR#: [id number] [birth year] : 1970 Acct:[id number] Age/Sex: 51 / F ADM Date: 03/01/22 Loc: 4N Room: [id number] Type: DIS IN Attending Dr: Aquiles Vasquez [...] Signed By Ted Duarte MD 1 114[address] [facility] ECG 12 lead ECGon 03-01-2022 ECG 12 lead ECG [facility] [place] [address] Electrocardiograph Report Signed Patient: Christiane Ashley MR#: [id number] [birth year] : 1970 Acct:[id number] Age/Sex: 51 / F ADM Date: 03/01/22 Loc: Room: [address] [place] [address] Type: DIS IN Attending Dr: Aquiles Vasquez [...] : 518 ms Sinus rhythm with short TX Nonspecific ST and T wave abnormality Prolonged QT Abnormal ECG No previous ECGs available Confirmed by TED DUARTE MD ([id number]) on 03/01/2022 1:01:19 PM Referred By: Electronically Signed By:TED DUARTE MD Transcribed By: MUS Signed By Ted Duarte MD 1 [address] [facility] Glucose Glucometer (BldC) [M ass/Vol]Ordered By: Aquiles Vasquez on 03-01-2022 Glucose [Mass/Vol] 101 mg/dL [facility] Comment on above: Random Glucose Refer ence Range is dependent on time and content of last meal. Glucose of more than 200 mg/dL in a nonstressed, ambulatory subject supports the diagnosis of Diabetes Mellitus. Glucose Poct Glucometerson 1 Commemt1 Glu2: Cleaned Meter Normal [facility] Comment on above: Result Comment: PERF ORMED BY: [facility] [address] [place] [address] PATHOLOGIST [employer] MELISSA FRIAS M.D. Performed By: #### G LULS #### Point of Care testing , Glucose [Mass/Vol] 101 mg/dL Normal [facility] Comment on above: Result Comment: [place] om Glucose Reference Range is dependent on time and content of last meal. Glucose of more than 200 mg/dL in a nonstressed, ambulatory subject supports the diagnosis of Diabetes Mellitus. Performed By: #### G LULS #### Point of Care testing , No Panel InformationOrdered By: Aquiles Vasquez on 03-01-2022 Bedside Glucose Comment Glu2: cleaned meter [facility] XR CHEST 1 Von 03-01-2022 XR CHEST [...] by: NAMITA DELUCA Date: 2022-03-01 03:53 Normal [facility] XR PELVIS 1_2 VIEWSon 2021 XR [...] AQUILES LACY Date: 2022-03-01 04:39 Normal [facility] XR tibia fibula LT 2V*on XR tibia fibula LT 2V* [facility] [place] [address] [place] [address] XRay Report Signed Patient: Christiane Ashley MR#: [id number] 01 : 1970 Acct:[id number] Age/Sex: 51 / F ADM Date: 03/01/22 Loc: 4N Room: [address] [place] [address] Type: ADM IN Attending Dr: Aquiles Vasquez [...] Logan Jr., D.OJah03/01/2022 3:10 PM Dictation Location: [place] [address] Transcribed By: [facility] 03/01/22 1510 Dictated By: Cale Logan Jr, DO 03/01/22 1509 Signed By: 03/01/22 1510 Normal [facility] CARDIAC KAMRON ADMITon 022 CK [Catalytic activity/Vol] 331 U/L Critically high 26-192 [facility] Comment on above: Performed By: #### C MP, LIPID, TSH, T7 #### [facility] [address] [place] [address] [address] Mehnaz Dubon CK.MB [Mass/Vol] 6.75 ng/mL Critically high <=3.60 [facility] Comment on above: Performed By: #### C MP, LIPID, TSH, T7 #### [facility] [address] [place] [address] Dr. Mehnaz Dubon HSTROP 9.1 pg/mL Normal 4.0-51.3 [facility] Comment on above: Result Comment: CUT- OFF POINTS HAVE BEEN ESTABLISHED BASED ON THE FOURTH UNIVERSAL DEFINITIONS OF MYOCARDIAL INFARCTION. THE UPPER REFERENCE LIMIT (URL) OF TROPONIN, DEFINED THE 99TH PERCENTILE OF cTnI DISTRIBUTION IN A REFERENCE POPULATION, HAS BEEN CONFIRMED THE DECISION THRESHOLD FOR IN DIAGNOSIS. Performed By: #### C MP, LIPID, TSH, T7 #### [facility] [address] [place] [address] Dr. Mehnaz Dubon ALISSA 919 ng/mL Critically high 9-82 [facility] Comment on above: Performed By: #### C MP, LIPID, TSH, T7 #### [facility] [address] [place] [address] Dr. Mehnaz Dubon CBC AUTO DIFFon 02-28-2022 BASO # 0.1 103/ul Normal 0.0-0.1 [facility] Comment on above: Performed By: #### C BC #### [facility] [address] [place] [address] Dr. Mehnaz Dubon Basophils/100 WBC (Bld) 1.2 % Normal 0.2-2.0 [facility] Comment on above: Performed By: #### C BC #### [facility] [address] [place] [address] Dr. Mehnaz Dubon EO # 0.1 103/ul Normal 0.0-0.7 [facility] Comment on above: Performed By: #### C BC #### [facility] [address] [place] [address] Dr. Mehnaz Dubon Eosinophils/100 WBC (Bld) 1.0 % Normal 0.9-7.0 [facility] Comment on above: Performed By: #### C BC #### [facility] [address] [place] [address] Dr. Mehnaz Dubon Erythrocyte distribution width (RBC) [Ratio] 13.0 % Normal 11.0-15.0 [facility] Comment on above: Performed By: #### C BC #### [facility] [address] [place] [address] Dr. Mehnaz Dubon Hematocrit (Bld) [Volume fraction] 39.0 % Normal 36.0-48.0 [facility] Comment on above: Performed By: #### C BC #### [facility] [address] [place] [address] Dr. Mehnaz Dubon Hemoglobin (Bld) [Mass/Vol] 12.8 g/dL Normal 12.0-16.0 [facility] Comment on above: Performed By: #### C BC #### [facility] [address] [place] [address] Dr. Mehnaz Dubon IG # 0.04 10e3/ul Critically high 0.00-0.03 [facility] Comment on above: Performed By: #### C BC #### [facility] [address] [place] [address] Dr. Mehnaz Dubon IG % 0.5 % Normal 0.0-0.5 [facility] Comment on above: Performed By: #### C BC #### [facility] [address] [place] [address] Dr. Mehnaz Dubon LYMPH # 1.2 103/ul Normal 1.2-3.8 [facility] Comment on above: Performed By: #### C BC #### [facility] [address] [place] [address] Dr. Mehnaz Dubon Lymphocytes/100 WBC (Bld) 15.7 % Critically low 20.5-60.0 [facility] Comment on above: Performed By: #### C BC #### [facility] [address] [place] [address] Dr. Mehnaz Dubon MANUAL DIFF REQ NO Normal [facility] Comment on above: Performed By: #### C BC #### [facility] [address] [place] [address] Dr. Mehnaz Dubon MCH (RBC) [Entitic mass] 30.8 pg Normal 26.7-34.0 [facility] Comment on above: Performed By: #### C BC #### [facility] [address] [place] [address] Dr. Mehnaz Dubon MCHC (RBC) [Mass/Vol] 32.8 g/dL Normal 29.9-35.2 [facility] Comment on above: Performed By: #### C BC #### [facility] [address] [place] [address] Dr. Mehnaz Dubon MCV (RBC) [Entitic vol] 94.0 fL Normal 81.0-99.0 [facility] Comment on above: Performed By: #### C BC #### [facility] [address] [place] [address] Dr. Mehnaz Dubon MONO # 0.6 103/ul Normal 0.3-0.8 [facility] Comment on above: Performed By: #### C BC #### [facility] [address] [place] [address] Dr. Mehnaz Dubon Monocytes/100 WBC (Bld) 7.8 % Normal 1.7-12.0 [facility] Comment on above: Performed By: #### C BC #### [facility] [address] [place] [address] Dr. Mehnaz Dubon NEUT # 5.7 103/ul Normal 1.4-6.5 [facility] Comment on above: Performed By: #### C BC #### [facility] [address] [place] [address] Dr. Mehnaz Dubon Neutrophils/100 WBC (Bld) 73.8 % Normal 43.0-75.0 [facility] Comment on above: Performed By: #### C BC #### [facility] [address] [place] [address] Dr. Mehnaz Dubon Platelet mean volume (Bld) [Entitic vol] 9.7 fL Normal 9.5-13.5 [facility] Comment on above: Performed By: #### C BC #### [facility] [address] [place] [address] Dr. Mehnaz Dubon PLT 159 103/ul Normal 150-450 [facility] Comment on above: Performed By: #### C BC #### [facility] [address] [address] [address] Mehnaz Dubon RBC 4.15 106/ul Critically low 4.20-5.40 [facility] Comment on above: Performed By: #### C BC #### [facility] [id number] Mehnaz Dubon WBC 7.8 103/ul Normal 4.0-11.0 [facility] Comment on above: Performed By: #### C BC #### [facility] [address] CSPINE WO CONon [...] MARU ANGEL Date: 2022-02-28 21:46 Normal [facility] CT FACIAL BONES WO CONon CT [...] by: MARU ANGEL Date: 2022-02-28 21:39 Normal [facility] PROF CHEM 8 (BAS METB)on Anion gap [Moles/Vol] 13.2 mmol/L Normal [facility] Comment on above: Performed By: #### C MP, LIPID, TSH, T7 #### [facility] [address] [address] [address] Mehnaz Dubon Calcium [Mass/Vol] 8.6 mg/dL Normal 8.5-10.1 [facility] Comment on above: Performed By: #### C MP, LIPID, TSH, T7 #### [facility] [address] [address] [address] Mehnaz Dubon Chloride [Moles/Vol] 104 mmol/L Normal 98-107 [facility] Comment on above: Performed By: #### C MP, LIPID, TSH, T7 #### [facility] [address] [address] [address] Mehnaz Dubon CO2 [Moles/Vol] 24.3 mmol/L Normal 21.0-32.0 [facility] Comment on above: Performed By: #### C MP, LIPID, TSH, T7 #### [facility] [address] [address] [address] Mehnaz Dubon Creatinine [Mass/Vol] 0.45 mg/dL Critically low 0.55-1.02 [facility] Comment on above: Performed By: #### C MP, LIPID, TSH, T7 #### [facility] [address] [address] [address] Mehnaz Dubon EGFR-AF NIGERIEN >60 Normal >=60 [facility] Comment on above: Performed By: #### C MP, LIPID, TSH, T7 #### [facility] [address] [address] Dr. Mehnaz Dubon EGFR-NON AF NIGERIEN >60 Normal >=60 [facility] Comment on above: Performed By: #### C MP, LIPID, TSH, T7 #### [facility] [address] [address] [address] Mehnaz Dubon Glucose [Mass/Vol] 76 mg/dL Normal 74-106 [facility] Comment on above: Performed By: #### C MP, LIPID, TSH, T7 #### [facility] [address] [place] [address] Dr. Mehnaz Dubon Potassium [Moles/Vol] 2.5 mmol/L Critically low 3.5-5.1 [facility] Comment on above: Performed By: #### C MP, LIPID, TSH, T7 #### [facility] [address] [address] [address] Mehnaz Dubon Sodium [Moles/Vol] 140 mmol/L Normal 136-145 [facility] Comment on above: Performed By: #### C MP, LIPID, TSH, T7 #### [facility] [address] [address] [address] Mehnaz Dubon Urea nitrogen [Mass/Vol] 10.0 mg/dL Normal 7.0-18.0 [facility] Comment on above: Performed By: #### C MP, LIPID, TSH, T7 #### [facility] [address] [place] [address] Dr. Mehnaz Dubon Urea nitrogen/Creatinine [Mass ratio] 22.2 mg/mg Normal [facility] Comment on above: Performed By: #### C MP, LIPID, TSH, T7 #### [facility] [address] [place] [address] Dr. Mehnaz Dubon VITAMIN B1 (THIAMINE)on Vit. B1, Whole Blood 223.5 nmol/L Critically high 66.5-200 .0 [facility] Comment on above: Performed By: #### C MP, LIPID, TSH, T7 #### [facility] [address] [place] [address] Dr. Mehnaz Dubon CBC AUTO DIFFon 02-03-2022 BASO # 0.1 103/ul Normal 0.0-0.1 [facility] Comment on above: Performed By: #### C BC #### [facility] [address] [place] [address] Dr. Mehnaz Dubon Basophils/100 WBC (Bld) 1.1 % Normal 0.2-2.0 [facility] Comment on above: Performed By: #### C BC #### [facility] [address] [place] [address] Dr. Mehnaz Dubon EO # 0.2 103/ul Normal 0.0-0.7 [facility] Comment on above: Performed By: #### C BC #### [facility] [address] [place] [address] Dr. Mehnaz Dubon Eosinophils/100 WBC (Bld) 2.5 % Normal 0.9-7.0 [facility] Comment on above: Performed By: #### C BC #### [facility] [address] [place] [address] Dr. Mehnaz Dubon Erythrocyte distribution width (RBC) [Ratio] 12.9 % Normal 11.0-15.0 [facility] Comment on above: Performed By: #### C BC #### [facility] [address] [place] [address] Dr. Mehnaz Dubon Hematocrit (Bld) [Volume fraction] 40.6 % Normal 36.0-48.0 [facility] Comment on above: Performed By: #### C BC #### [facility] [address] [place] [address] Dr. Mehnaz Dubon Hemoglobin (Bld) [Mass/Vol] 13.0 g/dL Normal 12.0-16.0 [facility] Comment on above: Performed By: #### C BC #### [facility] [address] [place] [address] Dr. Mehnaz Dubon IG # 0.01 10e3/ul Normal 0.00-0.03 [facility] Comment on above: Performed By: #### C BC #### [facility] [address] [place] [address] Dr. Mehnaz Dubon IG % 0.2 % Normal 0.0-0.5 [facility] Comment on above: Performed By: #### C BC #### [facility] [address] [place] [address] Dr. Mehnaz Dubon LYMPH # 1.1 103/ul Critically low 1.2-3.8 [facility] Comment on above: Performed By: #### C BC #### [facility] [address] [place] [address] Dr. Mehnaz Dubon Lymphocytes/100 WBC (Bld) 17.5 % Critically low 20.5-60.0 [facility] Comment on above: Performed By: #### C BC #### [facility] [address] [place] [address] Dr. Mehnaz Dubon MANUAL DIFF REQ NO Normal [facility] Comment on above: Performed By: #### C BC #### [facility] [address] [place] [address] Dr. Mehnaz Dubon MCH (RBC) [Entitic mass] 30.2 pg Normal 26.7-34.0 [facility] Comment on above: Performed By: #### C BC #### [facility] [address] [place] [address] Dr. Mehnaz Dubon MCHC (RBC) [Mass/Vol] 32.0 g/dL Normal 29.9-35.2 [facility] Comment on above: Performed By: #### C BC #### [facility] [address] [place] [address] Dr. Mehnaz Dubon MCV (RBC) [Entitic vol] 94.4 fL Normal 81.0-99.0 [facility] Comment on above: Performed By: #### C BC #### [facility] [address] [place] [address] Dr. Mehnaz Dubon MONO # 0.5 103/ul Normal 0.3-0.8 [facility] Comment on above: Performed By: #### C BC #### [facility] [address] [place] [address] Dr. Mehnaz Dubon Monocytes/100 WBC (Bld) 8.2 % Normal 1.7-12.0 [facility] Comment on above: Performed By: #### C BC #### [facility] [address] [place] [address] Dr. Mehnaz Dubon NEUT # 4.5 103/ul Normal 1.4-6.5 [facility] Comment on above: Performed By: #### C BC #### [facility] [address] [place] [address] Dr. Mehnaz Dubon Neutrophils/100 WBC (Bld) 70.5 % Normal 43.0-75.0 [facility] Comment on above: Performed By: #### C BC #### [facility] [address] [place] [address] Dr. Mehnaz Dubon Platelet mean volume (Bld) [Entitic vol] 10.4 fL Normal 9.5-13.5 [facility] Comment on above: Performed By: #### C BC #### [facility] [address] [place] [address] Dr. Mehnaz Dubon PLT 181 103/ul Normal 150-450 [facility] Comment on above: Performed By: #### C BC #### [facility] [address] [place] [address] Dr. Mehnaz Dubon RBC 4.30 106/ul Normal 4.20-5.40 [facility] Comment on above: Performed By: #### C BC #### [facility] [address] [place] [address] Dr. Mehnaz Dubon WBC 6.4 103/ul Normal 4.0-11.0 [facility] Comment on above: Performed By: #### C BC #### [facility] [address] [place] [address] Dr. Mehnaz Dubon FERRITINon 02-03-2022 Ferritin [Mass/Vol] 122.0 ng/mL Normal 8.0-252.0 [facility] Comment on above: Performed By: #### F ERR, VITAD, FETIBC, B12FOL #### [facility] [address] [place] [address] Dr. Mehnaz Dubon IRON AND TIBCon 02-03-2022 % SATURATION 43.6 % Normal [facility] Comment on above: Performed By: #### F ERR, VITAD, FETIBC, B12FOL #### [facility] [address] [place] [address] Dr. Mehnaz Dubon Iron [Mass/Vol] 95.0 ug/dL Normal 50.0-170.0 [facility] Comment on above: Performed By: #### F ERR, VITAD, FETIBC, B12FOL #### [facility] [address] [place] [address] Dr. Mehnaz Dubon TIBC DIRECT 218.0 ug/dL Critically low 250.0-450.0 [facility] Comment on above: Performed By: #### F ERR, VITAD, FETIBC, B12FOL #### [facility] [address] [place] [address] Dr. Mehnaz Dubon MAGNESIUMon 02-03-2022 Magnesium [Mass/Vol] 1.7 mg/dL Critically low 1.8-2.4 [facility] Comment on above: Performed By: #### C MP, LIPID, TSH, T7 #### [facility] [address] [place] [address] Dr. Mehnaz Dubon PHOSPHORUSon 02-03-2022 Phosphate [Mass/Vol] 3.6 mg/dL Normal 2.6-4.7 [facility] Comment on above: Performed By: #### C MP, LIPID, TSH, T7 #### [facility] [address] [place] [address] Dr. Mehnaz Dubon PROF 14(COMP METB)on 022 Albumin [Mass/Vol] 3.3 g/dL Critically low 3.4-5.0 [facility] Comment on above: Performed By: #### C MP, LIPID, TSH, T7 #### [facility] [address] [address] [address] Mehnaz Dubon Albumin/Globulin [Mass ratio] 1.1 {ratio} Normal [facility] Comment on above: Performed By: #### C MP, LIPID, TSH, T7 #### [facility] [address] [place] [address] Dr. Mehnaz Dubon ALP [Catalytic activity/Vol] 108 U/L Normal 46-116 [facility] Comment on above: Performed By: #### C MP, LIPID, TSH, T7 #### [facility] [address] [place] [address] Dr. Mehnaz Dubon ALT [Catalytic activity/Vol] 37 U/L Normal 14-59 [facility] Comment on above: Performed By: #### C MP, LIPID, TSH, T7 #### [facility] [address] [place] [address] Dr. Mehnaz Dubon Anion gap [Moles/Vol] 10.1 mmol/L Normal [facility] Comment on above: Performed By: #### C MP, LIPID, TSH, T7 #### [facility] [address] [place] [address] Dr. Mehnaz Dubon AST [Catalytic activity/Vol] 48 U/L Critically high 15-37 [facility] Comment on above: Performed By: #### C MP, LIPID, TSH, T7 #### [facility] [address] [place] [address] Dr. Mehnaz Dubon Bilirubin [Mass/Vol] 0.5 mg/dL Normal 0.2-1.0 [facility] Comment on above: Performed By: #### C MP, LIPID, TSH, T7 #### [facility] [address] [place] [address] Dr. Mehnaz Dubon Calcium [Mass/Vol] 8.7 mg/dL Normal 8.5-10.1 [facility] Comment on above: Performed By: #### C MP, LIPID, TSH, T7 #### [facility] [address] [place] [address] Dr. Mehnaz Dubon Chloride [Moles/Vol] 105 mmol/L Normal 98-107 [facility] Comment on above: Performed By: #### C MP, LIPID, TSH, T7 #### [facility] [address] [address] [address] Mehnaz Dubon CO2 [Moles/Vol] 29.0 mmol/L Normal 21.0-32.0 [facility] Comment on above: Performed By: #### C MP, LIPID, TSH, T7 #### [facility] [address] [place] [address] Dr. Mehnaz Dubon Creatinine [Mass/Vol] 0.60 mg/dL Normal 0.55-1.02 [facility] Comment on above: Performed By: #### C MP, LIPID, TSH, T7 #### [facility] [address] [place] [address] Dr. Mehnaz Dubon EGFR-AF NIGERIEN >60 Normal >=60 [facility] Comment on above: Performed By: #### C MP, LIPID, TSH, T7 #### [facility] [address] [place] [address] Dr. Mehnaz Dubon EGFR-NON AF NIGERIEN >60 Normal >=60 [facility] Comment on above: Performed By: #### C MP, LIPID, TSH, T7 #### [facility] [address] [place] [address] Dr. Mehnaz Dubon Globulin (S) [Mass/Vol] 2.9 g/dL Normal [facility] Comment on above: Performed By: #### C MP, LIPID, TSH, T7 #### [facility] [address] [place] [address] Dr. Mehnaz Dubon Glucose [Mass/Vol] 77 mg/dL Normal 74-106 [facility] Comment on above: Performed By: #### C MP, LIPID, TSH, T7 #### [facility] [address] [place] [address] Dr. Mehnaz Dubon Potassium [Moles/Vol] 4.1 mmol/L Normal 3.5-5.1 [facility] Comment on above: Performed By: #### C MP, LIPID, TSH, T7 #### [facility] [address] [place] [address] Dr. Mehnaz Dubon Protein [Mass/Vol] 6.2 g/dL Critically low 6.4-8.2 [facility] Comment on above: Performed By: #### C MP, LIPID, TSH, T7 #### [facility] [address] [place] [address] Dr. Mehnaz Dubon Sodium [Moles/Vol] 140 mmol/L Normal 136-145 [facility] Comment on above: Performed By: #### C MP, LIPID, TSH, T7 #### [facility] [address] [place] [address] Dr. Mehnaz Dubon Urea nitrogen [Mass/Vol] 9.0 mg/dL Normal 7.0-18.0 [facility] Comment on above: Performed By: #### C MP, LIPID, TSH, T7 #### [facility] [address] [place] [address] Dr. Mhenaz Dubon Urea nitrogen/Creatinine [Mass ratio] 15.0 mg/mg Normal [facility] Comment on above: Performed By: #### C MP, LIPID, TSH, T7 #### [facility] [address] [place] [address] Dr. Mehnaz Dubon VIT B12 AND FOLATEon 2021 Cobalamin (Vitamin B12) [Mass/Vol] 904.0 pg/mL Normal 193.0-986.0 [facility] Comment on above: Performed By: #### F ERR, VITAD, FETIBC, B12FOL #### [facility] [address] [place] [address] Dr. Mehnaz Dubon FOLATE 9.70 ng/mL Normal 8.60-58.90 [facility] Comment on above: Performed By: #### F ERR, VITAD, FETIBC, B12FOL #### [facility] [address] [place] [address] Dr. Mehnaz Dubon VITAMIN D 25 OHon 02-03-2022 VIT D 25-OH 44.8 ng/mL Normal [facility] Comment on above: Performed By: #### F ERR, VITAD, FETIBC, B12FOL #### [facility] [address] [address] [address] Mehnaz Dubon VIT D RANGES SEE BELOW Normal [facility] Comment on above: Result Comment: <20 ng/mL Vit D deficient 20 - <30 ng/mL Vit D insufficient 30 - 100 ng/mL Vit D sufficient >100 ng/mL Potential Toxicity Performed By: #### F ERR, VITAD, FETIBC, B12FOL #### [facility] [address] [address] [address] Mehnaz Dubon ALP ALT Norma 12-30-2021 ALP [Catalytic activity/Vol] 139 U/L High 32-126 [facility] Comment on above: Performed By: #### C OMP, ENZ3, CRP, BCR #### [facility] (DEFAULT) [address] [place] [address] ALT [Catalytic activity/Vol] 35 U/L Normal 9-48 [facility] Comment on above: Performed By: #### C OMP, ENZ3, CRP, BCR #### [facility] (DEFAULT) [address] [place] [address] AST [Catalytic activity/Vol] 51 U/L High 10-39 [facility] Comment on above: Performed By: #### C OMP, ENZ3, CRP, BCR #### [facility] (DEFAULT) [address] [place] [address] BUN CREAon 12-30-2021 Creatinine [Mass/Vol] 0.53 mg/dL Normal 0.50-1.20 [facility] Comment on above: Performed By: #### C OMP, ENZ3, CRP, BCR #### [facility] (DEFAULT) [address] [place] [address]16 eGFR, CKD-EPI, Female >90 Normal >=60 [facility] Comment on above: Result Comment: Repo rted eGFR is based on the CKD-EPI 2020 equation using creatinine, age, and sex. Performed By: #### C OMP, ENZ3, CRP, BCR #### [facility] (DEFAULT[facility] [address] [place] [address]69 Urea nitrogen [Mass/Vol] 7 mg/dL Normal 7-25 [facility] Comment on above: Performed By: #### C OMP, ENZ3, CRP, BCR #### [facility] (DEFAULT) [address] [place] [address] Urea nitrogen/Creatinine [Mass ratio] 13 mg/mg Normal [facility] Comment on above: Performed By: #### C OMP, ENZ3, CRP, BCR #### [facility] (DEFAULT) [address] [place] [address] C REACTIVE PROTEINon 022 CRP [Mass/Vol] 4.61 mg/L Normal <10.00 [facility] Comment on above: Performed By: #### C OMP, ENZ3, CRP, BCR #### [facility] (DEFAULT) [address] [place] [address]756 C3,C4on 12-30-2021 C3 129 mg/dL Normal 87-200 [facility] Comment on above: Performed By: #### C OMP, ENZ3, CRP, BCR #### [facility] (DEFAULT) [address] [place] [address] C4 25 mg/dL Normal 18-52 [facility] Comment on above: Performed By: #### C OMP, ENZ3, CRP, BCR #### [facility] (DEFAULT) [address] [place] [address] CBC AND ELECTRONIC DIFFon Basophils (Bld) [#/Vol] 0.07 10*3/uL Normal 0.00-0.15 [facility] Comment on above: Performed By: #### L AB980 #### [facility] (DEFAULT) [address] [place] [address]23 Basophils/100 WBC (Bld) 1.2 % Normal [facility] Comment on above: Performed By: #### L AB980 #### [facility] (DEFAULT) [address] [place] [address]32 DIFF STATUS Electronic Differential Normal [facility] Comment on above: Performed By: #### L AB980 #### [facility] (DEFAULT) [address] [place] [address] Eosinophils (Bld) [#/Vol] 0.18 10*3/uL Normal 0.00-0.42 [facility] Comment on above: Performed By: #### L AB980 #### [facility] (DEFAULT) [address] [place] [address]90 Eosinophils/100 WBC (Bld) 3.1 % Normal [facility] Comment on above: Performed By: #### L AB980 #### [facility] (DEFAULT) [address] [place] [address]46 Hematocrit (Bld) [Volume fraction] 43.9 % Normal 34.9-44.3 [facility] Comment on above: Performed By: #### L AB980 #### [facility] (DEFAULT) [address] [place] [address]31 Hemoglobin (Bld) [Mass/Vol] 14.2 g/dL Normal 11.4-15.2 [facility] Comment on above: Performed By: #### L AB980 #### [facility] (DEFAULT) [address] [address] Immature Grans % 0.3 % Normal [facility] Comment on above: Performed By: #### L AB980 #### [facility] (DEFAULT) [address] [place] [address] Immature Grans Absolute <0.04 Normal <=0.08 [facility] Comment on above: Performed By: #### L AB980 #### [facility] (DEFAULT) [address] [place] [address]13 Lymphocytes (Bld) [#/Vol] 1.05 10*3/uL Low 1.16-3.51 [facility] Comment on above: Performed By: #### L AB980 #### [facility] (DEFAULT) [address] [place] [address] 01616 Lymphocytes/100 WBC (Bld) 17.9 % Normal [facility] Comment on above: Performed By: #### L AB980 #### [facility] (DEFAULT) [address] [place] [address]1449 MCV (RBC) [Entitic vol] 93.6 fL Normal 79.6-97.7 [facility] Comment on above: Performed By: #### L AB980 #### [facility] (DEFAULT) [address] [place] [address] 70088 Mean Cell Hgb 30.3 pg Normal 25.9-33.9 [facility] Comment on above: Performed By: #### L AB980 #### [facility] (DEFAULT) [address] [place] [address] 74526 Mean Cell Hgb Conc 32.3 g/dL Normal 31.4-35.9 [facility] Comment on above: Performed By: #### L AB980 #### [facility] (DEFAULT) [address] [place] [address]9822 Monocytes (Bld) [#/Vol] 0.50 10*3/uL Normal 0.22-0.87 [facility] Comment on above: Performed By: #### L AB980 #### [facility] (DEFAULT) [address] [place] [address] Monocytes/100 WBC (Bld) 8.5 % Normal [facility] Comment on above: Performed By: #### L AB980 #### [facility] (DEFAULT) [address] [address] Nucleated RBC 0.0 /100 WBC Normal <=0.2 [facility] Comment on above: Performed By: #### L AB980 #### [facility] (DEFAULT) [address] [place] [address]3615 Platelet mean volume (Bld) [Entitic vol] 11.4 fL Normal 8.5-12.2 [facility] Comment on above: Performed By: #### L AB980 #### [facility] (DEFAULT) [address] [place] [address] 45693 Platelets (Bld) [#/Vol] 167 10*3/uL Normal 150-393 [facility] Comment on above: Performed By: #### L AB980 #### [facility] (DEFAULT) [address] [place] [address] 79356 RBC (Bld) [#/Vol] 4.69 10*6/uL Normal 3.91-5.04 [facility] Comment on above: Performed By: #### L AB980 #### [facility] (DEFAULT) [address] [place] [address] 26311 RBC Distribution 13.0 % Normal 10.8-14.9 [facility] Comment on above: Performed By: #### L AB980 #### [facility] (DEFAULT) [address] [place] [address] 78993 Segs + Bands Auto 69.0 % Normal [facility] Comment on above: Performed By: #### L AB980 #### [facility] (DEFAULT) [address] [place] [address] 0[address]30 Segs + Bands,Absolute Auto 4.05 K/uL Normal 1.64-7.28 [facility] Comment on above: Performed By: #### L AB980 #### [facility] (DEFAULT) [address] [place] [address] 14576 WBC (Bld) [#/Vol] 5.87 10*3/uL Normal 3.99-11.19 [facility] Comment on above: Performed By: #### L AB980 #### [facility] (DEFAULT) [address] [place] [address] 43350 DSDNA ANTIBODYon 12-30-2021 dsDNA Antibody Negative Normal Negative [facility] Comment on above: Performed By: #### D SDNAB #### [facility] (DEFAULT) [address] [place] [address] 98513 SEDIMENTATION RATE, AUTOMATE Don 12-30-2021 ESR Westergren 12 mm/hr Normal <30 [facility] Comment on above: Performed By: #### E SR #### [facility] (DEFAULT) [address] [place] [address] 81549 URINALYSISon 12-30-2021 Amorphous >51% = Heavy Abnormal (none) [facility] Comment on above: Performed By: #### U RIN #### [facility] (DEFAULT) [address] [place] [address] 51077 Appearance (U) Turbid Abnormal Clear [facility] Comment on above: Performed By: #### U RIN #### [facility] (DEFAULT) [address] [place] [address] 84832 Bacteria ABSENT Normal ABSENT [facility] Comment on above: Performed By: #### U RIN #### [facility] (DEFAULT) [address] [place] [address] 88614 Blood Urine Negative Normal Negative [facility] Comment on above: Performed By: #### U RIN #### [facility] (DEFAULT) [address] [place] [address] 71374 Calcium Oxalate Crystals PRESENT Normal [facility] Comment on above: Performed By: #### U RIN #### [facility] (DEFAULT) [address] [place] [address] 54561 Color (U) Yellow Normal Yellow [facility] Comment on above: Performed By: #### U RIN #### [facility] (DEFAULT) [address] [place] [address] 29074 Glucose Ql (U) Negative Normal Negative [facility] Comment on above: Performed By: #### U RIN #### [facility] (DEFAULT) [address] [place] [address] 95827 Ketones Ql (U) 15 mg/dL = Small Abnormal Negative [facility] Comment on above: Performed By: #### U RIN #### [facility] (DEFAULT) [address] [place] [address] 20856 Leukocyte esterase Test strip Ql (U) Negative Normal Negative [facility] Comment on above: Performed By: #### U RIN #### [facility] (DEFAULT) [address] [place] [address] 77689 Nitrites Urine Negative Normal Negative [facility] Comment on above: Performed By: #### U RIN #### [facility] (DEFAULT) [address] [place] [address] 06438 pH (U) 6.0 [pH] Normal 5.0-7.0 [facility] Comment on above: Performed By: #### U RIN #### [facility] (DEFAULT) [address] [place] [address] 81118 Protein Urine 30 mg/dL Abnormal Negative [facility] Comment on above: Performed By: #### U RIN #### [facility] (DEFAULT) [address] [place] [address] 16651 RBC Urine 0-2 Normal 0-2 [facility] Comment on above: Performed By: #### U RIN #### [facility] (DEFAULT) [address] [place] [address] Specific [place] Urine >=1.030 Normal 1.001-1.035 O [facility] Comment on above: Performed By: #### U RIN #### [facility] (DEFAULT) [address] [place] [address]13 Squamous/Epithelial Cells 1/hpf = 1+ Normal 1/hpf = 1+, 2-5/hpf = 2+, 0/hpf = 0+, ABSENT [facility] Comment on above: Performed By: #### U RIN #### U [facility] (DEFAULT) [address] [place] [address]44 Urobilinogen Urine 0.2 E.U./dL Normal 0.2 E.U/d L, 1.0 E.U/dL [facility] Comment on above: Performed By: #### U RIN #### [facility] (DEFAULT) [address] [place] [address]39 WBC Urine 0-5 Normal 0-5 [facility] Comment on above: Performed By: #### U RIN #### [facility] (DEFAULT) [address] [place] [address] Vital Signs Date Time Vital Sign Value Performing Clinician Edvin landers 05-28-2022 09:01-0500 Body height 165.1 cm MD Yunior Masterson Work Phone: [facility] 05-28-2022 09:01-0500 Body mass index (BMI) [Ratio] 23.9 kg/m2 MD Yunior Masterson Work Phone: [facility] 05-28-2022 09:01-0500 Body weight 65.31 kg MD Yunior Masterson Work Phone: [facility] 05-28-2022 08:50-0500 Body temperature 97.5 [degF] MD Yunior Masterson Work Phone: [facility] 05-28-2022 08:50-0500 Diastolic blood pressure 87 mm[Hg] MD Yunior Masterson Work Phone: [facility] 05-28-2022 08:50-0500 Heart rate 85 /min MD Yunior Masterson Work Phone: [facility] 05-28-2022 08:50-0500 Respiratory rate 20 /min MD Yunior Masterson Work Phone: [facility] 05-28-2022 08:50-0500 Systolic blood pressure 133 mm[Hg] MD Yunior Masterson Work Phone: [facility] 05-14-2022 13:39-0500 Body height 165.1 cm MD Yunior Masterson Work Phone: [facility] 05-14-2022 13:39-0500 Body mass index (BMI) [Ratio] 23.9 kg/m2 MD Yunior Masterson Work Phone: [facility] 05-14-2022 13:39-0500 Body weight 65.31 kg MD Yunior Masterson Work Phone: [facility] 05-14-2022 13:31-0500 Body temperature 97.2 [degF] MD Yunior Masterson Work Phone: [facility] 05-14-2022 13:31-0500 Diastolic blood pressure 85 mm[Hg] MD Yunior Masterson Work Phone: [facility] 05-14-2022 13:31-0500 Heart rate 109 /min MD Yunior Masterson Work Phone: [facility] 05-14-2022 13:31-0500 Respiratory rate 18 /min MD Yunior Masterson Work Phone: [facility] 05-14-2022 13:31-0500 Systolic blood pressure 128 mm[Hg] MD Yunior Masterson Work Phone: [facility] 04-15-2022 11:26-0500 Body height 165.1 cm MD Yunior Masterson Work Phone: [facility] 04-15-2022 11:26-0500 Body mass index (BMI) [Ratio] 23.9 kg/m2 MD Yunior Masterson Work Phone: [facility] 04-15-2022 11:26-0500 Body weight 65.31 kg MD Yunior Masterson Work Phone: [facility] 04-15-2022 11:10-0500 Body temperature 97.2 [degF] MD Yunior Masterson Work Phone: [facility] 04-15-2022 11:10-0500 Diastolic blood pressure 70 mm[Hg] MD Yunior Masterson Work Phone: [facility] 04-15-2022 11:10-0500 Heart rate 76 /min MD Yunior Masterson Work Phone: [facility] 04-15-2022 11:10-0500 Respiratory rate 18 /min MD Yunior Masterson Work Phone: [facility] 04-15-2022 11:10-0500 Systolic blood pressure 138 mm[Hg] MD Yunior Masterson Work Phone: [facility] 03-03-2022 08:00-0400 Body temperature 98.3 [degF] MD Yunior Masterson Work Phone: [facility] 03-03-2022 08:00-0400 Diastolic blood pressure 56 mm[Hg] MD Yunior Masterson Work Phone: [facility] 03-03-2022 08:00-0400 Heart rate 97 /min MD Yunior Masterson Work Phone: [facility] 03-03-2022 08:00-0400 Respiratory rate 16 /min MD Yunior Masterson Work Phone: [facility] 03-03-2022 08:00-0400 SaO2% (BldA) [Mass fraction] 98 % MD Yunior Masterson Work Phone: [facility] 03-03-2022 08:00-0400 Systolic blood pressure 99 mm[Hg] MD Yunior Masterson Work Phone: [facility] 03-01-2022 15:05-0400 Body height 162.56 cm MD Yunior Masterson Work Phone: [facility] 03-01-2022 15:05-0400 Body mass index (BMI) [Ratio] 25.7 kg/m2 MD Yunior Masterson Work Phone: [facility] 03-01-2022 15:05-0400 Body weight 67.9 kg MD Yunior Masterson Work Phone: [facility] 03-01-2022 14:50-0400 Inhaled oxygen flow rate 2 L/min MD Yunior Masterson Work Phone: [facility] 12-30-2021 10:17-0400 Body height 165.1 cm Cezar Valentin DO Work Phone: [facility] 12-30-2021 10:17-0400 Body mass index (BMI) [Ratio] 24.66 kg/m2 Cezar Reisner DO Work Phone: [facility] 12-30-2021 10:17-0400 Body weight 67.22 kg Cezar Reisner DO Work Phone: [facility] 12-30-2021 10:17-0400 Diastolic blood pressure 68 mm[Hg] Cezar Reisner DO Work Phone: [facility] 12-30-2021 10:17-0400 Heart rate 85 /min Cezar Reisner DO Work Phone: [facility] 12-30-2021 10:17-0400 Respiratory rate 16 /min Cezar Reisner DO Work Phone: [facility] 12-30-2021 10:17-0400 SaO2% (BldA) [Mass fraction] 94 % Cezar Reisner DO Work Phone: [facility] 12-30-2021 10:17-0400 Systolic blood pressure 116 mm[Hg] Cezar Reisner DO Work Phone: [facility] Encounters Encounter Date Encounter Type Care Provider Facility Start: 10-30-2022 End: 10-30-2022 ambulatory Roberth Kowalski Other [facility] Other Start: 10-30-2022 Telephone encounter Roberth Kowalski [facility] Start: 10-27-2022 End: 10-27-2022 ambulatory Roberth Kowalski Other [facility] Other Start: 10-27-2022 Office outpatient ne w 45 minutes Roberth Kowalski [facility] Start: 10-23-2022 End: 10-23-2022 ambulatory Aquiles Pedro II Other [facility] Other Start: 10-23-2022 Office outpatient vi sit 25 minutes Aquiles [place] II [facility] Start: 09-24-2022 End: 09-24-2022 ambulatory Aquiles M Pedro II Facility:[facility] Start: 09-24-2022 End: 09-24-2022 ambulatory MD Yunior Masterson Work Phone: [facility] Work Phone: Start: 09-24-2022 End: 09-24-2022 Patient encounter procedure MD Yunior Masterson Work Phone: [facility] Start: 06-25-2022 Office outpatient vi sit 25 minutes Aquiles [place] II [facility] Start: 06-25-2022 End: 06-25-2022 ambulatory Aquiles Huang [place] II Facility:[facility] Start: 06-25-2022 End: 06-25-2022 ambulatory MD Yunior Masterson Work Phone: [facility] Work Phone: Start: 06-25-2022 End: 06-25-2022 Patient encounter procedure MD Yunior Masterson Work Phone: [facility] Start: 05-28-2022 End: 05-28-2022 ambulatory Beverly Torres Facility:[facility] Start: 05-28-2022 End: 05-28-2022 Discharged Recurring MD Yunior Masterson Work Phone: [facility] Work Phone: Start: 05-15-[address] YUNIOR MASTERSON . Facili ty:[facility] Start: 05-14-2022 Office outpatient vi sit 25 minutes Aquiles [place] II [facility] Start: 05-14-2022 Registered Recurring MD Lan Masterson Work Phone: [facility] Work Phone: Start: 05-14-2022 End: 05-14-2022 ambulatory Aquiles M Pedro II Facility:[facility] Start: 05-14-2022 End: 05-14-2022 ambulatory MD Yunior Masterson Work Phone: [facility] Work Phone: Start: 05-14-2022 End: 05-14-2022 Patient encounter procedure MD Yunior Masterson Work Phone: [facility] Start: 05-11-2022 End: 05-30-2022 ambulatory AQUILES PEDRO Facility:[facility] Start: 04-16-2022 End: 05-10-2022 ambulatory AQUILES PEDRO Facility:[facility] Start: 04-16-2022 Office outpatient vi sit 25 minutes Aquiles Pedro II [facility] Start: 04-16-2022 End: 04-16-2022 ambulatory Aquiles M [place] II Facility:[facility] Start: 04-16-2022 End: 04-16-2022 ambulatory MD Yunior Masterson Work Phone: [facility] Work Phone: Start: 04-16-2022 End: 04-16-2022 Patient encounter procedure MD Yunior Masterson Work Phone: [facility] Start: 04-15-2022 Registered Recurring MD Lan Masterson Work Phone: [facility] [place] Start: 04-09-2022 Encounter for genera l adult medical examination without abnormal findings DR YUNIOR MASTERSON . [facility] Start: 04-04-2022 End: 04-05-[address] YUNIOR MASTERSON . Facility:[facility] Start: 04-04-2022 End: 04-05-2022 Encounter for general adult medical examination without abnormal findings DR YUNIOR MASTERSON . Facility:[facility] Start: 03-19-2022 End: 03-19-2022 ambulatory Aquiles [place] II Other [facility] Other Start: 03-19-2022 Office outpatient vi sit 15 minutes Aquiles Pedro TREVIZO [facility] Start: 03-13-2022 End: 03-13-2022 ambulatory Aquiles Vasquez II Other [facility] Other Start: 03-13-2022 Telephone encounter Aquiles Vasquez II [facility] Start: 03-09-2022 End: 03-10-[address] YUNIOR MASTERSON . Facility:[facility] Start: 03-03-2022 End: 03-03-2022 ambulatory Aquiles Vasquez II Other [facility] Other Start: 03-03-2022 Telephone encounter Aquiles Pedro TREVIZO [facility] Start: 03-01-2022 End: 03-03-2022 Evaluation and management of inpatient Louann Camara Facility:[facility] Start: 03-01-2022 End: 03-03-2022 Evaluation and management of inpatient MD Yunior Masterson Work Phone: [facility] Start: 02-28-2022 End: 03-01-[address] YUNIOR MASTERSON . Facility:[facility] Start: 02-03-2022 End: 02-04-[address] DOCTOR MOSS Facility:[facility] Start: 12-30-2021 ambulatory YUNIOR MASTERSON Facility: [facility] Start: 12-30-2021 ambulatory YUNIOR MASTERSON Facility: [facility] Start: 12-30-2021 End: 12-30-2021 Office outpatient visit 25 minutes Cezar Valentin DO Work Phone: [facility] [place] Comment on above: Rheumatoid arthritis involving both hands with positive rheumatoid factor (Primary Dx); Diarrhea, unspecified type Start: 11-04-2021 ambulatory YUNIOR MASTERSON Facility: [facility] Start: 06-24-2021 ambulatory YUNIOR MASTERSON Facility: [facility] Start: 03-11-2021 ambulatory YUNIOR MASTERSON Facility: [facility] Procedures Date Procedure Procedure Detail [...] 04/14/2022 Office Visit Rheumatology Cezar Valentin DO [address] [place] [address] [facility] [place] Start: 03-02-2022 [facility] Start: 03-01-2022 Hospital admission [facility] Start: 03-01-2022 Insertion of Intramedullary Internal Fixation Device into Left Tibia, Percutaneous Approach Insertion of Intramedullary Internal Fixation Device into Left Tibia, Percutaneous Approach [facility] Start: 03-01-2022 Referral to clinical charge master specialist [facility] Start: 03-01-2022 Plain X-ray of left tibia and left fibula XR tibia fibula LT 2V* [facility] Start: 03-01-2022 XR Tibia and Fibula - left 2 Views [facility] Start: 01-09-2022 Influenza vaccination INFLUENZA VACC INE (#1) [facility] Start: 12-30-2021 End: 12-30-2022 Bone density scan BONE DENSITY AXIAL (HIP, PELVIS, SPINE) Imaging Routine Rheumatoid arthritis involving both hands with positive rheumatoid factor Expected: 12/30/2021, Expires: 12/30/2022 [facility] Comment on above: Expected: 12/30/2021 , Expires: 12/30/2022 Start: 12-30-2021 End: 12-30-2022 Urinalysis URINALYSIS Fluids Routine Rheumatoid arthritis involving both hands with positive rheumatoid factor Expected: 12/30/2021, Expires: 12/30/2022 [facility] Comment on above: Expected: 12/30/2021 , Expires: 12/30/2022 Start: 07-11-2021 COVID-19 VACCINE (4 - Booster for Pfizer series) COVID-19 VACCINE (4 - Booster for Pfizer series) [facility] Start: 07-05-2020 Thyroid stimulating hormone measurement TSH [facility] Start: 2018 Zoster vaccine hzv l anny for subcutaneous use ZOSTER (SHINGLES) VACCINE (1 of 2) [facility] Start: 06-12-2017 Fasting lipid profile LIPID SCREENIN G [facility] Start: 2013 Colonoscopy COLORECTAL CAN CER SCREENING DISCUSSION [facility] Start: 2008 Screening mammography MAMMOGRA M SCREENING DISCUSSION [facility] Start: 1989 Screening for malign ant neoplasm of cervix CERVICAL CANCER SCREENING DISCUSSION [facility] Start: 09-12-1987 Third diphtheria, tetanus and acellular pertussis (DTaP) vaccination TDAP (ADULT) [facility] Start: 1986 Tetanus vaccination TETANUS [facility] Start: 09-12-1983 HIV screening HIV SCREENING DISCUSSION [facility] End: 12-30-2022 BUN CREA BUN CREA Lab Routine Rheumatoid arthritis involving both hands with positive rheumatoid factor every 90 days for 8 Occurrences starting 12/30/2021 until 12/30/2022 [facility] Work Phone: Comment on above: every 90 days for 8 Occurrences starting 12/30/2021 until 12/30/2022 End: 12-30-2022 Complete blood count with white cell differential, automated CBC, EDIF, PLATELET Lab Routine Rheumatoid arthritis involving both hands with positive rheumatoid factor 90 days for 8 Occurrences starting 12/30/2021 until 12/30/2022 [facility] Comment on above: 90 days for 8 Occurr ences starting 12/30/2021 until 12/30/2022 Patient referral [facility] Work Phone: Immunizations Immunization Date Immunization Notes Care Provider Fa [facility] 03-07-2020 influenza virus vaccine, unspecified formulation Cezar Valentin DO Work Phone: [facility] 12-28-2015 hepatitis B vaccine, adult dosage Cezar Valentin DO Work Phone: [facility] Payers Date Payer Category Payer Medicare [id number] 2022 Self-pay 2022 Unknown [id number] [address] [facility] [id number] 2019-Present [phone] [address] [address] [place] [address] [id number] 1970 Unknown [id number] [id number] 94 1968 Unknown [id number] 2.0.1.473514.3.579.2.5 94 1968 Unknown [id number] 2.840.1.918726.3.579.2.5 94 1968 Unknown [id number] 2.16840.1.121410.3.579.2.5 94 1968 Unknown [id number] 2.840.1.788355.3.579.2.5 94 1968 Unknown [id number] 2.16.840.1.911353.3.579.2.5 93 1968 Unknown [id number] 2.16.840.1.507029.3.579.2.5 93 1968 Unknown [id number] 2.16.840.1.853404.3.579.2.5 93 1968 Unknown [id number] 2.16.840.1.296607.3.579.2.5 93 1968 Unknown [id number] 2.16.840.1.609467.3.579.2.5 1968 Unknown [id number] 2.16.840.1.683465.3.579.2.5 1968 Unknown [id number] 2.16.840.1.642078.3.579.2.5 1959 Self-pay [id number] 1959 Unknown [id number] [place] [facility] [id number] Unknown [id number] Unknown [id number] 2.16.840.1.036383.19 Unknown [id number] 2.16.840.1.781233.3.579.2.5 31 Unknown [id number] 2.16.840.1.497538.3.579.2.5 31 Unknown [id number] 2.16.840.1.386242.3.579.2.5 31 Unknown [id number] 2.16.840.1.409542.3.579.2.5 31 Unknown [id number] 2.16.840.1.321197.3.579.2.5 31 Unknown [id number] 2.16.840.1.745432.3.579.2.5 31 Social History Date Type Detail Facility Start: 07-05-2019 End: 05-28-2022 Tobacco smoking status CTIS Never smoked tobacco [facility] Start: 07-05-2019 Tobacco use and exposure Smokeless tobacco non-user [facility] Start: 12-30-2021 Alcohol intake Current drinke r of alcohol (finding) [facility] Start: 12-30-2021 Alcohol intake [facility] Start: 12-15-2017 History SDOH Alcohol Comment weekly [facility] Start: 1970 Sex Assigned At Not on file [facility] Start: 03-01-2022 Tobacco smoking status CTIS Ex-smoker (finding) [facility] Start: 1970 Sex Assigned At Female F [facility] Sex Assigned At Sex Assigned At [facility] Other Medical Equipment Procedure Code Equipment Code Equipment Origin al Text Equipment Identifier Dates Open reduction and internal fixation (ORIF) of fracture of tibia and fibula using int Orthopaedic bone screw, non-bioabsorbable, non-sterile ()[id number] FDA Start: 03-01-2022 Open reduction and internal fixation (ORIF) of fracture of tibia and fibula using int Orthopaedic bone screw, non-bioabsorbable, non-sterile ()[id number] FDA Start: 03-01-2022 Open reduction and internal fixation (ORIF) of fracture of tibia and fibula using int Orthopaedic bone screw, non-bioabsorbable, non-sterile ()[id number] FDA Start: 03-01-2022 Open reduction and internal fixation (ORIF) of fracture of tibia and fibula using int Tibia nail, sterile ()[id number] FDA Start: 03-01-2022 Goals Date Patient Goal Desired Activity /State Functional Status Date Assessment Result Facility 03-03-2022 Functional status Patient is Pro gressing Toward [facility] Work Phone: Mental Status Date Assessment Result Facility 03-03-2022 Cognitive function Cognitive Sta tus Patient at Baseline [facility] Work Phone: Clinical Notes 12-30-2021 to 10-30-2022 [...] Above note written by Gerard Rodriguez LPN, Physician. Edited and approved by Dr. Roberth Kowalski MD. [facility] Other 06-19-2023 Evaluation note* Encounter Date Diagnosis [...] Above note written by Gerard Rodriguez LPN, Physician. Edited and approved by Dr. Roberth Kowalski [...] negative findings were considered in medical decision-making. [facility] Other 06-15-2023 Evaluation note* Encounter Date Diagnosis Assessment Notes Treatment Notes Treatment Clinical Notes Oct, Closed displaced comminuted fracture of shaft of left tibia, initial encounter (ICD-10 - S82.252A) Oct, Strain of left calf muscle (ICD-10 - S86.812A) Oct, Closed fracture of shaft of left fibula, unspecified fracture morphology, initial encounter (ICD-10 - S82.402A) Oct, Other [facility] [place] suprapate llar tibial IMN 03/01/2022 We [...] after that block to discuss its results. [facility] Other 02-15-2023 Evaluation note* Encounter Date Diagnosis Assessment Notes Treatment Notes Treatment Clinical Notes Jun, Closed displaced comminuted fracture of shaft of left tibia, initial encounter (ICD-10 - S82.252A) Jun, Strain of left calf muscle (ICD-10 - S86.812A) Jun, Closed fracture of shaft of left fibula, unspecified fracture morphology, initial encounter (ICD-10 - S82.402A) Jun, Other [facility] [place] suprapate llar tibial IMN 03/01/2022 Overall [...] set of x-rays to assess for healing. [facility] Other 01-04-2023 Evaluation note* Encounter Date Diagnosis [...] 4 to 6 weeks with repeat x-rays. [facility] Other 12-07-2022 Evaluation note* Encounter Date Diagnosis Assessment Notes Treatment Notes Treatment Clinical Notes Apr, Closed displaced comminuted fracture of shaft of left tibia, initial encounter (ICD-10 - S82.252A) Apr, Closed fracture of shaft of left fibula, unspecified fracture morphology, initial encounter (ICD-10 - S82.402A) Apr, Other [facility] [place] R tibial intramedullary nail 03/01/2022 Overall patient [...] off longer. 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 I will plan to see her back in 6 weeks with repeat tibial x-rays. [facility] Other 11-09-2022 Evaluation note* Encounter Date Diagnosis Assessment Notes Treatment Notes Treatment Clinical Notes Mar, Closed displaced comminuted fracture of shaft of left tibia, initial encounter (ICD-10 - S82.252A) Mar, Closed fracture of shaft of left fibula, unspecified fracture morphology, initial encounter (ICD-10 - S82.402A) Mar, Other [facility] [place] R tibial IM N 03/01/22 Overall I [...] she will give us a call sooner. [facility] Other 10-24-2022 Evaluation note* Encounter Date Diagnosis Assessment Notes Treatment Notes Treatment Clinical Notes Feb, Other specified postprocedural states (ICD-10 - Z98.890) [facility] Other 10-24-2022 Discharge summary Author Aquiles Vasquez [facility] March 03, 2022 7:18am Note Date/Time March 03, 2022 7 :18am [facility] [address] [place] [address] Discharge Summary Signed Patient: Christiane Ashley MR#: [id number] : 1970 Acct:[id number] Age/Sex: 51 / F Adm Date: 2 Loc: Room: [address] [place] [address]: Aquiles Vasquez II, MD Copies [...] above injury. She was initially evaluated at [place] emergency department. After complete trauma work-up and found to be an isolated injury to her left lower extremity, she was transferred to [facility] and accepted under orthopedic surgery. That same [...] Creatinine Clear 128.34, Sodium 140, Potassium 3.5, [id number], Carbon Dioxide 23.9, Anion Gap 12.6, BUN [...] % (Auto) 64.2, Lymph % (Auto) 25.7, Chambers % (Auto) 9.2, Eos % (Auto) 0.5, Baso % (Auto) 0.4, Neut # (Auto) 3.8, Lymph # (Auto) 1.5, Chambers # (Auto) 0.5, Eos # (Auto) 0.0, [...] release(DR/EC) 30 mg PO DAILY thyroid (pork) [Mckenna Thyroid] 90 mg tablet 90 mg PO DAILY.629 Label Comments: TAKE 1 TABLET BY MOUTH EVERY DAY WITH 120MG TABLET thyroid (pork) [Mckenna Thyroid] 120 mg tablet 120 mg PO [...] <Electronically signed by Aquiles Vasquez MD> 03/03/22717 [facility] Work Phone: 1(837) 802-233410-23-2022 Progress note Author Eb Gale [facility] March 02, 2022 9:23am Note Date/Time March 02, 2022 9 :23am [facility] [address] [place] [address] Hospitalist Progress Note Signed Patient: Christiane Ashley MR#: [id number] : 1970 Acct:[id number] Age/Sex: 51 / F Adm Date: 2 Loc: 4N Room: [address] [place] [address] Type: ADM IN Attending Dr: Aquiles Vasquze II, MD Copies to: ~ Date of [...] 30 Mg Capsule. PO 03/02/23 08:59 DAILY [facility] Enoxaparin Sodium 40 mg 03/02/22 10:00 Enoxaparin 40 Mg/0.4 Ml Syringe SUBCUT 03/02/23 09:59 DAILY@1000 [facility] Ferrous Sulfate 324 mg 03/01/22 17:00 03/01/22 [...] Lactated Ringers IV 03/01/23 14:59 Not Given .[id number] [facility] Leflunomide 20 mg 03/02/22 09:00 Leflunomide 20 Mg Tablet PO 03/02/23 08:59 DAILY [facility] Metoprolol Tartrate 25 mg 03/01/22 21:00 03/01/22 21:35 Metoprolol Tartrate 25 Mg Tablet PO 03/01/23 20:59 25 mg BID [facility] Administration Mineral Oil 1 each 03/04/22 14:50 Mineral Oil (Divide) 1 Each Enema TX ONCE PRN Constipation Multivitamins 1 tab 03/02/22 [...] (5) Hypothyroid: Plan: ? Continue home medications Mckenna Thyroid (6) Acute blood loss anemia: Plan: ? Her hemoglobin today was 9.5, on reports from [facility] where she was transferred that it [...] <Electronically signed by Eb Gale DO> 03/02/22922 [facility] Work Phone: 1(229) 486-149210-23-2022 Progress note Author Aquiles Vasquez [facility] March 02, 2022 6:34am Note Date/Time March 02, 2022 6 :34am [facility] [address] [place] [address] Orthopedic Progress Note Signed Patient: Christiane Ashley MR#: [id number] : 1970 Acct:[id number] Age/Sex: 51 / F Adm Date: 2 Loc: 4N Room: [address] [place] [address] Type: ADM IN Attending Dr: Aquiles Vasquez [...] % (Auto) 86.7 Lymph % (Auto) 5.6 Chambers % (Auto) 7.6 Eos % (Auto) 0.0 Baso % (Auto) 0.1 Neut # (Auto) 9.1 H Lymph # (Auto) 0.6 L Chambers # (Auto) 0.8 Eos # (Auto) 0.0 [...] signed by Aquiles Vasquez MD> 03/02/22 0634 [facility] Work Phone: 1(825) 213-882410-22-2022 History and physical note Author Aquiles Vasquez [facility] March 01, 2022 12:26pm Note Date/Time March 01, 2022 1 1:48am [facility] [address] [place] [address] Orthopedic Surgery H&P Signed Patient: Christiane Ashley MR#: [id number] : 1970 Acct:[id number] Age/Sex: 51 / F Adm Date: 2 Loc: Room: [address] [place] [address] Type: ADM IN Attending Dr: Aquiles Vasquez [...] in the deformity. She was seen at [place] emergency department and found to have a closed left tibia/fibula fracture. Per the emergency room physician and my conversation, her CT head, face, C-spine were all negative and this was an isolated injury. I was told that she had hypertension, rheumatoid arthritis, and lupus that were all well controlled. As a result, I recommended admit to [facility] hospitalist service and we would consult [...] last time was about a year ago. [facility] Social History Smoking Status: Former smoker Substance [...] Confirmed 03/01/22] thyroid (pork) 120 mg tablet (Mckenna Thyroid) 120 mg PO DAILY.62903/01/22 [History Confirmed 03/01/22] thyroid (pork) 90 mg tablet (Mckenna Thyroid) 90 mg PO DAILY.62903/01/22 [History Confirmed [...] head, face, and C-spine were obtained at [place]. I have not seen the physical reports. [...] signed by Aquiles Vasquez MD> 03/01/22 1226 [facility] Work Phone: 1(552) 160-299810-22-2022 Consult note Author Eb Gale [facility] March 01, 2022 11:50am Note Date/Time March 01, 2022 1 1:38am [facility] [address] [place] [address] Hospitalist Consult Note Signed Patient: Christiane Ashley MR#: [id number] : 1970 Acct:[id number] Age/Sex: 51 / F Adm Date: 2 Loc: Room: [address] [place] [address] Type: ADM IN Attending Dr: Aquiles Vasquez [...] tibia fracture from it. She went to [facility] and was subsequently transferred here accepted by orthopedic surgery for planned surgical intervention today. She does have history notable for rheumatoid arthritis and lupus, she has been on hydroxychloroquine, leflunomide, and duloxetine for years , on routine EKG her QT was noted to be 517, she recently saw her doctors in [place] roughly 2 months ago and had an [...] Confirmed 03/01/22] thyroid (pork) 120 mg tablet (Mckenna Thyroid) 120 mg PO DAILY.62903/01/22 [History Confirmed 03/01/22] thyroid (pork) 90 mg tablet (Mckenna Thyroid) 90 mg PO DAILY.62903/01/22 [History Confirmed [...] 25 Mg Tablet PO 03/01/23 20:59 BID [facility] Non-Formulary Medication 90 mg 03/02/22 06:30 Thyroid (Pork) [Mckenna Thyroid] PO 03/02/23 06:29 DAILY.0630 [facility] Non-Formulary Medication 120 mg 03/02/22 06:30 Thyroid (Pork) [Mckenna Thyroid] PO 03/02/23 06:29 DAILY.0630 [facility] Non-Formulary [...] (5) Hypothyroid: Plan: ? Continue home medications [facility]ckenna Thyroid Documented By: Eb Gale DO 03/01/22 1136 Signed By: <Electronically signed by Eb Gale DO> 03/01/22 1157 [facility] Work Phone: 1(527) 564-412510-21-2022 NotePROCEDURE: XR TIB_FIB LT 2V HISTORY: Pain [...] Electronically authenticated by: MARU ANGEL Date: 2022-02-28 21:26[facility]08-22-2022 History of Present illness Narrative* Cezar Valentin DO - 12/30/2021 10:40 AM EDT I saw with Christiane Ashley Dr. Valentin. I performed my own history and exam. We developed the plan together. I agree with the note documented by Dr. Valentin. She complained of chronic lower back pain and symptoms did not improve with weight loss surgery. She was following up with operations staff specialist security. Reported symptoms of chronic diarrhea up to [...] were ordered on 12/30/2021 Annabel Null DO [employer] human resources director Division of Immunology/Rheumatology Department of Internal Medicine [address] [address] I have had the pleasure of seeing . 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 Patient was seen and discussed with attending army ranger, Dr. Null. Cezar Valentin DO Rheumatology fellow [facility] Instructions* Patient Instructions* Cezar Valentin DO - 12/30/2021 10:40 AM EDT We will decrease the leflunomide to 10mg daily. Get labs today. Please follow up in 3 months. I will order a DEXA scan to check for osteoporosis which should be done every 2 years. [facility] Diagnosis Rheumatoid arthritis involving both hands with positive rheumatoid factor- Primary Diarrhea, unspecified type [facility] Diagnosis Onset Date Resolution Status Acute blood loss anemia acut e Closed fracture of left tibia and fibula acute Hypothyroid acute Long QT interval acute Lupus acute Rheumatoid arthritis acute Tibia/fibula fracture, shaft acute [facility] Work Phone: Evaluation noteNo [employer] Other Evaluation note* Diagnosis Onset Date Resolution Status Acute blood loss anemia acut e Closed fracture of left tibia and fibula acute Long QT interval acute Hypothyroid chronic Lupus chronic Rheumatoid arthritis chronic Tibia/fibula fracture, shaft chronic 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 leg slinger sequins vale Fracture blister chronic Hypothyroid chronic Lupus chronic Rheumatoid arthritis chronic Tibia/fibula fracture, shaft chronic Wound pain chronic [facility] Work Phone: Evaluation note* Diagnosis Onset Date Resolution Status Acute blood loss anemia acut e Closed fracture of left tibia and fibula acute Long QT interval acute Hypothyroid chronic Lupus chronic Rheumatoid arthritis chronic Tibia/fibula fracture, shaft chronic 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 leg slinger sequins vale Fracture blister chronic Hypothyroid chronic Lupus chronic Rheumatoid arthritis chronic Tibia/fibula fracture, shaft chronic Wound pain resolved [facility] Work Phone: Evaluation note* Diagnosis Onset Date Resolution Status 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 leg slinger sequins vale Hypothyroid chronic Lupus chronic Rheumatoid arthritis chronic Tibia/fibula fracture, shaft chronic Fracture blister resolved Wound pain resolved [facility] Work Phone: Evaluation noteNo assessment information available [facility] Work Phone: Hospital Discharge instructions Additional Instructions Keep dressing dry and intact till see in office Non-weight bearing for 2 weeks till seen in office September shower, [facility] Work Phone: Reason for Referral Specialty Diagnoses / Procedures Referred By Lovely lewis Referred To Contact Diagnoses Rheumatoid arthritis involving both hands with positive rheumatoid factor Procedures BONE DENSITY AXIAL (HIP, PELVIS, SPINE) Annabel Null, DO [address] [place] [address] Referral ID Status Reason Start Date Expiration Date V isits Requested Visits Authorized [id number] New Request 12/30/2021 01/24/2023 1 1 Reason Please refer to woun d care for left calf fracture blister Diagnosis 1 Closed displaced com minuted fracture of shaft of left tibia, initial encounter (S82.252A) Referral Organization [facility] Referring Provider First Name Aquiles Referring Provider Last Name Pedro TREVZIO Referring Provider Specialty Orthopedic Surgery Referred Organization [facility] Referred Provider Beverly Torres Referred Address [address] [place], [place],[address] Referred Provider Specialty Nurse Rick fontanez Referral [...] Care Teams (unrecognized sec tion and content) Television Service Engineer Relationship Specialty Start Date End Date Yunior Masterson MD [address] [id number] PCP - General Family Medicine 06/11/12 Team [...] MD Other Provider Active Haley Kemp , TECHNOLOGY OFFICER Other Provider Active Lenora Hill , DO [...] MD Other Provider Active Cherelle Goyal , TRANSITION RN-C Other Provider Active Otoniel Rhodes MD Other Provider Active Justin Francisco MD Other Provider Active Alana Amos MD Other Provider Active Galen Jerez MD Other Provider Active Ksenia Ray , DO Other Provider Active Natalya Chilel MD Other Provider Active Shant Sinha , DO Other Provider Active Rd Lowe , DO Other Provider Active Dayanna Bobo TECHNOLOGY OFFICER Other Provider Active Eb Gale , DO [...] section and content) DATE CREATED AUTHOR 01/03/2022 [facility] DATE CREATED AUTHOR AUTHOR'S ORGANIZ ATION 09/13/2022 [facility] DATE CREATED AUTHOR AUTHOR'S ORGANIZ ATION 10/17/2022 [facility] Goals (unrecognized section and content) Goals [...] BE BASED ON THE PRIMARY CLINICAL RECORDS. [facility] [employer] [facility]. provides no warranty or guarantee of the accuracy or completeness of information in this document.
--- NOTE | 2024-04-09 21:55 | XR_ITS ---
The [address] [address] Patient Name: SHAHBAZ ASHLEY MRN: [id number] date: 1970 Sex: F Assigned Patient Location: ER Current Patient Location: ED.MAIN Accession/Order Number: [id number] Exam Date: 04/09/2024 22:18 Report Date: 04/09/2024 23:19 At the request of: DEVAN MYERS Procedure: XR chest 1V CXR HISTORY: Burning in her chest with chest pain unable take a deep breath COMPARISON: None. TECHNIQUE: 1 view of the chest submitted for review. FINDINGS: Lines and tubes: None Lungs are hyperaerated. Interstitial opacity in the infrahilar right lung. No effusion. The cardiac silhouette measures within normal. Pulmonary vascularity is unremarkable. Osseous structures are normal for age. XR/XR chest 1V IMPRESSION: Interstitial opacity infrahilar lung. Please correlate for viral etiology/bronchitis. Electronically authenticated by: JARON BOSTON Date: 04/09/2024 23:19
--- NOTE | 2024-04-09 21:55 | ECG_ITS ---
The [facility] Test Date: 2024-04-09 Pat Name: SHAHBAZ ASHELY Department: Room: - Gender: Female [employer]iner: : 1970 Requested By: YUNIOR MASTERSON Order Number: [id number] Reading MD: EZRA LORENZANA Measurements Intervals [place] Rate: 80 P: 52 IA: 136 QRS: 52 QRSD: 92 T: 44 QT: 396 QTc: 432 Interpretive Statements 1100 Sinus rhythm 9110 normal ECG Compared to ECG 03/09/2022 20:08:13 Short IA interval no longer present Electronically Signed On 04-10-2024 7:44:37 EST by EZRA LORENZANA
--- NOTE | 2024-04-09 22:02 | ED_ITS ---
HPI - Chest Pain General Chief Complaint: Chest Pain Stated Complaint: CHEST PAIN Time Seen by Provider: 04/09/24 21:44 Source: patient Mode of arrival: walk-in Limitations: no limitations History of Present Illness HPI narrative: Pt had thanksgiving brunch and dinner today. 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 It took my breath away . Without taking anything, the symptoms improved - cutting the pain from 9/10 to 4/10. She denied any history of GERD but takes protonix. No history of CAD or cardiac stenting. She has HTN and Thyroid disease. She previously had pericarditis - associated with her Lupus, she told me. Prior Hx of PE associated with left LE surgery. She had stenting of the left Ileofemoral vein and was on anticoagulation for several years. Related Data Home Medications ?Medication ?Instructions ?Recorded ?Confirmed duloxetine 60 mg capsule,delayed mg PO 04/09/24 release levothyroxine 100 mcg tablet mcg 04/09/24 liothyronine 5 mcg tablet mcg 04/09/24 metoprolol tartrate 25 mg tablet mg 04/09/24 pantoprazole 40 mg tablet,delayed mg PO 04/09/24 release simvastatin 20 mg tablet mg 04/09/24 Allergies Allergy/AdvReac Type Severity Reaction Status Date / Time guaifenesin (From Quibron) Allergy Unknown Unknown Verified 04/09/24 21:47 theophylline (From Quibron) Allergy Unknown Unknown Verified 04/09/24 21:47 rituximab Allergy Unknown Verified 04/09/24 21:47 [facility] Medical History (Updated 04/09/24 @ 22:58 by Jose Gibbs) Diabetes ?E11.9 - Type 2 diabetes mellitus without complications (ICD-10) Hypertension ?I10 - Essential (primary) hypertension (ICD-10) Hypothyroid ?E03.9 - Hypothyroidism, unspecified (ICD-10) Acute rheumatoid arthritis ?M06.9 - Rheumatoid arthritis, unspecified (ICD-10) Lupus Saddle pulmonary embolus (2007) ?I26.92 - Saddle embolus of pulmonary artery without acute cor pulmonale (ICD-10) Exam Narrative Exam Narrative: Nurses notes and vital signs reviewed and patient is not hypoxic. afebrile General: Well-appearing and in no apparent distress. Skin: Warm, dry, no pallor noted. No rash. Eye: Pupils are equal, round and EOMI. No scleral icterus. Ears, Nose, Mouth, and Throat: Oral mucosa is moist Cardiovascular: Regular Rate and Rhythm without murmur, gallop or rub. Respiratory: No accessory muscle use or respiratory distress. Lungs are clear to auscultation, no wheezing, rales or rhonchi Chest Wall: no tenderness, crepitus or subcutaneous emphysema Musculoskeletal: normal ROM, no calf or popliteal tenderness, no lower extremity edema/swelling GI: Abdomen is soft, non-distended. Normal bowel sounds. No masses appreciated. No tenderness to palpation. No rebound, guarding, or rigidity noted. Neurological: A&O x4. No cranial nerve dysfunction observed. No truncal ataxia. Moves all extremities. Sensation intact. Psychiatric: Cooperative and interactive. Normal mood and affect. Constitutional Vital Signs, click to edit/add: Last Vital Signs Pulse 81 04/09/24 23:10 Resp 17 04/09/24 23:10 BP 134/81 04/09/24 23:00 Pulse Ox 97 04/09/24 23:10 O2 Del Method Room Air 04/09/24 21:41 Course Vital Signs Vital signs: Vital Signs Pulse Rate 90 04/09/24 21:41 Respiratory Rate 18 04/09/24 21:41 Blood Pressure 142/100 H 04/09/24 21:41 Pulse Oximetry 99 04/09/24 21:41 Oxygen Delivery Method Room Air 04/09/24 21:41 Pulse Rate 81 04/09/24 23:10 Respiratory Rate 17 04/09/24 23:10 Blood Pressure 134/81 04/09/24 23:00 Pulse Oximetry 97 04/09/24 23:10 Oxygen Delivery Method Room Air 04/09/24 21:41 MDM - Chest Pain MDM Narrative Medical decision making narrative: Patient was placed on school lunch monitor and EKG obtained. Blood drawn and sent for evaluation. CXR obtained EKG normal. CXR unremarkable. BNP, troponin x2 and screening d-dimer were negative. CBC and BMP were unremarkable. HEART score = 2 recommendation is DC home with out-patient follow up after 2 negative troponins. She and I discussed her test results. Patient will see her PCP in the office for follow up Lab Data Attestation: I reviewed the patient's lab results. Labs: Lab Results 11/30/24 11/30/24 Range/Units 22:04 23:20 WBC 6.0 (4.0-11.0) 10^3/uL RBC 4.28 (4.20-5.40) 10^6/uL Hgb 11.8 L (12.0-16.0) g/dL Hct 38.1 (36.0-48.0) % MCV 89.0 (81.0-99.0) fL MCH 27.6 (26.7-34.0) pg MCHC 31.0 (29.9-35.2) g/dL RDW 15.4 H (11.0-15.0) % Plt Count 222 (150-450) 10^3/uL MPV 9.0 L (9.5-13.5) fL Neut % (Auto) 52.3 (43.0-75.0) % Lymph % (Auto) 36.8 (20.5-60.0) % [place] % (Auto) 8.0 (1.7-12.0) % Eos % (Auto) 1.7 (0.9-7.0) % Baso % (Auto) 1.0 (0.2-2.0) % Neut # (Auto) 3.2 (1.4-6.5) 10^3/uL Lymph # (Auto) 2.2 (1.2-3.8) 10^3/uL [place] # (Auto) 0.5 (0.3-0.8) 10^3/uL Eos # (Auto) 0.1 (0.0-0.7) 10^3/uL Baso # (Auto) 0.1 (0.0-0.1) 10^3/uL Abs Immat Gran (auto) 0.01 (0.00-0.03) 10^3/uL Imm/Tot Granulo (auto) 0.2 (0.0-0.5) % D-Dimer 0.52 (<=0.59) mg/L FEU Sodium 136 (136-145) mmol/L Potassium 3.6 (3.5-5.1) mmol/L Chloride 103 (98-107) mmol/L Carbon Dioxide 24.2 (21.0-32.0) mmol/L Anion Gap 12.4 BUN 7.0 (7.0-18.0) mg/dL Creatinine 0.65 (0.55-1.02) mg/dL Est GFR ( Amer) >60 (>=60 mL/min/1.73m^2) Est GFR (Non-Af Amer) >60 (>=60 mL/min/1.73m^2) BUN/Creatinine Ratio 10.8 Glucose 92 (74-106) mg/dL Calcium 8.6 (8.5-10.1) mg/dL Troponin I High Sens 5.2 6.7 (4.0-51.3) pg/mL NT-Pro-B Natriuret Pep 178.0 (<=900.0) pg/mL Imaging Data Chest x-ray: Attestation: I have reviewed the pertinent imaging results. My impression: NAD Radiologist's impression: ITS Impressions Chest X-Ray 04/09/24 21:55 IMPRESSION: Interstitial opacity infrahilar lung. Please correlate for viral etiology/bronchitis. Electronically authenticated by: JARON BOSTON Date: 04/09/2024 23:19 ECG Data Attestation: I personally reviewed and interpreted this ECG as follows: Interpretation: EKG interpretation: Emergency Department physician interpretation. Normal sinus rhythm at 80bpm. Normal axis, normal intervals and no ST segment elevation or depression. Normal EKG. Heart Score History: Slightly/Non-Suspicious ECG: Normal Age: >45-<65 years Risk Factors: 1 or 2 Risk Factors Troponin: <Normal Limit Total Heart Score Recommendations & Risks:: 2 Discharge Plan Discharge Chief Complaint: Chest Pain Clinical Impression: Chest pain Patient Disposition: Home, Self-Care Time of Disposition Decision: 00:00 Prescriptions / Home Meds: No Action liothyronine 5 mcg tablet levothyroxine 100 mcg tablet pantoprazole 40 mg tablet,delayed release (DR/EC) PO simvastatin 20 mg tablet metoprolol tartrate 25 mg tablet duloxetine 60 mg capsule,delayed release(DR/EC) PO Print Language: New Zealander Instructions: Chest Pain (ED) Referrals: Jose Alejandro Cm MD [Primary Care Provider] - 1 week
[2024-04-09 22:14] LABS: Basophils Absolute Auto 0.1 10^3/uL (0.0-0.1); Eosinophils Absolute Auto 0.1 10^3/uL (0.0-0.7); Eosinophils Percent Auto 1.7 % (0.9-7.0); Hematocrit 38.1 % (36.0-48.0); Hemoglobin 11.8 g/dL (12.0-16.0); Immature Granulocytes Abs Auto 0.01 10^3/uL (0.00-0.03); Immature Granulocytes Pct Auto 0.2 % (0.0-0.5); Lymphocytes Absolute Auto 2.2 10^3/uL (1.2-3.8); Lymphocytes Percent Auto 36.8 % (20.5-60.0); Mean Corpuscular Hemoglobin 27.6 pg (26.7-34.0); Monocytes Absolute Auto 0.5 10^3/uL (0.3-0.8); Neutrophils Absolute Auto 3.2 10^3/uL (1.4-6.5); Neutrophils Percent Auto 52.3 % (43.0-75.0); Platelet Count 222 10^3/uL (150-450); Red Blood Count 4.28 10^6/uL (4.20-5.40); Red Cell Distribution Width 15.4 % (11.0-15.0)
[2024-04-09 22:27] LABS: D Dimer 0.52 mg/L FEU (<=0.59)
[2024-04-09 22:35] LABS: Anion Gap 12.4; BUN Creatinine Ratio 10.8; Calcium 8.6 mg/dL (8.5-10.1); Carbon Dioxide 24.2 mmol/L (21.0-32.0); Chloride 103 mmol/L (98-107); Estimated GFR (African America >60 (>=60 mL/min/1.73m^2); Estimated GFR (Non-African Ame >60 (>=60 mL/min/1.73m^2); Glucose 92 mg/dL (74-106); Potassium 3.6 mmol/L (3.5-5.1); Sodium 136 mmol/L (136-145); Troponin I High Sensitivity 5.2 pg/mL (4.0-51.3)
[2024-04-09 23:44] LABS: Troponin I High Sensitivity 6.7 pg/mL (4.0-51.3)
== END 2024-04-10 00:08 | disposition home or self-care (01) ==
PROVIDERS: Emergency Provider Emergency Medicine; PCP Family Medicine
DX: R07.9 Chest pain, unspecified (principal); I10 Essential (primary) hypertension; Z86.711 Personal history of pulmonary embolism; E03.9 Hypothyroidism, unspecified
CPT/HCPCS: 36415; 71045; 80048; 83880; 84484; 85025; 85378; 93005; 99285

== ENCOUNTER 2025-04-19 08:17 | Outpatient (OUT) | payer MEDICARE, SELFPAY ==
--- OUTSIDE RECORDS SUMMARY | 2025-04-19 08:29 | XMS_ITS | CCD ---
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 (noninflammatory)]Onset: [id number]; thrombophlebitis and thromboembolism (3 sources)Deep venous thrombosis of lower extremityOnset: EpisodicPulmonary heart disease (4 sources)Personal history of pulmonary embolism; Translations: [Acute pulmonary embolism]Onset: [id number] codes; unclassified (1 source)Edema, unspecified; Translations: [EDEMA UNSPECIFIED]Onset: 02-05-2022 EpisodicSuperficial injury; contusion (2 sources)Contusion of unspecified front wall of thorax, initial encounter; Translations: [Contusion of otherpart of head, initial encounter]Onset: 26-96-2412DvyucittMtgxfunxkjly (7 sources)Fracture blister; Translations: [Blister over site of fracture of bone]04-15-2022 Results Test NameValueInterpretationReference RangeFacilityBasic Metabolic Panelon 09-36-7983Posde gap [Moles/Vol]8 mmol/LLow9-15[facility] Comment on above:Performed By: #### BMP #### [facility] [address] [place] [address] Lhcwlwo [Mass/Vol]8.0 mg/dLLow8.5-9.9[facility] Comment on above:Performed By: #### BMP #### [facility] [address] [place] [address] Juizfakh [Moles/Vol]106 mmol/NQkegau40-632FpcqsWeisbrod Memorial County HospitalComment on above:Performed By: #### BMP #### [facility] [address] [place] [address] OW8 [Moles/Vol]26 mmol/IVqpdvb20-81FgfznWeisbrod Memorial County Hospital Comment on above:Performed By: #### BMP #### [facility] [address] [place] [address] Hjjstvsdww [Mass/Vol]0.44 mg/dLLow0.50-0.90[facility] HospitalComment on above:Performed By: #### BMP #### [facility] [address] [place] [address] HLS>90.0Normal>60[facility] HospitalComment on above: Result Comment: Pediatric calculator link https://www.kidney.org/professionals/kdoqi/gfr_calculatorped Effective Feb 10, 2022 These results are not intended for use in patients <18 years of age. eGFR results are calculated without a race factor using the 2020 CKD-EPI equation. Careful clinical correlation is recommended, particularly when comparing to results calculated using previous equations. The CKD-EPI equation is less accurate in patients with extremes of muscle mass, extra-renal metabolism of creatinine, excessive creatinine ingestion, or following therapy that affects renal tubular secretion.Performed By: #### BMP #### [facility] [address] [place] [address] Oqpvmog [Mass/Vol]137 mg/dLCritically kkzk28-75CehqfSan Luis Valley Regional Medical CenterComment on above:Performed By: #### BMP #### [facility] [address] [place] [address] Ihbdkbapw [Moles/Vol]4.0 mmol/LNormal3.4-4.9[facility] HospitalComment on above:Performed By: #### BMP #### [facility] [address] [place] [address] Oprooc [Moles/Vol]140 mmol/MRudzhg162-504OywdjWeisbrod Memorial County HospitalComment on above:Performed By: #### BMP #### [facility] [address] [place] [address] Isaq nitrogen [Mass/Vol]8 mg/dLNormal6-20[facility] HospitalComment on above:Performed By: #### BMP #### [facility] [address] [place] [address] ZXI With Platelet No Differentialon 42-11-5071Jemitwtyvsc distribution width (RBC) [Ratio]15.5 %Critically high11.5-14.5[facility] HospitalComment on above:Performed By: #### CBCND #### [facility] [address] [place] [address] Xmolghxvmu (Bld) [Volume fraction]29.9 %Low37.0-47.0[facility] HospitalComment on above:Performed By: #### CBCND #### [facility] [address] [place] [address] Yhcoaxoeog (Bld) [Mass/Vol]9.3 g/dLLow12.0-16.0[facility] HospitalComment on above:Performed By: #### CBCND #### [facility] [address] [place] [address] WQM (RBC) [Entitic mass]27.2 gvVflwoc03.0-31.3MSan Luis Valley Regional Medical CenterComment on above:Performed By: #### CBCND #### [facility] [address] [place] [address] WNLW18.1 %Low33.0-37.0[facility] HospitalComment on above: Performed By: #### CBCND #### [facility] [address] [place] [address] RXE (RBC) [Entitic vol]87.4 cQCnskot25.4-94.8[facility] HospitalComment on above:Performed By: #### CBCND #### [facility] [address] [place] [address] Bmdxnljnv (Bld) [#/Vol]170 10*3/dICqjfii716-853HvrteWeisbrod Memorial County HospitalComment on above:Performed By: #### CBCND #### [facility] [address] [place] [address] BBH (Bld) [#/Vol]3.42 10*6/uLLow4.20-5.40[facility] HospitalComment on above:Performed By: #### CBCND #### [facility] [address] [place] [address] FKI (Bld) [#/Vol]9.2 10*3/uLNormal4.8-10.8[facility] HospitalComment on above:Performed By: #### CBCND #### [facility] [address] [place] [address] MW LUMBAR SPINE WO CONTRASTon 12-40-6269JB LUMBAR SPINE WO CONTRAST EXAMINATION: CT OF THE LUMBAR SPINE WITHOUT CONTRAST 10/01/2024 TECHNIQUE: CT of the lumbar spine was performed without the administration of intravenous contrast. Multiplanar reformatted images are provided for review. Adjustment of mA and/or kV according to patient size was utilized. Automated exposure control, iterative reconstruction, and/or weight based adjustment of the mA/kV was utilized to reduce the radiation dose to as low as reasonably achievable. COMPARISON: None HISTORY: ORDERING SYSTEM PROVIDED HISTORY: pain TECHNOLOGIST PROVIDED HISTORY: Reason for exam:->pain What reading provider will be dictating this exam?->CRC FINDINGS: BONES/ALIGNMENT: Normal anterior to posterior alignment of the lumbar spine on sagittal reconstruction views. There is left convexity scoliosis centered at L3 on coronal views. Posterior metallic fusion with pedicle screws and fixation rods at L4-5. There is an interbody fusion device. Spinous processes appear to be intact. Hardware appears intact. The sacrum appears normal. DEGENERATIVE CHANGES: Moderate degenerative disc disease at L2-3 and L3-4. No evidence of high-grade narrowing of the spinal canal. SOFT TISSUES/RETROPERITONEUM: No paraspinous soft tissue swelling. There is a metallic stent in the left common iliac artery. Postop changes involving the stomach. IMPRESSION: 1. No acute fracture or subluxation. 2. Posterior metallic fusion at L4-5. 3. Moderate degenerative disc disease at L2-3 and L3-4. Interpreted by: Colin Pino MD Signed by: Colin Pino MD 10/01/24 Final resultNormalWeisbrod Memorial County HospitalMagnesiumon 73-82-2937Quhtehxig [Mass/Vol]1.8 mg/dLNormal1.7-2.4[facility] HospitalComment on above: Performed By: #### MG #### [facility] [address] [place] [address] Epeccfihubli 87-25-6109Uvofzsuiy [Mass/Vol]2.9 mg/dLNormal2.3-4.8 [facility] CenterComment on above:Performed By: #### PHOS #### [facility] [address] [place] [id number] [phone] FOR SURGICAL PROCEDURESon 07-42-7141LYLGGE FOR SURGICAL PROCEDURESEXAMINATION: SPOT FLUOROSCOPIC IMAGES 09/30/2024 6:45 am TECHNIQUE: Fluoroscopy was provided by the radiology department for procedure. Radiologist was not present during examination. FLUOROSCOPY DOSE AND TYPE: Radiation Exposure Index: Kerma mGy, 9.[address] acquisition FLUOROSCOPY TIME: 3.6 seconds COMPARISON: None HISTORY: ORDERING SYSTEM PROVIDED HISTORY: pain TECHNOLOGIST PROVIDED HISTORY: Reason for exam:->pain What reading provider will be dictating this exam?->CRC Intraprocedural imaging. FINDINGS: Intra procedural radiology support provided to subspecialty service for lumbar fusion. No obvious complication on the images provided. Please see subspecialty report for full details and interpretation of real time imaging. IMPRESSION: Intraprocedural radiology support as above. See separate procedure report for more information. Interpreted by: Luis Aldrich DO Signed by: Luis Aldrich DO 10/04/24 Final resultNormSedgwick County Memorial HospitalType and Screen 3 cell Gelon 46-67-2713Mfvd and Screen 3 cell GelPATIENT: DION Huang LOC: [facility]IE[facility] SANCHEZ NON BILL# : [id number] : 1970 SEX: F ORDERED BY: JORDAN ALCARAZ ORDERED : 09/30/2024 05:46 COLLECTED: 09/30/2024 06:50 ORDER : [id number] RECEIVED : 09/30/2024 06:58 TEST NAME RESULT UNITS RANGES ABN FL ST ABORH Gel A POS F Antibody 3 Cell Scrn Gel NEG F [facility] CenterComment on above:Performed By: #### TS3E #### [facility] [address] [place] [address] PDAMZWADAFNSfscjqb By: Anastasia Dasilva on 01-16-4226Yvcijkai function (closure time) collagen+EPINEPHrine induced (Bld) [Time]100 lTqelmr28 - 138 second(s)[facility] Man SeroComment on above:Interpretive Data: Normal ASA vWD Glanzmann s Thrombasthenia ------- ------ ------- COL/EPI Normal Abnormal Abnormal Abnormal Col/ADP Normal Normal Abnormal AbnormalPlt Function Assayon 35-08-3848Zjpnnrgu function (closure time) collagen+EPINEPHrine induced (Bld) [Time]100 second(s) Hgyfev56-343Umhwso [facility] BaltimoreComment on above:Result Comment: Normal ASA vWD Glanzmann???s Thrombasthenia ------- ------ ------- COL/EPI Normal Abnormal Abnormal Abnormal Col/ADP Normal Normal Abnormal AbnormalPerformed By: #### [id number] #### [facility] [address], [place] [address]XW Spine Cervical w/o Contraston 12-82-7877WN Spine Cervical w/o ContrastExam Date/Time: 09/23/2024 12:05 EDT Reason for Exam: M43.16 Spondylolisthesis, lumbar region, M47.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 HISTORY: Neck pain. TECHNIQUE: CT of the cervical spine without IV contrast. Spiral, high resolution axial images were obtained from the skull base to the cervicothoracic junction with sagittal and coronal planar reconstructions. All CT scans at this facility use dose modulation, iterative reconstruction, and/or weight based dosing when appropriate to reduce radiation dose to as low as reasonably achievable. Unless otherwise stated, incidental findings in this report do not require further routine follow-up imaging. COMPARISON: Radiographs 09/23/2024. RESULT: Counting reference: Craniocervical junction. Alignment: No traumatic malalignment. Straightening of the cervical lordosis, likely positional or related to muscle spasm. Craniocervical junction: Craniocervical junction is unremarkable. Osseous structures/fracture: No evidence for acute fracture. No destructive osseous lesions. Postsurgical changes from fusion at C5-C6. Hardware grossly intact within limits of artifact. Cervical soft tissues: No acute findings. Thickening in the partially imaged paranasal sinuses. Canal and foramina, degenerative changes: No high-grade bony canal or foraminal narrowing at C2-C3 or C3-C4. Disc bulge, endplate osteophytes, and facet/uncovertebral degenerative changes with mild bilateral foraminal narrowing without high-grade canal narrowing at C4-C5. Postsurgical changes at C5-C6 along with endplate osteophytes and facet/uncovertebral degenerative changes with moderate to severe left foraminal narrowing at C5-C6. Disc bulge, endplate osteophytes, facet/uncovertebral degenerative changes with moderate to severe bilateral foraminal narrowing and at least moderate canal narrowing at C6-C7. No high-grade canal or foraminal narrowing at C7-T1. Report Ordering Provider: Kieran Ortega FINAL REPORT Dictated: 09/23/2024 2:45 pm Ranulfo Tovar MD Signed (Electronic Signature): 09/23/2024 2:45 pm Signed by: Ranulfo Tovar MD Transcribed by: JEYSON Technologist: Juan [facility] BaltimoreCT Spine Lumbar w/o Contraston [id number] Spine Lumbar w/o ContrastExam Date/Time: 09/23/2024 12:05 EDT Reason for Exam: M43.16 Spondylolisthesis, lumbar region, M47.22 Other spondylosis with radiculopathy, cervical region Report IMPRESSION: Multilevel degenerative changes lumbar spine as discussed. HISTORY: Back pain. TECHNIQUE: Routine CT of the lumbar spine without contrast. Sagittal and coronal reconstructions. All CT scans at this facility use dose modulation, iterative reconstruction, and/or weight based dosing when appropriate to reduce radiation dose to as low as reasonably achievable. Unless otherwise stated, incidental findings identified in this report do not require routine follow-up imaging. COMPARISON: Radiographs 09/23/2024 RESULT: Counting reference: Lumbosacral junction. For the purposes of this report, L5-S1 is the last well-formed disc space. Alignment: Mild to moderate levoscoliosis. Grade 1 anterolisthesis of L4 on L5 measuring around 5-6 mm. Minimal retrolisthesis versus prominent osteophytes at L2-L3. Bone marrow /fracture: No evidence for recent fracture. No destructive osseous lesions. Underlying decreased bone mineral density. Paraspinal soft tissues: No acute findings. Left iliac vein stent. Surgical clips right upper quadrant. T12-L1: No high-grade bony canal or foraminal narrowing. L1-L2: Disc bulge, endplate osteophytes, facet degenerative changes, without high-grade bony canal or foraminal narrowing. L2-L3: Broad-based disc bulge with calcifications and possible superimposed right-sided protrusion in the subarticular region. Endplate osteophytes. Facet degenerative changes. Right subarticular narrowing, mild to moderate right foraminal narrowing, mild canal narrowing, without significant left foraminal narrowing. L3-L4: Broad-based disc bulge. Endplate osteophytes. Facet degenerative changes. Moderate right foraminal narrowing, at least mild to moderate canal narrowing, without significant left foraminal narrowing. L4-L5: Anterolisthesis with disc uncovering. Disc bulge. Endplate osteophytes. Facet degenerative changes. Severe canal narrowing. Severe left foraminal narrowing and Report moderate right foraminal narrowing. L5-S1: Disc bulge. Endplate osteophytes. Facet degenerative changes. Moderate to severe left foraminal narrowing, mild to moderate right foraminal narrowing, without significant canal narrowing. Sacrum and iliac wings: No acute findings. Degenerative changes SI joints. Tech Comments: Ordering Provider: Kieran Ortega FINAL REPORT Dictated: 09/23/2024 2:54 pm Ranulfo Tovar MD Signed (Electronic Signature): 09/23/2024 2:54 pm Signed by: Ranulfo Tovar MD Transcribed by: JEYSON Technologist: Juan [facility] BaltimoreXR Spine Cervical 6 or More Viewson [id number] Spine Cervical 6 or More ViewsExam Date/Time: 09/23/2024 11:51 EDT Reason for Exam: M43.16 Spondylolisthesis, lumbar region, M47.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 EXAMINATION/TECHNIQUE: XR Spine Cervical 6 or More Views HISTORY: Neck pain. COMPARISON: None RESULT: Counting reference of craniocervical junction. Postsurgical changes from fusion across the C5-C6 level. Hardware appears grossly intact. Alignment appears anatomic. No significant change in alignment from flexion to extension. No radiographic evidence for acute fracture. Disc height loss especially at C6-C7 with endplate osteophytes and facet degenerative changes contributing to bony bilateral foraminal narrowing at C6-C7. Mild degenerative changes at the other cervical levels. Paraspinal soft tissues unremarkable. Lung apices clear. No other significant abnormality. Ordering Provider: Kieran Ortega FINAL REPORT Dictated: 09/23/2024 2:41 pm Ranulfo Tovar MD. Signed (Electronic Signature): 09/23/2024 2:41 pm Signed by: Ranulfo Tovar MD Transcribed by: JEYSON Technologist: [facility] CenterXR Spine Lumbosacral Minimum 4 Viewson 67-84-4623DP Spine Lumbosacral Minimum 4 ViewsExam Date/Time: 09/23/2024 11:52 EDT Reason for Exam: M43.16 Spondylolisthesis, lumbar region, M47.22 Other spondylosis with radiculopathy, cervical region Report IMPRESSION: Degenerative changes lumbar spine. EXAMINATION/TECHNIQUE: XR Spine Lumbosacral Minimum 4 Views HISTORY: Back pain. COMPARISON: None RESULT: Counting reference of L5-S1 is the last well-formed disc space. Grade 1 anterolisthesis of L4 on L5, measuring around 6 mm in neutral position, 8 mm in flexion, and 5 mm in extension. Levoscoliosis. Alignment otherwise near anatomic. No radiographic evidence for acute fracture. Vertebral body heights grossly maintained. Advanced multilevel degenerative changes from L2-L3 through L5-S1, with disc height loss, endplate osteophytes, and facet degenerative changes. Visualized sacrum intact. SI joints grossly intact. Surgical clips and suture material within the abdomen/pelvis. Left iliac stent. No other significant abnormality. Ordering Provider: Kieran Ortega FINAL REPORT Dictated: 09/23/2024 2:49 pm Ranulfo Tovar MD Signed (Electronic Signature): 09/23/2024 2:49 pm Signed by: Ranulfo Tovar MD Transcribed by: JEYSON Technologist: [facility] Medical CenterBMPon 46-57-9229Lsduh gap [Moles/Vol]12 mmol/LNormal6-16[facility] Comment on above:Performed By: #### [id number] #### [facility] [address], [place] [address]Kctbjlu [Mass/Vol]8.6 mg/dLLow8.9-11.1FOhioHealth Nelsonville Health CenterComment on above:Performed By: #### [id number] #### [facility] [address], [place] [address]Psyhsrdk [Moles/Vol]106 mmol/MZciqbd374-218JplnerChildren'S Hospital For RehabilitationComment on above:Performed By: #### [id number] #### [facility] [address], [place] [address]BN2 [Moles/Vol]25 mmol/PWelybi64-97UbfrloChildren'S Hospital For Rehabilitation Comment on above:Performed By: #### [id number] #### [facility] [address], [place] [address]Uuouugfocy [Mass/Vol]0.5 mg/dLNormal0.5-1.3FOhioHealth Nelsonville Health CenterComment on above:Performed By: #### [id number] #### [facility] [address], [place] [address]Adixmlm [Mass/Vol]95 mg/dYRsussv86-070JwrlfoChildren'S Hospital For RehabilitationComment on above:Performed By: #### [id number] #### [facility] [address], [place] [address]Phfwrwsmp [Moles/Vol]4.5 mmol/LNormal3.5-5.3FOhioHealth Nelsonville Health CenterComment on above:Performed By: #### [id number] #### [facility] [address], [place] [address]Vksjej [Moles/Vol]138 mmol/IYkxaau886-384OdxdrdChildren'S Hospital For RehabilitationComment on above:Performed By: #### [id number] #### [facility] [address], [place] [address]Jwhr nitrogen [Mass/Vol]14 mg/dLNormal5-21[facility] For RehabilitationComment on above:Performed By: #### [id number] #### [facility] [address], [place] [address]Ptee nitrogen/Creatinine [Mass ratio]28 No ZfhqkNsrc84-10SphugdChildren'S Hospital For RehabilitationComment on above:Performed By: #### [id number] #### [facility] [address] [place] [address]UUP w/ Auto Diffon 75-90-7223Flxoezdnc/100 WBC (Bld)1.0 %Normal 0.0-2.0[facility] For RehabilitationComment on above:Performed By: #### [id number] #### [facility] [address] [place] [address]Cmvmbmkat/Leukocytes Auto (Bld) [Pure # fraction]0.1 E9/LNormal 0.0-0.2FOhioHealth Nelsonville Health CenterComment on above:Performed By: #### [id number] #### [facility] [address] [place] [address]Fmtrylagrxr (Bld) [#/Vol]0.1 E9/LNormal0.0-0.5FOhioHealth Nelsonville Health CenterComment on above:Performed By: #### [id number] #### [facility] [address] [place] [address]Cyckimxztds/100 WBC (Bld)2.3 %Normal0.0-8.0[facility] For RehabilitationComment on above:Performed By: #### [id number] #### [facility] [address], [place] [address]Flqlnihibzm distribution width (RBC) [Ratio]16.7 %High10.9-14.2 [facility] RehabilitationComment on above:Performed By: #### [id number] #### [facility] [address] [place] [address]Owdrslvxrz (Bld) [Volume fraction]34.4 %Ejtbnq30.0-46.0[facility] For RehabilitationComment on above:Performed By: #### [id number] #### [facility] [address] [place] [address]Qupigaitmp (Bld) [Mass/Vol]11.0 g/dLLow12.0-16.0[facility] For RehabilitationComment on above:Performed By: #### [id number] #### [facility] [address] [place] [address]Cxufrwusoxe (Bld) [#/Vol]1.3 E9/LNormal1.0-4.0[facility] For RehabilitationComment on above:Performed By: #### [id number] #### [facility] [address] [place] [address]Ulkbkokgfqh/100 WBC (Bld)22.6 %Dhpaqt68.0-50.0[facility] For RehabilitationComment on above:Performed By: #### [id number] #### [facility] [address] [place] [address]IBK (RBC) [Entitic mass]26.5 pgLow27.0-34.0[facility] For RehabilitationComment on above:Performed By: #### [id number] #### [facility] [address] [place] [address]OACI (RBC) [Mass/Vol]32.0 g/lLGlwgnj93.4-36.0[facility] RehabilitationComment on above:Performed By: #### [id number] #### [facility] [address] [place] [address]LBY (RBC) [Entitic vol]82.6 rULwhqmf79.0-100.0[facility] For RehabilitationComment on above:Performed By: #### [id number] #### [facility] [address] [place] [address]Azzgwdadf (Bld) [#/Vol]0.3 E9/LNormal0.2-1.0[facility] For RehabilitationComment on above:Performed By: #### [id number] #### [facility] [address] [place] [address]Qcalhbfgpfv (Bld) [#/Vol]3.8 E9/LNormal2.0-7.5FOhioHealth Nelsonville Health CenterComment on above:Performed By: #### [id number] #### [facility] [address] [place] [address]Abhdcrezncs/100 WBC (Bld)68.1 %Zpowgb68.0-75.0[facility] For RehabilitationComment on above:Performed By: #### [id number] #### [facility] [address] [place] [address]Slsauogy mean volume (Bld) [Entitic vol]7.2 fLNormal6.4-10.8 [facility] RehabilitationComment on above:Performed By: #### [id number] #### [facility] [address] [place] [address]Wzyinqnzu (Bld) [#/Vol]209.0 E9/PXafkpy694.0-500.0[facility] For RehabilitationComment on above:Performed By: #### [id number] #### [facility] [address] [place] [address]UOD (Bld) [#/Vol]4.2 E12/LLow4.3-5.9[facility] Comment on above:Performed By: #### [id number] #### [facility] [address] [place] [address]NAM corrected for nucl RBC Auto (Bld) [#/Vol]5.6 E9/LNormal 4.0-11.0Fisher [facility] Hospital Of BaltimoreComment on above:Performed By: #### [id number] #### [facility] [address] [place], [place] [address]BWBABBCVPPttvvzu By: SYSTEM SYSTEM on 08-64-2870Axvin gap [Moles/Vol]12 mmol/LNormal6 - 16 mEq/LRemisol ChemCalcium [Mass/Vol]8.6 mg/dLLow 8.9 - 11.1 mg/dLRemisol ChemChloride [Moles/Vol]106 mmol/PWhnnwr687 - 111 mmol/L Remisol ChemCO2 [Moles/Vol]25 mmol/ELxltce36 - 31 mmol/LRemisol ChemCreatinine [Mass/Vol]0.5 mg/dLNormal0.5 - 1.3 mg/dLRemisol BjsdwAMG937 mL/min/1.73 n7Xbvpal >=59mL/min/1.73 o0Dxtyeig ChemGlucose [Mass/Vol]95 mg/bZIbayui29 - 199 mg/dL Remisol ChemPotassium [Moles/Vol]4.5 mmol/LNormal3.5 - 5.3 mmol/LRemisol Chem Sodium [Moles/Vol]138 mmol/QKhnvyv040 - 145 mmol/LRemisol ChemUrea nitrogen [Mass/Vol]14 mg/dLNormal5 - 21 mg/dLRemisol ChemUrea nitrogen/Creatinine [Mass ratio]28 mg/szXkji97 - 20Remisol ChemCOAGULATIONOrdered By: Teresa Rajput on 10-88-7647xCGM Coag (PPP) [Time]27.4 fRbseli97.1 - 36.5 second(s)[facility] Auto Coag Comment on above:Interpretive Data: Parameter 15 days - 4 weeks 1 - 5 months 6 - 11 months 1 - 5 years 6 - 10 years 11 - 17 years PTT Mean: 35.4 (27.6-45.6) Mean: 33.5 (24.8-40.7) Mean: 32.4 (25.1-40.7) Mean: 31.6 (24.0-39.2) Mean: 31.6 (26.9-38.7) Mean: 31.0 (24.6-38.4) Pediatric Reference ranges were obtained from a study by kiara Julian al. prepared from 1437 samples obtained at 7 different centers using the same coagulation reagent and instrumentation as [facility]. Currently there are no coagulation studies available worldwide for children to 14 days, andno normal ranges. Heparin therapeutic range (represented by Anti-Factor Xa activity of 0.2 - 0.4 U/mL) corresponds to PTT of 56.6 - 109.0 sec.INR Coag (PPP) [Relative time]1.11 {INR}Invalid Interpretation CodeCREEK NATION [facility] Auto CoagComment on above:Interpretive Data: INR results are specifically intended to assess patients stabilized on long-term Anticoagulation therapy suggested INR s Less Intensive Anticoagulation 2.0 3.0 Conventional Range 3.0 4.5Platelet function (closure time) collagen+ADP induced (Bld) [Time]82 uEmkufj17 - 108 second(s)[facility] Man SeroPlatelet function (closure time) collagen+EPINEPHrine induced (Bld) [Time]179 sHigh70 - 138 second(s)[facility] Man SeroComment on above:Interpretive Data: Normal ASA vWD Glanzmann s Thrombasthenia ------- ------ ------- COL/EPI Normal Abnormal Abnormal Abnormal Col/ADP Normal Normal Abnormal AbnormalPT Coag (PPP) [Time]12.4 sNormal9.4 - 12.5 second(s)[facility] Auto CoagComment on above:Interpretive Data: 15 days - 4 weeks 1 - 5 months 6 -11 months 1 5 years 6 10 years 11 -17 years Mean: 11.2 (9.5 12.6) Mean: 11.0 (9.7 12.8) Mean: 11.0 (9.8 13.0) Mean: 11.3 (9.9 13.4) Mean: 11.7 (10.0 14.6) Mean: 11.8 (10.0 - 14.1) Pediatric Reference ranges were obtained from a study by kiara Julian al. prepared from 1437 samples obtained at 7 different centers using the same coagulation reagent and instrumentation as [facility]. Currently there are no coagulation studies available worldwide for children to 14 days, andno normal ranges.Collagen/ADPon 44-44-8265Eyyqvdqy function (closure time) collagen+ADP induced (Bld) [Time]82 second(s)Fwmydq92-795Xoktte [facility] BaltimoreComment on above:Order Comment: Order added on by rule.Performed By: #### [id number] #### [facility] [address], [place] [address]HTMDPFTTJDHtaagbh By: SYSTEM SYSTEM on 12-70-9847Cavjatizf/100 WBC (Bld)1.0 %Normal0.0 - 2.0 %Remisol HemeBasophils/Leukocytes Auto (Bld) [Pure # fraction]0.1 E9/LNormal0.0 - 0.2 E9/LRemisol HemeEosinophils (Bld) [#/Vol]0.1 E9/LNormal0.0 - 0.5 E9/LRemisol HemeEosinophils/100 WBC (Bld)2.3 %Normal0.0 - 8.0 %Remisol HemeErythrocyte distribution width (RBC) [Ratio]16.7 %High10.9 - 14.2 %Remisol HemeHematocrit (Bld) [Volume fraction]34.4 %Dgaisv98.0 - 46.0 % Remisol HemeHemoglobin (Bld) [Mass/Vol]11.0 g/dLLow12.0 - 16.0 gm/dLRemisol Heme Lymphocytes (Bld) [#/Vol]1.3 E9/LNormal1.0 - 4.0 E9/LRemisol HemeLymphocytes/100 WBC (Bld)22.6 %Uabkqr49.0 - 50.0 %Remisol HemeMCH (RBC) [Entitic mass]26.5 pg Low27.0 - 34.0 pgRemisol HemeMCHC (RBC) [Mass/Vol]32.0 g/lAAykdgo14.4 - 36.0 gm/dLRemisol HemeMCV (RBC) [Entitic vol]82.6 lXHwjxyq29.0 - 100.0 fLRemisol Heme Monocytes (Bld) [#/Vol]0.3 E9/LNormal0.2 - 1.0 E9/LRemisol HemeMonocytes/100 WBC (Bld)6.0 %Normal4.0 - 14.0 %Remisol HemeNeutrophils (Bld) [#/Vol]3.8 E9/LNormal 2.0 - 7.5 E9/LRemisol HemeNeutrophils/100 WBC (Bld)68.1 %Ynfpgr98.0 - 75.0 % Remisol HemePlatelet mean volume (Bld) [Entitic vol]7.2 fLNormal6.4 - 10.8 fL Remisol HemePlatelets (Bld) [#/Vol]209.0 E9/BHxlzzx125.0 - 500.0 E9/LRemisol HemeRBC (Bld) [#/Vol]4.2 E12/LLow4.3 - 5.9 E12/LRemisol HemeWBC corrected for nucl RBC Auto (Bld) [#/Vol]5.6 E9/LNormal4.0 - 11.0 E9/LRemisol HemePT & PTTon 20-81-5485mKZF Coag (PPP) [Time]27.4 second(s)Fktzne35.1-36.5Fisher [facility] Hospital [facility] BaltimoreComment on above:Result Comment: Parameter 15 days - 4 weeks 1 - 5 months 6 - 11 months 1 - 5 years 6 - 10 years 11 - 17 years PTT Mean: 35.4 (27.6-45.6) Mean: 33.5 (24.8-40.7) Mean: 32.4 (25.1-40.7) Mean: 31.6 (24.0-39.2) Mean: 31.6 (26.9-38.7) Mean: 31.0 (24.6-38.4) Pediatric Reference ranges were obtained from a study by Toni Chirinos et al. prepared from 1437 samples obtained at 7 different centers using the same coagulation reagent and instrumentation as [facility]. Currently there are no coagulation studies available worldwide for children to 14 days, andno normal ranges. Heparin therapeutic range (represented by Anti-Factor Xa activity of 0.2 - 0.4 U/mL) corresponds to PTT of 56.6 - 109.0 sec.Performed By: #### [id number] #### [facility] [address], [place] [address]UHV Coag (PPP) [Relative time]1.11 {INR}Invalid Interpretation CodeChildren'S Hospital For RehabilitationComment on above:Result Comment: INR results are specifically intended to assess patients stabilized on long-term Anticoagulation therapy suggested INR???s ???Less Intensive Anticoagulation??? 2.0 ??? 3.0 Conventional Range 3.0 ??? 4.5Performed By: #### [id number] #### [facility] [address], [place] [address]HD Coag (PPP) [Time]12.4 second(s)Normal9.4-12.5FOhioHealth Nelsonville Health CenterComment on above:Result Comment: 15 days - 4 weeks 1 - 5 months 6 -11 months 1 ??? 5 years 6 ??? 10 years 11 -17 years Mean: 11.2 (9.5 ??? 12.6) Mean: 11.0 (9.7 ??? 12.8) Mean: 11.0 (9.8 ??? 13.0) Mean: 11.3 (9.9 ??? 13.4) Mean: 11.7 (10.0 ??? 14.6) Mean: 11.8 (10.0 - 14.1) Pediatric Reference ranges were obtained from a study by Toni Chirinos et al. prepared from 1437 samples obtained at 7 different centers using the same coagulation reagent and instrumentation as [facility]. Currently there are no coagulation studies available worldwide for children to 14 days, andno normal ranges.Performed By: #### [id number] #### [facility] [address], [place] [address]Vdw Function Assayon 61-48-1444Pvegnogg function (closure time) collagen+EPINEPHrine induced (Bld) [Time]179 second(s)Oifp97-890MzndygChildren'S Hospital For RehabilitationComment on above:Result Comment: Normal ASA vWD Glanzmann???s Thrombasthenia ------- ------ ------- COL/EPI Normal Abnormal Abnormal Abnormal Col/ADP Normal Normal Abnormal AbnormalPerformed By: #### [id number] #### [facility] [address], [place] [address]TA with Cult Rflxon 07-53-8023Mqttxzpyp Ql (U)NegativeNormal NegativeChildren'S Hospital For RehabilitationComment on above:Performed By: #### [id number] #### [facility] [address], [place] [address]Yenocde (U)ClearNormalClearChildren'S Hospital For RehabilitationComment on above:Performed By: #### [id number] #### [facility] [address], [place] [address]Niuny (U)YellowNormalYellowChildren'S Hospital For RehabilitationComment on above:Result Comment: Microscopic readings are only performed on those samples that meet specific criteria set forth by [facility].Performed By: #### [id number] #### [facility] [address], [place] [address]Htqfxet Ql (U)NegativeNormalNegSumma Health Comment on above:Performed By: #### [id number] #### [facility] [address], [place] [address]Jqnzzxbbtb Auto test strip (U) [Mass/Vol]NegativeNormalNegative [facility] Hospital For RehabilitationComment on above:Performed By: #### [id number] #### [facility] [address], [place] [address]Wudjout Auto test strip Ql (U)NegativeNormalNegativeChildren'S Hospital For RehabilitationComment on above:Performed By: #### [id number] #### [facility] [address], [place] [address]Rzbmwsrac esterase Auto test strip Ql (U)NegativeNormalNegative [facility] Hospital For RehabilitationComment on above:Performed By: #### [id number] #### [facility] [address], [place] [address]Cwnpsgm Auto test strip Ql (U)NegativeNormalNegativeChildren'S Hospital For RehabilitationComment on above:Performed By: #### [id number] #### [facility] [address], [place] [address]qR (U)5.5 [pH]Invalid Interpretation Code5.0-9.0Children[facility] Hospital For RehabilitationComment on above:Performed By: #### [id number] #### [facility] [address], [place] [address]Ozwtdrw Ql (U)TraceAbnormalNegSumma Health Comment on above:Performed By: #### [id number] #### [facility] [address], [place] [address]Ixygaxyq gravity (U) [Rel density]1.023Invalid Interpretation Code1.005-1.030Children'S Hospital For RehabilitationComment on above:Performed By: #### [id number] #### [facility] [address] [place] [address]Clgeuxjfddxu (U) [Mass/Vol]2 mg/dLAbhaikuNegSumma HealthComment on above:Performed By: #### [id number] #### [facility] [address] [place] [address]Tklg of Urine collection methodClean CatchProtestant HospitalComment on above:Performed By: #### [id number] #### [facility] [address] [place] [address]AAFGRFPQVNUjqoafn By: SYSTEM SYSTEM on 49-73-2938Ykxgxwkai Ql (U)NegativeNormalNegativemg/dLCR[facility] UA Auto SSClarity (U)Clear (09/19/24 8:30 AM)NormalClearFTMC UA Auto SSColor (U)Yellow 1 (09/19/24 8:30 AM)NormalYellowCREEK NATION [facility]ITY [facility] UA Auto SSComment on above:Interpretive Data: Microscopic readings are only performed on those samples that meet specific criteria set forth by [facility].Glucose Ql (U) NegativeNormalNegativemg/dLCREEK NATION [facility] UA Auto SSHemoglobin Auto test strip (U) [Mass/Vol]NegativeNormalNegativemg/dLCREEK NATION [facility] UA Auto SSKetones Auto test strip Ql (U)NegativeNormalNegativemg/dLCREEK [facility]ATION [facility] UA Auto SSLeukocyte esterase Auto test strip Ql (U)NegativeNormalNegativeLeu/uLCREEK NATION [facility] UA Auto SSNitrite Auto test strip Ql (U) NegativeNormalNegativemg/dLCREEK NATION [facility]A Auto SSpH (U)5.5 *NA* (09/19/24 8:30 AM)Invalid Interpretation Code5.0 - 9.0[facility]A Auto SSProtein Ql (U)Trace mg/dLInvalid Interpretation CodeNegativemg/dLCREEK NATION [facility] UA Auto SSSpecific gravity (U) [Rel density]1.023 *NA* (09/19/24 8:30 AM)Invalid Interpretation Code1.005 - 1.030[facility] UA Auto SS Urobilinogen (U) [Mass/Vol]2 mg/dLInvalid Interpretation CodeNegativemg/dLCREEK NATION [facility]ITY [facility] UA Auto SSURINALYSISOrdered By: Loraine Mai on 01-56-8083TI Spec DescClean Catch (09/19/24 8:30 AM)NormalCREEK NATION COMM[facility]ITY [facility] UA Auto SSXR Chest 2 Viewson 62-92-9827TK Chest 2 ViewsExam Date/Time: 09/19/2024 07:29 EDT Reason for Exam: Z01.810 Report IMPRESSION: NO RADIOGRAPHIC EVIDENCE OF ACUTE INTRATHORACIC PROCESS. EXAMINATION: XR Chest 2 Views HISTORY: Preoperative evaluation. TECHNIQUE: Frontal and lateral views of the chest. COMPARISON: None available FINDINGS: Cardiomediastinal silhouette is within normal limits. No pneumothorax, pleural effusion, or consolidation. No acute osseous abnormality. Ordering Provider: Kieran Ortega FINAL REPORT Dictated: 09/19/2024 10:09 am Aquiles Bajwa DO Signed (Electronic Signature): 09/19/2024 10:09 am Signed by: Aquiles Bajwa DO Transcribed by: JEYSON Technologist: AnahiChildren'S Hospital For RehabilitationeGFRon 92-44-3677rNGO649 mL/min/1.73 j0Fqijiz>=59Children'S Hospital For RehabilitationComment on above:Performed By: #### [id number] #### [facility] [address] [place], [place] [address]JC tibia fibula LT 2V*on 95-31-4559NS tibia fibula LT 2V* [facility] Main [place] [id number] XRay Report Signed Patient: Christiane Ashley MR#: [id number] [birth year] : 1970 Acct:[id number] Age/Sex: 52 / F ADM Date: 09/24/22 Loc: [facility] Room: Type: REG CLI Attending Dr: Aquiles Vasquez II, MD Copies [...] Evangelist Ochoa M.D.09/24/2022 1:14 PM Dictation Location: [place] [address] Transcribed By: [facility] 09/24/22 1314 Dictated By: Evangelist Ochoa DO 09/24/22 1311 Signed By: 09/24/22 1314S[facility] Memorial HospitalXR tibia fibula LT 2V*on 34-14-4943MA tibia fibula LT 2V*[facility] Main [address] [address] XRay Report Signed Patient: Christiane Ashley MR#: [id number] [birth year] : 1970 Acct:[id number] Age/Sex: 51 / F ADM Date: 06/25/22 [facility] Room: Type: REG CLI Attending Dr: Aquiles Vasquez II, MD Copies [...] FRACTURE. Impression dictated by: Cale Logan Jr., D.O.06/25/2022 12:02 PM Dictation Location: [place] [address] Transcribed By: [facility] 06/25/22 1202 Dictated By: Cale Logan Jr, DO 06/25/22 1201 Signed By: 06/25/22 1202Shelby Memorial HospitalXR tibia fibula LT 2V* [facility] [employer] Other XR tibia fibula LT 2V*[facility] Main [facility] [employer] Other XR tibia fibula LT 2V*[address] [place] [address] [employer] Other XR tibia fibula LT 2V*[place], [place] [address]Cjhwh [employer] Other XR tibia fibula LT 2V*XRay ReportSavannah [employer] Other XR tibia fibula LT 2V*SignedSavannah [employer] Other XR tibia fibula LT 2V*Patient: Christiane Ashley MR#: [id number] [employer] Other XR tibia fibula LT 2V*[address] [place] [address] [employer] Other XR tibia fibula LT 2V*: 1970 Acct:[id number] [employer] system master Other XR tibia fibula LT 2V*Age/Sex: 51 / F ADM Date: 06/25/22[employer] Other XR tibia fibula LT 2V*Loc: [facility] Room: Type: [facility] Droid system master Other XR tibia fibula LT 2V*Attending Dr: Aquiles Vasquez II VTShopmium [employer] Other XR tibia fibula LT 2V*Copies to: Aquiles Vasquez MD [employer] system master Other XR tibia fibula LT 2V*Ordering Provider: Aquiles Vasquez MDDroid system master Other XR tibia fibula LT 2V*Date of Service: 06/25/22[employer] Other XR tibia fibula LT 2V* XR/XR tibia fibula LT 2V*: Closed displaced comminuted fracture of [facility]bergDroid system master Other XR tibia fibula LT 2V*of left tibia,[employer] system master Other XR tibia fibula LT 2V*LEFT TIBIA AND FIBULA - - 2 viewsVGo Communications Other XR tibia fibula LT 2V*CLINICAL HISTORY: Follow-up left the tibial IM nailing.[employer] system master Other XR tibia fibula LT 2V*COMPARISON: Left tib-fib series 05/14/2022[employer] Other XR tibia fibula LT 2V*FINDINGS:[employer] system master Other XR tibia fibula LT 2V*No evidence of hardware complication. No significant change in fracture alignment since the [facility] systemDroid system master Other XR tibia fibula LT 2V*study. Tibial fracture is less conspicuous with callus formation suggestive of healing. [facility] Memorial HospitalDeitek Systems Other XR tibia fibula LT 2V*healing response is seen involving the mid fibular fracture. Soft tissue swelling is noted.[employer] system master Other XR tibia fibula LT 2V*Visualized knee joint demonstrates degenerative change. Ankle mortise appears intact.[employer] system master Other XR tibia fibula LT 2V* XR/XR tibia fibula LT 2V*[employer] system master Other XR tibia fibula LT 2V*IMPRESSION:[employer] system master Other XR tibia fibula LT 2V*HEALING MID TIBIAL FRACTURE WITHOUT EVIDENCE OF HARDWARE COMPLICATION.[employer] system master Other XR tibia fibula LT 2V*MINIMAL HEALING RESPONSE SEEN INVOLVING THE FIBULAR FRACTURE.[employer] system master Other XR tibia fibula LT 2V*Impression dictated by: Cale Logan Jr., D.OJah06/25/2022 12:02 [facility] [employer] Other XR tibia fibula LT 2V*Dictation Location: [place] [address] [employer] system master Other XR tibia fibula LT 2V*Transcribed By: PWS 06/25/22 [facility] HospitalDroid system master Other XR tibia fibula LT 2V*Dictated By: Cale Logan Jr, DO 06/25/22 [facility] CenterV[facility] Communications Other XR tibia fibula LT 2V*Signed By:Droid system master Other XR tibia fibula LT 2V*06/25/22 [facility] HospitalDroid system master Other XR tibia fibula LT 2V*on 94-59-1536JY tibia fibula LT 2V*[facility] Main [place] [address] [place] [address] XRay Report Signed Patient: Christiane Ashley MR#: [id number] [birth year] : 1970 Acct:[id number] Age/Sex: 51 / F ADM Date: 05/14/22 Loc: [facility] Room: Type: [facility] CLI Attending Dr: Aquiles Vasquez II, MD Copies [...] Kamron Brooks M.D.05/14/2022 12:12 PM Dictation Location: [place] [address] Transcribed By: [facility] 05/14/22 1212 Dictated By: Kamron Brooks II, MD 05/14/22 1211 Signed By: 05/14/22 1212NoNewark HospitalXR tibia fibula LT 2V* [facility] [employer] Other XR tibia fibula LT 2V*[facility] [employer] Other XR tibia fibula LT 2V*1111 [facility] [employer] Other XR tibia fibula LT 2V*[address] [employer] Other XR tibia fibula LT 2V*XRay [facility] [employer] Other XR tibia fibula LT 2V*SignedNorth [employer] Other XR tibia fibula LT 2V*Patient: Christiane Ashley MR#: [id number] [employer] Other XR tibia fibula LT 2V*[address] [place] [address] [employer] Other XR tibia fibula LT 2V*: 1970 Acct:[id number] [place] [employer] Other XR tibia fibula LT 2V*Age/Sex: 51 / F ADM Date: 05/14/22[place] [employer] Other XR tibia fibula LT 2V*Loc: [facility] Room: Type: [facility] [employer] system master Other XR tibia fibula LT 2V*Attending Dr: Aquiles Vasquez II [facility] [employer] Other XR tibia fibula LT 2V*Copies to: Aquiles Vasquez MD [place] [employer] Other XR tibia fibula LT 2V*Ordering Provider: Aquiles Vasquez MDSavannah [employer] Other XR tibia fibula LT 2V*Date of Service: 05/14/22[place] [employer] Other XR tibia fibula LT 2V* XR/XR tibia fibula LT 2V*: Closed displaced comminuted fracture of [facility] [employer] Other XR tibia fibula LT 2V*of left tibia,[employer] system master Other XR tibia fibula LT 2V*XR tibia fibula LT 2V* 05/14/2022 9:06 [facility] [employer] Other XR tibia fibula LT 2V*SIGNS AND SYMPTOMS: Status post left tibial nailing, increasing left lower leg painSavannah [employer] Other XR tibia fibula LT 2V*PROTOCOL: Frontal and lateral radiograph of the left tibia and fibulaNowright memorial hospital [employer] Other XR tibia fibula LT 2V*COMPARISON: 04/16/2022[facility] [employer] Other XR tibia fibula LT 2V*FINDINGS:[employer] system master Other XR tibia fibula LT 2V*Transverse aortic fractures are noted in the shaft of the tibia and fibula status [facility] [employer] Other XR tibia fibula LT 2V*intramedullary bettye fixation of the tibia. There is increasing periosteal new bone formationSavannah [employer] Other XR tibia fibula LT 2V*suggesting a healing response. Healing remains incomplete. No change in alignment.[employer] system master Other XR tibia fibula LT 2V* XR/XR tibia fibula LT 2V*[employer] system master Other XR tibia fibula LT 2V*IMPRESSION:[employer] system master Other XR tibia fibula LT 2V*Healing fractures of the mid shaft of the tibia and fibula are noted without change in alignment [facility] [employer] Other XR tibia fibula LT 2V*hardware complication.[employer] system master Other xr tibia fibula LT 2V*Impression dictated by: Kamron Brooks M.D.05/14/2022 12:12 [facility] [employer] Other XR tibia fibula LT 2V*Dictation Location: [place] [address] [employer] system master Other XR tibia fibula LT 2V*Transcribed By: SUPRIYA 05/14/[address] [place] [address] [employer] Other XR tibia fibula LT 2V*Dictated By: Kamron Brooks II, MD 05/14/[address] [place] [address] [employer] Other xr tibia fibula LT 2V*Signed By:Droid system master Other XR tibia fibula LT 2V*05/14/[address] [place] [address] [employer] Other XR tibia fibula LT 2V*on 94-31-1293TS tibia fibula LT 2V*[facility] Main [address] [address] XRay Report Signed Patient: Christiane Ashley MR#: [id number] 01 : 1970 Acct:[id number] Age/Sex: 51 / F ADM Date: 04/16/22 Loc: [facility] Room: Type: [facility] Attending Dr: Aquiles Vasquez II, MD [...] Logan Jr., D.O.04/16/2022 2:43 PM Dictation Location: [place] [address] Transcribed By: [facility] 04/16/22 1443 Dictated By: Cale Logan Jr, 04/16/22 1441 Signed By: 04/16/22 1443[facility] HospitalXR tibia fibula LT 2V* [facility] [employer] Other XR tibia fibula LT 2V*[facility] [employer] Other XR tibia fibula LT 2V*[address] [place] [address] [employer]ately Other XR tibia fibula LT 2V*MILAGROS Walker [address]Pvrhe [employer] Other XR tibia fibula LT 2V*XRay ReportSavannah [employer] Other XR tibia fibula LT 2V*SignedSavannah [employer] Other XR tibia fibula LT 2V*Patient: Christiane Ashley MR#: [id number] [employer] Other XR tibia fibula LT 2V*[address] [place] [address] [employer] Other XR tibia fibula LT 2V*: 1970 Acct:[id number] [place] [employer] Other XR tibia fibula LT 2V*Age/Sex: 51 / F ADM Date: 04/16/22[place] [employer] Other XR tibia fibula LT 2V*Loc: [facility] Room: Type: [facility] [employer] Other XR tibia fibula LT 2V*Attending Dr: Aquiles Vasquez II [facility] [employer] Other XR tibia fibula LT 2V*Copies to: Aquiles Vasquez MD [place] [employer] Other XR tibia fibula LT 2V*Ordering Provider: Aquiles Vasquez MDSavannah [employer] Other XR tibia fibula LT 2V*Date of Service: 04/16/22[place] [employer] Other XR tibia fibula LT 2V* XR/XR tibia fibula LT 2V*: Closed displaced comminuted fracture of [facility] [employer] Other XR tibia fibula LT 2V*of left tibia,[employer]roid system master Other XR tibia fibula LT 2V*LEFT TIBIA AND FIBULA - - 2 viewsSavannah [employer] Other XR tibia fibula LT 2V*CLINICAL HISTORY: Closed displaced comminuted fracture of left tibia, follow-up.[employer] system master Other XR tibia fibula LT 2V*COMPARISON: Left tib-fib series 03/01/2022[facility] [employer] Other XR tibia fibula LT 2V*FINDINGS:[employer] system master Other XR tibia fibula LT 2V*Hardware fixation of a mid tibial fracture grossly unchanged in alignment and healing compared [facility] [employer] Other XR tibia fibula LT 2V*the prior study. Additional mid fibular fracture is also unchanged in alignment and healing.[employer] system master Other XR tibia fibula LT 2V*Diffuse soft tissue swelling is noted. Degenerative changes are noted involving the visualized kneeNowright memorial hospital [employer] Other XR tibia fibula LT 2V*joint. Ankle mortise appears intact.[employer] system master Other XR tibia fibula LT 2V* XR/XR tibia fibula LT 2V*[employer] system master Other XR tibia fibula LT 2V*IMPRESSION:[employer] system master Other XR tibia fibula LT 2V*NO SIGNIFICANT CHANGE IN FRACTURE FINDINGS.[employer] system master Other XR tibia fibula LT 2V*Impression dictated by: Cale Logan Jr., D.O.04/16/2022 2:43 [facility] [employer] Other XR tibia fibula LT 2V*Dictation Location: [facility]- [employer] system master Other XR tibia fibula LT 2V*Transcribed By: SUPRIYA 04/16/[address] [place] [address] [employer] Other XR tibia fibula LT 2V*Dictated By: Cale Logan Jr, DO 04/16/[address] [place] [address] [employer] Other XR tibia fibula LT 2V*Signed By:[place] [employer] Other XR tibia fibula LT 2V*04/16/22 1443[facility] [employer] Other INSULINon [id number] uIU/mLCritically low 2.6-24.9The [facility] Medical CenterComment on above:Performed By: #### CMP, LIPID, TSH, T7 #### [facility] [address] [address] [address] Mehnaz Zambrano AUTO DIFFon [id number] #0.1 103/ulNormal0.0-0.1The [facility]'S Medical CenterComment on above:Performed By: #### CMP, LIPID, TSH, T7 #### [facility] [address] [address] [address] Mehnaz DubonBasophils/100 WBC (Bld)1.0 %Normal0.2-2.0The [facility] Comment on above:Performed By: #### CMP, LIPID, TSH, T7 #### [facility] [address] [address] [address] Mehnaz Marquez #0.3 103/ulNormal0.0-0.7The [facility] Medical CenterComment on above: Performed By: #### CMP, LIPID, TSH, T7 #### [facility] [address] [address] [address] Mehnaz Wildosinophils/100 WBC (Bld)4.8 %Normal0.9-7.0The [facility] Comment on above:Performed By: #### CMP, LIPID, TSH, T7 #### [facility] [address] [address] [address] Mehnaz Wildrythrocyte distribution width (RBC) [Ratio]13.9 %Tvddhj54.0-15.[address] [facility] Medical CenterComment on above:Performed By: #### CMP, LIPID, TSH, T7 #### [facility] [address] [place] [address] Dr. Mehnaz DubonHematocrit (Bld) [Volume fraction]37.1 %Cjplsn71.0-48.0The [facility] Medical CenterComment on above:Performed By: #### CMP, LIPID, TSH, T7 #### [facility] [address] [place] [address] Dr. Mehnaz DubonHemoglobin (Bld) [Mass/Vol]11.8 g/dLCritically low12.0-16.0The [facility] Medical CenterComment on above:Performed By: #### CMP, LIPID, TSH, T7 #### [facility] [address] [place] [address] Dr. Mehnaz Pena #0.01 10e3/ulNormal0.00-0.03The [facility]S Medical CenterComment on above:Performed By: #### CMP, LIPID, TSH, T7 #### [facility] [address] [place] [address] Dr. Mehnaz Pena %0.2 %Normal0.0-0.5The [facility] Medical CenterComment on above: Performed By: #### CMP, LIPID, TSH, T7 #### [facility] [address] [place] [address] Dr. Mehnaz Dubois #1.1 103/ulCritically low1.2-3.8The [facility] Comment on above:Performed By: #### CMP, LIPID, TSH, T7 #### [facility] [address] [place] [address] Dr. Mehnaz Laughlinhocytes/100 WBC (Bld)18.2 %Critically low20.5-60.0The [facility] Medical CenterComment on above:Performed By: #### CMP, LIPID, TSH, T7 #### [facility] [address] [place] [address] Dr. Mehnaz LopezUAL DIFF REQNONormalThe [facility]'S Medical CenterComment on above: Performed By: #### CMP, LIPID, TSH, T7 #### [facility] [address] [place] [address] Dr. Mehnaz Silva (RBC) [Entitic mass]29.6 dwNplhhp87.7-34.0The [facility] Medical CenterComment on above:Performed By: #### CMP, LIPID, TSH, T7 #### [facility] [address] [place] [address] Dr. Mehnaz Sage (RBC) [Mass/Vol]31.8 g/hIVfahar20.9-35.2The [facility] Medical CenterComment on above:Performed By: #### CMP, LIPID, TSH, T7 #### [facility] [address] [place] [address] Dr. Mehnaz Sage (RBC) [Entitic vol]93.2 mPCtejal87.0-99.0The [facility] Medical CenterComment on above:Performed By: #### CMP, LIPID, TSH, T7 #### [facility] [address] [place] [address] Dr. Mehnaz Cunningham #0.6 103/ulNormal0.3-0.8The [facility] Medical CenterComment on above:Performed By: #### CMP, LIPID, TSH, T7 #### [facility] [address] [place] [address] Dr. Mehnaz Blackocytes/100 WBC (Bld)9.7 %Normal1.7-12.0The [facility] Comment on above:Performed By: #### CMP, LIPID, TSH, T7 #### [facility] [address] [place] [address] Dr. Mehnaz Keene #4.0 103/ulNormal1.4-6.5The [facility] Medical CenterComment on above:Performed By: #### CMP, LIPID, TSH, T7 #### [facility] [address] [place] [address] Dr. Mehnaz Baronutrophils/100 WBC (Bld)66.1 %Sdecbd51.0-75.0The [facility] Medical CenterComment on above:Performed By: #### CMP, LIPID, TSH, T7 #### [facility] [address] [place] [address] Dr. Mehnaz Esquivel mean volume (Bld) [Entitic vol]9.5 fLNormal9.5-13.5The [facility] Medical CenterComment on above:Performed By: #### CMP, LIPID, TSH, T7 #### [facility] [address] [place] [address] Dr. Mehnaz DubonPLT216 103/xfMzwfpi556-209Qvp [facility] on above: Performed By: #### CMP, LIPID, TSH, T7 #### [facility] [address] [place] [address] Dr. Mehnaz DubonRBC3.98 106/ulCritically low4.20-5.40The [facility] Medical CenterCommclaren lapeer region on above:Performed By: #### CMP, LIPID, TSH, T7 #### [facility] [address] [place] [address] Dr. Mehnaz DubonWBC6.0 103/ulNormal4.0-11.0The [facility] on above: Performed By: #### CMP, LIPID, TSH, T7 #### [facility] [address] [place] [address] Dr. Mehnaz DubonFRASHLEIGH THYROXINE INDEX T7on 47-35-9040XBU6.65Cdqker4.30-4.50[facility] on above:Performed By: #### CMP, LIPID, TSH, T7 #### [facility] [address] [place] [address] Dr. Mehnaz DubonT3U37.0 %Pdkdjr42.0-39.0The [facility] on above: Performed By: #### CMP, LIPID, TSH, T7 #### [facility] [address] [place] [address] Dr. Mehnaz DubonT4 [Mass/Vol]4.10 ug/dLCritically low4.80-13.90The [facility] on above:Performed By: #### CMP, LIPID, TSH, T7 #### [facility] [address] [place] [address] Dr. Mehnaz DubonGLYCOHEMOGLOBIN A1Con [id number] RECOMMENDATIONSEE BELOWNormal The [facility] Medical CenterCommclaren lapeer region on above:Result Comment: ADA RECOMMENDED LIMIT 4.0 - 6.0 ADA THERAPEUTIC TARGET < 7.0 ACTION SUGGESTED > 7.0Performed By: #### CMP, LIPID, TSH, T7 #### [facility] [address] [address] [address] Mehnaz DubonGlucose [Mass/Vol]62 mg/dLLutheran HospitalComment on above:Performed By: #### CMP, LIPID, TSH, T7 #### [facility] [address] [address] [address] Mehnaz DubonHbA1c (Bld) [Mass fraction]3.8 %Critically low4.5-6.2The [facility] Medical CenterComment on above:Performed By: #### CMP, LIPID, TSH, T7 #### [facility] [address] [address] [address] Mehnaz Santos [id number] [Mass/Vol]56.0 ug/jWSodair54.0-170.0The [facility] Medical CenterComment on above:Performed By: #### CMP, LIPID, TSH, T7 #### [facility] [address] [place] [address] Dr. Mehnaz MarreroID PROFILEon [id number]-HDL RATIO NORMSEE [facility] HospitalComment on above:Result Comment: 3.3 - 4.4 LOW RISK 4.4 - 7.1 AVERAGE RISK 7.1 - 11.0 MODERATE RISK >11.0 HIGH RISKPerformed By: #### CMP, LIPID, TSH, T7 #### [facility] [address] [address] [address] Mehnaz DubonCholesterol [Mass/Vol]131 mg/dLNormal<=200The [facility] Comment on above:Performed By: #### CMP, LIPID, TSH, T7 #### [facility] [address] [address] [address] Mehnaz DubonCholesterol in HDL [Mass/Vol]86 mg/dLCritically itvr33-66Mpy [facility] Hospitalment on above:Performed By: #### CMP, LIPID, TSH, T7 #### [facility] [address] [address] [address] Mehnaz Francoisesterol in LDL [Mass/Vol]39.4 mg/dLLutheran HospitalComment on above:Performed By: #### CMP, LIPID, TSH, T7 #### [facility] [address] [place] [address] Dr. Mehnaz DubonCholesterol.total/Cholesterol in HDL [Mass ratio]1.5 {ratio} NormalThe [facility]S Medical CenterComment on above:Performed By: #### CMP, LIPID, TSH, T7 #### [facility] [address] [address] [address] Mehnaz Tobra NORMAL> or = 60 mg/dl - LOW CARDIOVASCULAR RISK <40 mg/dl - HIGH CARDIOVASCULAR RISKNoWestern Reserve HospitalComment on above:Performed By: #### CMP, LIPID, TSH, T7 #### [facility] [address] [place] [address] Dr. Mehnaz Russo CALC NORMALSEE BELOWNoWestern Reserve HospitalComment on above:Result Comment: <100 mg/dl OPTIMAL 100 - 129 mg/dl NEAR OR ABOVE OPTIMAL 130 - 159 mg/dl BORDERLINE HIGH 160 - 189 mg/dl HIGH >190 mg/dl VERY HIGH Performed By: #### CMP, LIPID, TSH, T7 #### [facility] [address] [place] [address] Dr. Mehnaz DubonTriglyceride [Mass/Vol]28 mg/dLNormal<=150The [facility] Comment on above:Performed By: #### CMP, LIPID, TSH, T7 #### [facility] [address] [place] [address] Dr. Mehnaz DubonVLDL CALC5.6 mg/dLNoWestern Reserve HospitalComment on above: Performed By: #### CMP, LIPID, TSH, T7 #### [facility] [address] [place] [address] Dr. Mehnaz DubonPRONoah 14(COMP METB)on 76-86-8892Rlhmijd [Mass/Vol]3.1 g/dL Critically low3.4-5.0The [facility] Medical CenterComment on above:Performed By: #### CMP, LIPID, TSH, T7 #### [facility] [address] [address] [address] Mehnaz DubonAlbumin/Globulin [Mass ratio]1.0 {ratio}NormalThe [facility]'S Medical CenterComment on above:Performed By: #### CMP, LIPID, TSH, T7 #### [facility] [address] [address] [address] Mehnaz Marie [Catalytic activity/Vol]131 U/LCritically cbjm97-792Ajo [facility]S Medical CenterComment on above:Performed By: #### CMP, LIPID, TSH, T7 #### [facility] [address] [address] [address] Mehnaz VelasquezT [Catalytic activity/Vol]21 U/GNehawo82-38Pqu [facility] Medical CenterComment on above:Performed By: #### CMP, LIPID, TSH, T7 #### [facility] [address] [place] [address] Dr. Mehnaz Bolandon gap [Moles/Vol]11.2 mmol/LNormalThe [facility] Comment on above:Performed By: #### CMP, LIPID, TSH, T7 #### [facility] [address] [address] [address] Mehnaz DubonAST [Catalytic activity/Vol]26 U/FKyjhhu37-05Gvr [facility] Medical CenterComment on above:Performed By: #### CMP, LIPID, TSH, T7 #### [facility] [address] [place] [address] Dr. Mehnaz DubonBilirubin [Mass/Vol]0.6 mg/dLNormal0.2-1.0The [facility] Comment on above:Performed By: #### CMP, LIPID, TSH, T7 #### [facility] [address] [place] [address] Dr. Mehnaz DubonCalcium [Mass/Vol]8.8 mg/dLNormal8.5-10.1The [facility] Comment on above:Performed By: #### CMP, LIPID, TSH, T7 #### [facility] [address] [place] [address] Dr. Mehnaz DubonChloride [Moles/Vol]104 mmol/ZOcvqnz90-378Lai [facility] Comment on above:Performed By: #### CMP, LIPID, TSH, T7 #### [facility] [address] [address] [address] Mehnaz DubonCO2 [Moles/Vol]28.3 mmol/IUpoiqy24.0-32.0The [facility] Comment on above:Performed By: #### CMP, LIPID, TSH, T7 #### [facility] [address] [address] [address] Mehnaz DubonCreatinine [Mass/Vol]0.37 mg/dLCritically low0.55-1.02The [facility] SouthwoodsComment on above:Performed By: #### CMP, LIPID, TSH, T7 #### [facility] [address] [place] [address] Dr. Mehnaz WildGFR-AF POLISH>60Normal>=60The [facility] Medical CenterComment on above:Performed By: #### CMP, LIPID, TSH, T7 #### [facility] [address] [place] [address] Dr. Mehnaz WildGFR-NON AF POLISH>60Normal>=60The [facility] Medical CenterComment on above:Performed By: #### CMP, LIPID, TSH, T7 #### [facility] [address] [place] [address] Dr. Mehnaz DubonGlobulin (S) [Mass/Vol]3.0 g/dLNormalThe [facility] Medical CenterComment on above:Performed By: #### CMP, LIPID, TSH, T7 #### [facility] [address] [address] [address] Mehnaz DubonGlucose [Mass/Vol]76 mg/hMBsgdpi89-090MogThe [facility] Comment on above:Performed By: #### CMP, LIPID, TSH, T7 #### [facility] [address] [place] [address] Dr. Mehnaz DubonPotassium [Moles/Vol]3.5 mmol/LNormal3.5-5.1The [facility] Comment on above:Performed By: #### CMP, LIPID, TSH, T7 #### [facility] [address] [address] [address] Mehnaz DubonProtein [Mass/Vol]6.1 g/dLCritically low6.4-8.2The [facility] CenterComment on above:Performed By: #### CMP, LIPID, TSH, T7 #### [facility] [address] [place] [address] Dr. Mehnaz DubonSodium [Moles/Vol]140 mmol/HFxkenw551-818Thl [facility] Comment on above:Performed By: #### CMP, LIPID, TSH, T7 #### [facility] [address] [place] [address] Dr. Mehnaz DubonUrea nitrogen [Mass/Vol]8.0 mg/dLNormal7.0-18.0The [facility] Medical CenterComment on above:Performed By: #### CMP, LIPID, TSH, T7 #### [facility] [address] [place] [address] Dr. Mehnaz Burk nitrogen/Creatinine [Mass ratio]21.6 mg/mgNormalThe [facility] Medical CenterComment on above:Performed By: #### CMP, LIPID, TSH, T7 #### [facility] [address] [place] [address] Dr. Mehnaz StevensHoarabella 56-51-9917DHJ0.446 uIU/mLCritically high0.358-3.740The [facility] CenterComment on above:Performed By: #### CMP, LIPID, TSH, T7 #### [facility] [address] [place] [address] Dr. Mehnaz DubonVITAMIN B12on 94-38-8398Ndamxwita (Vitamin B12) [Mass/Vol]872.0 pg/dKYyapde874.0-986.0The [facility] CenterComment on above:Performed By: #### CMP, LIPID, TSH, T7 #### [facility] [address] [place] [address] Dr. Mehnaz DubonVITAMIN D 25 OHon 39-90-6020NWN D 25-OH41.4 ng/mLNormalThe [facility] CenterComment on above:Performed By: #### CMP, LIPID, TSH, T7 #### [facility] [address] [place] [address] Dr. Mehnaz Lang RANGESWayne HealthCare Main CampusComment on above: Result Comment: <20 ng/mL Vit D deficient 20 - <30 ng/mL Vit D insufficient 30 - 100 ng/mL Vit D sufficient >100 ng/mL Potential ToxicityPerformed By: #### CMP, LIPID, TSH, T7 #### [facility] [address] [place] [address] Dr. Mehnaz Zambrano AUTO DIFFon 77-61-4631LUNC #0.1 103/ulNormal0.0-0.1The [facility] Medical CenterComment on above:Performed By: #### CMP, LIPID, TSH, T7 #### [facility] [address] [place] [address] Dr. Mehnaz DubonBasophils/100 WBC (Bld)1.3 %Normal0.2-2.0The [facility] Comment on above:Performed By: #### CMP, LIPID, TSH, T7 #### [facility] [address] [place] [address] Dr. Mehnaz Marquez #0.2 103/ulNormal0.0-0.7The [facility] Medical CenterComment on above: Performed By: #### CMP, LIPID, TSH, T7 #### [facility] [address] [place] [address] Dr. Mehnaz Wildosinophils/100 WBC (Bld)3.0 %Normal0.9-7.0The [facility] Comment on above:Performed By: #### CMP, LIPID, TSH, T7 #### [facility] [address] [place] [address] Dr. Mehnaz Wildrythrocyte distribution width (RBC) [Ratio]13.9 %Jypvpn77.0-15.[address] [facility] Medical CenterComment on above:Performed By: #### CMP, LIPID, TSH, T7 #### [facility] [address] [place] [address] Dr. Mehnaz DubonHematocrit (Bld) [Volume fraction]29.7 %Critically low36.0-48.[address] [facility] Medical CenterComment on above:Performed By: #### CMP, LIPID, TSH, T7 #### [facility] [address] [place] [address] Dr. Mehnaz DubonHemoglobin (Bld) [Mass/Vol]9.5 g/dLCritically low12.0-16.0The [facility] CenterComment on above:Performed By: #### CMP, LIPID, TSH, T7 #### [facility] [address] [place] [address] Dr. Mehnaz Pena #0.03 10e3/ulNormal0.00-0.03The [facility]ment on above:Performed By: #### CMP, LIPID, TSH, T7 #### [facility] [address] [place] [address] Dr. Mehnaz Pena %0.5 %Normal0.0-0.5The [facility] Medical CenterComment on above: Performed By: #### CMP, LIPID, TSH, T7 #### [facility] [address] [place] [address] Dr. Mehnaz Dubois #1.7 103/ulNormal1.2-3.8The [facility] Medical CenterComment on above:Performed By: #### CMP, LIPID, TSH, T7 #### [facility] [address] [place] [address] Dr. Mehnaz Laughlinhocytes/100 WBC (Bld)27.0 %Bnnpmb61.5-60.0The [facility] Medical CenterComment on above:Performed By: #### CMP, LIPID, TSH, T7 #### [facility] [address] [place] [address] Dr. Mehnaz LopezUAL DIFF REQNONormalThe [facility] Medical CenterComment on above: Performed By: #### CMP, LIPID, TSH, T7 #### [facility] [address] [place] [address] Dr. Mehnaz Silva (RBC) [Entitic mass]31.0 vgPcltaq02.7-34.0The [facility] Medical CenterComment on above:Performed By: #### CMP, LIPID, TSH, T7 #### [facility] [address] [place] [address] Dr. Mehnaz Sage (RBC) [Mass/Vol]32.0 g/vQAitusr76.9-35.2The [facility] Medical CenterComment on above:Performed By: #### CMP, LIPID, TSH, T7 #### [facility] [address] [place] [address] Dr. Mehnaz Sage (RBC) [Entitic vol]97.1 rLTmrihn74.0-99.0The [facility] CenterComment on above:Performed By: #### CMP, LIPID, TSH, T7 #### [facility] [address] [place] [address] Dr. Mehnaz Cunningham #0.6 103/ulNormal0.3-0.8The [facility] Medical CenterComment on above:Performed By: #### CMP, LIPID, TSH, T7 #### [facility] [address] [place] [address] Dr. Mehnaz Blackocytes/100 WBC (Bld)9.0 %Normal1.7-12.0The [facility] Comment on above:Performed By: #### CMP, LIPID, TSH, T7 #### [facility] [address] [place] [address] Dr. Mehnaz Keene #3.6 103/ulNormal1.4-6.5The [facility] Medical CenterComment on above:Performed By: #### CMP, LIPID, TSH, T7 #### [facility] [address] [place] [address] Dr. Mehnaz Baronutrophils/100 WBC (Bld)59.2 %Dkufvd80.0-75.0The [facility] Medical CenterComment on above:Performed By: #### CMP, LIPID, TSH, T7 #### [facility] [address] [place] [address] Dr. Mehnaz Esquivel mean volume (Bld) [Entitic vol]9.4 fLCritically low 9.5-13.5The [facility] HospitalComment on above:Performed By: #### CMP, LIPID, TSH, T7 #### [facility] [address] [place], [place] [address] Dr. Mehnaz DubonPLT263 103/cjQqisbx433-946Jba [facility] Hospitalment on above: Performed By: #### CMP, LIPID, TSH, T7 #### [facility] [address] [address] [address] Mehnaz DubonRBC3.06 106/ulCritically low4.20-5.40The [facility] CenterComment on above:Performed By: #### CMP, LIPID, TSH, T7 #### [facility] [address] [place], [place] [address] Dr. Mehnaz DubonWBC6.1 103/ulNormal4.0-11.0The [facility] Medical CenterCommclaren lapeer region on above: Performed By: #### CMP, LIPID, TSH, T7 #### [facility] [address] [address] [address] Mehnaz Verdugo CHEST WO W CONon [id number] CHEST WO W CONEXAMINATION: CTA CHEST WO W CON HISTORY: CHEST [...] Electronically authenticated by: ELE HEARD Date: 2022-03-09 21:52[facility]uther[facility] HospitalD-DIMERon 28-77-8233S-DIMER1.98 mg/L FEUCritically high<=0.[address] [facility] Medical CenterComment on above:Performed By: #### CMP, LIPID, TSH, T7 #### [facility] [address] [place] [address] Dr. Mehnaz Barr-DIMER COMMENTSSEE [facility] on above:Result Comment: Increases in D-Dimer concentration observed with thromboembolic events [...] stress, and generalized hospitalization. Performed By: #### CMP, LIPID, TSH, T7 #### [facility] [address] [place] [address] Dr. Mehnaz DubonPROF 14(COMP METB)on 79-71-1757Gsderuv [Mass/Vol]2.9 g/dL Critically low3.4-5.0[facility] on above:Performed By: #### CMP, LIPID, TSH, T7 #### [facility] [address] [place] [address] Dr. Mehnaz DubonAlbumin/Globulin [Mass ratio]0.8 {ratio}NormalThe [facility] Medical CenterCommclaren lapeer region on above:Performed By: #### CMP, LIPID, TSH, T7 #### [facility] [address] [place] [address] Dr. Mehnaz Marie [Catalytic activity/Vol]128 U/LCritically vfjc83-269Kcj [facility] CenterCommclaren lapeer region on above:Performed By: #### CMP, LIPID, TSH, T7 #### [facility] [facility] [address] [place] [address] Dr. Mehnaz Whitehead [Catalytic activity/Vol]31 U/XUhroyd82-82[facility] on above:Performed By: #### CMP, LIPID, TSH, T7 #### [facility] [address] [place] [address] Dr. Yilan ChangAnion gap [Moles/Vol]11.1 mmol/LNormalThe [facility] Comment on above:Performed By: #### CMP, LIPID, TSH, T7 #### [facility] [address] [address] [address] Mehnaz DubonAST [Catalytic activity/Vol]29 U/IZkiqvt52-54Ybk [facility]'S Medical CenterComment on above:Performed By: #### CMP, LIPID, TSH, T7 #### [facility] [address] [address] [address] Mehnaz DubonBilirubin [Mass/Vol]0.4 mg/dLNormal0.2-1.0The [facility] Comment on above:Performed By: #### CMP, LIPID, TSH, T7 #### [facility] [address] [place] [address] Dr. Mehnaz DubonCalcium [Mass/Vol]8.8 mg/dLNormal8.5-10.1[facility] Comment on above:Performed By: #### CMP, LIPID, TSH, T7 #### [facility] [address] [place] [address] Dr. Mehnaz DubonChloride [Moles/Vol]107 mmol/TZlfasf09-064JvlThe Surgical Hospital At [facility]woods Comment on above:Performed By: #### CMP, LIPID, TSH, T7 #### [facility] [address] [place] [address] Dr. Mehnaz DubonCO2 [Moles/Vol]26.3 mmol/RZateur68.0-32.0[facility] Comment on above:Performed By: #### CMP, LIPID, TSH, T7 #### [facility] [address] [place] [address] Dr. Mehnaz DubonCreatinine [Mass/Vol]0.47 mg/dLCritically low0.55-1.02The [facility]'S Medical CenterComment on above:Performed By: #### CMP, LIPID, TSH, T7 #### [facility] [address] [place] [address] Dr. Darby ChangEGFR-AF POLISH>60Normal>=60The [facility] Falls HospitalComment on above:Performed By: #### CMP, LIPID, TSH, T7 #### [facility] [address] [address] [address] Mehnaz WildGFR-NON AF POLISH>60Normal>=60The [facility]'S Medical CenterComment on above:Performed By: #### CMP, LIPID, TSH, T7 #### [facility] [address] [address] [address] Mehnaz DubonGlobulin (S) [Mass/Vol]3.6 g/dLNormalThe [facility]'S Medical CenterComment on above:Performed By: #### CMP, LIPID, TSH, T7 #### [facility] [address] [address] [address] Mehnaz DubonGlucose [Mass/Vol]77 mg/xYJmxyba91-317QshThe [facility] Hospital [facility] Comment on above:Performed By: #### CMP, LIPID, TSH, T7 #### [facility] [address] [place] [address] Dr. Mehnaz DubonPotassium [Moles/Vol]3.4 mmol/LCritically low3.5-5.1The [facility] Hospitalment on above:Performed By: #### CMP, LIPID, TSH, T7 #### [facility] [address] [place] [address] Dr. Mehnaz DubonProtein [Mass/Vol]6.5 g/dLNormal6.4-8.2[facility] Comment on above:Performed By: #### CMP, LIPID, TSH, T7 #### [facility] [address] [address] [address] Mehnaz DubonSodium [Moles/Vol]141 mmol/YWkrchn148-599XfiThe [facility] Hospital [facility] Comment on above:Performed By: #### CMP, LIPID, TSH, T7 #### [facility] [address] [place] [address] Dr. Mehnaz DubonUrea nitrogen [Mass/Vol]4.0 mg/dLCritically low7.0-18.0The [facility]'S Medical CenterComment on above:Performed By: #### CMP, LIPID, TSH, T7 #### [facility] [address] [address] [address] Mehnaz DubonUrea nitrogen/Creatinine [Mass ratio]8.5 mg/mgNoWestern Reserve HospitalComment on above:Performed By: #### CMP, LIPID, TSH, T7 #### [facility] [address] [address] [address] Mehnaz Royal, HIGH SENSITIVITYon 01-80-0798DPGPZY7.5 pg/mLNormal 4.0-51.3The [facility]'S Medical CenterComment on above:Result Comment: CUT-OFF POINTS HAVE BEEN ESTABLISHED BASED ON THE FOURTH UNIVERSAL DEFINITIONS OF MYOCARDIAL INFARCTION. THE UPPER REFERENCE LIMIT (URL) OF TROPONIN, DEFINED THE 99TH PERCENTILE OF cTnI DISTRIBUTION IN A REFERENCE POPULATION, HAS BEEN CONFIRMED THE DECISION THRESHOLD FOR [place] DIAGNOSIS.Performed By: #### CMP, LIPID, TSH, T7 #### [facility] [address] [address] [address] Mehnaz DubonXR CHEST 1 Von 26-60-0378GC CHEST 1 VEXAM: XR CHEST 1 V INDICATION: CHEST PAIN, UNSPECIFIED. COMPARISON: Chest radiograph 03/01/2022 TECHNIQUE: Single frontal view of the chest FINDINGS: Normal cardiomediastinal contours. Clear lungs. No pleural effusion or pneumothorax. No acute osseous abnormality. IMPRESSION: No acute cardiopulmonary process. Electronically authenticated by: SEJAL VILLARREAL Date: 2022-03-09 20:49[facility] HospitalXR tibia fibula LT 2V*on 49-69-1767FU tibia fibula LT 2V* [facility] Main [place] [address] [place] [address] XRay Report Signed Patient: Christiane Ashley MR#: [id number] 01 : 1970 Acct:[id number] Age/Sex: 51 / F ADM Date: 03/01/22 Loc: Room: 4Q6716-0 Type: DIS IN Attending Dr: Aquiles Vasquez [...] Logan Jr., D.O.03/04/2022 11:27 AM Dictation Location: [place] [address] Transcribed By: [facility] 03/04/22 112 Dictated By: Cale Logan Jr DO 03/04/22 112 Signed By: 03/04/22 112NoNewark HospitalBasic Metabolic Panelon 77-09-5364Czdgv gap [Moles/Vol]12.6 mmol/LNormal6.0-15.0Parkwood HospitalComment on above:Performed By: #### BMP, CBC #### [facility] [address] [place] [address] USACalcium [Mass/Vol]8.3 mg/dLNormal8.2-10.2FCleveland Clinic Marymount HospitalComment on above:Performed By: #### BMP, CBC #### [facility] [address] [place] [address] USAChloride [Moles/Vol]107 mmol/LDpxgst51-401QsohlayavParkwood HospitalComment on above:Performed By: #### BMP, CBC #### [facility] [address] [place] [address] USACO2 [Moles/Vol]23.9 mmol/OKqhodg50.0-30.0Parkwood HospitalComment on above:Performed By: #### BMP, CBC #### [facility] [address] [id number] USACreatinine [Mass/Vol]0.48 mg/dLNormal0.44-1.03Parkwood HospitalComment on above:Performed By: #### BMP, CBC #### [facility] [address] [place] [address] USACreatinine Clr Calc Ogbhevzx187.34NoNewark HospitalComment on above:Result Comment: PERFORMED BY: [facility] [address] [place] [address] PATHOLOGIST CASH APPLICATIONS SPECIALIST MELISSA FRIAS M.D.Performed By: #### BMP, CBC #### [facility] [address] [place] [address] USAEstimated GFR ( Suzette> 60NormUK HealthcareComment on above:Result Comment: GFR estimated reference range: According to KDOQI guidelines, <60 ml/min/1.73m2 is sufficient to diagnose a patient with chronic kidney disease.Performed By: #### BMP, CBC #### [facility] [address] [place] [address] USAEstimated GFR (Non- Am> 60NormUK HealthcareComment on above:Performed By: #### BMP, CBC #### [place] [address] USAGlucose [Mass/Vol]83 mg/xDFkcgii01-442RdkkuvmqnParkwood HospitalComment on above:Result Comment: Random Glucose Reference Range is dependent on time and content of last meal. Glucose of more than 200 mg/dL in a nonstressed, ambulatory subject supports the diagnosis of Diabetes Mellitus. ADA recommended reference rangePerformed By: #### BMP, CBC #### [place] [address] USAPotassium [Moles/Vol]3.5 mmol/LNormal3.5-5.1FCleveland Clinic Marymount HospitalComment on above:Performed By: #### BMP, CBC #### [facility] [address] [place] [address] USASodium [Moles/Vol]140 mmol/YAcpxyf509-106HsebcmjbfParkwood HospitalComment on above:Performed By: #### BMP, CBC #### [place] [address] USAUrea nitrogen [Mass/Vol]8 mg/dLLow9-23Parkwood HospitalComment on above:Performed By: #### BMP, CBC #### [facility] [address] [place] [address] USABasophils Auto (Bld) [#/Vol]Ordered By: Aquiles Vasquez on 09-89-0038Sjfxaktbt (Bld) [#/Vol]0.0 10*3/uL0.0-0.2FCleveland Clinic Marymount HospitalBasophils/100 WBC Auto (Bld)Ordered By: Aquiles Vasquez on 03-03-2022 Basophils/100 WBC (Bld)0.4 %.Parkwood HospitalComplete Blood Count Auto Diffon 88-44-5527Vlzgimqus (Bld) [#/Vol]0.0 10*3/uLNormal0.0-0.2 Parkwood HospitalComment on above:Result Comment: PERFORMED BY: [place] [address] PATHOLOGIST CASH APPLICATIONS SPECIALIST MELISSA FRIAS M.D.Performed By: #### BMP, CBC #### [place] [address] USABasophils/100 WBC (Bld)0.4 %Normal.Parkwood HospitalComment on above:Performed By: #### BMP, CBC #### [facility] [address] [place] [address] USAEosinophils (Bld) [#/Vol]0.0 10*3/uLNormal0.0-0.45 Park[facility] HospitalComment on above:Performed By: #### BMP, CBC #### [place] [address] USAEosinophils/100 WBC (Bld)0.5 %Normal.Parkwood HospitalComment on above:Performed By: #### BMP, CBC #### [place] [address] USAErythrocyte distribution width (RBC) [Ratio]13.8 %Normal 11.9-15.3FCleveland Clinic Marymount HospitalComment on above:Performed By: #### BMP, CBC #### [place] [address] USAHematocrit (Bld) [Volume fraction]25.2 %Low34.0-46.4 Parkwood HospitalComment on above:Performed By: #### BMP, CBC #### [facility] [address] [place] [address] USAHemoglobin (Bld) [Mass/Vol]8.4 g/dLLow11.8-15.4FCleveland Clinic Marymount HospitalComment on above:Performed By: #### BMP, CBC #### [facility] [address] [place] [address] USALymphocytes (Bld) [#/Vol]1.5 10*3/uLNormal1.00-4.8 Parkwood HospitalComment on above:Performed By: #### BMP, CBC #### [facility] [address] [place] [address] USALymphocytes/100 WBC (Bld)25.7 %Normal.Parkwood HospitalComment on above:Performed By: #### BMP, CBC #### [facility] [address] [place] [address] USAMCH (RBC) [Entitic mass]31.4 tiTvdfzk70.7-34.3FCleveland Clinic Marymount HospitalComment on above:Performed By: #### BMP, CBC #### [facility] [address] [place] [address] USAMCV (RBC) [Entitic vol]94.0 wZWgflar94-514FgtcbfbhzParkwood HospitalComment on above:Performed By: #### BMP, CBC #### [facility] [address] [place] [address] USAMean Corpuscular HGB Conc33.4 g/kPCbqkis76.0-35.0Parkwood HospitalComment on above:Performed By: #### BMP, CBC #### [facility] [address] [place] [address] USAMonocytes (Bld) [#/Vol]0.5 10*3/uLNormal0.0-0.8Parkwood HospitalComment on above:Performed By: #### BMP, CBC #### [facility] [address] [place] [address] USAMonocytes/100 WBC (Bld)9.2 %Normal.Parkwood HospitalComment on above:Performed By: #### BMP, CBC #### [facility] [address] [place] [address] USANeutrophils (Bld) [#/Vol]3.8 10*3/uLNormal1.8-7.7FCleveland Clinic Marymount HospitalComment on above:Performed By: #### BMP, CBC #### [facility] [address] [place] [address] USANeutrophils/100 WBC (Bld)64.2 %Normal.Parkwood HospitalComment on above:Performed By: #### BMP, CBC #### [place] [address] USANucleated RBC/100 WBC (Bld) [Ratio]0.0 %Normal0-0.5 Parkwood HospitalComment on above:Performed By: #### BMP, CBC #### [facility] [address] [place] [address] USAPlatelet mean volume (Bld) [Entitic vol]9.0 fLNormal 6.3-10.7FCleveland Clinic Marymount HospitalComment on above:Performed By: #### BMP, CBC #### [place] [address] USAPlatelets (Bld) [#/Vol]126 10*3/uLSignificant change down 150-450Parkwood HospitalComment on above:Performed By: #### BMP, CBC #### [place] [address] USARBC (Bld) [#/Vol]2.68 10*6/uLLow3.60-5.00Parkwood HospitalComment on above:Performed By: #### BMP, CBC #### [facility] [address] [place] [address] USAWBC (Bld) [#/Vol]6.0 10*3/uLNormal4.5-11.0Parkwood HospitalComment on above:Performed By: #### BMP, CBC #### [address] [place] [address] USACreatinine and Glomerular filtration rate.predicted panel (S/P/Bld)Ordered By: Aquiles Vasquez on 93-72-3171Wdzznokcex [Mass/Vol]0.48 mg/dL0.44-1.03Parkwood HospitalEosinophils Auto (Bld) [#/Vol] Ordered By: Aquiles Vasquez on 53-44-7048Poztmgkbqhr (Bld) [#/Vol]0.0 10*3/uL 0.0-0.45Parkwood HospitalEosinophils/100 WBC Auto (Bld)Ordered By: Aquiles Vasquez on 93-61-5479Totymsggmdf/100 WBC (Bld)0.5 %.Parkwood HospitalErythrocyte distribution width Auto (RBC) [Ratio]Ordered By: Aquiles Vasquez on 18-95-9772Umjbflmrjuf distribution width (RBC) [Ratio] 13.8 %11.9-15.3FCleveland Clinic Marymount HospitalEstimated glomerular filtration rate (GFR) non- AmericanOrdered By: Aquiles Vasquez on 54-99-7060URX/1.73 sq M.predicted among non-blacks MDRD (S/P/Bld) [Vol rate/Area]> 60 mL/Min Parkwood HospitalHematocrit Auto (Bld) [Volume fraction]Ordered By: Aquiles Vasquez on 07-34-1275Kjzonxxxov (Bld) [Volume fraction]25.2 % 34.0-46.4FCleveland Clinic Marymount HospitalHemoglobin [Mass/volume] in Blood Ordered By: Aquiles Vasquez on 92-43-8201Lqmmqvhqyh (Bld) [Mass/Vol]8.4 g/dL 11.8-15.4FCleveland Clinic Marymount HospitalLaboratory - Hematology and Cell countsOrdered By: Aquiles Vasquez on 18-94-2893Djvjftswx RBC/100 WBC (Bld) [Ratio]0.0 %0-0.5FCleveland Clinic Marymount HospitalLeukocytes [#/volume] in Blood by Automated countOrdered By: Aquiles Vasquez on 25-18-5405TLA (Bld) [#/Vol]6.0 10*3/uL4.5-11.0Parkwood HospitalLymphocytes Auto (Bld) [#/Vol] Ordered By: Aquiles Vasquez on 40-76-2995Xobosoqgfkg (Bld) [#/Vol]1.5 10*3/uL 1.00-4.8Parkwood HospitalLymphocytes/100 WBC Auto (Bld)Ordered By: Aquiles Vasquez on 22-04-9998Wvahylbpype/100 WBC (Bld)25.7 %.[facility] Auto (RBC) [Entitic mass]Ordered By: Aquiles Vasquez on 12-82-7675EJH (RBC) [Entitic mass]31.4 pg24.7-34.3FCleveland Clinic Marymount HospitalMCHC Auto (RBC) [Mass/Vol]Ordered By: Aquiles Vasquez on 39-64-3201CAFW (RBC) [Mass/Vol]33.4 g/dL32.0-35.0Parkwood HospitalMCV Auto (RBC) [Entitic vol]Ordered By: Aquiles Vasquez on 85-80-9440XZG (RBC) [Entitic vol]94.0 cP43-722RzugvcjeaParkwood HospitalMonocytes Auto (Bld) [#/Vol] Ordered By: Aquiles Vasquez on 70-35-9602Snxuxhbja (Bld) [#/Vol]0.5 10*3/uL 0.0-0.8Parkwood HospitalMonocytes/100 WBC Auto (Bld)Ordered By: Aquiles Vasquez on 61-87-4632Bwvlhjntb/100 WBC (Bld)9.2 %.Parkwood HospitalNeutrophils Auto (Bld) [#/Vol]Ordered By: Aquiles Vasquez on 99-45-8463Wtrddbsesqa (Bld) [#/Vol]3.8 10*3/uL1.8-7.7FCleveland Clinic Marymount HospitalNeutrophils/100 WBC Auto (Bld)Ordered By: Aquiles Vasquez on 03-03-2022 Neutrophils/100 WBC (Bld)64.2 %.Parkwood HospitalNo Panel InformationOrdered By: Aquiles Vasquez on 17-70-6296Bbdsseffn GFR ()> 60 mL/MinParkwood HospitalComment on above:GFR estimated reference range: According to KDOQI guidelines, <60 ml/min/1.73m2 is sufficient todiagnose a patient with chronic kidney disease.Pharmacy Creatinine Clearance (Tgwv124.34Parkwood HospitalPlatelet mean volume Auto (Bld) [Entitic vol]Ordered By: Aquiles Vasquez on 43-68-9944Ajtcvdxd mean volume (Bld) [Entitic vol]9.0 fL6.3-10.7FCleveland Clinic Marymount HospitalPlatelets Auto (Bld) [#/Vol]Ordered By: Aquiles Vasquez on 06-53-8155Jktwtqrsp (Bld) [#/Vol]126 10*3/wZ711-984XpcleiiweParkwood HospitalComment on above:Delta: 183 on 03/02/22-0459RBC Auto (Bld) [#/Vol]Ordered By: Aquiles Vasquez on 81-19-1020OPK (Bld) [#/Vol]2.68 10*6/uL3.60-5.00Fire[facility] Regional Medical Centererum or plasma anion gap determinationOrdered By: Aquiles Vasquez on 89-96-2870Wwdvp gap [Moles/Vol]12.6 mmol/L6.0-15.0[facility] Medical Centererum or plasma calcium measurement (mass/volume)Ordered By: Aquiles Vasquez on 03-03-2022 Calcium [Mass/Vol]8.3 mg/dL8.2-10.2FSt. Francis Hospitalerum or plasma chloride measurement (moles/volume)Ordered By: Aquiles Vasquez on 35-48-2731Blexkprt [Moles/Vol]107 mmol/H90-541PekxprdcuParkwood Hospital Serum or plasma glucose measurement (mass/volume)Ordered By: Aquiles Vasquez on 41-27-0257Jfvqmxr [Mass/Vol]83 mg/zA88-786OrsegaqcgParkwood Hospital Comment on above:ADA recommended reference rangeRandom Glucose Reference Range is dependent on time and content of last meal. Glucose of more than 200 mg/dL in a nonstressed, ambulatory subject supports the diagnosisof Diabetes Mellitus. Serum or plasma potassium measurement (moles/volume)Ordered By: Aquiles Vasquez on 61-79-8780Ytcvuojqt [Moles/Vol]3.5 mmol/L3.5-5.1FSt. Francis Hospitalerum or plasma sodium measurement (moles/volume)Ordered By: Aquiles Vasquez on 33-06-1979Mjzcre [Moles/Vol]140 mmol/L057-347HgkebbjopFirelands Regional Medical Centererum or plasma total carbon dioxide measurement (moles/volume) Ordered By: Aquiles Vasquez on 43-82-0509BG0 [Moles/Vol]23.9 mmol/L22.0-30.0 [facility] Centererum or plasma urea nitrogen measurement (mass/volume)Ordered By: Aquiles Vasquez on 28-72-3351Pqof nitrogen [Mass/Vol]8 mg/dL9-Parkwood HospitalBasic Metabolic Panelon 03-02-2022 Anion gap [Moles/Vol]7.2 mmol/LNormal6.0-15.0[facility] Comment on above:Performed By: #### BMP, CBC #### [facility] [address] [place] [address] USACalcium [Mass/Vol]8.5 mg/dLNormal8.2-10.2FCleveland Clinic Marymount HospitalComment on above:Performed By: #### BMP, CBC #### [facility] [address] [place] [id number] USAChloride [Moles/Vol]107 mmol/ZXdevoj78-322RsjeptebeParkwood HospitalComment on above:Performed By: #### BMP, CBC #### [facility] [address] [place] [address] USACO2 [Moles/Vol]26.4 mmol/RZbvsoc62.0-30.0Parkwood HospitalComment on above:Performed By: #### BMP, CBC #### [facility] [address] [place] [id number] USACreatinine [Mass/Vol]0.57 mg/dLNormal0.44-1.03Parkwood HospitalComment on above:Performed By: #### BMP, CBC #### [facility] [address] [place] [address] USACreatinine Clr Calc Jyptsknu329.08NoNewark HospitalComment on above:Result Comment: PERFORMED BY: [place] [address] PATHOLOGIST CASH APPLICATIONS SPECIALIST MELISSA FRIAS M.D.Performed By: #### BMP, CBC #### [place] [address] USAEstimated GFR ( Suzette> 60Shelby Memorial HospitalComment on above:Result Comment: GFR estimated reference range: According to KDOQI guidelines, <60 ml/min/1.73m2 is sufficient to diagnose a patient with chronic kidney disease.Performed By: #### BMP, CBC #### [place] [address] USAEstimated GFR (Non- Am> 60Shelby Memorial HospitalComment on above:Performed By: #### BMP, CBC #### [place] [address] USAGlucose [Mass/Vol]131 mg/bGKqtg26-705SomyakgukParkwood HospitalComment on above:Result Comment: Random Glucose Reference Range is dependent on time and content of last meal. Glucose of more than 200 mg/dL in a nonstressed, ambulatory subject supports the diagnosis of Diabetes Mellitus. ADA recommended reference rangePerformed By: #### BMP, CBC #### [place] [address] USAPotassium [Moles/Vol]3.6 mmol/LNormal3.5-5.1FCleveland Clinic Marymount HospitalComment on above:Performed By: #### BMP, CBC #### [place] [address] USASodium [Moles/Vol]137 mmol/ZPgxkjo387-394WizrcqvsmParkwood HospitalComment on above:Performed By: #### BMP, CBC #### [place] [address] USAUrea nitrogen [Mass/Vol]10 mg/dLNormal9-23Parkwood HospitalComment on above:Performed By: #### BMP, CBC #### [facility] [address] [place] [address] USAComplete Blood Count Auto Diffon 37-85-3852Flvtukuiy (Bld) [#/Vol]0.0 10*3/uLNormal0.0-0.2FCleveland Clinic Marymount HospitalComment on above:Result Comment: PERFORMED BY: [place] [address] PATHOLOGIST CASH APPLICATIONS SPECIALIST MELISSA FRIAS M.D.Performed By: #### BMP, CBC #### [place] [address] USABasophils/100 WBC (Bld)0.1 %Normal.Parkwood HospitalComment on above:Performed By: #### BMP, CBC #### [place] [address] USAEosinophils (Bld) [#/Vol]0.0 10*3/uLNormal0.0-0.45 Park[facility] HospitalComment on above:Performed By: #### BMP, CBC #### [place] [address] USAEosinophils/100 WBC (Bld)0.0 %Normal.Parkwood HospitalComment on above:Performed By: #### BMP, CBC #### [place] [address] USAErythrocyte distribution width (RBC) [Ratio]13.3 %Normal 11.9-15.3FCleveland Clinic Marymount HospitalComment on above:Performed By: #### BMP, CBC #### [place] [address] USAHematocrit (Bld) [Volume fraction]28.9 %Low34.0-46.4 Parkwood HospitalCommclaren lapeer region on above:Performed By: #### BMP, CBC #### [place] [address] USAHemoglobin (Bld) [Mass/Vol]9.5 g/dLLow11.8-15.4FCleveland Clinic Marymount HospitalComment on above:Performed By: #### BMP, CBC #### [place] [address] USALymphocytes (Bld) [#/Vol]0.6 10*3/uLLow1.00-4.8Parkwood HospitalComment on above:Performed By: #### BMP, CBC #### [place] [address] USALymphocytes/100 WBC (Bld)5.6 %Normal.Parkwood HospitalComment on above:Performed By: #### BMP, CBC #### [place] [address] USAH (RBC) [Entitic mass]30.7 poEunkzk48.7-34.3FCleveland Clinic Marymount HospitalComment on above:Performed By: #### BMP, CBC #### [place] [address] USAMCV (RBC) [Entitic vol]93.8 nIComqga24-611YuoxcierqParkwood HospitalComment on above:Performed By: #### BMP, CBC #### [place] [address] USAMean Corpuscular HGB Conc32.8 g/kIPsllen47.0-35.0Parkwood HospitalComment on above:Performed By: #### BMP, CBC #### [place] [address] USAMonocytes (Bld) [#/Vol]0.8 10*3/uLNormal0.0-0.8Parkwood HospitalComment on above:Performed By: #### BMP, CBC #### [place] [address] USAMonocytes/100 WBC (Bld)7.6 %Normal.Parkwood HospitalComment on above:Performed By: #### BMP, CBC #### [place] [address] USANeutrophils (Bld) [#/Vol]9.1 10*3/uLHigh1.8-7.7FCleveland Clinic Marymount HospitalComment on above:Performed By: #### BMP, CBC #### [facility] [address] [place] [address] USANeutrophils/100 WBC (Bld)86.7 %Normal.Parkwood HospitalComment on above:Performed By: #### BMP, CBC #### [facility] [address] [place] [address] USANucleated RBC/100 WBC (Bld) [Ratio]0.0 %Normal0-0.5 Parkwood HospitalComment on above:Performed By: #### BMP, CBC #### [place] [address] USAPlatelet mean volume (Bld) [Entitic vol]8.8 fLNormal 6.3-10.7FCleveland Clinic Marymount HospitalComment on above:Performed By: #### BMP, CBC #### [facility] [address] [place] [address] USAPlatelets (Bld) [#/Vol]183 10*3/qXZakemd283-957BtzncjirnParkwood HospitalComment on above:Performed By: #### BMP, CBC #### [place] [address] USARBC (Bld) [#/Vol]3.08 10*6/uLLow3.60-5.00Parkwood HospitalComment on above:Performed By: #### BMP, CBC #### [place] [address] USAWBC (Bld) [#/Vol]10.5 10*3/uLNormal4.5-11.0Parkwood HospitalComment on above:Performed By: #### BMP, CBC #### [place] [id number] USAECG 12 lead ECGon 68-38-2454EBI 12 lead ECGSELECT [facility] [place] [address] [place] [address] Electrocardiograph Report Signed Patient: Christiane Ashley MR#: [id number] [birth year] : 1970 Acct:[id number] Age/Sex: 51 / F ADM Date: 03/01/22 Loc: 4N Room: [address] [place] [address] Type: DIS IN Attending Dr: Aquiles Vasquez [...] MUS Signed By Ted Duarte MD [address] [place], [place] [address]EC 12 lead ECGon 03-01-2022 ECG 12 lead ECGSELECT [facility] Main [address] [address] Electrocardiograph Report Signed Patient: Christiane Ashley MR#: [id number] [birth year] : 1970 Acct:[id number] Age/Sex: 51 / F ADM Date: 03/01/22 Loc: 4N Room: [address] [place] [address] Type: DIS IN Attending Dr: Aquiles Vasquez [...] : 518 ms Sinus rhythm with short [place] Nonspecific ST and T wave abnormality Prolonged QT Abnormal ECG No previous ECGs available Confirmed by TED DUARTE MD ([id number]) on 03/01/2022 1:01:19 PM Referred By: Electronically Signed By:TED DUARTE MD Transcribed By: MUS Signed By Ted Duarte MD 1 1301Shelby Memorial HospitalGlucose Glucometer (BldC) [Mass/Vol]Ordered By: Aquiles Vasquez on 09-47-0446Ljyavyr [Mass/Vol]101 mg/dL Parkwood HospitalComment on above:Random Glucose Reference Range is dependent on time and content of last meal. Glucose of more than 200 mg/dL in a nonstressed, ambulatory subject supports the diagnosis of Diabetes Mellitus.Glucose Poct Glucometerson [id number]: Cleaned MeterNoal Parkwood HospitalComment on above:Result Comment: PERFORMED BY: [facility] [address] [place] [address] PATHOLOGIST CASH APPLICATIONS SPECIALIST MELISSA FRIAS M.D.Performed By: #### GLULS #### Point of Care testing ,Glucose [Mass/Vol]101 mg/dLShelby Memorial HospitalComment on above:Result Comment: Random Glucose Reference Range is dependent on time and content of last meal. Glucose of more than 200 mg/dL in a nonstressed, ambulatory subject supports the diagnosis of Diabetes Mellitus.Performed By: #### GLULS #### Point of Care testing ,No Panel InformationOrdered By: Aquiles Vasquez on 54-07-0824Rcjgmes Glucose CommentGlu2: cleaned [facility] CenterXR CHEST 1 Von [id number] CHEST 1 VEXAM: XR CHEST 1 V HISTORY: Pain COMPARISON: [...] Electronically authenticated by: NAMITA DELUCA Date: 2022-03-01 03:53NoWestern Reserve HospitalXR PELVIS 1_2 VIEWSon [id number] PELVIS 1_2 VIEWSEXAM: XR PELVIS 1_2 VIEWS HISTORY: Pain COMPARISON: None. TECHNIQUE: Single frontal view pelvis x-ray FINDINGS: No acute fracture line, dislocation, or focal osseous erosion. Bilateral adnexal region clips. Vascular stent of the left iliac region. IMPRESSION: No radiographic evidence for acute pelvic osseous injury. Electronically authenticated by: AQUILES LACY Date: 2022-03-01 04:39NoWestern Reserve HospitalXR tibia fibula LT 2V*on [id number] tibia fibula LT 2V* [facility] [place] [address] [place] [address] XRay Report Signed Patient: Christiane Ashley MR#: [id number] [birth year] : 1970 Acct:[id number] Age/Sex: 51 / F ADM Date: 03/01/22 Loc: Room: [address] [place] [address] Type: ADM IN Attending Dr: Aquiles Vasquez [...] Logan Jr., D.OJah03/01/2022 3:10 PM Dictation Location: [place] [address] Transcribed By: [facility] 03/01/22 1510 Dictated By: Cale Logan Jr, DO 03/01/22 1509 Signed By: 03/01/22 1510Shelby Memorial HospitalCARDIAC KAMRON ADMITon [id number] [Catalytic activity/Vol]331 U/LCritically vakg20-041Sij [facility]'S Medical CenterComment on above:Performed By: #### CMP, LIPID, TSH, T7 #### [facility] [address] [address] [address] Mehnaz Tellez.MB [Mass/Vol]6.75 ng/mLCritically high<=3.60The [facility] Rita'S Medical CenterComment on above:Performed By: #### CMP, LIPID, TSH, T7 #### [facility] [address] [address] [address] Mehnaz ArnettTROP9.1 pg/mLNormal4.0-51.3The [facility]'S Medical CenterComment on above:Result Comment: CUT-OFF POINTS HAVE BEEN ESTABLISHED BASED ON THE FOURTH UNIVERSAL DEFINITIONS OF MYOCARDIAL INFARCTION. THE UPPER REFERENCE LIMIT (URL) OF TROPONIN, DEFINED THE 99TH PERCENTILE OF cTnI DISTRIBUTION IN A REFERENCE POPULATION, HAS BEEN CONFIRMED THE DECISION THRESHOLD FOR [place] DIAGNOSIS.Performed By: #### CMP, LIPID, TSH, T7 #### [facility] [address] [address] [address] Mehnaz AckermanO919 ng/mLCritically high9-82The [facility] Rita'S Medical CenterComment on above:Performed By: #### CMP, LIPID, TSH, T7 #### [facility] [address] [address] [address] Mehnaz Zambrano AUTO DIFFon [id number] #0.1 103/ulNormal0.0-0.1The [facility] Rita'S Medical CenterComment on above:Performed By: #### CBC #### [facility] [address] [address] [address] Mehnaz DubonBasophils/100 WBC (Bld)1.2 %Normal0.2-2.0The [facility] Comment on above:Performed By: #### CBC #### [facility] [address] [place] [address] Dr. Mehnaz Marquez #0.1 103/ulNormal0.0-0.7The [facility]'S Medical CenterComment on above: Performed By: #### CBC #### [facility] [address] [place] [address] Dr. Mehnaz Wildosinophils/100 WBC (Bld)1.0 %Normal0.9-7.0The [facility] Comment on above:Performed By: #### CBC #### [facility] [address] [place] [address] Dr. Mehnaz Wildrythrocyte distribution width (RBC) [Ratio]13.0 %Mqesiv99.0-15.[address] [facility]'S Medical CenterComment on above:Performed By: #### CBC #### [facility] [address] [place] [address] Dr. Mehnaz DubonHematocrit (Bld) [Volume fraction]39.0 %Lmkame33.0-48.0The [facility]'S Medical CenterComment on above:Performed By: #### CBC #### [facility] [address] [place] [address] Dr. Mehnaz DubonHemoglobin (Bld) [Mass/Vol]12.8 g/uMZqvvdo37.0-16.0The [facility]'S Medical CenterComment on above:Performed By: #### CBC #### [facility] [address] [place] [address] Dr. Mehnaz Pena #0.04 10e3/ulCritically high0.00-0.03The [facility] Comment on above:Performed By: #### CBC #### [facility] [address] [place] [address] Dr. Mehnaz Pena %0.5 %Normal0.0-0.5The [facility]'S Medical CenterComment on above: Performed By: #### CBC #### [facility] [address] [place] [address] Dr. Mehnaz Dubois #1.2 103/ulNormal1.2-3.8The [facility]'S Medical CenterComment on above:Performed By: #### CBC #### [facility] [address] [address] [address] Mehnaz Andersonmphocytes/100 WBC (Bld)15.7 %Critically low20.5-60.0The [facility]'S Medical CenterComment on above:Performed By: #### CBC #### [facility] [address] [address] [address] Mehnaz Chairez DIFF REQNONormalThe [facility]ellows Falls HospitalComment on above: Performed By: #### CBC #### [facility] [address] [place] [address] Dr. Mehnaz Sage (RBC) [Entitic mass]30.8 ydXdzler50.7-34.0The [facility]'S Medical CenterComment on above:Performed By: #### CBC #### [facility] [address] [place] [address] Dr. Mehnaz Sage (RBC) [Mass/Vol]32.8 g/gNBulkyi30.9-35.2The [facility]S Medical CenterComment on above:Performed By: #### CBC #### [facility] [address] [place] [address] Dr. Mehnaz Sage (RBC) [Entitic vol]94.0 oTAztyuc34.0-99.0The [facility]'S Medical CenterComment on above:Performed By: #### CBC #### [facility] [address] [place] [address] Dr. Mehnaz Cunningham #0.6 103/ulNormal0.3-0.8The [facility]'S Medical CenterComment on above:Performed By: #### CBC #### [facility] [address] [place] [address] Dr. Mehnaz Blackocytes/100 WBC (Bld)7.8 %Normal1.7-12.0The [facility] Comment on above:Performed By: #### CBC #### [facility] [address] [place] [address] Dr. Mehnaz Keene #5.7 103/ulNormal1.4-6.5The [facility]'S Medical CenterComment on above:Performed By: #### CBC #### [facility] [address] [place] [address] Dr. Mehnaz DubonNeutrophils/100 WBC (Bld)73.8 %Ffmtta27.0-75.0The [facility]S Medical CenterComment on above:Performed By: #### CBC #### [facility] [address] [place] [address] Dr. Mehnaz DubonPlatelet mean volume (Bld) [Entitic vol]9.7 fLNormal9.5-13.5The [facility]S Medical CenterComment on above:Performed By: #### CBC #### [facility] [address] [place] [address] Dr. Mehnaz DubonPLT159 103/pmFkcnlb228-431Jrs [facility]S Medical CenterComment on above: Performed By: #### CBC #### [facility] [address] [place] [address] Dr. Mehnaz DubonRBC4.15 106/ulCritically low4.20-5.40The [facility]S Medical CenterComment on above:Performed By: #### CBC #### [facility] [address] [place] [address] Dr. Mehnaz DubonWBC7.8 103/ulNormal4.0-11.0The [facility]'S Medical CenterComment on above: Performed By: #### CBC #### [facility] [address] [place] [address] Dr. Mehnaz DubonCT CSPINE WO CONon [id number] [facility] CONEXAMINATION: [facility] WO CON HISTORY: Pain ; golf cart [...] Electronically authenticated by: MARU ANGEL Date: 2022-02-28 21:46[facility]uther[facility] HospitalCT FACIAL BONES WO CONon 65-75-3026RN FACIAL BONES WO CON EXAMINATION: CT HEAD WO CON, CT FACIAL BONES WO CON [...] Electronically authenticated by: MARU ANGEL Date: 2022-02-28 21:39[facility]utheran HospitalPROF CHEM 8 (BAS METB)on 49-70-5519Cexxg gap [Moles/Vol]13.2 mmol/LNormalThe [facility]'S Medical CenterComment on above:Performed By: #### CMP, LIPID, TSH, T7 #### [facility] [address] [address] [address] Mehnaz DubonCalcium [Mass/Vol]8.6 mg/dLNormal8.5-10.1The [facility] Comment on above:Performed By: #### CMP, LIPID, TSH, T7 #### [facility] [address] [address] [address] Mehnaz DubonChloride [Moles/Vol]104 mmol/NCfkwgc15-438IfhThe [facility] Comment on above:Performed By: #### CMP, LIPID, TSH, T7 #### [facility] [address] [place] [address] Dr. Mehnaz DubonCO2 [Moles/Vol]24.3 mmol/QCmgens81.0-32.0The [facility] Comment on above:Performed By: #### CMP, LIPID, TSH, T7 #### [facility] [address] [place] [address] Dr. Mehnaz DubonCreatinine [Mass/Vol]0.45 mg/dLCritically low0.55-1.02The [facility] SouthwoodsComment on above:Performed By: #### CMP, LIPID, TSH, T7 #### [facility] [address] [place] [address] Dr. Mehnaz WildGFR-AF POLISH>60Normal>=60The [facility]'S Medical CenterComment on above:Performed By: #### CMP, LIPID, TSH, T7 #### [facility] [address] [place] [address] Dr. Mehnaz Sanchez-NON AF POLISH>60Normal>=60The [facility] SouthwoodsComment on above:Performed By: #### CMP, LIPID, TSH, T7 #### [facility] [address] [place] [address] Dr. Mehnaz DubonGlucose [Mass/Vol]76 mg/oXUmfxqv26-740ZmtThe [facility] Comment on above:Performed By: #### CMP, LIPID, TSH, T7 #### [facility] [address] [place] [address] Dr. Mehnaz DubonPotassium [Moles/Vol]2.5 mmol/LCritically low3.5-5.1The [facility] SouthwoodsComment on above:Performed By: #### CMP, LIPID, TSH, T7 #### [facility] [address] [place] [address] Dr. Yilan ChangSodium [Moles/Vol]140 mmol/LDpflni391-854Vii [facility] Comment on above:Performed By: #### CMP, LIPID, TSH, T7 #### [facility] [address] [place] [address] Dr. Mehnaz Burk nitrogen [Mass/Vol]10.0 mg/dLNormal7.0-18.0The [facility]'S Medical CenterComment on above:Performed By: #### CMP, LIPID, TSH, T7 #### [facility] [address] [place] [address] Dr. Mehnaz Burk nitrogen/Creatinine [Mass ratio]22.2 mg/mgNormalThe [facility]S Medical CenterComment on above:Performed By: #### CMP, LIPID, TSH, T7 #### [facility] [address] [place] [address] Dr. Mehnaz DubonVITAMIN B1 (THIAMINE)on 09-59-6573Vzi. B1, Whole Ckcuf215.5 nmol/LCritically high66.5-200.0The [facility]S Medical CenterComment on above:Performed By: #### CMP, LIPID, TSH, T7 #### [facility] [address] [place] [address] Dr. Mehnaz Zambrano AUTO DIFFon [id number] #0.1 103/ulNormal0.0-0.1The [facility]S Medical CenterComment on above:Performed By: #### CBC #### [facility] [address] [place] [address] Dr. Mehnaz DubonBasophils/100 WBC (Bld)1.1 %Normal0.2-2.0The [facility] Comment on above:Performed By: #### CBC #### [facility] [address] [place] [address] Dr. Mehnaz Marquez #0.2 103/ulNormal0.0-0.7The [facility]S Medical CenterComment on above: Performed By: #### CBC #### [facility] [address] [place] [address] Dr. Mehnaz Wildosinophils/100 WBC (Bld)2.5 %Normal0.9-7.0The [facility] Comment on above:Performed By: #### CBC #### [facility] [address] [place] [address] Dr. Mehnaz Wildrythrocyte distribution width (RBC) [Ratio]12.9 %Khflbl36.0-15.[address] [facility]'S Medical CenterComment on above:Performed By: #### CBC #### [facility] [address] [place] [address] Dr. Mehnaz DubonHematocrit (Bld) [Volume fraction]40.6 %Qlpokn53.0-48.0The [facility]'S Medical CenterComment on above:Performed By: #### CBC #### [facility] [address] [place] [address] Dr. Mehnaz DubonHemoglobin (Bld) [Mass/Vol]13.0 g/vUOballj15.0-16.0The [facility]S Medical CenterComment on above:Performed By: #### CBC #### [facility] [address] [place] [address] Dr. Mehnaz Pena #0.01 10e3/ulNormal0.00-0.03The [facility]'S Medical CenterComment on above:Performed By: #### CBC #### [facility] [address] [place] [address] Dr. Mehnaz Pena %0.2 %Normal0.0-0.5The [facility]'S Medical CenterComment on above: Performed By: #### CBC #### [facility] [address] [place] [address] Dr. Mehnaz Dubois #1.1 103/ulCritically low1.2-3.8The [facility] Comment on above:Performed By: #### CBC #### [facility] [address] [place] [address] Dr. Mehnaz Andersonmphocytes/100 WBC (Bld)17.5 %Critically low20.5-60.0The [facility]'S Medical CenterComment on above:Performed By: #### CBC #### [facility] [address] [place] [address] Dr. Mehnaz Chairez DIFF REQNONormalThe [facility]'S Medical CenterComment on above: Performed By: #### CBC #### [facility] [address] [place] [address] Dr. Mehnaz Sage (RBC) [Entitic mass]30.2 nkMchryo00.7-34.0The [facility]S Medical CenterComment on above:Performed By: #### CBC #### [facility] [address] [place] [address] Dr. Mehnaz Sage (RBC) [Mass/Vol]32.0 g/rHClsxva10.9-35.2The [facility] HospitalComment on above:Performed By: #### CBC #### [facility] [address] [place] [address] Dr. Mehnaz Madera (RBC) [Entitic vol]94.4 wXWhmrox34.0-99.0The [facility]S Medical CenterComment on above:Performed By: #### CBC #### [facility] [address] [place] [address] Dr. Mehnaz Cunningham #0.5 103/ulNormal0.3-0.8The [facility]'S Medical CenterComment on above:Performed By: #### CBC #### [facility] [address] [place] [address] Dr. Mehnaz Blackocytes/100 WBC (Bld)8.2 %Normal1.7-12.0The [facility] Comment on above:Performed By: #### CBC #### [facility] [address] [place] [address] Dr. Mehnaz Keene #4.5 103/ulNormal1.4-6.5The [facility]S Medical CenterComment on above:Performed By: #### CBC #### [facility] [address] [place] [address] Dr. Mehnaz Baronutrophils/100 WBC (Bld)70.5 %Castbf86.0-75.0The [facility]S Medical CenterComment on above:Performed By: #### CBC #### [facility] [address] [place] [address] Dr. Mehnaz Christielet mean volume (Bld) [Entitic vol]10.4 fLNormal9.5-13.5The [facility]S Medical CenterComment on above:Performed By: #### CBC #### [facility] [address] [place] [address] Dr. Mehnaz DubonPLT181 103/gwAcyxuq230-242Ifa [facility]S Medical CenterComment on above: Performed By: #### CBC #### [facility] [address] [place] [address] Dr. Mehnaz DubonRBC4.30 106/ulNormal4.20-5.40The [facility]S Medical CenterComment on above:Performed By: #### CBC #### [facility] [address] [place] [address] Dr. Mehnaz DubonWBC6.4 103/ulNormal4.0-11.0The [facility]S Medical CenterComment on above: Performed By: #### CBC #### [facility] [address] [place] [address] Dr. Mehnaz DubonFERRITINon 96-70-4935Bcdnjexm [Mass/Vol]122.0 ng/mLNormal 8.0-252.0The [facility]S Medical CenterComment on above:Performed By: #### FERR, VITAD, FETIBC, B12FOL #### [facility] [address] [place] [address] Dr. Mehnaz Garcia AND TIBCon 02-03-2022% SBDQEZFVNG18.6 %NormalThe [facility]'S Medical CenterComment on above:Performed By: #### FERR, VITAD, FETIBC, B12FOL #### [facility] [address] [place] [address] Dr. Mehnaz Garcia [Mass/Vol]95.0 ug/zTAeprgi03.0-170.0The [facility] Comment on above:Performed By: #### FERR, VITAD, FETIBC, B12FOL #### [facility] [address] [place] [address] Dr. Mehnaz DubonTIBC UMBQPV446.0 ug/dLCritically jlk251.0-450.0The [facility] Medical CenterComment on above:Performed By: #### FERR, VITAD, FETIBC, B12FOL #### [facility] [address] [place] [address] Dr. Mehnaz DubonMAGNESIUMon 74-76-2038Rsrjwpjsp [Mass/Vol]1.7 mg/dLCritically low 1.8-2.4The [facility] Medical CenterComment on above:Performed By: #### CMP, LIPID, TSH, T7 #### [facility] [address] [place] [address] Dr. Mehnaz DubonPHOSPHORUSon 24-39-4744Uxvueaqcn [Mass/Vol]3.6 mg/dLNormal2.6-4.[address] [facility]S Medical CenterComment on above:Performed By: #### CMP, LIPID, TSH, T7 #### [facility] [address] [place] [address] Dr. Mehnaz Hyman 14(COMP METB)on 13-54-3129Lnfnpwr [Mass/Vol]3.3 g/dL Critically low3.4-5.0The [facility] Hospitalment on above:Performed By: #### CMP, LIPID, TSH, T7 #### [facility] [address] [place] [address] Dr. Mehnaz DubonAlbumin/Globulin [Mass ratio]1.1 {ratio}NormalThe [facility]S Medical CenterComment on above:Performed By: #### CMP, LIPID, TSH, T7 #### [facility] [address] [place] [address] Dr. Mehnaz Marie [Catalytic activity/Vol]108 U/MKenuwz31-934Tpw [facility] Medical CenterComment on above:Performed By: #### CMP, LIPID, TSH, T7 #### [facility] [address] [place] [address] Dr. Mehnaz Whitehead [Catalytic activity/Vol]37 U/IDianls89-60Bsx [facility] Medical CenterComment on above:Performed By: #### CMP, LIPID, TSH, T7 #### [facility] [address] [place] [address] Dr. Mehnaz Sims gap [Moles/Vol]10.1 mmol/LNormalThe [facility] Comment on above:Performed By: #### CMP, LIPID, TSH, T7 #### [facility] [address] [address] [address] Mehnaz DubonAST [Catalytic activity/Vol]48 U/LCritically yhqa84-21Bju [facility] Medical CenterComment on above:Performed By: #### CMP, LIPID, TSH, T7 #### [facility] [address] [address] [address] Mehnaz DubonBilirubin [Mass/Vol]0.5 mg/dLNormal0.2-1.0The [facility] Comment on above:Performed By: #### CMP, LIPID, TSH, T7 #### [facility] [address] [address] [address] Mehnaz DubonCalcium [Mass/Vol]8.7 mg/dLNormal8.5-10.1The [facility] Comment on above:Performed By: #### CMP, LIPID, TSH, T7 #### [facility] [address] [address] [address] Mehnaz DubonChloride [Moles/Vol]105 mmol/CEahbsx76-072DehThe [facility] Comment on above:Performed By: #### CMP, LIPID, TSH, T7 #### [facility] [address] [address] [address] Mehnaz DubonCO2 [Moles/Vol]29.0 mmol/OIytkln44.0-32.0The [facility] Comment on above:Performed By: #### CMP, LIPID, TSH, T7 #### [facility] [address] [address] [address] Mehnaz DubonCreatinine [Mass/Vol]0.60 mg/dLNormal0.55-1.02The [facility] Medical CenterComment on above:Performed By: #### CMP, LIPID, TSH, T7 #### [facility] [address] [address] [address] Darby ChangEGFR-AF POLISH>60Normal>=60The [facility]quel HospitalComment on above:Performed By: #### CMP, LIPID, TSH, T7 #### [facility] [address] [address] [address] Mehnaz Sanchez-NON AF POLISH>60Normal>=60The [facility]S Medical CenterComment on above:Performed By: #### CMP, LIPID, TSH, T7 #### [facility] [address] [place] [address] Dr. Mehnaz DubonGlobulin (S) [Mass/Vol]2.9 g/dLNormalThe [facility] Medical CenterComment on above:Performed By: #### CMP, LIPID, TSH, T7 #### [facility] [address] [place] [address] Dr. Mehnaz DubonGlucose [Mass/Vol]77 mg/eOOudnmc36-425VwqThe [facility] Comment on above:Performed By: #### CMP, LIPID, TSH, T7 #### [facility] [address] [place] [address] Dr. Mehnaz DubonPotassium [Moles/Vol]4.1 mmol/LNormal3.5-5.1The [facility] Comment on above:Performed By: #### CMP, LIPID, TSH, T7 #### [facility] [address] [place] [address] Dr. Mehnaz DubonProtein [Mass/Vol]6.2 g/dLCritically low6.4-8.2[facility] on above:Performed By: #### CMP, LIPID, TSH, T7 #### [facility] [address] [place] [address] Dr. Mehnaz DubonSodium [Moles/Vol]140 mmol/SFptxqp241-246EahThe [facility] Comment on above:Performed By: #### CMP, LIPID, TSH, T7 #### [facility] [address] [place] [address] Dr. Mehnaz DubonUrea nitrogen [Mass/Vol]9.0 mg/dLNormal7.0-18.0The [facility] Hospitalment on above:Performed By: #### CMP, LIPID, TSH, T7 #### [facility] [address] [place] [address] Dr. Mehnaz Burk nitrogen/Creatinine [Mass ratio]15.0 mg/mgLutheran HospitalComment on above:Performed By: #### CMP, LIPID, TSH, T7 #### [facility] [address] [place] [address] Dr. Mehnaz Venegas B12 AND FOLATEon 42-37-3935Fxjiidbkn (Vitamin B12) [Mass/Vol] 904.0 pg/wFTllumg978.0-986.0The [facility] Medical CenterComment on above:Performed By: #### FERR, VITAD, FETIBC, B12FOL #### [facility] [address] [place] [address] Dr. Mehnaz DubonFOLATE9.70 ng/mLNormal8.60-58.90The [facility] Medical CenterCommclaren lapeer region on above:Performed By: #### FERR, VITAD, FETIBC, B12FOL #### [facility] [address] [place] [address] Dr. Mehnaz DubonVITAMIN D 25 OHon 23-97-8696CLL D 25-OH44.8 ng/mLNormalThe Surgical Hospital At SouthwoodsComment on above:Performed By: #### FERR, VITAD, FETIBC, B12FOL #### [facility] [address] [place] [address] Dr. Mehnaz Lang RANGESSEE BELOWLutheran HospitalComment on above: Result Comment: <20 ng/mL Vit D deficient 20 - <30 ng/mL Vit D insufficient 30 - 100 ng/mL Vit D sufficient >100 ng/mL Potential ToxicityPerformed By: #### FERR, VITAD, FETIBC, B12FOL #### [facility] [address] [place] [address] Dr. Mehnaz Marie ALT Norma 09-89-5109SZN [Catalytic activity/Vol]139 U/LHigh 32-126Ohio[facility] City Methodist HospitalComment on above:Performed By: #### COMP, ENZ3, CRP, BCR #### [facility] (DEFAULT) [address] [place] [address] 88035OND [Catalytic activity/Vol]35 U/LNormal9-48Ohio[facility] Methodist HospitalComment on above:Performed By: #### COMP ENZ3, CRP, BCR #### [facility] (DEFAULT) [address] [place] [address] 13505VTF [Catalytic activity/Vol]51 U/RDhxx11-79XgrvOhiohealth Grove City Methodist HospitalComment on above:Performed By: #### COMP, ENZ3, CRP, BCR #### [facility] (DEFAULT) [address] [place] [address] 80038AGN CREAon 40-28-6265Nbleusvtbt [Mass/Vol]0.53 mg/dLNormal 0.50-1.20[facility] Methodist HospitalComment on above:Performed By: #### COMP, ENZ3, CRP, BCR #### [facility] (DEFAULT) [address] [place] [address] 80365aDSB, CKD-EPI, Female>90Normal>=60OhAdams County Regional Medical CenterComment on above:Result Comment: Reported eGFR is based on the CKD-EPI 2020 equation using creatinine, age, and sex.Performed By: #### COMP ENZ3, CRP, BCR #### [facility] (DEFAULT) [address] [place] [address] 23387Jswa nitrogen [Mass/Vol]7 mg/dLNormal7-25[facility] Methodist HospitalComment on above:Performed By: #### COMP, ENZ3, CRP, BCR #### [facility] (DEFAULT) [address] [place] [address] 91053Sfux nitrogen/Creatinine [Mass ratio]13 mg/mgNormalOhio Select Medical Specialty Hospital - ColumbusComment on above:Performed By: #### COMP, ENZ3, CRP, BCR #### [facility] (DEFAULT) [address] [place] [address] 20027G REACTIVE PROTEINon 49-63-7425VDH [Mass/Vol]4.61 mg/LNormal <10.00Ohio[facility] Methodist HospitalComment on above:Performed By: #### COMP, ENZ3, CRP, BCR #### [facility] (DEFAULT) [address] [place] [address] 75858B3,C4on 50-08-2957L6653 mg/zDNmimst42-944BwpuOhiohealth Grove City Methodist HospitalComment on above:Performed By: #### COMP, ENZ3, CRP, BCR #### [facility] (DEFAULT) [address] [place] [address] 68559N823 mg/xTJhmkua43-80AhgiOhiohealth Grove City Methodist HospitalComment on above:Performed By: #### COMP, ENZ3, CRP, BCR #### [facility] (DEFAULT) [address] [place] [address] 80466HKF AND ELECTRONIC DIFFon 19-64-5590Rsnbjikux (Bld) [#/Vol] 0.07 10*3/uLNormal0.00-0.15Ohio[facility] Methodist HospitalComment on above:Performed By: #### [id number] #### [facility] (DEFAULT) [address] [place] [address] 58017Blotkupay/100 WBC (Bld)1.2 %[facility] of God HospitalComment on above:Performed By: #### [id number] #### [facility] (DEFAULT) [address] [place] [address] 89149EMBH STATUSElectronic DifferentialNoFayette County Memorial HospitalComment on above:Performed By: #### [id number] #### [facility] (DEFAULT) [address] [place] [address] 95835Ipxryttugrw (Bld) [#/Vol]0.18 10*3/uLNormal0.00-0.42[facility] HospitalComment on above:Performed By: #### [id number] #### [facility] (DEFAULT) [address] [place] [address] 64937Mkpwcgvited/100 WBC (Bld)3.1 %[facility]. [facility] of God HospitalComment on above:Performed By: #### [id number] #### [facility] (DEFAULT) [address] [address]Qjrvimvqoz (Bld) [Volume fraction]43.9 %Ksjjog90.9-44.3Ohio[facility] Methodist HospitalComment on above:Performed By: #### [id number] #### [facility] (DEFAULT) [address] [address]Xsmxodrvyd (Bld) [Mass/Vol]14.2 g/nJLylyky84.4-15.2[facility] HospitalComment on above:Performed By: #### [id number] #### [facility] (DEFAULT) [address] [address]Blnrbbnv Grans %0.3 %NormalOhiohealth Grove City Methodist HospitalComment on above:Performed By: #### [id number] #### [facility] (DEFAULT) [address] [address]60[address]Lvuppmsc Grans Absolute<0.04Normal<=0.08[facility] Methodist HospitalComment on above:Performed By: #### [id number] #### [facility] (DEFAULT) [address] [address]Dyxbboinhas (Bld) [#/Vol]1.05 10*3/uLLow1.16-3.51[facility] HospitalComment on above:Performed By: #### [id number] #### [facility] (DEFAULT) [address] 13983Debfcmseoyu/100 WBC (Bld)17.9 %NormalOhiohealth Grove City Methodist HospitalComment on above:Performed By: #### [id number] #### [facility] (DEFAULT) [address] 07184ZDF (RBC) [Entitic vol]93.6 mBNvvdcg20.6-97.7Ohio[facility] HospitalComment on above:Performed By: #### [id number] #### [facility] (DEFAULT) [address] [place] [address] 09448Qfzf Cell Hgb30.3 fnLfxzty01.9-33.9[facility] HospitalComment on above:Performed By: #### [id number] #### [facility] (DEFAULT) [address] [place] [address] 52272Zaoo Cell Hgb Conc32.3 g/bXLhniyw58.4-35.9[facility] HospitalComment on above:Performed By: #### [id number] #### [facility] (DEFAULT) [address] [place] [address] 60305Uenwkytqe (Bld) [#/Vol]0.50 10*3/uLNormal0.22-0.87[facility] HospitalComment on above:Performed By: #### HMG925 #### [facility] (DEFAULT) [address] [place] [address] 49275Wfcbgsvqo/100 WBC (Bld)8.5 %NormalOhiohealth Grove City Methodist HospitalComment on above:Performed By: #### WDX697 #### [facility] (DEFAULT) [address] [place] [address] 37071Eliqhlraq RBC0.0 /100 WBCNormal<=0.2[facility] HospitalComment on above:Performed By: #### LQY762 #### [facility] (DEFAULT) [address] [place] [address] 54935Tvhowjji mean volume (Bld) [Entitic vol]11.4 fLNormal8.5-12.2 [facility] HospitalComment on above:Performed By: #### IHP449 #### [facility] (DEFAULT) [address] [place] [address] 66396Skvloiqck (Bld) [#/Vol]167 10*3/bKGpcaag654-880ZfauOhiohealth Grove City Methodist HospitalComment on above:Performed By: #### JGS534 #### [facility] (DEFAULT) [address] [place] [address] 90277UBF (Bld) [#/Vol]4.69 10*6/uLNormal3.91-5.04[facility] HospitalComment on above:Performed By: #### [id number] #### [facility] (DEFAULT) [address] [place] [address] 48624GRN Tvpnnkrvfvsy62.0 %Wnrrnu96.8-14.9[facility] HospitalComment on above:Performed By: #### IQB670 #### [facility] (DEFAULT) [address] [place] [address] 53798Oyrv + Bands Auto69.0 %NormalOhiohealth Grove City Methodist HospitalComment on above:Performed By: #### NWV107 #### [facility] (DEFAULT) [address] [place] [address] 64918Wnqe + Bands,Absolute Auto4.05 K/uLNormal1.64-7.28[facility] HospitalComment on above:Performed By: #### [id number] #### [facility] (DEFAULT) [address] [place] [address] 01944KZN (Bld) [#/Vol]5.87 10*3/uLNormal3.99-11.19[facility] HospitalComment on above:Performed By: #### [id number] #### [facility] (DEFAULT) [address] [place] [address] 31520FGTWL ANTIBODYon 41-73-7054siDWM AntibodyNegativeNormal NegativeOhiohealth Grove City Methodist HospitalComment on above:Performed By: #### DSDNAB #### [facility] (DEFAULT) [address] [place] [address] 91241NALZAGUPCEZCA RATE, AUTOMATEDon 88-99-4918OZY Shqjbgzrvi40 mm/hrNormal<30[facility] HospitalComment on above: Performed By: #### ESR #### [facility] (DEFAULT) [address] [place] [address] 73423FJUABJGKLMqn 03-15-3020Fkmwpzvpi>51% = HeavyAbnormal(none)[facility] HospitalComment on above:Performed By: #### URIN #### [facility] (DEFAULT) [address] [place] [address] 57136Itrmctrvzt (U)TurbidAbnormalCleUniversity Hospitals Health SystemComment on above:Performed By: #### URIN #### [facility] (DEFAULT) [address] [place] [address] 75646SlpymywrVKEEJSRslzasABTUBSHkgyCleveland Clinic Lutheran HospitalComment on above:Performed By: #### URIN #### [facility] (DEFAULT) [address] [place] [address] 78205Pzmcx UrineNegativeNormalNegMetroHealth Main Campus Medical CenterComment on above:Performed By: #### URIN #### [facility] (DEFAULT) [address] [place] [address] 22561Xbkfrrz Oxalate CrystalsPRESENTNoFayette County Memorial HospitalComment on above:Performed By: #### URIN #### [facility] (DEFAULT) [address] [place] [address] 13265Emxmz (U)YellowNormalYellowOhiohealth Grove City Methodist HospitalComment on above:Performed By: #### URIN #### [facility] (DEFAULT) [address] [place] [address] 54577Mmlogxk Ql (U)NegativeNormalNegMetroHealth Main Campus Medical CenterComment on above:Performed By: #### URIN #### [facility] (DEFAULT) [address] [place] [address] 28543Yxrkzpr Ql (U)15 mg/dL = SmallAbnormalNegativeOhiohealth Grove City Methodist HospitalComment on above:Performed By: #### URIN #### [facility] (DEFAULT) [address] [place] [address] 88487Zheyunyhg esterase Test strip Ql (U)NegativeNormalNegativeOhiohealth Grove City Methodist HospitalComment on above:Performed By: #### URIN #### [facility] (DEFAULT) [address] [place] [address] 93070Yucilmhm UrineNegativeNormalNegativeOhiohealth Grove City Methodist HospitalComment on above:Performed By: #### URIN #### [facility] (DEFAULT) [address] [place] [address] 51062xT (U)6.0 [pH]Normal5.0-7.0[facility] HospitalComment on above:Performed By: #### URIN #### [facility] (DEFAULT) [address] [address]Behgpqp Urine30 mg/dLAbnormalNegMetroHealth Main Campus Medical CenterComment on above:Performed By: #### URIN #### [facility] (DEFAULT) [address] [place] [address] 89886UAG Jjduv2-0Ndbpnx9-0WjkcOhiohealth Grove City Methodist HospitalComment on above:Performed By: #### URIN #### [facility] (DEFAULT) [address] [place] [address] 81130Axbfyisw Newell Urine>=1.004Cbrgpm5.001-1.035Ohio[facility] HospitalComment on above:Performed By: #### URIN #### [facility] (DEFAULT) [address] [place] [address] 25308Tyoqrkja/Epithelial Cells1/hpf = 1+Normal1/hpf = 1+, 2-5/hpf = 2+, 0/hpf = 0+, ABSENTOhiohealth Grove City Methodist HospitalComment on above:Performed By: #### URIN #### [facility] (DEFAULT) [address] [place] [address] 23149Qssmyeqktewc Urine0.2 E.U./dLNormal0.2 E.U/dL, 1.0 E.U/dLOhiohealth Grove City Methodist HospitalComment on above:Performed By: #### URIN #### [facility] (DEFAULT) [address] [place], [place] [address]TFO Xhlpl7-3Tpvbva1-3SnjgOhiohealth Grove City Methodist HospitalComment on above:Performed By: #### URIN #### [facility] (DEFAULT) [address] [place] [address] Vital Signs Date TimeVital SignValuePerforming FwptppammOrqpxlqc26-21-2177 09:01-0500Body .1 cmMD Yunior Hoy Work Phone: [phone] [place], [place] 9542601-18-2023 09:01-0500 Body mass index (BMI) [Ratio]23.9 kg/m2MD Yunior Hoy Work Phone: 1(860)[address] [place], [place] 9542601-18-2023 09:01-0500 Body oyxvtw05.31 kgMD Yunior Hoy Work Phone: [phone] [place], [place] 9542601-18-2023 08:50-0500 Body zkximzmfrws59.5 [degF]MD uYnior Masterson Work Phone: 1(970)[address] [place], [place] 9542601-18-2023 08:50-0500 Diastolic blood vzdehcbi18 mm[Hg]MD Yunior Masterson Work Phone: 1(743)[address] [place], [place] 9542601-18-2023 08:50-0500 Heart rate85 /minMD Yunior Hozeina Work Phone: [phone])[address] [place], [place] 9542601-18-2023 08:50-0500 Respiratory rate20 /minMD Yunior Hoy Work Phone: [phone])[address] [place], [place] 9542601-18-2023 08:50-0500 Systolic blood uwtqhiap682 mm[Hg]MD Yunior Masterson Work Phone: 1(365)[address] [place], [place] 9542601-04-2023 13:39-0500 Body qmrajv431.1 cmMD Yunior Hoy Work Phone: 1(528)[address] [place], [place] 9542601-04-2023 13:39-0500 Body mass index (BMI) [Ratio]23.9 kg/m2MD Yunior Hoy Work Phone: 1(729)[address] [place], [place] 9542601-04-2023 13:39-0500 Body obaqtc34.31 kgMD Yunior Hoy Work Phone: 1(601)[address] [place], [place] 9542601-04-2023 13:31-0500 Body zirowfrlisx26.2 [degF]MD Yunior Masterson Work Phone: 1(015)[address] [place], [place] 9542601-04-2023 13:31-0500 Diastolic blood wbnehvrv86 mm[Hg]MD Yunior Masterson Work Phone: 1(369)[address] [place], [place] 9542601-04-2023 13:31-0500 Heart nlsw929 /minMD Yunior Hoy Work Phone: 1(057)[address] [place], [place] 9542601-04-2023 13:31-0500 Respiratory rate18 /minMD Yunior Hoy Work Phone: 1(525)[address] [place], [place] 9542601-04-2023 13:31-0500 Systolic blood rpolwhgy660 mm[Hg]MD Yunior Masterson Work Phone: 1(992)[address] [place], [place] 9542612-06-2022 11:26-0500 Body anhyrk639.1 cmMD Yunior Hoy Work Phone: 1(549)[address] [place], [place] 9542612-06-2022 11:26-0500 Body mass index (BMI) [Ratio]23.9 kg/m2MD Yunior Hoy Work Phone: 1(878)[address] [place], [place] 9542612-06-2022 11:26-0500 Body kzhfza43.31 kgMD Yunior Hoy Work Phone: 1(722)[address] [place], [place] 9542612-06-2022 11:10-0500 Body awvhbaayuej60.2 [degF]MD Yunior Masterson Work Phone: 1(161)[address] [place], [place] 9542612-06-2022 11:10-0500 Diastolic blood udqwutyw81 mm[Hg]MD Yunior Masterson Work Phone: 1(313)[address] [place], [place] 9542612-06-2022 11:10-0500 Heart rate76 /minMD Yunior Hoy Work Phone: 1(417)[address] [place], [place] 9542612-06-2022 11:10-0500 Respiratory rate18 /minMD Yunior Tesfayey Work Phone: [phone])[address] [place], [place] 9542612-06-2022 11:10-0500 Systolic blood kdaykqha965 mm[Hg]MD Yunior Masterson Work Phone: 1(419)[address] [place], [place] 9542610-24-2022 08:00-0400 Body .3 [degF]MD Yunior Masterson Work Phone: 1(419)[address] [place], [place] 9542610-24-2022 08:00-0400 Diastolic blood mm[Hg]MD Yunior Masterson Work Phone: 1(419)[address] [place], [place] 9542610-24-2022 08:00-0400 Heart rate97 /minMD Yunior Masterson Work Phone: 1(419)[address] [place], [place] 9542610-24-2022 08:00-0400 Respiratory rate16 /minMD Yunior Masterson Work Phone: 1(419)[address] [place], [place] 9542610-24-2022 08:00-0400 SaO2% (BldA) [Mass fraction]98 %MD Yunior Masterson Work Phone: 1(419)[address] [place], [place] 9542610-24-2022 08:00-0400 Systolic blood jyhxryma50 mm[Hg]MD Yunior Masterson Work Phone: 1(419)[address] [place], [place] 9542610-22-2022 15:05-0400 Body .56 cmMD Yunior Masterson Work Phone: 1(419)[address] [place], [place] 9542610-22-2022 15:05-0400 Body mass index (BMI) [Ratio]25.7 kg/m2MD Yunior Hoy Work Phone: [phone])[address] [place], [place] 9542610-22-2022 15:05-0400 Body mtnjsy48.9 kgMD Yunior Masterson Work Phone: [phone])[address] [place], [place] 9542610-22-2022 14:50-0400 Inhaled oxygen flow rate2 L/minMD Yunior Masterson Work Phone: [phone])[address] [place], [place] 9542608-22-2022 10:17-0400 Body zxofpo392.1 cmJesse Reisner DO Work Phone: 1(746)[address] [place], [place] 9882608-22-2022 10:17-0400Body mass index (BMI) [Ratio]24.66 kg/m1Dyuje Reisner DO Work Phone: 1(735)[address] [place], [place] 9882608-22-2022 10:17-0400Body ogcteo46.22 kgJesse Reisner DO Work Phone: 1(774)[address] [place], [place] 9882608-22-2022 10:17-0400 Diastolic blood mm[Hg]Cezar Reisner DO Work Phone: 1(927)[address] [place], [place] 9882608-22-2022 10:17-0400Heart rate85 /minJesse Reisner DO Work Phone: 1(110)[address] [place], [place] 9882608-22-2022 10:17-0400 Respiratory rate16 /minJesse Reisner DO Work Phone: 1(194)[address] [place], [place] 9882608-22-2022 10:17-9167PdO6% (BldA) [Mass fraction]94 %Cezar Reisner DO Work Phone: 1(687)[address] [place], [place] 9882608-22-2022 10:17-0400Systolic blood bcgfebbk087 mm[Hg]Cezar Reisner DO Work Phone: 1(309)[address] [place] [address] Encounters Encounter DateEncounter TypeCare ProviderFacilityStart: 09-30-2024 End: 72-51-1817Wrkmxlvdtn and management of inpatientRICHARD IEWSoutheast Colorado Hospitaltart: 09-28-2024 End: 62-13-6902vnaktbzzavOvvdxqk B RhiewFacility:[facility] CENTERtart: 09-28-2024 End: 86-42-4814Jzyzvqw encounter procedureRichwilda B Rhiew [facility] Start: 09-23-2024 End: 14-28-7480awowjuenfiOodomwm B RhiewFacility:FTMCStart: 09-23-2024 End: 56-75-0808Nihzutw encounter procedureRichwilda Allen Rhiew [facility] Start: 09-19-2024 End: 83-27-7988hdeuolxsqhJcinsay Tiffany RhiewFacility:FTMCStart: 09-19-2024 End: 91-00-7872Hicvhsu encounter procedureKieran Khannaiew 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 master Other Start: 60-30-8880Ppsadn outpatient new 45 minutes Roberth FelterFPG [facility] Management Bone CreekStart: 10-23-2022 End: 68-26-0502vtilrqhhqxNhnqet [place] Other Droid system master Other Start: 37-84-5789Coysfi outpatient visit 25 minutes Aquiles Vasquez IIFPG [facility] OrthopedicsStart: 09-24-2022 End: 36-44-9616gxbbfgvasyPhtnlk Reina Vasquez IIFacility:[facility]ertart: 09-24-2022 End: 03-83-9927cqwfusseemPU Yunior Reina Masterson Work Phone: [facility] Work Phone: Start: 09-24-2022 End: 67-45-0605Wlgghhi encounter procedureMD Yunior Hoy Work Phone: [facility] Start: 65-19-5530Clulzj outpatient visit 25 minutesRobert [place] IIFPG [facility]ise OrthopedicsStart: 06-25-2022 End: 34-48-6814jinprnoswsMmcsam M [place] IIFacility:[facility] Centertart: 06-25-2022 End: 64-75-6220kjykgwraapSJ Yunior M Hoy Work Phone: [facility] Work Phone: Start: 06-25-2022 End: 99-44-8000Wvvsblz encounter procedureMD Yunior Hoy Work Phone: [facility] Start: 05-28-2022 End: 88-45-1213ikmkadgmecNyktt CopseyFacility:[facility] Start: 05-28-2022 End: 46-20-8589Qcuwkevfhm RecurringMD Yunior Hoy Work Phone: [facility] Work Phone: Start: 36-52-0734emozsvebtgTH YUNIOR HOY .Facility: Start: 97-20-5030Bqvids outpatient visit 25 minutesRobert Pedro IIFPG [facility] OrthopedicsStart: 94-81-8602Wkzywofkjs RecurringMD Yunior Hoy Work Phone: [facility] Work Phone: Start: 05-14-2022 End: 53-42-9047lksfrorlneTadaol M [place] IIFacility:[facility] Centertart: 05-14-2022 End: 65-00-8854urrvwpdumxYT Yunior M Hoy Work Phone: [facility] Work Phone: Start: 05-14-2022 End: 88-50-2800Oxrlovl encounter procedureMD Yunior Hoy Work Phone: [facility] Start: 05-11-2022 End: 46-81-5533iluekoxbdhWMQVTO CARLISLEFacility:V3Bqkkx: 04-16-2022 End: 11-81-6654aqvqivtwmbSHBFAY CARLISLEFacility:G4Arzsq: 73-63-3460Htxtcl outpatient visit 25 minutesRobert [place] IIFPG [facility] OrthopedicsStart: 04-16-2022 End: 20-15-3729ocsfupfajtTzfmox M [place] IIFacility:[facility]ertart: 04-16-2022 End: 04-28-8121fxtcoieknmWL Yunior M Hoy Work Phone: [facility] Work Phone: Start: 04-16-2022 End: 19-88-4196Yljwrsl encounter procedureMD Yunior Hoy Work Phone: [facility] Start: 00-09-4707Getjamhcki RecurringMD Yunior Hoy Work Phone: [facility] Start: 66-94-4505Tszmwqtat for general adult medical examination without abnormal findingsDR YUNIOR HOY .[facility]: 04-04-2022 End: 73-05-6806mfxvrlupvfET YUNIOR HOY .Facility:W1Rwpff: 04-04-2022 End: 54-27-1724Ssgljupbv for general adult medical examination without abnormal findingsDR YUNIOR HOY .Facility:P3Zhizw: 03-19-2022 End: 69-17-1970dfgklhtebzEfzehg [place] Other Droid system master Other Start: 42-87-1967Nzqkjn outpatient visit 15 minutes Aquiles Pedro IIFPG [facility] OrthopedicsStart: 03-13-2022 End: 76-40-1435yrvfleobebRplxtq [place] Other [employer] Other Start: 79-55-0480Jqlwmkqmy encounterRobert [place] II [facility]opedicsStart: 03-09-2022 End: 95-00-5406vpdciuxwriGW YUNIOR HOY .Facility:U4Djksc: 03-03-2022 End: 56-63-0611brdvjurbeiVtixyd [place] Other [employer] Other Start: 17-82-4080Nzhepwtqp encounterRobert [place] [facility] OrthopedicsStart: 03-01-2022 End: 38-70-3189Dvpxdisvbg and management of inpatientAlexandra Hoa Facility:[facility]ertart: 03-01-2022 End: 43-86-3347Tqiahxjkyt and management of inpatientMD Yunior Hoy Work Phone: [facility]-4 [place] SurgicalStart: 02-28-2022 End: 06-53-6900sjzaqxovirXG YUNIOR HOY .Facility:O8Fnhkc: 02-03-2022 End: 89-64-0290ymusuwlqgcQK DOCTOR MISCFacility:L4Ptjqb: 95-19-8014nfuawvgyol YUNIOR M HOYFacility:[facility] CENTERtart: 55-47-4214jqhzszmhixBPHPPDG M HOYFacility:[facility]ENTERtart: 12-30-2021 End: 41-43-8188Shmudt outpatient visit 25 minutesJesse Daly DO Work Phone: [facility] Care HilliardComment on above: Rheumatoid arthritis involving both hands with positive rheumatoid factor (Primary Dx); Diarrhea, unspecified typeStart: 90-19-6423aggroamaavAYGTIPK M HOY Facility:[facility]ENTERtart: 76-73-9811gipknakfugLCQAQBF M HOY Facility:[facility]ENTERtart: 97-35-1198ezakjfufnuCJEHQWI M HOY Facility:[facility] Procedures DateProcedureProcedure DetailPerforming ClinicianStart: 74-54-1468Qmvuj X-ray of left tibia and left fibulaMD Yunior Hoy Work Phone: [phone]-: 35-58-5208Harpi X-ray of left tibia and left fibulaMD Yunior Hoy Work Phone: [phone]-: 65-92-7091Gvtkk X-ray of left tibia and left fibulaMD Yunior Hoy Work Phone: [phone]: 25-87-3399Wzukx X-ray of left tibia and left fibulaMD Yunior Hoy Work Phone: [phone]: 03-52-9379Bscgf X-ray of left tibia and left fibulaMD Yunior Hoy Work Phone: [phone]-: 69-91-2048Bdns reduction of fracture of tibia with internal fixationMD Yunior Hozeina Work Phone: [phone]-: 41-02-6686Efaak X-ray of left tibia and left fibulaMD Yunior [place] Work Phone: [phone]: 82-30-7033Caoid 1996 panel - Serum or Plasma Cezar Valentin DO Work Phone: ablation - action (qualifier value)Kieran Ortega Cervical arthrodesisKieran Ortega H/O: tubal ligationKieran Ortega Nasal septoplastyKieran Ortega Plan of Treatment DateCare ActivityDetailAuthorStart: 04-14-2022 End: 61-57-9613Slhuujb encounter ijfbgseag31/05/2022 Office Visit Rheumatology Cezar Valentin DO [address] [place] [address] Rheumatology Outpatient Care HilliardStart: 03-02-2022 [facility]: 88-66-3265Yunuynsf admissionFirelands Regional Medical Centertart: 94-75-8493Zbcfganey of Intramedullary Internal Fixation Device into Left Tibia, Percutaneous ApproachInsertion of Intramedullary Internal Fixation Device into Left Tibia, Percutaneous Approach [facility]: 04-34-7176Qqxkdeeu to clinical media director [facility]: 06-53-7647Ullgx X-ray of left tibia and left fibulaXR tibia fibula LT 2V*[facility]art: 85-20-1236NI Tibia and Fibula - left 2 ViewsPark[facility] Hospital Start: 89-26-9063Agudoefpf vaccinationINFLUENZA VACCINE (#1)[facility]: 12-30-2021 End: 55-02-7973Tkht density scanBONE DENSITY AXIAL (HIP, PELVIS, SPINE) Imaging Routine Rheumatoid arthritis involving both hands with positive rheumatoid factor Expected: 12/30/2021, Expires: 12/30/2022[facility]Comment [facility] above:Expected: 12/30/2021, Expires: 12/30/2022Start: 12-30-2021 End: 06-92-3024XcooqgovnsMHMLUKAZBM Fluids Routine Rheumatoid arthritis involving both hands with positive rheumatoid factorExpected: 12/30/2021, Expires: 12/30/2022[facility] HospitalComment on above:Expected: 12/30/2021, Expires: 12/30/2022Start: 33-42-8852GQMWB-19 VACCINE (4 - Booster for Pfizer series)COVID-19 VACCINE (4 - Booster for Pfizer series)[facility]art: 35-67-0671Gzadwmu stimulating hormone measurementTSHOSU Summa Healthtart: 53-91-4696Swxbpp vaccine hzv live for subcutaneous useZOSTER (SHINGLES) VACCINE (1 of 2)[facility]: 06-12-2017 Fasting lipid profileLIPID SCREENINGOSOhioHealthtart: 2013 ColonoscopyCOLORECTAL CANCER SCREENING DISCUSSIONOSU [facility]ma Healthtart: 76-90-0666Hsgplusie mammographyMAMMOGRAM SCREENING DISCUSSIONOSU [facility]althtart: 67-59-0859Smrdzzfmj for malignant neoplasm of cervixCERVICAL CANCER SCREENING DISCUSSIONOSU [facility]althtart: 74-41-5067Uolja diphtheria, tetanus and acellular pertussis (DTaP) vaccinationTDAP (ADULT)[facility]: 61-29-8662Iozaaph vaccinationTETANUSHarrison Community Hospitaltart: 85-99-3402DES screeningHIV SCREENING DISCUSSIONMercer County Community Hospital End: 88-84-0609PTY CREABUN CREA Lab Routine Rheumatoid arthritis involving both hands with positive rheumatoid factor every 90 days for 8 Occurrences starting 12/30/2021 until 12/30/2022[facility] Work Phone: Comment on above:every 90 days for 8 Occurrences starting 12/30/2021 until 12/30/2022 End: 99-56-6070Dsubpxby blood count with white cell differential, automatedCBC, EDIF, PLATELET Lab Routine Rheumatoid arthritis involving both hands with positive rheumatoid factor 90 days for 8 Occurrences starting 12/30/2021 until 12/30/2022[facility] HospitalComment on above:90 days for 8 Occurrences starting 12/30/2021 until 12/30/2022atient [facility] Work Phone: Immunizations Immunization DateImmunizationNotesCare HjzselkpXdasdfbb32-08-5432eqxwxjicw virus vaccine, unspecified formulationJesse Reisner DO Work Phone: [facility] CenterOtjeoz01-20-1581ekkvtiqfy virus vaccine, live, attenuated, for intranasal useRsalome denise 977-5577Osbkrf-DvefsMercy Health [facility] General Surgery Raquel 95-12-0045osrixvhis B vaccine, adult dosageJesse Reisner DO Work Phone: [facility] Payers DatePayer CategoryPayerPolicy [id number] [id number] 2022Medicare [id number]o Los Amigos National Rehabilitation CenterR [id number] 2019-Present [phone] [address] [address] [place] [address] 1.2.840.133679.1.13.172.2.7.3.96381[id number] 2.16.840.1.319900.3.579.2.84455-44-2779Rovuxvc487915113 2.16.840.1.481625.3.579.2.9[id number] 2.16.840.1.062347.3.579.2.18528-66-9225Axvrnwp308950599 2.16.840.1.391300.3.579.2.40079-98-8951Uqtdsxp517508020 2.16.840.1.808591.3.579.2.87355-79-7780Eqixgqb8730060 2.16.840.1.821653.3.579.2.91652-30-3235Lnwjcxe8111974 2.16.840.1.188744.3.579.2.22012-83-6013Wrsdnrj4854848 2.16.840.1.569590.3.579.2.11903-48-6582Unkurum5615447 2.16.840.1.770032.3.579.2.30188-91-8805Xhnqdfp3562370 2.16.840.1.356601.3.579.2.11752-02-3621Krxxjtf1086076 2.16.840.1.743831.3.579.2.74273-14-3056Mgndemz3013809 2.16.840.1.043018.3.579.2.74320-39-3931Itkpjia51370038 2.840.1.610304.3.579.2.60497-06-7635Dqcxctp22744621 2.840.1.700488.3.579.2.00681-35-6394Jxugyrd87553758 2..840.1.659203.3.579.2.50303-11-4107Dbmuago39717995 2.0.1.975940.3.579.2.27061-96-4359Sybbeug541061985 2.840.1.403096.3.579.2.01197-92-5506Cabl-idr64887881052-01-7328Rfachlo 21431003GukrdadFQY83863549180 5a503273-cq16-9n49-9t8d-0s2mv570157xVtcqipj [id number] 2.840.1.151004.56Anbfsaq63145300 2.840.1.343105.3.579.2.531 Hpolyly40115129 2.840.1.998936.3.579.2.757Qaporfc05606699 2.840.1.548405.3.579.2.035Mvqxjuw65288129 2.840.1.725791.3.579.2.531 Dqenxxt59308061 2.840.1.032257.3.579.2.403Nquicuz48229022 2.840.1.865232.3.579.2.531 Social History DateTypeDetailFacilityStart: 05-18-2019 End: 05-79-8213Ehkdeub smoking status NHISNever smoked tobaccoOSU [facility] CenterStart: 67-96-9289Uigjzwm use and exposureSmokeless tobacco non-userOSU [facility] Healthtart: 06-81-2364Hifuuzd intakeCurrent drinker of alcohol (finding)[facility]: 16-27-8018Nzrsghn intakeOSOhioHealthtart: 17-66-3639Lpkiluf SDOH Alcohol CommentweeklyOSOhioHealthtart: 45-25-7027Iaq Assigned At BirthNot on fileOSOhioHealthtart: 01-51-9123Mocacwd smoking status NHISEx-smoker (finding) [facility]: 26-02-2541Ktx Assigned At BirthFemale [facility] Centerex Assigned At [facility] HospitalTobacco smoking statusNeverWVUMedicine Harrison Community Hospitalexual Orientation [facility] SexFemale (finding)[facility] Medical Equipment Procedure CodeEquipment CodeEquipment Original TextEquipment IdentifierDatesOpen reduction and internal fixation (ORIF) of fracture of tibia and fibula using intOrthopaedic bone screw, non-bioabsorbable, non-sterile()[id number] FDA Start: 38-79-6616Ewdk reduction and internal fixation (ORIF) of fracture of tibia and fibula using intOrthopaedic bone screw, non-bioabsorbable, non-sterile ()[id number] FDAStart: 86-33-4128Xmzz reduction and internal fixation (ORIF) of fracture of tibia and fibula using intOrthopaedic bone screw, non- bioabsorbable, non-sterile()[id number] FDAStart: 81-18-3171Zlls reduction and internal fixation (ORIF) of fracture of tibia and fibula using intTibia nail, sterile()[id number] FDAStart: 03-01-2022 Goals DatePatient GoalDesired Activity/State Functional Status PuuyGnqavphyavHcrypgWmpiinpt57-80-8762Rmhralktua statusPatient is Progressing Toward BaselineUpper [facility] Medical Center Work Phone: Mental Status AznsKluylmfolyAgvcsqXjktlvby93-69-9902Dufhizyrm functionCognitive Status Patient at BaselineOhiohealth Grant Medical Center Ctr Work Phone: Clinical Notes 12-30-2021 to 10-30-2022 Note Date & JwmaAochGudojbrt71-05-9405 Evaluation note* Encounter Date Diagnosis Assessment Notes Treatment Notes Treatment Clinical Notes Oct, Closed fracture of s haft of left fibula, unspecified fracture morphology, initial encounter (ICD-10 - S82.402A) We discussed patient's relief of 50% after a saphenous nerve block under ultrasound guidance, she notes benefit has since worn off. We discussed treatment options for the patient's left lower extremity pain. Given her recent relief, the patient may benefit from a repeat saphenous nerve block, whichwe will proceed with in the office under ultrasound guidance, however she would like to check with her insurance prior to proceeding. Risks and benefits of procedure explained to patient; patient verbalizes understanding. We finally discussed the option of a pulsed ablation to this nervie. Telephone visit ended. Oct,losed displaced comminuted fracture of shaft of left tibia, initial encounter (ICD-10 - S82.252A) Oct,Strain of left calf muscle (ICD-10 - S86.812A) Oct,OtherAbove note written by Gerard Rodriguez LPN, Pet House Sitter. Edited and approved by Dr. Roberth Kowalski MD. [place] [employer] Other 06-19-2023 Evaluation note* Encounter Date Diagnosis Assessment Notes Treatment Notes Treatment Clinical Notes Oct, Closed fracture of s haft of left fibula, unspecified fracture morphology, initial encounter (ICD-10 - S82.402A) We discussed treatment options for the patient's persistent left lower extremity pain. Patient shows notable tenderness upon exam. She was recently evaluated by Dr Vasquez who believes she may benefit from a saphenous nerve block. Given location of pain and exam findings, I agree with Dr Vasquez,the patient may benefit from a saphenous nerve block, which we will proceed with today in the office under ultrasound guidance. Risks and benefits of procedure explained to patient; patient verbalizes understanding. Patient tolerated this well. Of note, 30 minutes later she notes some relief distalinjection site however states she is not sure if this is significant enough to follow through with the ablation. We will follow up with her later this week via telephone to better determine her relief from this. Oct, losed displaced comminuted fracture of shaft of left tibia, initial encounter (ICD-10 - S82.252A) Oct,Strain of left calf muscle (ICD-10 - S86.812A) Oct,OtherAbove note written by Gerard Rodriguez LPN, Pet House Sitter. Edited and approved by Dr. Roberth Kowalski MD.Medical decision making shows a new problem to me with further workup planned or suggested with thepotential for extensive treatment options that were considered with the most applicable given this patient's situation as noted above. Treatment options considered include a combination of physical therapy approaches, pharmacologic management, and interventional procedures. Those most applicable tothe patient were discussed at this time. Risk [...] negative findings were considered in medical decision-making. [employer] system master Other 06-15-2023 Evaluation note* Encounter Date Diagnosis Assessment Notes Treatment Notes Treatment Clinical Notes Oct, Closed displaced com minuted fracture of shaft of left tibia, initial encounter (ICD-10 - S82.252A) Oct,Strain of left calf muscle (ICD-10 - S86.812A) Oct,losed fracture of shaft of left fibula, unspecified fracture morphology, initial encounter (ICD-10- S82.402A) Oct,OtherRMC L suprapatellar tibial IMN 03/01/2022 We discussed in detail [...] after that block to discuss its results. [employer] system master Other 02-15-2023 Evaluation note* Encounter Date Diagnosis Assessment Notes Treatment Notes Treatment Clinical Notes Jun, Closed displaced com minuted fracture of shaft of left tibia, initial encounter (ICD-10 - S82.252A) Jun,Strain of left calf muscle (ICD-10 - S86.812A) Jun,losed fracture of shaft of left fibula, unspecified fracture morphology, initial encounter (ICD-10- S82.402A) Jun,OtherRMC L suprapatellar tibial IMN 03/01/2022 Overall patient seems to [...] RA treatments that she can but if sheholds off longer as perfectly fine as well. I will plan to see the patient back in about 3 months and get another set of x- rays to assess for healing. [employer] system master Other 01-04-2023 Evaluation note* Encounter Date Diagnosis Assessment Notes Treatment Notes Treatment Clinical Notes May, Closed displaced com minuted fracture of shaft of left tibia, initial encounter (ICD-10 - S82.252A) May,Strain of left calf muscle (ICD-10 - S86.812A) May,losed fracture of shaft of left fibula, unspecified fracture morphology, initial encounter (ICD-10- S82.402A) May,OtherI had a long discussion with the patient [...] this time. I did recommend getting her backinto her cam walking boot and working with therapy in a different capacity to focus on the muscle strain. Also prescribed her 15 mg meloxicam daily for the inflammation. Also recommended using Voltaren gel on a daily basis. I will plan to see her back in 4 to 6 weeks with repeat x-rays. [employer] system master Other 12-07-2022 Evaluation note* Encounter Date Diagnosis Assessment Notes Treatment Notes Treatment Clinical Notes Apr, Closed displaced com minuted fracture of shaft of left tibia, initial encounter (ICD-10 - S82.252A) Apr,losed fracture of shaft of left fibula, unspecified fracture morphology, initial encounter (ICD-10- S82.402A) Apr,therRMC R tibial intramedullary nail 03/01/2022 Overall patient [...] she can still be weightbearing as tolerated tocome out of the cam walking boot if [...] off longer. She is working with her [facility] manager video games on when she can start those medications again. I will plan to see her back in 6 weeks with repeat tibial x-rays. [employer] system master Other 11-09-2022 Evaluation note* Encounter Date Diagnosis Assessment Notes Treatment Notes Treatment Clinical Notes Mar, Closed displaced com minuted fracture of shaft of left tibia, initial encounter (ICD-10 - S82.252A) Mar,2Closed fracture of shaft of left fibula, unspecified fracture morphology, initial encounter (ICD-10- S82.402A) Mar,2OtherRMC R tibial IMN 03/01/22 Overall I think the patient is [...] she will give us a call sooner. [employer]roid system master Other 10-24-2022 Evaluation note* Encounter Date Diagnosis Assessment Notes Treatment Notes Treatment Clinical Notes Feb, Other specified postprocedural s tates (ICD-10 - Z98.890) [employer]roid system master Other 10-24-2022 Discharge summary Author Aquiles Vasquez [facility] March 03, 2022 7:18amNote Date/TimeOct2021 7:18[place] [id number] Discharge Summary Signed Patient: Christiane Ashley MR#: [id number] : 1970 Acct:[id number] Age/Sex: 51 / F Adm Date: 2 Loc: 4N Room: 0J5109-[address]: Aquiles Vasquez II, MD Copies [...] golf cart. The golf cart landed on herleft tibia and she sustained the above injury. She was initially evaluated at [place] emergency department. After complete trauma work-up and found to be an isolated injury to her left lower extremity, she was transferred to [facility] and accepted under orthopedic surgery. That same [...] Creatinine Clear 128.34, Sodium 140, Potassium 3.5, Ziixskpk456, Carbon Ltyiqgv49.9, Anion Gap 12.6, BUN 8 L, Creatinine [...] % (Auto) 64.2, Lymph % (Auto) 25.7, [place] % (Auto) 9.2, Eos % (Auto) 0.5, Baso % (Auto) 0.4, Neut # (Auto) 3.8, Lymph # (Auto) 1.5, [place] # (Auto) 0.5, Eos # (Auto) 0.0, [...] pulse. Sensation intact to light touch in thesuperficial peroneal nerve distribution and deep peroneal nerve distribution. There are paresthesias notedin the deep peroneal nerve distribution but these are improving compared to prior exams. Wiggles her toes. Thigh is soft and compressible. Discharge Plan Discharge Plan Patient Disposition: Home Activity: Ambulate as Tolerated Comment: NWTiffany BERNALE Comment: same as preop diet Additional Instructions: [...] release(DR/EC) 30 mg PO DAILY thyroid (pork) [[place] Thyroid] 90 mg tablet 90 mg PO DAILY.0630 Label Comments: TAKE 1 TABLET BY MOUTH EVERY DAY WITH 120MG TABLET thyroid (pork) [[place] Thyroid] 120 mg tablet 120 mg PO DAILY.0630 Label Comments: TAKE 1 TABLET BY MOUTH [...] By: <Electronically signed by Aquiles Vasquez MD> 03/03/2218 [facility] Work Phone: 1(535) 591-178410-23-2022 Progress note Author Eb Gale [facility] March 02, 2022 9:23amNote Date/TimeOct2021 9:[address] [address] Hospitalist Progress Note Signed Patient: Christiane Ashley MR#: [id number] : 1970 Acct:[id number] Age/Sex: 51 / F Adm Date: 2 Loc: 4N Room: [address] [place] [address] Type: ADM IN Attending Dr: Aquiles Vasquez [...] 30 Mg Capsule. PO 03/02/23 08:59 DAILY [facility] Enoxaparin Sodium 40 mg 03/02/22 10:00 Enoxaparin 40 Mg/0.4 Ml Syringe SUBCUT 03/02/23 09:59 DAILY@1000 [facility] Ferrous Sulfate 324 mg 03/01/22 17:00 [...] Lactated Ringers IV 03/01/23 14:59 Not Given .[id number] MORIAH Leflunomide 20 mg 03/02/22 09:00 Leflunomide 20 Mg Tablet PO 03/02/23 08:59 DAILY MORIAH Metoprolol Tartrate 25 mg 03/01/22 21:00 03/01/22 21:35 Metoprolol Tartrate 25 Mg Tablet PO 03/01/23 20:59 25 mg BID MORIAH Administration Mineral Oil 1 each 03/04/22 14:50 Mineral Oil ([place]) 1 Each Enema [place] ONCE PRN Constipation Multivitamins 1 tab 03/02/22 [...] (5) Hypothyroid: Plan: ? Continue home medications [place] Thyroid (6) Acute blood loss anemia: Plan: ? Her hemoglobin today was 9.5, on reports from [facility] where she was transferred that itwas 12.5, on her MyChart in December it was 14.5 and her hemoglobin normally runs within the normal range based on her MyChart from priorvisits at other hospitals ? Her anemia is likely secondary to having a displaced fracture for more than 24hours combined withsurgical intervention with some blood loss and IV [...] <Electronically signed by Eb Gale DO> 03/02/22922 [facility] Work Phone: 1(381) 557-346510-23-2022 Progress note Author Aquiles Vasquez [facility] March 02, 2022 6:34amNote Date/TimeOct2021 6:34am[place] [id number] Orthopedic Progress Note Signed Patient: Christiane Ashley MR#: [id number] : 1970 Acct:[id number] Age/Sex: 51 / F Adm Date: 2 Loc: 4N Room: [address] [place] [address] Type: ADM IN Attending Dr: Aquiles Vasquez [...] pulse. Sensation intact to light touch in thesuperficial peroneal nerve distribution and deep peroneal nerve [...] % (Auto) 86.7 Lymph % (Auto) 5.6 [place] % (Auto) 7.6 Eos % (Auto) 0.0 Baso % (Auto) 0.1 Neut # (Auto) 9.1 H Lymph # (Auto) 0.6 L [place] # (Auto) 0.8 Eos # (Auto) 0.0 [...] for closed left displaced comminuted tibialshaft fracture withassociated fibular fracture 1. Pain control, attempt to [...] signed by Aquiles Vasquez MD> 03/02/22 0634 [facility] Work Phone: 1(105) 136-599310-22-2022 History and physical note Author Aquiles Vasquez [facility] March 01, 2022 12:26pmNote Date/TimeOct2021 11:48[place] [address] Orthopedic Surgery H&P Signed Patient: Christiane Ashley MR#: [id number] : 1970 Acct:[id number] Age/Sex: 51 / F Adm Date: 2 Loc: Room: [address] [place] [address] Type: ADM IN Attending Dr: Aquiles Vasquez [...] in the deformity. She was seen at [place] emergency department and found to have a closed left tibia/fibula fracture. Per the emergency room physician and my conversation, her CT head, face, C-spine were all negative and this was an isolated injury. I was told that she had hypertension, rheumatoid arthritis, and lupus that were all well controlled. As a result, I recommended admit to [facility] hospitalist service and we would consult [...] well-controlled hypertension, rheumatoid arthritis and lupus for whichshe takes Plaquenil, leflunomide, and she has taken rituximab in the past. She says she only takes this when she has a flareup in the last time was about a year ago. [facility] Social History Smoking Status: Former smoker [...] Confirmed 03/01/22] thyroid (pork) 120 mg tablet ([place] Thyroid) 120 mg PO DAILY.0630 03/01/22 [History Confirmed 03/01/22] thyroid (pork) 90 mg tablet ([place] Thyroid) 90 mg PO DAILY.0630 03/01/22 [History Confirmed 03/01/22] Exam Physical Exam Vital [...] in the pretibial region in the midshaft. Thereis an area of skin tenting. No skin compromise or concern for open fracture. Fullness within the leg but compartments are soft and compressible. Foot is warm and well-perfused with 2+ dorsalis pedis pulse. Paresthesias noted in the superficial peroneal and deep peroneal nerve distribution. Sensation intact to light touch without paresthesias in the sural, saphenous, tibial nerve distribution. Shewiggles her toes. Proximally at the knee and hip she is atraumatic. Nontender around the knee and nontender around the hip. Results Lab Results Labs: All other labs are normal. Imaging & Diagnostic Results Imaging/Diagnostics: AP and lateral of the left tibia was obtained yesterday independently reviewed. These demonstrate amidshaft, slightly more distal fracture of both the [...] head, face, and C-spine were obtained at [place]. I have not seen the physical reports. [...] including its risk and benefits specifically the riskof infection, blood clots, postoperative knee pain, malrotation, [...] signed by Aquiles Vasquez MD> 03/01/22 1226 [facility] Work Phone: 1(481) 257-794610-22-2022 Consult note Author Eb Gale [facility] March 01, 2022 11:50amNote Date/TimeOct2021 11:38[place] [address] Hospitalist Consult Note Signed Patient: Christiane Ashley MR#: [id number] : 1970 Acct:[id number] Age/Sex: 51 / F Adm Date: 2 Loc: Room: [address] [place] [address] Type: ADM IN Attending Dr: Aquiles Vasquez [...] traction and started sliding back down the hilland subsequently rolled over, the golf cart landed directly on her leg and she suffered a tibia fracture from it. She went to [facility] and was subsequently transferred here accepted by orthopedic surgery for planned surgical intervention today. She does have history notable for rheumatoid arthritis and lupus, she has been on hydroxychloroquine, leflunomide, and duloxetine for years , on routine EKG her QT was noted to be 517, she [place] in [place] roughly 2 [place] ago and had an echocardiogram performed, she has neverhad any issues with medication regimen Vik as far as she knows everything is come [facility] her routine testing. She has never [...] Confirmed 03/01/22] thyroid (pork) 120 mg tablet ([place] Thyroid) 120 mg PO DAILY.0603/01/22 [History Confirmed 03/01/22] thyroid (pork) 90 mg tablet ([place] Thyroid) 90 mg PO DAILY.62903/01/22 [History Confirmed 03/01/22] Active Medications: Active Medications Generic Name Dose Route Start Last Admin Trade Name Freq PRN Reason Stop Dose Admin Acetaminophen 500 mg 03/01/22 16:30 Acetaminophen 500 Mg Tablet PO 03/04/22 16:29 Q6H [facility] Duloxetine HCl 30 mg 03/02/22 09:00 Duloxetine [...] 20 Mg Tablet PO 03/02/23 08:59 DAILY [facility] Lidocaine HCl 0.1 ml 03/01/22 10:20 Lidocaine 1% 20 Ml Vial INTRADERMA 03/01/22 16:20 PREOP PRN Venipuncture Lidocaine HCl 0.1 ml 03/01/22 11:18 Lidocaine 1% 20 Ml Vial INTRADERMA 03/01/22 17:18 PREOP PRN Venipuncture Metoprolol Tartrate 25 mg 03/01/22 21:00 Metoprolol Tartrate 25 Mg Tablet PO 03/01/23 20:59 BID MORIAH Non-Formulary Medication 90 mg 03/02/22 06:30 Thyroid (Pork) [[place] Thyroid] PO 03/02/23 06:29 DAILY.0630 MORIAH Non-Formulary Medication 120 mg 03/02/22 06:30 Thyroid (Pork) [[place] Thyroid] PO 03/02/23 06:29 DAILY.0630 MORIAH Non-Formulary [...] (5) Hypothyroid: Plan: ? Continue home medications [place] Thyroid Documented By: Eb Gale DO 03/01/22 1136 Signed By: <Electronically signed by Eb Gale DO> 03/01/22 1150 [facility] Work Phone: 1(548) 229-279110-21-2022 NotePROCEDURE: XR TIB_FIB LT 2V HISTORY: Pain [...] Electronically authenticated by: MARU ANGEL Date: 2022-02-28 21:26[facility]08-22-2022 History of Present illness Narrative* Cezar Valentin DO - 12/30/2021 10:40 AM EDT I saw with Christiane Ashley Dr. Valentin. I performed my own history and exam. We developed the plan together. I agree with the note documented by Dr. Valentin. She complained of chronic lower back pain and symptoms did not improve with weight loss surgery. She was following up with regulatory law specialist. Reported symptoms of chronic diarrhea up [...] were ordered on 12/30/2021 Annabel Null DO Sample Dye Mixerrisk reduction counselor Division of Immunology/Rheumatology Department of Internal Medicine [address] [address] I have had the pleasure of seeing Ms. 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 Patient was seen and discussed with attending manager video games, Dr. Null. Cezar Valentin DO Rheumatology fellow [facility] Instructions* Patient Instructions* Cezar Valentin DO - 12/30/2021 10:40 AM EDT We will decrease the leflunomide to 10mg daily. Get labs today. Please follow up in 3 months. I will order a DEXA scan to check for osteoporosis which should be done every 2 years. documented [facility] encounter[facility] + Plan note No data available for this section [facility] Evaluation note* Diagnosis Rheumatoid arthritis involving both hands with positive rheumatoid factor- Primary Diarrhea, unspecified type [facility] Diagnosis Onset Date Resolution Status Acute blood loss anemia acuteClosed fracture of left tibia and fibulaacuteHypothyroidacuteLong QT intervalacuteLupusacuteRheumatoid arthritisacuteTibia/fibula fracture, shaft acute [facility] Work Phone: Evaluation noteNo [employer] Other Evaluation note* Diagnosis Onset Date Resolution Status Acute blood loss anemia acuteClosed fracture of left tibia and fibulaacuteLong QT intervalacute HypothyroidchronicLupuschronicRheumatoid arthritischronicTibia/fibula fracture, shaftchronic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 legchronicFracture blisterchronicHypothyroid chronicLupuschronicRheumatoid arthritischronicTibia/fibula fracture, shaft chronicWound painchronic [facility] Work Phone: Evaluation note* Diagnosis Onset Date Resolution Status Acute blood loss anemia acuteClosed fracture of left tibia and fibulaacuteLong QT intervalacute HypothyroidchronicLupuschronicRheumatoid arthritischronicTibia/fibula fracture, shaftchronic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 legchronicFracture blisterchronicHypothyroid chronicLupuschronicRheumatoid arthritischronicTibia/fibula fracture, shaft chronicWound painresolved [facility] Work Phone: Evaluation note* Diagnosis Onset Date Resolution Status 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 leg chronicHypothyroidchronicLupuschronicRheumatoid arthritischronicTibia/fibula fracture, shaftchronicFracture blisterresolvedWound painresolved [facility] Work Phone: Evaluation noteNo assessment information available [facility] Work Phone: Hospital Discharge instructions Additional Instructions Keep dressing dry and intact till see in office Non-weight bearing for 2 weeks till seen in office May shower, no tub baths[facility] Work Phone: Hospital Discharge instructions No data available for this section [facility] Progress note No data available for this section [facility] Reason for Referral SpecialtyDiagnoses / ProceduresReferred By ContactReferred To Contact Diagnoses Rheumatoid arthritis involving both hands with positive rheumatoid factor Procedures BONE DENSITY AXIAL (HIP, PELVIS, SPINE) Annabel Null, [address] [place] [address] Referral IDStatusReasonStart DateExpiration DateVisits RequestedVisits [id number] Request/ Reason Please refer to woun d care for left calf fracture blister Diagnosis 1 Closed displaced com minuted fracture of shaft of left tibia, initial encounter (S82.252A) Referral Organization [facility] Referring Provider First Name Aquiles Referring Provider Last Name Pedro TREVIZO Referring Provider Specialty Orthopedic Surgery Referred Organization [facility] Wound Ca re Hyperbaric Referred Provider Beverly Torres Referred Address [address] [place], [place],[address] Referred Provider Specialty Nurse Rick fontanez Referral Priority Routine Referral Appointment Date 2022-03-20 General Notes Teresa Donnelly 02:13:28 PM >patient appointment was already set up with wound care by the office. Patient scheduled tomorrow 03/20/22 at 3:30pm. Referral faxed Advance Directives No Advanced Directives Records FoundLatest Code Status on File Code StatusDate ActivatedDate InactivatedCommentsFull Code-Unverified06/11/2012 6:00 06/15/2012 7:53 PM Advance Directive Response Recorded Date/ Time Advance Directives No March 01, 2022 6:17am Advance Directive Response Recorded Date/ Time Advance Directives No March 01, 2022 5:17am Summary Purpose Family History No Family History Records Found Relationship Condition Age at Onset Recorded Date/T amy Not Specified Diabetes mellitus Unknown Heart diseaseUnknownMalignant neoplasmUnknownCerebrovascular accident (CVA) Unknown Chief Complaint and Reason for Visit Chief Complaint Left Tibia Fracture. Reason for Visit Acute blood loss ane fransisco Closed fracture of left tibia and fibula Hypothyroid Long QT interval Lupus Rheumatoid arthritis Tibia/fibula fracture, shaft Chief Complaint Left Tibia Fracture. Open WoundReason for VisitAcute blood loss anemia Closed fracture of left tibia and fibula Long QT interval Hypothyroid Lupus Rheumatoid arthritis Tibia/fibula fracture, shaft 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 leg Fracture blister Hypothyroid Lupus Rheumatoid arthritis Tibia/fibula fracture, shaft Wound pain Chief Complaint Left Tibia Fracture. S82.252A S82.252A Open WoundReason for VisitAcute blood loss anemia Closed fracture of left tibia and fibula Long QT interval Hypothyroid Lupus Rheumatoid arthritis Tibia/fibula fracture, shaft 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 leg Fracture blister Hypothyroid Lupus Rheumatoid arthritis Tibia/fibula fracture, shaft Wound pain Chief Complaint S82.252A S82.252A Open WoundReason for Visit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 leg Hypothyroid Lupus Rheumatoid arthritis Tibia/fibula fracture, shaft Fracture blister Wound pain Additional Source Comments Reason for Visit (unrecogniz ed section and content) ReasonCommentsRheumatoid ArthritisLot of back pain, left knee pain and right hip pain Care Teams (unrecognized sec tion and content) Team MemberRelationshipSpecialtyStart DateEnd Yunior Masterson MD [address] [facility] [place] [address] [facility]12 Team Status: Inactive Member Role Status Yunior Masterson MD Primary Care Provider Active Aquiles Vasquez II, [facility] Provider, Attending ProviderActiveLouann Camara RNOther ProviderActiveRosanna Church RNOther ProviderActiveAnjana Soares RNOther ProviderActiveSmitha Reynoso RNOther ProviderActiveRylie Patel RNOther ProviderActiveMonancy Britton RNOther ProviderActiveMitzi Goodwin MD Other ProviderActiveAnaozzy Montero MDOther ProviderActiveLisa Reina Kemp , RESEARCH AND DEVELOPMENT CHEMIST Other ProviderActiveRonkenneth Hill , DOOther ProviderActiveMuskevin Boone MD Other ProviderActiveAnadn Black , DOOther ProviderActiveBang Cervantes MDOther ProviderActiveVesta Glass MDOther ProviderActiveLyREAL Fontana-BCOther ProviderActivePaige Mendenhall MDOther ProviderActiveGary Cruz MDOther ProviderActiveLisa Vasquez MDOther ProviderActiveMikayla Schwartz MD Other ProviderActiveMichaeluba Christianson , DOOther ProviderActiveThjayy Mckeon MD Other ProviderActiveFirtyree Vidales MDOther ProviderActiveEarluba Cho MDOther ProviderActiveCherelle Goyal , GAMEPLAY ENGINEER-COther ProviderActiveOtoniel Rhodes MDOther ProviderActiveNaealida Hailer , MDOther ProviderActiveAlana Amos MDOther ProviderActiveGalen Jerez MDOther ProviderActiveKsenia Ray , DOOther ProviderActiveNatalya Chilel MDOther ProviderActiveNeal R Ernestine , DO Other ProviderActiveAnthony M Miniaci , DOOther ProviderActiveLinda Obika , RESEARCH AND DEVELOPMENT CHEMIST Other ProviderActiveShrayna Gale , DOOther ProviderActiveCelina Mueller MDOther ProviderActiveBritt Clark RNOther ProviderActive Team Status: Active Member Role Status Dates Yunior Masterson MD Primary Care Provider Active Team Status: Inactive Member Role Status Dates Yunior Masterson MD Primary Care Provider Active Aquiles Vasquez II, MDAamairani ProviderActive Team Status: Active Member Role Status Dates Yunior Masterson MD Primary Care Provider Active Evan Souza ProviderActive Team Status: Inactive Member Role Status Dates Yunior Masterson MD Primary Care Provider Active Evan Souza ProviderActive INFORMATION SOURCE (unrecogn ized section and content) DATE CREATED AUTHOR 01/03/2022 [facility] DATE CREATED AUTHOR AUTHOR'S ORGANIZ ATION 09/13/2022 [facility] DATE CREATED AUTHOR AUTHOR'S ORGANIZ ATION 10/17/2022 [facility] DATE CREATED AUTHOR AUTHOR'S ORGANIZ ATION 09/19/2024 [facility] DATE CREATED AUTHOR AUTHOR'S ORGANIZ ATION 10/05/2024 [facility] DATE CREATED AUTHOR AUTHOR'S ORGANIZ ATION 10/06/2024 [facility] DATE CREATED AUTHOR AUTHOR'S ORGANIZ ATION 10/08/2024 [facility] Goals (unrecognized section and content) Goals may [...] BE BASED ON THE PRIMARY CLINICAL RECORDS. [employer] [facility]. provides no warranty or guarantee of the accuracy or completeness of information in this document.
[2025-04-19 09:14] LABS: Hematocrit 35.2 % (36.0-48.0); Hemoglobin 10.4 g/dL (12.0-16.0); Immature Granulocytes Abs Auto 0.01 10^3/uL (0.00-0.03); Immature Granulocytes Pct Auto 0.2 % (0.0-0.5); Lymphocytes Absolute Auto 1.1 10^3/uL (1.2-3.8); Mean Corpuscular HGB Conc 29.5 g/dL (29.9-35.2); Mean Corpuscular Hemoglobin 23.7 pg (26.7-34.0); Mean Corpuscular Volume 80.2 fL (81.0-99.0); Platelet Count 201 10^3/uL (150-450); Red Blood Count 4.39 10^6/uL (4.20-5.40); White Blood Count 6.2 10^3/uL (4.0-11.0)
[2025-04-19 10:45] LABS: Alanine Aminotransferase 35 U/L (14-59); Albumin Globulin Ratio 0.8; Albumin Level 3.3 g/dL (3.4-5.0); Alkaline Phosphatase 123 U/L (46-116); Anion Gap 15.1; Aspartate Amino Transferase 43 U/L (15-37); Blood Urea Nitrogen 9.0 mg/dL (7.0-18.0); Calcium 8.5 mg/dL (8.5-10.1); Carbon Dioxide 24.8 mmol/L (21.0-32.0); Chloride 104 mmol/L (98-107); Cholesterol 159 mg/dL (<=200); Estimated GFR (African America >60 (>=60 mL/min/1.73m^2); Estimated GFR (Non-African Ame >60 (>=60 mL/min/1.73m^2); Free T3 2.06 pg/mL (2.18-3.98); Globulin 4.2 g/dL; Glucose 83 mg/dL (74-106); HDL Cholesterol 66 mg/dL (40-60); Potassium 3.9 mmol/L (3.5-5.1); Sodium 140 mmol/L (136-145); Thyroid Stimulating Hormone 5.908 uIU/mL (0.358-3.740); Total Protein 7.5 g/dL (6.4-8.2); Triglycerides 67 mg/dL (<=150); VLDL CHOLESTEROL 13.4 mg/dL
== END 2025-04-19 08:18 | disposition home or self-care (01) ==
LOC: LAB 08:23
PROVIDERS: PCP Family Medicine; Visit Provider Family Medicine
DX: Z00.00 Encounter for general adult medical examination without abnormal findings (principal); I10 Essential (primary) hypertension; E78.5 Hyperlipidemia, unspecified; Z12.12 Encounter for screening for malignant neoplasm of rectum; E03.9 Hypothyroidism, unspecified; R73.09 Other abnormal glucose; D50.9 Iron deficiency anemia, unspecified
CPT/HCPCS: 36415; 80053; 80061; 83036; 84436; 84443; 84481; 85025